=== PATIENT | female | born 1945 | race Caucasian/White ===

== ENCOUNTER 2023-12-27 07:20 | Emergency (ER) | payer MEDICARE, SELFPAY ==
[2023-12-27] VITALS (16 sets, daily range): BP systolic 95–113; BP diastolic 56–70; PULSE 61–87; RESP 28; TEMP 36.6; O2SAT 94–98
--- NOTE | 2023-12-27 07:33 | CT_ITS ---
Patient: ENA KHALIL Facility:?[facility] Patient ID:?[id number] Site Patient ID:?[id number]. Site :?1945 Study:?CT-Chest/Abd/Pelvis W/O-12/27/2023 8:36:32 AM Ordering Physician:WALT Final Report: Indication: Lung cancer Technique: CT of the chest and pelvis without IV contrast. Multiplanar reformats are included. Please note that all CT scans at this facility use dose modulation, iterative reconstruction, and/or weight-based dosing when appropriate to reduce radiation dose to as low as reasonably achievable. Comparison: CT chest 04/26/2022 Findings: Postradiation change in the left upper lobe and in the medial basal left lower lobe including significant volume retraction and atelectasis with cylindrical and varicoid bronchiectasis. No residual tumor or masslike nodular consolidation is seen. Few scattered areas of ground-glass opacification and reticulation in the right lung. Appears improved compared to the previous exam. There is some focal bronchiectasis in the proximal right middle lobe bronchi that is new. No bronchial impaction or distal obstruction of the right middle lobe. Bronchial debris in the right lower lobe. Small subsolid opacity in the left lower lobe on series 4, image 71 measures 5 millimeters. No pleural effusion. No pericardial effusion. No adenopathy seen in the chest. Mediastinal and hilar adenopathy can be difficult to evaluate without IV contrast but none is suspected based on the noncontrast appearance. The liver gallbladder and bile ducts appear normal. The pancreas appears normal. The spleen is normal. The adrenal glands are not discretely seen but there is no mass or mass effect. No urinary tract dilatation. Heavy atherosclerotic vascular calcifications. No dilated or inflamed bowel. Moderate stool burden. The appendix is not discretely seen. No adenopathy or ascites. Lower lumbar laminectomy with anterior and posterior spinal fusion. The right L3 pedicle screw is at the disc space. No obvious hardware failure. Significant streak artifact. No focal bone lesions. Old right 4th and 5th rib fractures. No acute fracture seen. Impression: 1. Presumed treatment effect in the left lung with significant volume loss and bronchiectasis. 2. Nonspecific ground-glass, reticular, and subsolid opacities bilaterally. Recommend short-term interval follow-up. 3. Significant streak artifact from lumbar spinal hardware. No findings of metastatic disease or acute findings seen in the abdomen or pelvis Please note that all CT scans at this facility use dose modulation, iterative reconstruction, and/or weight-based dosing when appropriate to reduce radiation dose to as low as reasonably achievable. Dictated by Mary Jauregui MD @ 12/27/2023 8:49:40 AM Signed by:?Mary Jauregui MD @12/27/2023 8:49:40 AM (Electronic Signature)
--- NOTE | 2023-12-27 07:34 | CT_ITS ---
Patient: ENA KHALIL Facility:?[facility] Patient ID:?[id number] Site Patient ID:?[id number]. Site :?1945 Study:?CT-Head W/O-12/27/2023 8:34:42 AM Ordering Physician:WALT Final Report: Indication: History of lung cancer. Technique: Noncontrast CT of the head with multiplanar reconstruction in bone and soft tissue algorithms. Comparison: CT head dated 06/12/2019. Findings: No acute intracranial hemorrhage. The mott-white matter interface is preserved. Subject to the limited sensitivity of noncontrast CT in detecting intracranial lesions, no intracranial mass or mass effect. Mild diffuse parenchymal volume loss. No ventricular obstruction. No suspicious calvarial lesion. Unremarkable orbits. The imaged paranasal sinuses and mastoid air cells are clear. Impression: 1. No acute intracranial abnormality. 2. Subject to the limitations of noncontrast CT in detecting intracranial lesions, no mass or mass effect. 3. Similar mild diffuse parenchymal volume loss. Please note that all CT scans at this facility use dose modulation, iterative reconstruction, and/or weight-based dosing when appropriate to reduce radiation dose to as low as reasonably achievable. Dictated by Sy Ma MD @ 12/27/2023 8:45:31 AM Signed by:?Sy Ma MD @12/27/2023 8:45:31 AM (Electronic Signature)
--- NOTE | 2023-12-27 07:37 | ED.GENADULT ---
HPI - General Adult General Chief complaint: Anxiety Stated complaint: anxiety Time Seen by Provider: 12/27/23 07:29 History of Present Illness HPI narrative: Is a 70-year-old female who was apparently at [facility] yesterday, family was dissatisfied with a level of service they brought her to the [facility]. She has not been here before. There is very limited data available. No family members immediately available for her. She is brought in by EMS. Patient is yelling out in asking for water. There has been a history of anxiety history of lung cancer. Uncertain of her code status uncertain of her oncology condition and treatment protocol or expectation. Patient this time is able to the ask for water, she appears awake alert does not really respond to questions other than asking for water and crying out that she wants certain individual. She does shake her head no when asked if she has pain or fever or feels sick. Does not appear cyanotic, does not appear to have any air hunger respiratory issue. Addendum 7:56 a.m.: The patient's family arrived reported that she has awakened this morning feeling scared and not herself. She went to bed feeling well, typically she ambulates and talks and interacts normally. She has had by their report no focal neurologic weakness. She also has a history of back we contracts constructive surgery, degenerative disc disease, and she is on chronic oxycodone for the pain issue. She has not had any heart issues or stroke issues in the past. She is on multiple medications of which they did not know what type presently other than the OxyContin. Family reports she has no allergies to medication. They also report that her lung cancer was remote and she did chemotherapy and radiation and has not had recurrence. Related Data Home Medications Medication Instructions Recorded Confirmed apixaban 2.5 mg tablet (Eliquis) 2.5 mg PO BID 12/27/23 12/27/23 buprenorphine 20 mcg/hour weekly 1 patch topical 12/27/23 transdermal patch buspirone 30 mg tablet 30 mg PO BID 12/27/23 12/27/23 donepezil 10 mg tablet 10 mg PO DAILY 12/27/23 12/27/23 guaifenesin 600 mg tablet, mg PO BID 12/27/23 extended release 12 hr hydroxyzine HCl 10 mg tablet 10 mg PO 3XD 12/27/23 12/27/23 oxycodone 5 mg tablet 5 mg PO 3XD PRN chronic pain 12/27/23 12/27/23 oxycodone myristate 9 mg capsule 9 mg PO BID chronic pain 12/27/23 12/27/23 sprinkle extended release 12 hr(DON'T CRUSH) (Xtampza ER) oxycodone-acetaminophen 5 mg-325 1 tab PO 3XD PRN pain 12/27/23 12/27/23 mg tablet pregabalin 100 mg capsule 100 mg PO 3XD 12/27/23 12/27/23 trazodone 150 mg tablet 150 mg PO QPM 12/27/23 12/27/23 venlafaxine 150 mg 150 mg PO DAILY 12/27/23 12/27/23 capsule,extended release 24 hr Previous Rx's Medication Instructions Recorded nitrofurantoin 100 mg PO Q12H 5 days #10 caps 12/27/23 monohydrate/macrocrystals 100 mg capsule (Macrobid) Allergies Allergy/AdvReac Type Severity Reaction Status Date / Time No Known Drug Allergies Allergy Verified 12/27/23 08:48 Review of Systems Status of ROS: Reports: unobtainable due to medical condition Exam Narrative: Exam Narrative: Objective patient is afebrile her vital signs look unremarkable O2 sat is 95% on room air She is awake alert she is talking in normal words in sentences but does appear anxious scared, almost a paranoid type behavior. She is noncyanotic No accessory muscles respiration use HEENT shows no facial asymmetry extraocular wounds appear intact when she moves her eyes about neck is supple not chest is clear Chest heart is regular regular heart murmur Abdomen benign soft Extremities are no edema Neurologic she has normal strength sensation upper lower extremities., she is moving her extremities well Const: Vital Signs, click to edit/add: Vital Signs - 24 hr 12/27/23 08:35 12/27/23 08:38 12/27/23 09:00 Pulse Rate 63 Blood Pressure Pulse Oximetry 98 96 95 12/27/23 09:02 12/27/23 09:30 12/27/23 09:31 Pulse Rate 63 66 62 Blood Pressure 105/56 L 113/61 Pulse Oximetry 95 97 96 12/27/23 10:00 12/27/23 10:02 12/27/23 10:03 Pulse Rate 62 63 64 Blood Pressure 103/57 L Pulse Oximetry 96 96 96 12/27/23 10:30 12/27/23 10:31 12/27/23 11:00 Pulse Rate 65 65 61 Blood Pressure 105/60 Pulse Oximetry 96 96 95 12/27/23 11:02 Pulse Rate 87 Blood Pressure 95/56 L Pulse Oximetry 94 Course Vital Signs Vital signs: Initial Vital Signs Temperature 97.9 F 12/27/23 07:30 Temperature Source Temporal Artery Scan 12/27/23 07:30 Pulse Rate 85 12/27/23 07:30 Respiratory Rate 28 H 12/27/23 07:30 Blood Pressure 105/70 12/27/23 07:30 Blood Pressure Mean 81 12/27/23 07:30 Blood Pressure Position Sitting 12/27/23 07:30 Pulse Oximetry 95 12/27/23 07:30 Oxygen Delivery Method Room Air 12/27/23 07:30 Vital Signs Temperature 97.9 F 12/27/23 07:30 Pulse Rate 85 12/27/23 07:30 Respiratory Rate 28 H 12/27/23 07:30 Blood Pressure 105/70 12/27/23 07:30 Pulse Oximetry 95 12/27/23 07:30 Oxygen Delivery Method Room Air 12/27/23 07:30 Temperature 97.9 F 12/27/23 07:30 Pulse Rate 87 12/27/23 11:02 Respiratory Rate 28 H 12/27/23 07:30 Blood Pressure 95/56 L 12/27/23 11:02 Pulse Oximetry 94 12/27/23 11:02 Oxygen Delivery Method Room Air 12/27/23 07:30 Medications Administered Medications: Discontinued Medications Generic Name Dose Route Start Last Admin Trade Name Freq PRN Reason Stop Dose Admin Sodium Chloride 500 mls @ 500 mls/hr 12/27/23 07:33 12/27/23 09:49 0.9 % Sodium Chloride 500 Ml IV 12/27/23 08:32 Infused .Q1H ONE Infusion Ceftriaxone Sodium 500 mg/ 100 mls @ 200 mls/hr 12/27/23 10:33 12/27/23 11:14 Sodium Chloride IVPB 12/27/23 10:34 Infused ONCE ONE Infusion Olanzapine 5 mg 12/27/23 07:33 12/27/23 07:45 Olanzapine 5 Mg/Ml Inj IM 12/27/23 07:34 5 mg ONCE ONE Administration Medical Decision Making MDM Narrative Medical decision making narrative: 78-year-old female with history of report from EMS about lung cancer. With increased anxiety, confusion. Rule out MUD TEMPERER [place] rule out infection. Patient will get electrolytes, labs, blood culture, CT scan of the head chest pelvis and abdomen. Will check electrolytes and laboratories as mention. IV fluid. We will use some IM Zyprexa as she appears quite agitated. Will try and get the information from family when they arrive. Addendum 10:47 a.m. patient feels markedly better she is ambulatory talking able to drink water. She has gone to the bathroom. She does have a few white cells and leukocyte esterase positive in her urine and should be treated for this. Will give her Rocephin IV and then Macrobid for 5 days. She has a CT scan of her head that shows volume loss and chronic changes, CT scan of her abdomen pelvis shows some nonspecific ground-glass changes bilaterally and by report post radiation changes and area in the right lung that appears improved compared to the previous exam. Would recommend discussing this with her regular doctor. And follow-up as recommended. At this time will dispense Macrobid as mention, light activity, recommend follow-up with primary care the next few days. Certainly anxiety agitation can come from cognitive changes 2 and this should be discussed with her primary doctor. Certainly these things could be exacerbated over by a mild UTI. Return to the ED as needed. Lab Data Labs: Lab Results 12/27/23 12/27/23 12/27/23 Range/Units 07:40 08:17 09:45 WBC 4.90 (4.50-11.00) K/uL RBC 4.01 (4.00-5.20) m/uL Hgb 12.1 (12.0-16.0) gm/dL Hct 37.5 (33.0-51.0) % MCV 94 (80-100) fL MCH 30 (26-34) pg MCHC 32 (32-36) gm/dL RDW Coeff of Heydi 14.5 (11.5-15.5) % Plt Count 276 (140-440) K/uL Neut % (Auto) 68.2 (42.0-72.0) % Lymph % (Auto) 15.3 L (20-44) % [place] % (Auto) 16.1 H (0.0-11.0) % Eos % (Auto) 0.0 (0.0-7.0) % Baso % (Auto) 0.2 (0.0-3.0) % Neut # (Auto) 3.34 (1.7-7.0) K/uL Lymph # (Auto) 0.70 L (0.90-2.90) K/uL [place] # (Auto) 0.80 (0.00-0.90) K/UL Eos # (Auto) 0.00 (0.00-0.50) K/uL Baso # (Auto) 0.01 (0.00-0.30) K/uL Abs Immat Gran (auto) 0.01 (0.00-0.30) K/uL Imm/Tot Granulo (auto) 0.2 % Sodium 135 (135-149) mmol/L Potassium 3.7 (3.6-5.1) mmol/L Chloride 104 (96-114) mmol/L Carbon Dioxide 21 (20-32) mmol/L Anion Gap 10 (7-15) mEq/L BUN 19 (7-30) mg/dL Creatinine 0.7 (0.5-1.5) mg/dL Estimated GFR 88 ml/min Glucose 94 (60-115) mg/dL Lactate 2.2 H (0.5-1.9) mmol/L Calcium 9.1 (8.4-10.6) mg/dL Total Bilirubin 0.6 (0.1-1.5) mg/dL Direct Bilirubin 0.2 (0.0-0.5) mg/dL AST 26 (12-35) U/L ALT 13 (4-35) U/L Alkaline Phosphatase 72 (40-150) U/L Troponin I 0.01 (0.01-0.04) ng/mL C-Reactive Protein < 0.5 L (0.5-1.0) mg/dL NT-Pro-B Natriuret Pep 1030 pg/mL Total Protein 6.5 (6.0-8.3) g/dL Albumin 3.7 (3.3-5.0) g/dL Amylase 58 (18-89) U/L Urine Color Yellow (Yellow) Urine Appearance Cloudy A (Clear) Urine pH 7.0 (5.0-8.5) Ur Specific [place] 1.015 (1.000-1.030) Urine Protein Negative (Negative) Urine Glucose (UA) Negative (Negative) Urine Ketones Trace A (Negative) Urine Blood Negative (Negative) Urine Nitrite Negative (Negative) Urine Bilirubin Negative (Negative) Urine Urobilinogen 0.2 (0.2-1.0) Ur Leukocyte Esterase 1+ A (Negative) Urine RBC 0-2 (0-2) Urine WBC 2-5 (0-5) Ur Squamous Epith Cells Few (None-Few) Amorphous Sediment Moderate A (None) Urine Bacteria Few A (None) Ethyl Alcohol < 0.01 L (0.01-0.03) % SARS-CoV-2 (PCR) Negative SARS-CoV-2 (Negative) Influenza Type A (PCR) Negative PCR FLU A (Negative) Influenza Type B (PCR) Negative PCR FLU B (Negative) RSV (PCR) Negative PCR RSV (Negative) Discharge Plan Discharge Clinical Impression: History of lung cancer, Agitation, Urinary tract infection Patient Disposition: Home w/ Parent or Adult Condition: Improved Additional Instructions: Antibiotic for home, light activity, recheck with regular doctor in the next 3-4 days. Return to ED sooner problems or concerns. Discussed her CT scan findings with her regular doctor, and recommend follow-up CT scanning to follow-up your lung cancer as per the radiologist. Activity Level: Light activity Discharge Diet: Regular Prescriptions: New nitrofurantoin monohyd/m-cryst [Macrobid] 100 mg capsule 100 mg PO Q12H 5 Days Qty: 10 0RF Rx Instructions: must administer with a meal/food No Action donepezil 10 mg tablet 10 mg PO DAILY venlafaxine 150 mg capsule,extended release 24hr 150 mg PO DAILY oxycodone-acetaminophen 5-325 mg tablet 1 tab PO 3XD PRN (Reason: pain) trazodone 150 mg tablet 150 mg PO QPM buspirone 30 mg tablet 30 mg PO BID hydroxyzine HCl 10 mg tablet 10 mg PO 3XD oxycodone 5 mg tablet 5 mg PO 3XD PRN (Reason: chronic pain) pregabalin 100 mg capsule 100 mg PO 3XD buprenorphine 20 mcg/hour patch weekly 1 patch topical Eliquis 2.5 mg tablet 2.5 mg PO BID guaifenesin 600 mg tablet extended release 12hr PO BID Xtampza ER 9 mg cap,sprinkl,ER12hr(DONT CRUSH) 9 mg PO BID Stand Alone Forms: Given [employer] Info Instructions
[2023-12-27] MEDS: OLANZapine 5 MG/ML inj IM (07:45)
[2023-12-27 08:24] LABS: Lactate* 2.2 mmol/L (0.5-1.9)
[2023-12-27 08:29] LABS: Basophils Absolute Auto 0.01 K/uL (0.00-0.30); Basophils Percent Auto 0.2 % (0.0-3.0); Hematocrit 37.5 % (33.0-51.0); Hemoglobin* 12.1 gm/dL (12.0-16.0); Immature Granulocytes Abs Auto 0.01 K/uL (0.00-0.30); Immature Granulocytes Pct Auto 0.2 %; Lymphocytes Percent Auto 15.3 % (20-44); Mean Corpuscular HGB Conc 32 gm/dL (32-36); Mean Corpuscular Hemoglobin 30 pg (26-34); Mean Corpuscular Volume 94 fL (80-100); Monocytes Percent Auto 16.1 % (0.0-11.0); Neutrophils Absolute Auto 3.34 K/uL (1.7-7.0); Neutrophils Percent Auto 68.2 % (42.0-72.0); Platelet Count* 276 K/uL (140-440); RDW Coefficient of Variation % 14.5 % (11.5-15.5); Red Blood Count 4.01 m/uL (4.00-5.20)
[2023-12-27 08:38] LABS: Slide Review Reflex No
[2023-12-27 08:40] LABS: Albumin* 3.7 g/dL (3.3-5.0); Chloride* 104 mmol/L (96-114)
[2023-12-27 08:41] LABS: Potassium* 3.7 mmol/L (3.6-5.1); Sodium* 135 mmol/L (135-149)
[2023-12-27 08:43] LABS: Amylase* 58 U/L (18-89); Anion Gap 10 mEq/L (7-15); Bilirubin Direct* 0.2 mg/dL (0.0-0.5); Bilirubin Total* 0.6 mg/dL (0.1-1.5); Carbon Dioxide* 21 mmol/L (20-32); Creatinine* 0.7 mg/dL (0.5-1.5); Estimated Glomerular Filt Rate 88 ml/min; Total Protein* 6.5 g/dL (6.0-8.3)
[2023-12-27 08:44] LABS: Alanine Aminotransferase* 13 U/L (4-35); Alkaline Phosphatase* 72 U/L (40-150); Aspartate Amino Transferase* 26 U/L (12-35); Blood Urea Nitrogen* 19 mg/dL (7-30); Calcium* 9.1 mg/dL (8.4-10.6); Glucose* 94 mg/dL (60-115)
[2023-12-27] MEDS: 0.9 % SODIUM CHLORIDE 500 ML 500 ML IV (08:47)
[2023-12-27 08:54] LABS: C Reactive Protein* < 0.5 mg/dL (0.5-1.0); Ethanol* < 0.01 % (0.01-0.03); NT Pro B Type NatriureticPept* 1030 pg/mL; Troponin I* 0.01 ng/mL (0.01-0.04)
[2023-12-27 08:56] LABS: PCR FLU A Negative PCR FLU A (Negative); PCR FLU B Negative PCR FLU B (Negative); PCR RSV Negative PCR RSV (Negative); SARS PCR* Negative SARS-CoV-2 (Negative)
[2023-12-27 10:19] LABS: Appearance Urine Cloudy (Clear); Bilirubin Urine Negative (Negative); Blood Urine Negative (Negative); Color Urine Yellow (Yellow); Glucose Urine Negative (Negative); Ketones Urine Trace (Negative); Leukocyte Esterase Urine 1+ (Negative); Nitrite Urine Negative (Negative); Protein Urine Negative (Negative); Specific Gravity Urine 1.015 (1.000-1.030); Urobilinogen Urine 0.2 (0.2-1.0)
[2023-12-27 10:24] LABS: Amorphous Sediment Urine Moderate; Bacteria Urine Few; RBC Urine 0-2 (0-2); Squamous Epithelial Cell Urine Few (None-Few)
[2023-12-27] MEDS: cefTRIAXone 500 MG in 0.9 % SODIUM CHLORIDE Mini-bag 100 ML 200 MG IVPB (10:43)
[2023-12-28 13:32] LABS: Amphetamine Screen Urine Negative (Negative); Barbiturate Screen Urine Negative (Negative); Benzodiazepines Screen Urine Negative (Negative); Cannabinoid Screen Urine Negative (Negative); Cocaine Screen Urine Negative (Negative); Methadone Screen Urine Negative (Negative); Methamphetamines Screen Urine Negative (Negative); Opiate Screen Urine Negative (Negative); Oxycodone Screen Urine POSITIVE (Negative); Phencyclidine Screen Urine Negative (Negative); Tricyclic Antidepressant Urine Negative (Negative)
== END 2023-12-27 11:19 | disposition home or self-care (01) ==
PROVIDERS: Emergency Provider Family Medicine
DX: R45.1 Restlessness and agitation (principal); N39.0 Urinary tract infection, site not specified; C34.91 Malignant neoplasm of unspecified part of right bronchus or lung
CPT/HCPCS: 36415; 70450; 71250; 74176; 80048; 80076; 80306; 81001; 82077; 82150; 83605; 83880; 84484; 85025; 86140; 87040; 87086; 87631; 93005; 94761; 96365; 96372; 99284; 99285; J0696; J7030

== ENCOUNTER 2023-12-28 09:53 | Observation (INO) | payer MEDICARE, SELFPAY ==
[2023-12-28] VITALS (7 sets, daily range): BP systolic 100–119; BP diastolic 57–74; PULSE 62–69; RESP 16–24; TEMP 36.6–37; O2SAT 93–100; BMI 16.4; BMI 15.3
--- NOTE | 2023-12-28 10:14 | ED.AMS ---
HPI - Altered Mental Status General Time Seen by Provider: 10:14 Date Seen: 12/28/23 Chief Complaint: Altered Mental Status Stated Complaint: AMS Time Seen by Provider: 12/28/23 10:07 Source: patient, family, EMS, RN notes reviewed and old records reviewed Mode of arrival: EMS Limitations: altered mental status History of Present Illness HPI narrative: This 78-year-old female is brought in by EMS from [place] where she resides independently with her son Isael and has been [place]. She did sleep last night, woke up agitated again this morning. Is calling out help me. She continues to call out help me and family is unclear why. This is her 3rd ambulance visit to medical facility in the last 3 days. The 1st time she went to [facility], came here yesterda y. Have reviewed Dr. Calvert's thorough workup from yesterday, had chest abdomen pelvis CT, head CT, full complement of labs. She reportedly had been diagnosed with the UTI at [facility], on antibiotics per report, do not know what she is on. and son report that they can not care for her at home anymore. Did question if they have noticed increased problems with memory or behavior changes, feels maybe things have started to change in the last 3 weeks. I did not get definite answers as to whether not there has been concern for memory issues. They state that she has had no trauma, she absolutely has had no falls or trauma in the last 24 hours since she had her head CT. She does have a history of lung cancer, has a history of near full spinal fusion per her son due to degenerative disc disease and notes that some of the hardware may be malfunctioning or coming loose at some level. She does tell me she has back pain but cannot specify a certain level. The last time she took pain medication was last night. She reportedly had chemotherapy and radiation with her lung cancer. Her home medications also list Eliquis, unclear why she is on this at this time. They note no fevers at home. Her appetite and oral intake has been poor. She is also calling out requesting water frequently on arrival. MD complaint: altered mental status and confusion Related Data Home Medications Medication Instructions Recorded Confirmed apixaban 2.5 mg tablet (Eliquis) 2.5 mg PO BID 12/27/23 12/28/23 buprenorphine 20 mcg/hour weekly 1 patch topical Q7D 12/27/23 12/28/23 transdermal patch buspirone 30 mg tablet 30 mg PO BID 12/27/23 12/28/23 donepezil 10 mg tablet 10 mg PO DAILY 12/27/23 12/28/23 guaifenesin 600 mg tablet, 600 mg PO BID 12/27/23 12/28/23 extended release 12 hr hydroxyzine HCl 10 mg tablet 10 mg PO TID 12/27/23 12/28/23 oxycodone-acetaminophen 5 mg-325 1 tab PO TID PRN pain 12/27/23 12/28/23 mg tablet pregabalin 100 mg capsule 100 mg PO TID 12/27/23 12/28/23 trazodone 150 mg tablet 150 mg PO QPM 12/27/23 12/28/23 venlafaxine 150 mg 150 mg PO DAILY 12/27/23 12/28/23 capsule,extended release 24 hr methocarbamol 500 mg tablet 500 mg PO TID 12/28/23 12/28/23 Allergies Allergy/AdvReac Type Severity Reaction Status Date / Time capsaicin Allergy Intermediate Hives Verified 12/28/23 14:04 amoxicillin Allergy Mild Rash Verified 12/28/23 14:04 buprenorphine Allergy Unknown Verified 12/28/23 14:04 gabapentin AdvReac Abdominal Verified 12/28/23 14:04 Pain sertraline AdvReac Verified 12/28/23 14:04 diclofenac sodium Allergy Severe Anaphylaxis Uncoded 12/28/23 14:04 Review of Systems Status of ROS: Reports: unobtainable due to mental status [facility] Medical History (Updated 12/29/23 @ 17:13 by Joy Calderon MD) Cataract ?H26.9 - Unspecified cataract (ICD-10) Chronic, continuous use of opioids ?F11.90 - Opioid use, unspecified, uncomplicated (ICD-10) History of atrial fibrillation ?Z86.79 - Personal history of other diseases of the circulatory system (ICD-10) Chronic anticoagulation ?Z79.01 - senior living (current) use of anticoagulants (ICD-10) History of pulmonary embolism ?Z86.711 - Personal history of pulmonary embolism (ICD-10) Chronic pain syndrome ?G89.4 - Chronic pain syndrome (ICD-10) COPD (chronic obstructive pulmonary disease) ?J44.9 - Chronic obstructive pulmonary disease, unspecified (ICD-10) Surgical History History of bronchoscopy ?Z98.890 - Other specified postprocedural states (ICD-10) S/P ORIF (open reduction internal fixation) fracture ?Z98.890 - Other specified postprocedural states (ICD-10) ?Z87.81 - Personal history of (healed) traumatic fracture (ICD-10) History of lumbar fusion ?Z98.1 - Arthrodesis status (ICD-10) History of total right knee replacement ?Z96.651 - Presence of right artificial knee joint (ICD-10) Hx of decompressive lumbar laminectomy ?Z98.890 - Other specified postprocedural states (ICD-10) S/P epidural steroid injection ?Z92.241 - Personal history of systemic steroid therapy (ICD-10) H/O arthroscopy of right knee ?Z98.890 - Other specified postprocedural states (ICD-10) S/P total abdominal hysterectomy and bilateral salpingo-oophorectomy ?Z90.710 - Acquired absence of both cervix and uterus (ICD-10) ?Z90.722 - Acquired absence of ovaries, bilateral (ICD-10) ?Z90.79 - Acquired absence of other genital organ(s) (ICD-10) Family History Father Heart disease Mother Heart disease Social History (Updated 12/28/23 @ 15:16 by Joy Calderon MD) Narrative: Lives in [place]. 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 Previous smoker. No alcohol. to [place]. Two adult sons. What is your current living situation?: I presently have a place to live Problems where you live: no known problems Problems where you live details: NA In the past 12 months, utilities in danger of being shut off: no In past 12 months, lack of transportation kept you from medical appts, meetings, work, or getting things needed for daily living: no In the past 12 mos, have been you worried that your food would run out before you had money to buy more?: never true In the past 12 mos, the food you bought just didn't last and you didn't have money to buy more?: never true Highest level of school completed/degree received: Associate degree: occupational, technical, vocational program Smoking Status: Current some day smoker What tobacco products do you use: cigarettes Smoking packs per day: 0.15 Smoking cigarettes per day: 3.0 Do you use any of these nicotine containing products: None Second hand tobacco smoke exposure: No How often do you have a drink containing alcohol: never How often do you have six or more drinks on one occasion: Never AUDIT-C Alcohol total score: 0 Non-prescribed substance use: denies use Caffeine: Yes (3) How often does anyone, including family, friends and others, physically hurt you: unable to answer How often does anyone, including family, friends and others, insult or talk down to you: unable to answer How often does anyone, including family, friends and others, threaten you with harm: unable to answer How often does anyone, including family, friends and others, scream or curse at you: unable to answer service: No Exam Const: Vital Signs, click to edit/add: Vital Signs - 24 hr 12/28/23 10:01 12/28/23 10:30 Temperature 98.1 F Pulse Rate [Pulse Oximeter] 69 Respiratory Rate 24 Blood Pressure [Ri ght Upper Arm] 111/74 Pulse Oximetry 94 94 Oxygen Delivery Me thod Room Air Patient is alert and interactive, calling out as noted above. Pupils are pinpoint and equal, conjugate, sclera clear. She tells me it is 12/26/1979, her son's birthday. She know she is at the hospital, is oriented to her son and . She looks anxious but is not tachypneic, speech is normal without hoarseness. Symmetrical facial function, oropharynx with dry mucosa but no lesions. Neck is supple, no masses. Diminished lung sounds, some upper airway transmission. CV regular, do not hear any murmur, normal S1-S2, no S3-S4. She is cachectic appearing, abdomen is soft, do not feel any masses, no distension. She does not complain of any tenderness when I palpate her abdomen. She is mildly kyphotic, if I try to palpate her back anywhere she cries out in pain from upper thoracic down to lumbar. Difficult to identify any isolate oval area of her back. She is holding her arms tight, hanging onto her son's hand but does move her upper extremities. She follows commands when ask her to wiggle her toes, states she can feel me touch her legs. She has no lower extremity edema noted. Documenting provider has reviewed patient's vital signs: yes Course Course ED Course: This patient has altered mental status, not oriented to time currently and has obvious anxiety/ agitation. Infectious etiology is less likely given the workup that is been done. I do wonder she starting to have side effects from her medications which could include the narcotics. The certainly can cause acute delirium/ confusion / agitation. It is possible that she could have unmasked dementia, possible structural abnormality of the brain. We certainly do need to consider an MRI but I do not think that she is capable of under taking this at this time. I will get a full complement of labs repeated here today. Will have our hospitalist review this case. Will consider treating her with his stabilizing medications like Seroquel or Zyprexa, will talk to our hospitalist as to her preference. Consultations Consultation #1: Did contact our hospitalist Dr. Calderon after meeting with the patient. We do not have labs back from today but highly suspicious that they will be stable. She agrees on acceptance of this patient. We will wait till some of the labs come back. We will give a dose of Zyprexa orally. It is likely that this patient will need MRI imaging of her brain but suspect she is not mentally stable to go through this at this time. Will see how she responds to the Zyprexa. Unclear if this is acute delirium verses unmasked dementia. As reviewed with Dr. Calderon, my differential is dementia, acute delirium, rule out small metastatic disease of brain (normal non-contrast head CT yesterday), possible toxic side effects of her medications causing confusion/ agitation / delirium. Time: 10:32 Consultation #2: Spoke with hospitalist, all labs are back and stable minus the TSH. MRI with and without contrast has been ordered after conferring with our radiologist. It will not be able to be done until later, thus, will have patient go to the floor. Time: 12:20 Vital Signs Vital signs: Initial Vital Signs Temperature 98.1 F 12/28/23 10:01 Temperature Source Temporal Artery Scan 12/28/23 10:01 Pulse Rate 69 12/28/23 10:01 Pulse Rhythm Regular 12/28/23 10:01 Pulse Strength 3+ Normal 12/28/23 10:01 Respiratory Rate 24 12/28/23 10:01 Blood Pressure 111/74 12/28/23 10:01 Blood Pressure Mean 86 12/28/23 10:01 Blood Pressure Position Supine 12/28/23 10:01 Pulse Oximetry 94 12/28/23 10:01 Oxygen Delivery Method Room Air 12/28/23 10:01 Vital Signs Temperature 98.1 F 12/28/23 10:01 Pulse Rate 69 12/28/23 10:01 Respiratory Rate 24 12/28/23 10:01 Blood Pressure 111/74 12/28/23 10:01 Pulse Oximetry 94 12/28/23 10:01 Oxygen Delivery Method Room Air 12/28/23 10:01 Temperature 97.8 F 12/29/23 16:05 Pulse Rate 90 12/29/23 16:05 Respiratory Rate 18 12/29/23 16:05 Blood Pressure 93/74 12/29/23 16:05 Pulse Oximetry 96 12/29/23 16:05 Oxygen Delivery Method Room Air 12/29/23 16:05 Medications Administered Medications: Generic Name Dose Route Start Last Admin Trade Name Freq PRN Reason Stop Dose Admin Apixaban 2.5 mg 12/28/23 21:00 12/29/23 09:21 Apixaban 5 Mg Tablet PO 2.5 mg BID PATRICK Administration Buspirone HCl 30 mg 12/28/23 21:00 12/29/23 09:22 Buspirone 10 Mg Tablet PO 30 mg BID PATRICK Administration Donepezil HCl 10 mg 12/29/23 09:00 12/29/23 09:23 Donepezil 10 Mg Tablet PO 10 mg DAILY PATRICK Administration Enoxaparin Sodium 30 mg 12/28/23 21:00 12/28/23 21:54 Enoxaparin 30 Mg/0.3ml Inj SUBCUT 30 mg Q24H PATRICK Administration Guaifenesin 600 mg 12/28/23 21:00 12/29/23 09:23 Guaifenesin 600 Mg Tab.Er.12h PO 600 mg BID PATRICK Administration Hydroxyzine Hcl 10 10 mg 12/28/23 21:00 12/29/23 14:11 Mg Tablet PO Not Given TID PATRICK Methocarbamol 500 Mg 500 mg 12/28/23 21:00 12/29/23 14:11 Tablet PO Not Given TID PATRICK Pregabalin 100 mg 12/28/23 21:00 12/29/23 14:46 Pregabalin 100 Mg Capsule PO Not Given TID PATRICK Sodium Chloride 5 ml 12/28/23 21:00 12/29/23 09:25 Sodium Chloride 0.9 % (Flush) 10 Ml Syringe IVF 5 ml BID PATRICK Administration Trazodone HCl 150 mg 12/28/23 21:00 12/28/23 21:55 Trazodone Hcl 50 Mg Tablet PO 150 mg HS PATRICK Administration Venlafaxine HCl 150 mg 12/29/23 09:00 12/29/23 09:21 Venlafaxine Er 75 Mg Capsule PO 150 mg DAILY PATRICK Administration Discontinued Medications Generic Name Dose Route Start Last Admin Trade Name Freq PRN Reason Stop Dose Admin Ketamine HCl 50 mg 12/29/23 11:00 12/29/23 11:22 Ketamine 50 Mg/0.5 Ml 100 Mg/Ml Ml IVP 12/29/23 11:01 50 mg ONCE ONE Administration Lorazepam 0.5 mg 12/28/23 15:03 12/28/23 15:52 Lorazepam 2 Mg/Ml Inj IVP 12/28/23 15:04 0.5 mg ONCE ONE Administration Lorazepam 1 mg 12/28/23 18:24 12/28/23 18:37 Lorazepam 1 Mg Tablet PO 12/28/23 18:25 1 mg ONCE ONE Administration Olanzapine 5 mg 12/28/23 10:35 12/28/23 11:00 Olanzapine 5 Mg Tab.Rapdis PO 12/28/23 10:36 5 mg ONCE ONE Administration MDM - Altered Mental Status Lab Data Attestation: I reviewed the patient's lab results. Labs: Lab Results 12/28/23 12/28/23 Range/Units 11:08 11:11 WBC 5.66 (4.50-11.00) K/uL RBC 4.05 (4.00-5.20) m/uL Hgb 12.3 (12.0-16.0) gm/dL Hct 38.0 (33.0-51.0) % MCV 94 (80-100) fL MCH 30 (26-34) pg MCHC 32 (32-36) gm/dL RDW Coeff of Heydi 14.7 (11.5-15.5) % Plt Count 335 (140-440) K/uL Neut % (Auto) 77.3 H (42.0-72.0) % Lymph % (Auto) 13.1 L (20-44) % [place]bon % (Auto) 8.5 (0.0-11.0) % Eos % (Auto) 0.4 (0.0-7.0) % Baso % (Auto) 0.5 (0.0-3.0) % Neut # (Auto) 4.40 (1.7-7.0) K/uL Lymph # (Auto) 0.70 L (0.90-2.90) K/uL [place] # (Auto) 0.50 (0.00-0.90) K/UL Eos # (Auto) 0.02 (0.00-0.50) K/uL Baso # (Auto) 0.03 (0.00-0.30) K/uL Abs Immat Gran (auto) 0.01 (0.00-0.30) K/uL Imm/Tot Granulo (auto) 0.2 % VBG pH 7.443 H (7.32-7.43) VBG pCO2 39 L (40-50) mmHG VBG pO2 < 30.1 (25-47) mmHG VBG HCO3 27 (21-28) mmol/L Sodium 138 (135-149) mmol/L Potassium 3.9 (3.6-5.1) mmol/L Chloride 106 (96-114) mmol/L Carbon Dioxide 25 (20-32) mmol/L Anion Gap 7 (7-15) mEq/L BUN 22 (7-30) mg/dL Creatinine 0.7 (0.5-1.5) mg/dL Estimated Creat Clear 28.88 Estimated GFR 88 ml/min Glucose 97 (60-115) mg/dL Lactate 1.5 (0.5-1.9) mmol/L Calcium 9.0 (8.4-10.6) mg/dL Magnesium 2.4 (1.5-2.6) mg/dL Total Bilirubin 0.5 (0.1-1.5) mg/dL AST 27 (12-35) U/L ALT 15 (4-35) U/L Alkaline Phosphatase 79 (40-150) U/L Troponin I < 0.01 L (0.01-0.04) ng/mL C-Reactive Protein < 0.5 L (0.5-1.0) mg/dL Total Protein 6.9 (6.0-8.3) g/dL Albumin 4.0 (3.3-5.0) g/dL Procalcitonin 0.05 (<0.50) ng/mL TSH 2.040 (0.270-4.200) uIU/mL SARS-CoV-2 (PCR) Negative SARS-CoV-2 (Negative) Influenza Type A (PCR) Negative PCR FLU A (Negative) Influenza Type B (PCR) Negative PCR FLU B (Negative) RSV (PCR) Negative PCR RSV (Negative) ECG Data Attestation: I personally reviewed and interpreted this ECG as follows: ( Normal sinus rhythm, 62 beats per minute. no definitive ischemia. QT corrected 444 milliseconds.) ECG interpretation date: 12/28/23 ECG interpretation time: 11:29 Prior ECG tracings: available for review ( No significant change from yesterday.) Discharge Plan Discharge Clinical Impression: Altered mental status Qualifiers: Altered mental status type: unspecified Qualified Code(s): R41.82 - Altered mental status, unspecified Patient Disposition: Admitted As Observation
[2023-12-28] MEDS: OLANZapine 5 MG TAB.RAPDIS PO (11:00)
[2023-12-28 11:18] LABS: HCO3 VBG 27 mmol/L (21-28); Lactate* 1.5 mmol/L (0.5-1.9); PCO2 VBG 39 mmHG (40-50); PO2 VBG < 30.1 mmHG (25-47); pH VBG 7.443 (7.32-7.43)
[2023-12-28 11:34] LABS: Basophils Absolute Auto 0.03 K/uL (0.00-0.30); Basophils Percent Auto 0.5 % (0.0-3.0); Eosinophils Absolute Auto 0.02 K/uL (0.00-0.50); Eosinophils Percent Auto 0.4 % (0.0-7.0); Hemoglobin* 12.3 gm/dL (12.0-16.0); Immature Granulocytes Abs Auto 0.01 K/uL (0.00-0.30); Immature Granulocytes Pct Auto 0.2 %; Lymphocytes Percent Auto 13.1 % (20-44); Mean Corpuscular HGB Conc 32 gm/dL (32-36); Mean Corpuscular Hemoglobin 30 pg (26-34); Mean Corpuscular Volume 94 fL (80-100); Monocytes Percent Auto 8.5 % (0.0-11.0); Neutrophils Percent Auto 77.3 % (42.0-72.0); Platelet Count* 335 K/uL (140-440); RDW Coefficient of Variation % 14.7 % (11.5-15.5); Red Blood Count 4.05 m/uL (4.00-5.20); White Blood Count* 5.66 K/uL (4.50-11.00)
[2023-12-28 11:44] LABS: Slide Review Reflex No
[2023-12-28 11:52] LABS: Chloride* 106 mmol/L (96-114)
[2023-12-28 11:53] LABS: Potassium* 3.9 mmol/L (3.6-5.1); Sodium* 138 mmol/L (135-149)
[2023-12-28 11:54] LABS: Creatinine* 0.7 mg/dL (0.5-1.5); Est. Creatinine Clearance* 28.88
[2023-12-28 11:55] LABS: Alanine Aminotransferase* 15 U/L (4-35); Alkaline Phosphatase* 79 U/L (40-150); Anion Gap 7 mEq/L (7-15); Aspartate Amino Transferase* 27 U/L (12-35); Bilirubin Total* 0.5 mg/dL (0.1-1.5); Carbon Dioxide* 25 mmol/L (20-32); Estimated Glomerular Filt Rate 88 ml/min; Total Protein* 6.9 g/dL (6.0-8.3)
[2023-12-28 11:56] LABS: Blood Urea Nitrogen* 22 mg/dL (7-30); Glucose* 97 mg/dL (60-115); Magnesium* 2.4 mg/dL (1.5-2.6)
[2023-12-28 12:06] LABS: PCR FLU A Negative PCR FLU A (Negative); PCR FLU B Negative PCR FLU B (Negative); PCR RSV Negative PCR RSV (Negative); SARS PCR* Negative SARS-CoV-2 (Negative)
[2023-12-28 12:12] LABS: Procalcitonin* 0.05 ng/mL (<0.50)
[2023-12-28 12:15] LABS: C Reactive Protein* < 0.5 mg/dL (0.5-1.0); Troponin I* < 0.01 ng/mL (0.01-0.04)
--- NOTE | 2023-12-28 13:00 | P.IMHP_ITS ---
Hospitalist- H&P: HPI History of Present Illness Date Seen: 12/28/23 Chief complaint: AMS Narrative: ADMISSION HISTORY AND PHYSICAL - HOSPITALIST Chief Complaint: Panic, altered mental status HPI: 78-year-old with longstanding chronic opioid use secondary to degenerative disc disease of her back, COPD, lung cancer presents for the 3rd time in the last 3 days. She has had ER evaluations on the , and today the . The 1st of which was at [facility] for shortness of breath and she was sent home. Yesterday her presentation was more based on agitation, confusion, panic. Her workup included CT chest abdomen pelvis, head CT and labs. She is found to have a mild UTI and the culture is still pending but was given Rocephin and oral Macrobid. She seemed about her baseline last night after returning from the ED, but woke up this morning again in a panic repeating ?help me?, ?help me? over and over without communicating her needs. Her son described as a panic attack. She seemed to get worse with a nebulized treatment. They called EMS for her. She was given Zyprexa in the ED this morning. Again her vital signs and labs are all reassuring. Her urine culture from yesterday is still negative. ER COURSE: Repeated labs, Zyprexa. Hospital medicine asked to admit secondary to repeated ER visits and need for further evaluation. CODE STATUS: FULL CODE EMERGENCY CONTACT PLAN: Isael Story? Son?Rel to [facility]? [phone]?Cell Phone? Juan Francisco Story? ?Rel to [facility]? [phone]?Cell Phone? I've updated the PFSH, medications and allergies in the Expanse tabs. INVESTIGATIONS: LABS/MICRO/ECG/IMAGING CBC is reassuring. There is no elevation in her white blood cell count yesterday or today. Her hemoglobin is stable. And her platelets are normal. Blood gas this morning shows a pH of 7.44. Electrolytes are all normal. Renal function is normal. Yesterday her lactate was mildly elevated at 2.2, lactate is now 1.5 Troponin is reassuring and negative. As is her CRP. BNP 1030 TSH procalcitonin, amylase are all negative. Urine is showing 1+ leukocyte esterase Urine culture from yesterday is still negative to date. As are the blood cultures from 12/27. Negative to date. EKG shows normal sinus rhythm. ER visit 12/27 CT CAP 1. Presumed treatment effect in the left lung with significant volume loss and bronchiectasis. 2. Nonspecific ground-glass, reticular, and subsolid opacities bilaterally. Recommend short-term interval follow-up. 3. Significant streak artifact from lumbar spinal hardware. No findings of metastatic disease or acute findings seen in the abdomen or pelvis CT Head Impression: 1. No acute intracranial abnormality. 2. Subject to the limitations of noncontrast CT in detecting intracranial lesions, no mass or mass effect. 3. Similar mild diffuse parenchymal volume loss. REVIEW OF SYSTEMS: 12-point ROS completed with patient and negative unless otherwise stated in HPI or below. PHYSICAL EXAM: CONSTITUTIONAL: FRAIL. CACHECTIC. But calm and in no respiratory distress. VITAL SIGNS: see record. HEENT: Normocephalic, atraumatic. PERRL, EOMI, conjunctivae pink, no scleral icterus. Ears and nose externally normal. Pharynx normal. NECK: No JVD. No carotid bruit, no thyromegaly, no adenopathy. CHEST: Clear to auscultation bilaterally HEART: S1 and S2 normal. No harsh murmurs. Edema minimal. MUSCULOSKELETAL: No gross joint deformity or swelling. NEURO: Cranial nerves intact. Grossly intact. No asymmetric findings. SKIN: No rashes, petechiae, concerning changes PSYCHIATRIC: Euthymic. ADMIT TO MEDSURG: FLOOR CARE DVT: Lovenox GI: PO intake Time spent: Today I spent 75 minutes seeing the patient, discussing the patient with ER staff, reviewing Expanse and EPIC notes/diagnostics, discussing the care plan with our care time that includes social work, PT/OT, pharmacy, RT, nursing home and documenting my impressions and plan in the medical record. [facility] Medical History (Updated 12/28/23 @ 15:13 by Joy Calderon MD) Cataract ?H26.9 - Unspecified cataract (ICD-10) Chronic, continuous use of opioids ?F11.90 - Opioid use, unspecified, uncomplicated (ICD-10) History of atrial fibrillation ?Z86.79 - Personal history of other diseases of the circulatory system (ICD- 10) Chronic anticoagulation ?Z79.01 - MCFP (current) use of anticoagulants (ICD-10) History of pulmonary embolism ?Z86.711 - Personal history of pulmonary embolism (ICD-10) Chronic pain syndrome ?G89.4 - Chronic pain syndrome (ICD-10) COPD (chronic obstructive pulmonary disease) ?J44.9 - Chronic obstructive pulmonary disease, unspecified (ICD-10) Surgical History History of bronchoscopy ?Z98.890 - Other specified postprocedural states (ICD-10) S/P ORIF (open reduction internal fixation) fracture ?Z98.890 - Other specified postprocedural states (ICD-10) ?Z87.81 - Personal history of (healed) traumatic fracture (ICD-10) History of lumbar fusion ?Z98.1 - Arthrodesis status (ICD-10) History of total right knee replacement ?Z96.651 - Presence of right artificial knee joint (ICD-10) Hx of decompressive lumbar laminectomy ?Z98.890 - Other specified postprocedural states (ICD-10) S/P epidural steroid injection ?Z92.241 - Personal history of systemic steroid therapy (ICD-10) H/O arthroscopy of right knee ?Z98.890 - Other specified postprocedural states (ICD-10) S/P total abdominal hysterectomy and bilateral salpingo-oophorectomy ?Z90.710 - Acquired absence of both cervix and uterus (ICD-10) ?Z90.722 - Acquired absence of ovaries, bilateral (ICD-10) ?Z90.79 - Acquired absence of other genital organ(s) (ICD-10) Family History Father Heart disease Mother Heart disease Social History (Updated 12/28/23 @ 15:16 by Joy Calderon MD) Narrative: Lives in [place]. 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 Previous smoker. No alcohol. to Juan Francisco. Two adult sons. What is your current living situation?: I presently have a place to live Problems where you live: no known problems Problems where you live details: NA In the past 12 months, utilities in danger of being shut off: no In past 12 months, lack of transportation kept you from medical appts, meetings, work, or getting things needed for daily living: no In the past 12 mos, have been you worried that your food would run out before you had money to buy more?: never true In the past 12 mos, the food you bought just didn't last and you didn't have mon ey to buy more?: never true Highest level of school completed/degree received: Associate degree: occupational, technical, vocational program Smoking Status: Current some day smoker What tobacco products do you use: cigarettes Smoking packs per day: 0.15 Smoking cigarettes per day: 3.0 Do you use any of these nicotine containing products: None Second hand tobacco smoke exposure: No How often do you have a drink containing alcohol: never How often do you have six or more drinks on one occasion: Never AUDIT-C Alcohol total score: 0 Non-prescribed substance use: denies use Caffeine: Yes (3) How often does anyone, including family, friends and others, physically hurt you : unable to answer How often does anyone, including family, friends and others, insult or talk down to you: unable to answer How often does anyone, including family, friends and others, threaten you with harm: unable to answer How often does anyone, including family, friends and others, scream or curse at you: unable to answer service: No Meds Home Medications and Allergies Home Medications Medication Instructions Recorded Confirmed Type apixaban 2.5 mg tablet (Eliquis) 2.5 mg PO BID 12/27/23 12/28/23 History buprenorphine 20 mcg/hour weekly 1 patch topical Q7D 12/27/23 12/28/23 History transdermal patch buspirone 30 mg tablet 30 mg PO BID 12/27/23 12/28/23 History donepezil 10 mg tablet 10 mg PO DAILY 12/27/23 12/28/23 History guaifenesin 600 mg tablet, 600 mg PO BID 12/27/23 12/28/23 History extended release 12 hr hydroxyzine HCl 10 mg tablet 10 mg PO TID 12/27/23 12/28/23 History oxycodone-acetaminophen 5 mg-325 1 tab PO TID PRN pain 12/27/23 12/28/23 History mg tablet pregabalin 100 mg capsule 100 mg PO TID 12/27/23 12/28/23 History trazodone 150 mg tablet 150 mg PO QPM 12/27/23 12/28/23 History venlafaxine 150 mg 150 mg PO DAILY 12/27/23 12/28/23 History capsule,extended release 24 hr methocarbamol 500 mg tablet 500 mg PO TID 12/28/23 12/28/23 History Allergies Allergy/AdvReac Type Severity Reaction Status Date / Time capsaicin Allergy Intermediate Hives Verified 12/28/23 14:04 amoxicillin Allergy Mild Rash Verified 12/28/23 14:04 buprenorphine Allergy Unknown Verified 12/28/23 14:04 gabapentin AdvReac Abdominal Verified 12/28/23 14:04 Pain sertraline AdvReac Verified 12/28/23 14:04 diclofenac sodium Allergy Severe Anaphylaxis Uncoded 12/28/23 14:04 Exam Const: Vital Signs, click to edit/add: Vital Signs - 24 hr 12/28/23 10:01 12/28/23 10:30 Temperature 98.1 F Pulse Rate [Pulse Oximeter] 69 Respiratory Rate 24 Blood Pressure [Ri ght Upper Arm] 111/74 Pulse Oximetry 94 94 Oxygen Delivery Me thod Room Air Hospitalist - H&P: Result Labs Labs: Short CBC 12/28/23 Range/Units 11:11 WBC 5.66 (4.50-11.00) K/uL Hgb 12.3 (12.0-16.0) gm/dL Hct 38.0 (33.0-51.0) % Plt Count 335 (140-440) K/uL BMP 12/28/23 11:11 Sodium 138 Potassium 3.9 Chloride 106 Carbon Dioxide 25 BUN 22 Creatinine 0.7 Glucose 97 Calcium 9.0 Cardiac Enzymes 12/28/23 Range/Units 11:11 Troponin I < 0.01 L (0.01-0.04) ng/mL Liver Function 12/28/23 Range/Units 11:11 Total Bilirubin 0.5 (0.1-1.5) mg/dL AST 27 (12-35) U/L ALT 15 (4-35) U/L Alkaline Phosphatase 79 (40-150) U/L Albumin 4.0 (3.3-5.0) g/dL Assessment and Plan Assessment and plan (1) Altered mental status: Problem comment: Admitted for same 12/08 through 12/09 after some marijuana ingestion and her chronic opioids. [place] related to polypharmacy. -has seen PCP after discharge. Has had ED visits for the last 3 days daily secondary to pain, AMS -I feel her clinical presentation is most consistent with polypharmacy, opioid use. I spoke with her son who manages most of her medications. He states there have been a lot of changes in the last month, some reductions. He states that she gets only 4 Percocet a day and that she has been weaned from her buprenorphine. I have a request in for records from [facility] and Medical. 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 no surgery. Status: Acute (6) History of atrial fibrillation: Status: Acute (7) Chronic anticoagulation: Status: Acute (8) History of pulmonary embolism: Problem comment: on oral anticoagulation Status: Acute (9) Chronic pain syndrome: Problem comment: chronic degenerative lumbar disease. Status: Acute (10) COPD (chronic obstructive pulmonary disease): Status: Acute (11) Marijuana use: Problem comment: son states single use a month ago for pain; not a regular user. UDS negative today. Status: Acute
--- NOTE | 2023-12-28 14:50 | PC.NURSE ---
New admit at 1300: Patient arrived from ER on cot with . Was able to stand and pivot to scale and bed. Patient thought she [place] [facility], unaware of month and day of the week. When asked why she was here, she said she was very short of breath this moring. Was looking for her son, Isael and her purse. Juan Francisco is here and reassured her that her purse is at home and patients son Isael would be coming after his appointment. Patient only had pajamas for belongings. PIV patent in right hand. Lung sounds course in bases. VS within normal limits. Patient stated she had a BM yesterday. Has a pain patch on right chest. Fragile skin and some bruising on right tavares. Denies fall. Pupils are pinpoint. Weight 83.5lbs.
[2023-12-28] MEDS: LORazepam 2 MG/ML inj 0.5 MG IVP (15:52)
[2023-12-28] MEDS: LORazepam 1 MG TABLET PO (18:37)
--- NOTE | 2023-12-28 19:46 | PC.NURSE ---
Shift Summary: Patient pleasant and cooperative. Up with SBA to BSC. Vitals stable and WNL. Prior to MRI patient started to c/o chest pain and SOB, EKG done and MD updated. Given ativan prior to MRI, patient unable to tolerate scan.
[2023-12-28] MEDS: ENOXAPARIN 30 MG/0.3ML INJ SUBCUT (21:54)
[2023-12-28] MEDS: BUSPIRONE 10 MG TABLET 30 MG PO (21:55)
[2023-12-28] MEDS: APIXABAN 5 MG TABLET 2.5 MG PO (21:55)
[2023-12-28] MEDS: guaiFENesin 600 MG TAB.ER.12H PO (21:55)
[2023-12-28] MEDS: TRAZODONE HCL 50 MG TABLET 150 MG PO (21:55)
[2023-12-28] MEDS: SODIUM CHLORIDE 0.9 % (FLUSH) 10 ML SYRINGE 5 ML IVF (21:56)
[2023-12-29] VITALS (7 sets, daily range): BP systolic 93–138; BP diastolic 52–74; PULSE 65–99; RESP 14–18; TEMP 36.3–36.9; O2SAT 92–97; BMI 15.2
--- NOTE | 2023-12-29 | MR_ITS ---
Patient: ENA KHALIL Facility:?[facility] Patient ID:?[id number] Site Patient ID:?[id number]. Site :?[id number] Study:?MRI-Head W/ and W/O Cont 15 CC DOTAREM-12/29/2023 1:41:02 PM Ordering Physician:?NICOLE AGGARWAL Final Report: INDICATION: ALTERED MENTAL STATUS Indication [Altered mental status] Technique Multiplanar, multisequence MRI of the brain obtained without and with contrast. A total of [15] mL of Dotarem IV contrast was administered. Comparison [CT head 12/27/2023] Findings There is artifact from patient motion, degrading image quality. [Mild generalized cerebral volume loss. Scattered FLAIR hyperintense foci throughout the supratentorial white matter, typical of chronic microangiopathy. No acute/subacute ischemia, intracranial hemorrhage, or abnormal extra-axial fluid collection. No midline shift, hydrocephalus, herniation. No suspicious brain parenchymal enhancement. Major intracranial vasculature is unremarkable for technique. Unremarkable bone marrow signal. Included views of the upper cervical spine suggest mild-moderate spinal canal narrowing at C3-4 and C4-5. No paranasal sinus air-fluid level or mastoid effusion. Bilateral lens implants.] Impression 1. No evidence of acute intracranial abnormality. 2. Mild generalized cerebral volume loss, and mild chronic microangiopathy changes. 3. Suspect mild-moderate spinal canal narrowing at C3-4 and C4-5. Dictated by: Nolvia Ruiz MD @ 12/29/2023 14:09:31 Signed by:?Nolvia Ruiz MD @12/29/2023 2:09:31 PM (Electronic Signature)
[2023-12-29] MEDS: APIXABAN 5 MG TABLET 2.5 MG PO ×2 (09:21→20:42)
[2023-12-29] MEDS: VENLAFAXINE ER 75 MG CAPSULE 150 MG PO (09:21)
[2023-12-29] MEDS: PREGABALIN 100 MG CAPSULE PO ×2 (09:21→20:41)
[2023-12-29] MEDS: BUSPIRONE 10 MG TABLET 30 MG PO ×2 (09:22→20:41)
[2023-12-29] MEDS: DONEPEZIL 10 MG TABLET PO (09:23)
[2023-12-29] MEDS: guaiFENesin 600 MG TAB.ER.12H PO ×2 (09:23→20:42)
[2023-12-29] MEDS: SODIUM CHLORIDE 0.9 % (FLUSH) 10 ML SYRINGE 5 ML IVF ×2 (09:25→20:42)
--- NOTE | 2023-12-29 14:42 | P.IMPN_ITS ---
Progress Note: A&P Assessment and plan (1) Altered mental status: Problem details: Admitted for same 12/08 through 12/09 after some marijuana ingestion and her chronic opioids. [place] related to polypharmacy. -has seen PCP after discharge. Has had ED visits for the last 3 days daily secondary to pain, AMS -I feel her clinical presentation is most consistent with polypharmacy, opioid use. I spoke with her son who manages most of her medications. He states there have been a lot of changes in the last month, some reductions. He states that she gets only 4 Percocet a day and that she has been weaned from her buprenorphine. I have a request in for records from [facility] and Medical. -UC is reassuring -MR ruled out mass, CVA, met. 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 no surgery. Status: Acute (4) Chronic, continuous use of opioids: Problem details: -percocet 5mg QID according to son buprenorphine patch on but son states this is the last scheduled patch and a new type is at the pharmacy, need notes Status: Acute (5) History of atrial fibrillation: Status: Acute (6) Chronic anticoagulation: Status: Acute (7) History of pulmonary embolism: Problem details: on oral anticoagulation Status: Acute (8) Chronic pain syndrome: Problem details: chronic degenerative lumbar disease. Status: Acute Subjective Date Seen: 12/29/23 Interval history: Daily Progress Note - Hospital Medicine Day #: 2 CC: AMS OVERNIGHT UPDATES FROM STAFF & MED, LAB, IMAGING UPDATES -calm and cooperative. Son and have been bedside. -occupational therapy had not been able to see the patient today. -rec'd ketamine for sedation for MRI - did quite well -no new labs MR Brain reviewed Impression 1. No evidence of acute intracranial abnormality. 2. Mild generalized cerebral volume loss, and mild chronic microangiopathy changes. 3. Suspect mild-moderate spinal canal narrowing at C3-4 and C4-5. Objective: quiet; calm today Vitals: see above Lungs: Clear. Cardiac: S1S2. Disposition/Potential discharge - Likely to return to previous living situation. Today I spent 50minutes seeing the patient, reviewing Expanse and EPIC notes/diagnostics, discussing the care plan with our care time that includes social work, PT/OT, pharmacy, RT, long-term and documenting my impressions and plan in the medical record. Exam Const: Vital Signs, click to edit/add: Vital Signs - 24 hr 12/28/23 16:25 12/28/23 16:25 12/28/23 16:25 Temperature 98.2 F Pulse Rate Pulse Rate [Pulse Oximeter] 62 Respiratory Rate 16 16 Blood Pressure Blood Pressure [Le ft Arm] 119/61 Pulse Oximetry 95 95 95 Oxygen Delivery Me thod Room Air Room Air 12/28/23 20:00 12/28/23 23:27 12/29/23 04:33 Temperature 98.2 F 97.9 F 98 F Pulse Rate 66 68 71 Pulse Rate [Pulse Oximeter] Respiratory Rate 18 16 16 Blood Pressure 100/60 102/57 L 97/52 L Blood Pressure [Le ft Arm] Pulse Oximetry 97 93 93 Oxygen Delivery Me thod Room Air Room Air Room Air 12/29/23 08:42 12/29/23 10:56 Temperature 98.2 F 97.3 F L Pulse Rate 75 83 Pulse Rate [Pulse Oximeter] Respiratory Rate 14 16 Blood Pressure 102/59 L 104/60 Blood Pressure [Le ft Arm] Pulse Oximetry 93 97 Oxygen Delivery Me thod Room Air Room Air
--- NOTE | 2023-12-29 17:04 | PC.NURSE ---
Shift Summary: Patient pleasant and cooperative. Up with one assist, walker and gait belt. Received ketamine prior to MRI today and was effective. Patient monitored throughout MRI by RN. Vitals before and after procedure baseline. Patient slept until around 1500, now alert and oriented, verbalized that she feels much better after nap. Poor appetite, has been drinking chocolate milk throughout shift.
[2023-12-29] MEDS: OxyCODONE/APAP 5-325 TABLET 1 TAB PO (18:22)
[2023-12-29] MEDS: TRAZODONE HCL 50 MG TABLET 150 MG PO (20:41)
[2023-12-29] MEDS: ENOXAPARIN 30 MG/0.3ML INJ SUBCUT (20:43)
--- NOTE | 2023-12-29 22:09 | PC.NURSE ---
Hydroxozine and methocarbamol not available from pharmacy. Dr. Rivas aware and will discuss further with day hospitalist.
[2023-12-30] VITALS: BP 90/51; PULSE 75; RESP 18; TEMP 36.6
[2023-12-30 04:00] VITALS: BP 93/56; PULSE 77; RESP 18; TEMP 36.6; O2SAT 92
--- NOTE | 2023-12-30 05:25 | PC.NURSE ---
Shift note: Pt has been in bed throughout the shift. Appears less confuse today compared to the day of admission. Bp was soft but other signs were WNL. Takes pill whole with water.
[2023-12-30 07:00] VITALS: PULSE 75; RESP 16
[2023-12-30 08:36] VITALS: BP 103/62; PULSE 75; RESP 16; TEMP 36.8; O2SAT 93
[2023-12-30] MEDS: PREGABALIN 100 MG CAPSULE PO (08:53)
[2023-12-30] MEDS: OxyCODONE/APAP 5-325 TABLET 1 TAB PO (08:53)
[2023-12-30] MEDS: BUSPIRONE 10 MG TABLET 30 MG PO (08:54)
[2023-12-30] MEDS: APIXABAN 5 MG TABLET 2.5 MG PO (08:54)
[2023-12-30] MEDS: VENLAFAXINE ER 75 MG CAPSULE 150 MG PO (08:54)
[2023-12-30] MEDS: DONEPEZIL 10 MG TABLET PO (08:54)
[2023-12-30] MEDS: guaiFENesin 600 MG TAB.ER.12H PO (08:54)
[2023-12-30] MEDS: buprenorphine HCL 2 MG TAB.SUBL SL (08:55)
[2023-12-30] MEDS: SODIUM CHLORIDE 0.9 % (FLUSH) 10 ML SYRINGE 5 ML IVF (08:55)
--- NOTE | 2023-12-30 12:30 | PC.NURSE ---
Patient IV removed and prepared for discharge. All belongings sent with patient. Education provided on AMS, medications, when to seek additional treatment and [facility] in [place] information provided. All questions answered by nurse, no additional questions. Patient left unit via wheelchair with nurse and transported home with in private vehicle.
--- NOTE | 2024-01-02 08:00 | P.DS_ITS ---
DS: Providers Provider Date Seen: 12/30/23 Date of admission: 12/28/23 12:56 Primary care physician: Not a Local Provider Admitting Clinician: Joy Calderon MD Consults: 12/28/23 13:47 Consult to Occupational Therapy [CONS] Routine Comment: Reason(s) for OT Consult:: Difficulty Managing ADLs Any Restrictions?:: No Restrictions Consult to Physical Therapy [CONS] Routine Comment: Reason(s) for PT Consult:: Weakness Any Restrictions?:: No Restrictions 12/28/23 13:49 Consult to Staff Anesthesiologist [CONS] Routine Comment: Reason for Consult:: Discharge Planning Needs 12/28/23 14:28 Consult to Occupational Therapy [CONS] Routine Comment: Reason(s) for OT Consult:: Evaluate and Treat Any Restrictions?:: No Restrictions Consult to Physical Therapy [CONS] Routine Comment: Reason(s) for PT Consult:: Evaluate and Treat Any Restrictions?:: No Restrictions Consult to Staff Anesthesiologist [CONS] Routine Comment: Reason for Consult:: Social Service Consult Attending Physician on discharge: Joy Calderon MD Date of Discharge: 12/30/23 DS: Diagnosis Discharge Diagnosis (1) Altered mental status: Status: Acute Problem details: -2nd lifetime admission for acute delirium. 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 1st admission was at [facility] in 12/26, 2nd here in [place]. Pt cleared during observation. MR Brain ruled out CVA or mets from known lung cancer. UC was reassuring. -discharge with family on 12/30/23 with instructions to return to pain clinic ([facility]) and work on reduction of buprenorphine and opioids. Also referred to neuropsych testing with Dr. Mj Irving in [facility]. (2) Chronic pain syndrome: Status: Acute Problem details: chronic degenerative lumbar disease. (3) Chronic, continuous use of opioids: Status: Acute Problem details: -percocet 5mg QID -buprenophrine (patch, SL) -multiple other medications -f/u with pain clinic for reduction in medications/polypharmacy ([facility]) (4) Polypharmacy: Status: Acute (5) Non-small cell cancer of right lung: Status: Acute Problem details: dx in 2021; s/p XRT and chemo. no surgery. DS: Summary Hospital Course Hospital Course: Hospital Course: FINAL DIAGNOSIS/FOLLOW UP ISSUES: 1. Polypharmacy, chronic pain management with dementia. The team felt Natalie has progressive neurocognitive decline and in the setting of chronic opioids, muscle relaxants, and buprenorphine she is not functioning well and this is causing the patient to have panic, delirium. Our recommendations are for formal outpatient neuropsych testing (Pt referred to Dr. Azar in [place]) and to return to the pain clinic for further options to manage her pain. BRIEF HOSPITAL COURSE: Patient was admitted for 2 days. Synopsis of acute inpatient issues are outlined above. Chronic medical conditions with notable findings outlined above. Essentially we observed her. The team ordered a brain MRI to r/o mets from her known lung cancer or stroke. Neither were evident on imaging. I explained my concerns with and son that are outlined above. DISCHARGE MEDICATIONS: See Reconciled list - SIGNIFICANT CHANGES: transdermal buprenorphine was changed to oral sublingual buprenorphine 2mg BID Asked son to limit her access to hydroxyzine and muscle relaxants prn zyprexa if she becomes acutely delirious again Specific instructions to the patient and follow-up are outlined below. REVIEW OF SYSTEMS No new chest pain or dyspnea Pain controlled No voiding difficulties Tolerating diet challenge PHYSICAL EXAM: CONSTITUTIONAL: calm; limited insight. thin. cachexia. VITAL SIGNS: see record. HEENT: Normocephalic, atraumatic. PERRL, EOMI, conjunctivae pink, no scleral icterus. Ears and nose externally normal. Pharynx normal. NECK: No JVD. No carotid bruit, no thyromegaly, no adenopathy. CHEST: Clear to auscultation bilaterally. HEART: S1 and S2 normal. Edema ABDOMEN: Soft, nontender. Normal bowel sounds. MUSCULOSKELETAL: No gross joint deformity or swelling. NEURO: Cranial nerves intact. Grossly intact. No asymmetric findings. SKIN: No rashes, petechiae, concerning changes PSYCHIATRIC: Mood euthymic. DISPOSITION: home with family. Time Spent with Patient Time attestation: Total time spent providing and/or coordinating discharge services: Discharge Plan Discharge Disposition: Home w/ Parent or Adult Date of Admission: 12/28/23 12:56 Attending Provider on Discharge: Joy Caldeorn Primary Care Provider: Provider,Not a Local Anticipated Discharge Date/Time: 12/30/23 09:55 Discharge Medications: New buprenorphine HCl 2 mg Tablet, Sublingual 2 mg SL BID Qty: 60 0RF olanzapine [Zyprexa Zydis] 5 mg tablet,disintegrating 5 mg PO Q12H PRN (Reason: agitation) Qty: 30 0RF Continued donepezil 10 mg tablet 10 mg PO DAILY venlafaxine 150 mg capsule,extended release 24hr 150 mg PO DAILY oxycodone-acetaminophen 5-325 mg tablet 1 tab PO TID PRN (Reason: pain) trazodone 150 mg tablet 150 mg PO QPM buspirone 30 mg tablet 30 mg PO BID pregabalin 100 mg capsule 100 mg PO TID Eliquis 2.5 mg tablet 2.5 mg PO BID guaifenesin 600 mg tablet extended release 12hr 600 mg PO BID Changed methocarbamol 500 mg tablet 500 mg PO TID PRN (Reason: spasm) Qty: 30 0RF Discontinued hydroxyzine HCl 10 mg tablet 10 mg PO TID buprenorphine 20 mcg/hour patch weekly 1 patch topical Q7D Discharge Orders: Discharge Order (Routine); Ordered 12/30/23 Ordered By: Joy Calderon Patient Education: Olanzapine (By mouth), Buprenorphine (Into the mouth), Altered Mental Status (ED) Additional Instructions: Return to the pain clinic and address ongoing therapy buprenorphine is being sent to raf (the sublingual form) this would replace the patch I've made the muscle relaxant as needed and stopped the hydroxyine (i.e. try not to use these meds) If she has acute agitation - try the zyprexa sublingual to help calm her Ensure her meds are given at the same times, with food/snack. Keep track carefully what she gets and when Call for neuropsychiatric evaluation and testing also consider asking your primary care doctor for a neurology referral jM Azar Phd [address] [place] [address] Activity Level: Activity as Tolerated Discharge Diet: Regular Forms: Feedbooksth Info Instructions
== END 2023-12-30 11:38 | disposition home or self-care (01) ==
LOC: ED 12:36 → MEDSURG 12:56
PROVIDERS: Admitting Provider Family Medicine; Emergency Provider Family Medicine; Visit Provider Family Medicine
DX: R41.82 Altered mental status, unspecified (principal); Z79.899 Other long term (current) drug therapy; F12.90 Cannabis use, unspecified, uncomplicated; F11.90 Opioid use, unspecified, uncomplicated; R94.6 Abnormal results of thyroid function studies; F41.9 Anxiety disorder, unspecified; R45.1 Restlessness and agitation; F41.0 Panic disorder [episodic paroxysmal anxiety]; M54.9 Dorsalgia, unspecified; M51.36 Other intervertebral disc degeneration, lumbar region; G89.4 Chronic pain syndrome; J44.9 Chronic obstructive pulmonary disease, unspecified; M40.209 Unspecified kyphosis, site unspecified; F17.210 Nicotine dependence, cigarettes, uncomplicated; C34.91 Malignant neoplasm of unspecified part of right bronchus or lung; Z79.01 Long term (current) use of anticoagulants; Z98.890 Other specified postprocedural states; Z85.118 Personal history of other malignant neoplasm of bronchus and lung; Z86.79 Personal history of other diseases of the circulatory system; Z86.711 Personal history of pulmonary embolism; Z96.651 Presence of right artificial knee joint; Z87.81 Personal history of (healed) traumatic fracture; Z92.241 Personal history of systemic steroid therapy; Z90.722 Acquired absence of ovaries, bilateral; Z90.79 Acquired absence of other genital organ(s)
CPT/HCPCS: 36415; 70553; 80053; 80306; 82803; 83605; 83735; 84145; 84443; 84484; 85025; 86140; 87631; 93005; 94761; 96372; 96374; 96375; 97162; 97165; 97535; 99285; J0571; A9270; A9575; G0378; J1650; J2060; J3490

== ENCOUNTER 2024-01-17 11:35 | Observation (INO) | payer MEDICARE, SELFPAY ==
[2024-01-17] VITALS (54 sets, daily range): BP systolic 72–118; BP diastolic 42–83; PULSE 64–102; RESP 14–18; TEMP 36.7–37.6; O2SAT 89–100; BMI 17.6; BMI 16.4
--- NOTE | 2024-01-17 12:02 | XR_ITS ---
Patient: ENA KHALIL Facility:?[facility] Patient ID:?[id number] Site Patient ID:?[id number]. Site :?[id number] Study:?XRay-Chest Portable one view-01/17/2024 12:23:47 PM Ordering Physician:LEONARDO Final Report: Indication: Hypoxia Comparison: Two-view chest April 26, 2022 Technique: Single AP view chest Findings: There is hyperinflation and chronic interstitial change. Again seen is masslike parenchymal scarring of the left upper lobe commensurate with likely developing posttreatment changes. The right hemithorax is clear with mildly increased interstitial markings. The cardiac silhouette is within normal limits. The bony thorax is grossly intact. Impression: Masslike parenchymal scarring of the left upper lobe which may represent evolving posttreatment changes. Mildly increased interstitial markings likely representing mild pulmonary edema. Dictated by Isael Skelton MD @ 01/17/2024 1:27:47 PM Signed by:?Isael Skelton MD @01/17/2024 1:27:47 PM (Electronic Signature)
--- NOTE | 2024-01-17 12:04 | ED_ITS ---
HPI - General Adult General Chief complaint: Altered Mental Status Stated complaint: Possible sepsis Time Seen by Provider: 01/17/24 11:46 History of Present Illness HPI narrative: This 78-year-old female comes in by ambulance because of decreased responsiveness this morning. Her and son arrive with her and state that she has a history of lung cancer a year ago. She does have a history of smoking in his quit now. She went through treatment and her lung cancer is he in emily ssion according to family members. The patient came in by ambulance in there was report that her blood pressure was soft and her oximetry was around 88%. She normally does have lower oximetry. The family member state that she normally gets up and does normal daily activities without any assistance. This morning they had difficulty arousing her. She was not responding much to my questions initially but then she appeared to wake up and sat up and interacted normally. She does not report any headache or abdominal pain. She reports a dry mouth and has no other complaints. Related Data Home Medications ?Medication ?Instructions ?Recorded ?Confirmed pregabalin 100 mg capsule 100 mg PO TID 12/27/23 03/10/24 calcium polycarbophil 625 mg 1,250 mg PO DAILY 01/18/24 03/10/24 tablet (Fiber (calcium polycarbophil)) albuterol sulfate 90 mcg/actuation 1 - 2 puff inhalation .every 4-6 01/25/24 03/10/24 aerosol inhaler hrs PRN ipratropium 0.5 mg-albuterol 3 mg 3 ml inhalation Q4H PRN 01/25/24 03/10/24 (2.5 mg base)/3 mL nebulization soln lidocaine 5 % topical patch 1 patch transdermal Q24H PRN 01/25/24 03/10/24 Previous Rx's ?Medication ?Instructions ?Recorded buprenorphine HCl 2 mg sublingual 2 mg SL BID #60 tabs 12/30/23 tablet acetaminophen 325 mg tablet 650 mg (2 x 325 mg) PO Q6H PRN 01/19/24 pain #100 tabs bupropion HCl 150 mg 24 hr tablet, 150 mg PO QAM #90 tabs 01/25/24 extended release (Wellbutrin XL) fluoxetine 20 mg capsule (Prozac) 20 mg PO QPM #30 caps 03/04/24 apixaban 2.5 mg tablet (Eliquis) 2.5 mg PO BID #180 tabs 03/21/24 buspirone 15 mg tablet 15 mg PO BID #60 tabs 03/21/24 mirtazapine 7.5 mg tablet 7.5 mg PO QHS #90 tabs 03/21/24 calcium carbonate 600 mg-vitamin 1 tab PO BID #180 tabs 03/22/24 D3 5 mcg (200 unit) tablet (Calcium 600 + D(3)) ferrous sulfate 325 mg (65 mg 325 mg PO DAILY #90 tabs 03/22/24 iron) tablet (Feosol) fluticasone furoate 100 1 inh inhalation QDAY #30 ea 03/25/24 mcg/actuation blister powder for inhalation (Arnuity Ellipta) ipratropium 20 mcg-albuterol 100 1 puff inhalation QID #4 grams 03/25/24 mcg/actuation mist for inhalation (Combivent Respimat) Allergies Allergy/AdvReac Type Severity Reaction Status Date / Time diclofenac [From Voltaren] Allergy Severe Anaphylaxis Verified 03/10/24 10:50 capsaicin Allergy Intermediate Hives Verified 03/04/24 13:52 amoxicillin Allergy Mild Rash Verified 03/04/24 13:52 buprenorphine Allergy Unknown Verified 03/04/24 13:52 gabapentin AdvReac Abdominal Verified 03/04/24 13:52 Pain sertraline AdvReac Verified 03/04/24 13:52 Review of Systems Status of ROS: Reports: 10 or more systems reviewed and unremarkable except as noted in History and below Narrative: Constitutional: No fevers, no weight gain or loss. Eyes: No discharge. No vision changes. HENT: No congestion, no sore throat, no ear pain. Cardiovascular: No chest pain, no palpitations. Respiratory: No shortness of breath, no wheezes, no cough. Gastrointestinal: No abdominal pain, no vomiting, no diarrhea. Genitourinary: No dysuria, no hematuria. Musculoskeletal: Normal range of motion. Skin: No rashes, no pruritis. Neurological: No dizziness, weakness, sensory change, speech change. Endo/Heme/Allergies: No bruising or bleeding. No polydipsia. Pysch: no suicidality, no anxiety, no insomnia. All other systems reviewed and are negative. 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 (ICD-10) History of pulmonary embolism ?Z86.711 - Personal history of pulmonary embolism (ICD-10) Chronic pain syndrome ?G89.4 - Chronic pain syndrome (ICD-10) COPD (chronic obstructive pulmonary disease) ?J44.9 - Chronic obstructive pulmonary disease, unspecified (ICD-10) Surgical History History of bronchoscopy ?Z98.890 - Other specified postprocedural states (ICD-10) S/P ORIF (open reduction internal fixation) fracture ?Z98.890 - Other specified postprocedural states (ICD-10) ?Z87.81 - Personal history of (healed) traumatic fracture (ICD-10) History of lumbar fusion ?Z98.1 - Arthrodesis status (ICD-10) History of total right knee replacement ?Z96.651 - Presence of right artificial knee joint (ICD-10) Hx of decompressive lumbar laminectomy ?Z98.890 - Other specified postprocedural states (ICD-10) S/P epidural steroid injection ?Z92.241 - Personal history of systemic steroid therapy (ICD-10) H/O arthroscopy of right knee ?Z98.890 - Other specified postprocedural states (ICD-10) S/P total abdominal hysterectomy and bilateral salpingo-oophorectomy ?Z90.710 - Acquired absence of both cervix and uterus (ICD-10) ?Z90.722 - Acquired absence of ovaries, bilateral (ICD-10) ?Z90.79 - Acquired absence of other genital organ(s) (ICD-10) Family History Father Heart disease Mother Heart disease Social History (Updated 01/17/24 @ 18:27 by Latrell Gamez MD) Narrative: Lives in [place]. Has been going to [facility] in [place] and [facility] but plans on switching to [facility] and [facility] in [place]. 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 Previous smoker. No alcohol. to [place]. Two adult sons. 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 Code status is DNR. What is your current living situation?: I presently have a place to live Problems where you live: no known problems Problems where you live details: none per pt report In the past 12 months, utilities in danger of being shut off: no In past 12 months, lack of transportation kept you from medical appts, meetings, work, or getting things needed for daily living: no In the past 12 mos, have been you worried that your food would run out before you had money to buy more?: never true In the past 12 mos, the food you bought just didn't last and you didn't have money to buy more?: never true Highest level of school completed/degree received: Associate degree: occupational, technical, vocational program Smoking Status: Current some day smoker What tobacco products do you use: cigarettes Smoking packs per day: 0.15 Smoking cigarettes per day: 3.0 Do you use any of these nicotine containing products: None Second hand tobacco smoke exposure: No How often do you have a drink containing alcohol: never How often do you have six or more drinks on one occasion: Never AUDIT-C Alcohol total score: 0 Non-prescribed substance use: denies use Caffeine: Yes (3) How often does anyone, including family, friends and others, physically hurt you : never How often does anyone, including family, friends and others, insult or talk down to you: never How often does anyone, including family, friends and others, threaten you with harm: never How often does anyone, including family, friends and others, scream or curse at you: never service: No Exam Narrative: Exam Narrative: Constitutional: No acute distress. HEENT: Normocephalic, atraumatic. Dry mouth. Neck: Normal range of motion. Nontender. Supple. Heart: Regular. No murmurs. Normal rate. Intact distal pulses. Lungs: Clear to auscultation. No chest discomfort. No wheezes, rhonchi, or rales. Abdomen: Normal bowel sounds. Nontender. No rebound tenderness. Genitalia: Deferred. Back: No midline tenderness. Normal range of motion. Extremities: Normal range of motion. No injury. Skin: Intact. No rash. Warm. No erythema or pallor. Neurologic: No altered sensation. No weakness. Alert and oriented. Psychiatric: No suicidality. No anxiety or depression. No insomnia. Nursing notes and vitals signs are reviewed. Const: Vital Signs, click to edit/add: Vital Signs - 24 hr 01/17/24 11:47 01/17/24 11:48 01/17/24 12:00 Temperature 99.6 F Pulse Rate 92 102 H Pulse Rate [Pulse Oximeter] 90 Respiratory Rate 14 Blood Pressure Blood Pressure [Ri ght Upper Arm] 118/60 Pulse Oximetry 90 94 97 [facility] 01/17/24 12:02 01/17/24 12:15 01/17/24 12:30 Temperature Pulse Rate 95 89 91 Pulse Rate [Pulse Oximeter] Respiratory Rate Blood Pressure 99/64 Blood Pressure [Ri ght Upper Arm] Pulse Oximetry 96 96 96 Oxygen Delivery Mo thod 01/17/24 12:32 01/17/24 12:45 01/17/24 13:00 Temperature Pulse Rate 90 89 89 Pulse Rate [Pulse Oximeter] Respiratory Rate Blood Pressure 94/51 L Blood Pressure [Ri ght Upper Arm] Pulse Oximetry 98 97 97 Oxygen Delivery Mo thod 01/17/24 13:02 01/17/24 13:05 01/17/24 13:09 Temperature Pulse Rate 92 89 Pulse Rate [Pulse Oximeter] Respiratory Rate Blood Pressure 81/63 L 77/54 L 99/72 Blood Pressure [Ri ght Upper Arm] Pulse Oximetry 97 96 Oxygen Delivery Mo thod 01/17/24 13:11 01/17/24 13:15 01/17/24 13:30 Temperature Pulse Rate 94 92 81 Pulse Rate [Pulse Oximeter] Respiratory Rate Blood Pressure 96/83 Blood Pressure [Ri ght Upper Arm] Pulse Oximetry 93 89 98 Oxygen Delivery Mo thod 01/17/24 13:32 01/17/24 13:33 01/17/24 13:42 Temperature Pulse Rate 81 79 81 Pulse Rate [Pulse Oximeter] Respiratory Rate Blood Pressure 88/49 L 98/64 Blood Pressure [Ri ght Upper Arm] Pulse Oximetry 97 99 95 Oxygen Delivery Me thod Course Vital Signs Vital signs: Initial Vital Signs Temperature 99.6 F 01/17/24 11:47 Temperature Source Temporal Artery Scan 01/17/24 11:47 Pulse Rate 90 01/17/24 11:47 Respiratory Rate 14 01/17/24 11:47 Blood Pressure 118/60 01/17/24 11:47 Blood Pressure Mean 79 01/17/24 11:47 Blood Pressure Position Supine 01/17/24 11:47 Pulse Oximetry 90 01/17/24 11:47 Oxygen Delivery Method Room Air 01/17/24 11:47 Vital Signs Temperature 99.6 F 01/17/24 11:47 Pulse Rate 90 01/17/24 11:47 Respiratory Rate 14 01/17/24 11:47 Blood Pressure 118/60 01/17/24 11:47 Pulse Oximetry 90 01/17/24 11:47 Oxygen Delivery Method Room Air 01/17/24 11:47 Temperature 97.8 F 01/19/24 08:04 Pulse Rate 78 01/19/24 08:04 Respiratory Rate 16 01/19/24 08:04 Blood Pressure 118/75 01/19/24 08:04 Pulse Oximetry 94 01/19/24 08:04 Oxygen Delivery Method Room Air 01/19/24 08:04 Oxygen Flow Rate 0.5 01/18/24 11:27 Medications Administered Medications: Discontinued Medications Generic Name Dose Route Start Last Admin Trade Name Augustq PRN Reason Stop Dose Admin Acetaminophen 650 mg 01/18/24 06:09 01/19/24 03:01 Acetaminophen 325 Mg Tablet PO 650 mg Q6H PRN Administration pain Apixaban 2.5 mg 01/17/24 21:00 01/19/24 08:48 Apixaban 5 Mg Tablet PO 2.5 mg BID PATRICK Administration Buprenorphine HCl 2 mg 01/17/24 21:00 01/19/24 08:48 Buprenorphine Hcl 2 Mg Tab.Subl SL 2 mg BID PATRICK Administration Buspirone HCl 30 mg 01/17/24 21:00 01/19/24 08:48 Buspirone 10 Mg Tablet PO 30 mg BID PATRICK Administration Donepezil HCl 10 mg 01/18/24 09:00 01/19/24 08:48 Donepezil 10 Mg Tablet PO 10 mg DAILY PATRICK Administration Guaifenesin 600 mg 01/17/24 21:00 01/19/24 08:48 Guaifenesin 600 Mg Tab.Er.12h PO 600 mg BID PATRICK Administration Sodium Chloride 1,000 mls @ 1,000 mls/hr 01/17/24 12:15 01/17/24 14:51 0.9 % Sodium Chloride 1000 Ml IV 01/17/24 13:14 Infused .Q1H PATRICK Infusion Sodium Chloride 1,000 mls @ 1,000 mls/hr 01/17/24 13:15 01/17/24 14:31 0.9 % Sodium Chloride 1000 Ml IV 01/17/24 14:14 Infused .Q1H PATRICK Infusion Lidocaine 1 patch 01/18/24 07:30 01/19/24 07:59 Lidocaine 5% Patch TRANSDERMA 1 patch Q24H PATRICK Administration Protocol Melatonin 3 mg 01/17/24 17:10 01/19/24 00:04 Melatonin 3 Mg Tablet PO 3 mg HS PRN Administration Naloxone HCl 0.4 mg 01/17/24 15:46 01/17/24 15:57 Naloxone 0.4 Mg/Ml Inj IVP 01/17/24 15:47 0.4 mg ONCE ONE Administration Pregabalin 100 mg 01/17/24 21:00 01/19/24 08:48 Pregabalin 100 Mg Capsule PO 100 mg TID PATRICK Administration Sodium Chloride 5 ml 01/17/24 21:00 01/19/24 08:48 Sodium Chloride 0.9 % (Flush) 10 Ml Syringe IVF 5 ml BID PATRICK Administration Venlafaxine HCl 150 mg 01/18/24 09:00 01/19/24 08:48 Venlafaxine Er 75 Mg Capsule PO 150 mg DAILY PATRICK Administration Medical Decision Making MDM Narrative Medical decision making narrative: this patient comes in by ambulance because of decreased responsiveness. There was some suspicion that she may be septic. Her blood pressure normally is around a systolic value of about 100. She has been hovering around 90 here. Labs are acquired an IV is established. She did receive 2 L of normal saline and her blood pressure continues at around 90 for systolic value. She is not showing any sign of sepsis. Her heart rate is in normal range. EKG shows no acute findings. She did awaken soon after I began my initial interview with her and at that time I was able to do a neurologic exam which showed normal findings. Since then she has been rather lethargic but arousable. She is on buprenorphine owned and Zyprexa. There is suspicion that her medications are causing decreased function at times. She was admitted a couple weeks ago and there was some suspicion then that this was the case. I did did give an IV dose of Narcan which brought no change in her mental status. I spoke with the hospitalist air route controller, Dr. Gamez, who agrees to her admission. Lab Data Labs: Lab Results 01/17/24 01/17/24 Range/Units 11:45 11:50 WBC 9.58 (4.50-11.00) K/uL RBC 4.05 (4.00-5.20) m/uL Hgb 12.3 (12.0-16.0) gm/dL Hct 38.4 (33.0-51.0) % MCV 95 (80-100) fL MCH 30 (26-34) pg MCHC 32 (32-36) gm/dL RDW Coeff of Heydi 16.2 H (11.5-15.5) % Plt Count 313 (140-440) K/uL Neut % (Auto) 88.6 H (42.0-72.0) % Lymph % (Auto) 2.3 L (20-44) % [place] % (Auto) 4.0 (0.0-11.0) % Eos % (Auto) 4.7 (0.0-7.0) % Baso % (Auto) 0.2 (0.0-3.0) % Neut # (Auto) 8.50 H (1.7-7.0) K/uL Lymph # (Auto) 0.20 L (0.90-2.90) K/uL [place] # (Auto) 0.40 (0.00-0.90) K/UL Eos # (Auto) 0.45 (0.00-0.50) K/uL Baso # (Auto) 0.02 (0.00-0.30) K/uL Abs Immat Gran (auto) 0.02 (0.00-0.30) K/uL Imm/Tot Granulo (auto) 0.2 % Sodium 138 (135-149) mmol/L Potassium 4.5 (3.6-5.1) mmol/L Chloride 103 (96-114) mmol/L Carbon Dioxide 32 (20-32) mmol/L Anion Gap 3 L (7-15) mEq/L BUN 21 (7-30) mg/dL Creatinine 0.8 (0.5-1.5) mg/dL Estimated Creat Clear 29.88 Estimated GFR 75 ml/min Glucose 115 (60-115) mg/dL Lactate 1.0 (0.5-1.9) mmol/L Calcium 9.1 (8.4-10.6) mg/dL Total Bilirubin 0.3 (0.1-1.5) mg/dL AST 21 (12-35) U/L ALT 12 (4-35) U/L Alkaline Phosphatase 69 (40-150) U/L Total Protein 6.3 (6.0-8.3) g/dL Albumin 3.6 (3.3-5.0) g/dL POC Troponin I 0.01 (0.01-0.04) ng/ml ECG Data Attestation: I personally reviewed and interpreted this ECG as follows: Interpretation: Normal sinus rhythm. Rate is 92 beats per minute. There are no ST or T-wave abnormalities. Discharge Plan Discharge Clinical Impression: Non-small cell cancer of right lung, Altered mental status Patient Disposition: Admitted As Observation Condition: Improved Activity Level: Activity as Tolerated Discharge Diet: Regular
[2024-01-17 12:07] LABS: Basophils Absolute Auto 0.02 K/uL (0.00-0.30); Basophils Percent Auto 0.2 % (0.0-3.0); Eosinophils Absolute Auto 0.45 K/uL (0.00-0.50); Eosinophils Percent Auto 4.7 % (0.0-7.0); Hematocrit 38.4 % (33.0-51.0); Hemoglobin* 12.3 gm/dL (12.0-16.0); Immature Granulocytes Abs Auto 0.02 K/uL (0.00-0.30); Immature Granulocytes Pct Auto 0.2 %; Lymphocytes Percent Auto 2.3 % (20-44); Mean Corpuscular HGB Conc 32 gm/dL (32-36); Mean Corpuscular Hemoglobin 30 pg (26-34); Mean Corpuscular Volume 95 fL (80-100); Neutrophils Percent Auto 88.6 % (42.0-72.0); Platelet Count* 313 K/uL (140-440); RDW Coefficient of Variation % 16.2 % (11.5-15.5); Red Blood Count 4.05 m/uL (4.00-5.20); White Blood Count* 9.58 K/uL (4.50-11.00)
[2024-01-17 12:15] LABS: Slide Review Reflex No
[2024-01-17] MEDS: 0.9 % SODIUM CHLORIDE 1000 ml 1,000 ML IV ×2 (12:17→14:30)
[2024-01-17 12:25] LABS: Troponin, Point-of-Care* 0.01 ng/ml (0.01-0.04)
[2024-01-17 12:27] LABS: Albumin* 3.6 g/dL (3.3-5.0); Chloride* 103 mmol/L (96-114)
[2024-01-17 12:28] LABS: Potassium* 4.5 mmol/L (3.6-5.1); Sodium* 138 mmol/L (135-149)
[2024-01-17 12:30] LABS: Anion Gap 3 mEq/L (7-15); Aspartate Amino Transferase* 21 U/L (12-35); Bilirubin Total* 0.3 mg/dL (0.1-1.5); Carbon Dioxide* 32 mmol/L (20-32); Creatinine* 0.8 mg/dL (0.5-1.5); Est. Creatinine Clearance* 29.88; Estimated Glomerular Filt Rate 75 ml/min; Total Protein* 6.3 g/dL (6.0-8.3)
[2024-01-17 12:31] LABS: Alanine Aminotransferase* 12 U/L (4-35); Alkaline Phosphatase* 69 U/L (40-150); Blood Urea Nitrogen* 21 mg/dL (7-30); Calcium* 9.1 mg/dL (8.4-10.6); Glucose* 115 mg/dL (60-115)
--- NOTE | 2024-01-17 18:12 | PM.IMHP1 ---
Hospitalist- H&P: [facility] History of Present Illness Date Seen: 03/02/24 Chief complaint: Possible sepsis Narrative: Natalie Story is a 78 year old female with history of lung cancer and chronic pain on chronic opioids presents with onset of altered mental status starting last evening. Patient continues to have altered mental status and unable to give any history. History obtained from her . He notes last evening she seemed to develop altered mental status. She dropped a bowl and seemed to have some trouble walking. He felt like she just did not seem in her normal state of mind. This morning he he was unable to arouse her. His son also attempted to arouse her unsuccessfully. She was brought to the emergency department. She has not had any apparent recent illness. He is not aware of her having fever or cough upset stomach bowel or bladder problems. She has been in the hospital here 2 weeks ago and at [facility] 2.5 weeks before that. When she presented here on December 27 she had anxiety and agitation. She came back the next day with ongoing agitation and confusion and was admitted to the hospital. She did receive Zyprexa which seemed to help that agitation. She was treated for UTI though cultures subsequently did not identify a specific pathogenic organism and she had no other evidence of significant urinary symptoms. She has chronic pain and goes to chronic pain clinic. Her pain is primarily in her back. She is on Suboxone and oxycodone. Prescriptions for Suboxone are b.i.d. and oxycodone/acetaminophen q.i.d.. It is unclear how she is managing her medications. Her reports that the pain medications are set up by her son. He says sometimes they give her medicine but not all the time. He does not think she is taking it inappropriately. He does not think she is taking any other nonprescription medications or mood altering substances. Review of Systems Narrative: reports no respiratory illness, cough, fever, chest pain, abdominal pain, vomiting, diarrhea, urinary problems. 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 (ICD-10) History of pulmonary embolism ?Z86.711 - Personal history of pulmonary embolism (ICD-10) Chronic pain syndrome ?G89.4 - Chronic pain syndrome (ICD-10) COPD (chronic obstructive pulmonary disease) ?J44.9 - Chronic obstructive pulmonary disease, unspecified (ICD-10) Surgical History History of bronchoscopy ?Z98.890 - Other specified postprocedural states (ICD-10) S/P ORIF (open reduction internal fixation) fracture ?Z98.890 - Other specified postprocedural states (ICD-10) ?Z87.81 - Personal history of (healed) traumatic fracture (ICD-10) History of lumbar fusion ?Z98.1 - Arthrodesis status (ICD-10) History of total right knee replacement ?Z96.651 - Presence of right artificial knee joint (ICD-10) Hx of decompressive lumbar laminectomy ?Z98.890 - Other specified postprocedural states (ICD-10) S/P epidural steroid injection ?Z92.241 - Personal history of systemic steroid therapy (ICD-10) H/O arthroscopy of right knee ?Z98.890 - Other specified postprocedural states (ICD-10) S/P total abdominal hysterectomy and bilateral salpingo-oophorectomy ?Z90.710 - Acquired absence of both cervix and uterus (ICD-10) ?Z90.722 - Acquired absence of ovaries, bilateral (ICD-10) ?Z90.79 - Acquired absence of other genital organ(s) (ICD-10) Family History Father Heart disease Mother Heart disease Social History (Updated 01/17/24 @ 18:27 by Latrell Gamez MD) Narrative: Lives in [place]. Has been going to [facility] in [place] and [facility] but plans on switching to [facility] and [facility] in [place]. 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 Previous smoker. No alcohol. to [place]. Two adult sons. is healthcare power of environmental attorney. Code status is DNR. What is your current living situation?: I presently have a place to live Problems where you live: no known problems Problems where you live details: none per pt report In the past 12 months, utilities in danger of being shut off: no In past 12 months, lack of transportation kept you from medical appts, meetings, work, or getting things needed for daily living: no In the past 12 mos, have been you worried that your food would run out before you had money to buy more?: never true In the past 12 mos, the food you bought just didn't last and you didn't have money to buy more?: never true Highest level of school completed/degree received: Associate degree: occupational, technical, vocational program Smoking Status: Current some day smoker What tobacco products do you use: cigarettes Smoking packs per day: 0.15 Smoking cigarettes per day: 3.0 Do you use any of these nicotine containing products: None Second hand tobacco smoke exposure: No How often do you have a drink containing alcohol: never How often do you have six or more drinks on one occasion: Never AUDIT-C Alcohol total score: 0 Non-prescribed substance use: denies use Caffeine: Yes (3) How often does anyone, including family, friends and others, physically hurt you: never How often does anyone, including family, friends and others, insult or talk down to you: never How often does anyone, including family, friends and others, threaten you with harm: never How often does anyone, including family, friends and others, scream or curse at you: never service: No Meds Home Medications and Allergies Home Medications Medication Instructions Recorded Confirmed Type apixaban 2.5 mg tablet (Eliquis) 2.5 mg PO BID 12/27/23 02/22/24 History buspirone 30 mg tablet 30 mg PO BID 12/27/23 02/22/24 History donepezil 10 mg tablet 10 mg PO DAILY 12/27/23 02/22/24 History pregabalin 100 mg capsule 100 mg PO TID 12/27/23 02/22/24 History trazodone 150 mg tablet 150 mg PO QPM 12/27/23 02/22/24 History venlafaxine 150 mg 150 mg PO DAILY 12/27/23 02/22/24 History capsule,extended release 24 hr calcium carbonate 600 mg-vitamin 1 tab PO BID 01/18/24 02/22/24 History D3 5 mcg (200 unit) tablet (Calcium 600 + D(3)) calcium polycarbophil 625 mg 1,250 mg PO DAILY 01/18/24 02/22/24 History tablet (Fiber (calcium polycarbophil)) ferrous sulfate 325 mg (65 mg 325 mg PO DAILY PRN 01/18/24 02/22/24 History iron) tablet (Feosol) melatonin 3 mg capsule 3 mg PO QHS 01/18/24 02/22/24 History albuterol sulfate 90 mcg/actuation 1 - 2 puff inhalation .every 4-6 01/25/24 02/22/24 History aerosol inhaler hrs PRN fluticasone furoate 100 1 inh inhalation QDAY 01/25/24 02/22/24 History mcg/actuation blister powder for inhalation (Arnuity Ellipta) hydroxyzine HCl 10 mg tablet 10 mg PO 3XD PRN 01/25/24 02/22/24 History ipratropium 0.5 mg-albuterol 3 mg 3 ml inhalation Q4H PRN 01/25/24 02/22/24 History (2.5 mg base)/3 mL nebulization soln lidocaine 5 % topical patch 1 patch transdermal Q24H PRN 01/25/24 02/22/24 History Allergies Allergy/AdvReac Type Severity Reaction Status Date / Time capsaicin Allergy Intermediate Hives Verified 02/22/24 15:09 amoxicillin Allergy Mild Rash Verified 02/22/24 15:09 buprenorphine Allergy Unknown Verified 02/22/24 15:09 gabapentin AdvReac Abdominal Verified 02/22/24 15:09 Pain sertraline AdvReac Verified 02/22/24 15:09 diclofenac sodium Allergy Severe Anaphylaxis Uncoded 02/22/24 15:09 Exam Narrative: Exam Narrative: She is lying in bed. Appears to be sleeping comfortably. No obvious distress. She spontaneously rolls over in bed side to side. She does not open her eyes on command or to voice. She resists vigorously any attempt to examine her mouth or her eyes. No obvious facial asymmetry. No obvious neck mass. No stridor. Respirations with somewhat diminished breath sounds but otherwise clear to auscultation without wheezing. Breathing is unlabored. Cardiovascular: S1, S2, regular rate and rhythm. No murmur gallop or rub. Abdomen: Bowel sounds active. Abdomen is soft. Initially she seemed to have some mild diffuse tenderness with palpation but repeat examination showed no significant tenderness or mass. Extremities without edema. Const: Vital Signs, click to edit/add: Vital Signs - 24 hr 01/17/24 11:47 01/17/24 11:48 01/17/24 12:00 Temperature 99.6 F Pulse Rate 92 102 H Pulse Rate [Pulse Oximeter] 90 Respiratory Rate 14 Blood Pressure Blood Pressure [Ri ght Upper Arm] 118/60 Pulse Oximetry 90 94 97 Oxygen Delivery Me thod Room Air 01/17/24 12:02 01/17/24 12:15 01/17/24 12:30 Temperature Pulse Rate 95 89 91 Pulse Rate [Pulse Oximeter] Respiratory Rate Blood Pressure 99/64 Blood Pressure [Ri ght Upper Arm] Pulse Oximetry 96 96 96 Oxygen Delivery Me thod 01/17/24 12:32 01/17/24 12:45 01/17/24 13:00 Temperature Pulse Rate 90 89 89 Pulse Rate [Pulse Oximeter] Respiratory Rate Blood Pressure 94/51 L Blood Pressure [Ri ght Upper Arm] Pulse Oximetry 98 97 97 Oxygen Delivery Me thod 01/17/24 13:02 01/17/24 13:05 01/17/24 13:09 Temperature Pulse Rate 92 89 Pulse Rate [Pulse Oximeter] Respiratory Rate Blood Pressure 81/63 L 77/54 L 99/72 Blood Pressure [Ri ght Upper Arm] Pulse Oximetry 97 96 Oxygen Delivery Me thod 01/17/24 13:11 01/17/24 13:15 01/17/24 13:30 Temperature Pulse Rate 94 92 81 Pulse Rate [Pulse Oximeter] Respiratory Rate Blood Pressure 96/83 Blood Pressure [Ri ght Upper Arm] Pulse Oximetry 93 89 98 Oxygen Delivery Me thod 01/17/24 13:32 01/17/24 13:33 01/17/24 13:42 Temperature Pulse Rate 81 79 81 Pulse Rate [Pulse Oximeter] Respiratory Rate Blood Pressure 88/49 L 98/64 Blood Pressure [Ri ght Upper Arm] Pulse Oximetry 97 99 95 Oxygen Delivery Me thod 01/17/24 13:43 03/17/24 13:45 01/17/24 13:48 Temperature Pulse Rate 84 84 84 Pulse Rate [Pulse Oximeter] Respiratory Rate Blood Pressure 72/42 L Blood Pressure [Ri ght Upper Arm] Pulse Oximetry 97 99 97 Oxygen Delivery Me thod 01/17/24 13:53 01/17/24 13:55 01/17/24 14:00 Temperature Pulse Rate 82 84 80 Pulse Rate [Pulse Oximeter] Respiratory Rate Blood Pressure 80/50 L 80/55 L Blood Pressure [Ri ght Upper Arm] Pulse Oximetry 97 99 100 Oxygen Delivery Me thod 01/17/24 14:03 01/17/24 14:15 01/17/24 14:17 Temperature Pulse Rate 81 80 84 Pulse Rate [Pulse Oximeter] Respiratory Rate Blood Pressure 94/61 89/71 L Blood Pressure [Ri ght Upper Arm] Pulse Oximetry 98 100 96 Oxygen Delivery Me thod 01/17/24 14:26 01/17/24 14:30 01/17/24 14:32 Temperature Pulse Rate 81 81 80 Pulse Rate [Pulse Oximeter] Respiratory Rate Blood Pressure 89/57 L 87/55 L Blood Pressure [Ri ght Upper Arm] Pulse Oximetry 97 100 99 Oxygen Delivery Me thod 01/17/24 14:45 01/17/24 14:47 01/17/24 15:00 Temperature Pulse Rate 80 80 82 Pulse Rate [Pulse Oximeter] Respiratory Rate Blood Pressure 90/62 Blood Pressure [Ri ght Upper Arm] Pulse Oximetry 100 99 98 Oxygen Delivery Me thod 01/17/24 15:02 01/17/24 15:15 01/17/24 15:17 Temperature Pulse Rate 83 79 82 Pulse Rate [Pulse Oximeter] Respiratory Rate Blood Pressure 84/56 L 82/52 L Blood Pressure [Ri ght Upper Arm] Pulse Oximetry 98 98 99 Oxygen Delivery Me thod 01/17/24 15:30 01/17/24 15:32 01/17/24 15:45 Temperature Pulse Rate 82 81 76 Pulse Rate [Pulse Oximeter] Respiratory Rate Blood Pressure 88/52 L Blood Pressure [Ri ght Upper Arm] Pulse Oximetry 99 100 100 Oxygen Delivery Me thod 01/17/24 15:47 01/17/24 16:00 01/17/24 16:02 Temperature Pulse Rate 78 76 77 Pulse Rate [Pulse Oximeter] Respiratory Rate Blood Pressure 87/51 L 82/62 L Blood Pressure [Ri ght Upper Arm] Pulse Oximetry 100 99 [facility] 01/[facility] 16:15 01/17/24 16:17 01/17/24 16:30 Temperature Pulse Rate 75 74 72 Pulse Rate [Pulse Oximeter] Respiratory Rate Blood Pressure 89/53 L Blood Pressure [Ri ght Upper Arm] Pulse Oximetry 98 100 [facility] 01/17/24 16:32 01/17/24 16:45 01/17/24 16:47 Temperature Pulse Rate 68 69 70 Pulse Rate [Pulse Oximeter] Respiratory Rate Blood Pressure 83/52 L 84/49 L Blood Pressure [Ri t Upper Arm] Pulse Oximetry 99 97 97 Oxygen Delivery [facility] Hospitalist - H&P: Result Labs Labs: Short CBC 01/17/24 Range/Units 11:45 WBC 9.58 (4.50-11.00) K/uL Hgb 12.3 (12.0-16.0) gm/dL Hct 38.4 (33.0-51.0) % Plt Count 313 (140-440) K/uL BMP 01/17/24 11:45 Sodium 138 Potassium 4.5 Chloride 103 Carbon Dioxide 32 BUN 21 Creatinine 0.8 Glucose 115 Calcium 9.1 Liver Function 01/17/24 Range/Units 11:45 Total Bilirubin 0.3 (0.1-1.5) mg/dL AST 21 (12-35) U/L ALT 12 (4-35) U/L Alkaline Phosphatase 69 (40-150) U/L Albumin 3.6 (3.3-5.0) g/dL
[2024-01-17 18:23] LABS: PCR FLU A Negative PCR FLU A (Negative); PCR FLU B Negative PCR FLU B (Negative); SARS PCR* Negative SARS-CoV-2 (Negative)
[2024-01-17 21:40] LABS: Appearance Urine Clear (Clear); Bilirubin Urine Negative (Negative); Blood Urine Negative (Negative); Color Urine Yellow (Yellow); Glucose Urine Negative (Negative); Ketones Urine Negative (Negative); Leukocyte Esterase Urine Negative (Negative); Nitrite Urine Negative (Negative); Protein Urine Negative (Negative); Urobilinogen Urine 0.2 (0.2-1.0)
[2024-01-17] MEDS: APIXABAN 5 MG TABLET 2.5 MG PO (21:41)
[2024-01-17] MEDS: guaiFENesin 600 MG TAB.ER.12H PO (21:42)
[2024-01-17] MEDS: BUSPIRONE 10 MG TABLET 30 MG PO (21:42)
[2024-01-17] MEDS: SODIUM CHLORIDE 0.9 % (FLUSH) 10 ML SYRINGE 5 ML IVF (21:43)
[2024-01-17] MEDS: PREGABALIN 100 MG CAPSULE PO (21:43)
[2024-01-17] MEDS: buprenorphine HCL 2 MG TAB.SUBL SL (21:46)
[2024-01-18] VITALS (11 sets, daily range): BP systolic 89–121; BP diastolic 56–71; PULSE 67–89; RESP 15–20; TEMP 36.9–37.3; O2SAT 90–95; BMI 17.0
[2024-01-18] MEDS: ACETAMINOPHEN 325 MG TABLET 650 MG PO ×2 (06:19→18:19)
--- NOTE | 2024-01-18 06:30 | PC.NURSE ---
Pt noted to be sleepy at times throughout shift though was alert & oriented x 4 upon assessment and during HS med administration last evening. She did ask press writer, ?Can I ask you where I am?? this morning and recalled she did not remember coming to the hospital yesterday. One area of blanchable pink/redness observed to mid back to L of spine. Automotive Exhaust Emissions Technician covered this area with Mepilex dressing to provide protection. PERRLA. Bruce catheter in place. No CP or N/V this shift. Pt on tele with NSR with first degree heart block noted. Automotive Exhaust Emissions Technician discontinued IV to R hand due to resistance noted when flushing/inability to flush IV. Pt still has patent IV to R AC and is SL at this time. Oxygen via oxymizer titrated down to 0.5 LPM due to hx of COPD and O2 sat of 95% noted on 2 LPM at start of shift. O2 sat noted to be 85-86% when attempted to wean to RA. Pt able to reposition independently in bed and transferred to standing scale with SBA this morning. PRN Tylenol administered this morning for what pt reported as 7/10 pain to mid back, hips and L leg. Pt has hx of chronic pain.
--- NOTE | 2024-01-18 06:36 | PC.NURSE ---
Pt reports last BM of 01/15/24 though declining PRN Senna when discussed and educated. Bowel sounds active x 4 and pt denies abdominal pain when asked. Pt stated, Well, I really haven't been eating.
[2024-01-18] MEDS: LIDOCAINE 5% PATCH 1 PATCH TRANSDERMA (07:52)
[2024-01-18] MEDS: buprenorphine HCL 2 MG TAB.SUBL SL ×2 (09:21→20:37)
[2024-01-18] MEDS: PREGABALIN 100 MG CAPSULE PO ×3 (09:22→20:37)
[2024-01-18] MEDS: VENLAFAXINE ER 75 MG CAPSULE 150 MG PO (09:23)
[2024-01-18] MEDS: guaiFENesin 600 MG TAB.ER.12H PO ×2 (09:24→20:38)
[2024-01-18] MEDS: APIXABAN 5 MG TABLET 2.5 MG PO ×2 (09:24→20:38)
[2024-01-18] MEDS: BUSPIRONE 10 MG TABLET 30 MG PO ×2 (09:27→20:38)
[2024-01-18] MEDS: DONEPEZIL 10 MG TABLET PO (09:29)
[2024-01-18] MEDS: SODIUM CHLORIDE 0.9 % (FLUSH) 10 ML SYRINGE 5 ML IVF ×2 (09:30→20:43)
--- NOTE | 2024-01-18 12:00 | PC.SOCIAL ---
Discharge planning- Met with pt and discussed discharge plans. Per therapy, pt recommended for SNF for therapy. Pt is aware that she will have to private pay for SNF due to not having a 3 night inpatient stay. Pt agrees to pay. Pt would like [facility] since she [place] from the facility. Pt will consider [facility] in [place], if necessary. Pt is aware that [facility] requires $10,000.00 upon admission. Contacted the following SNF's for possible placement. 1. [facility]- Phone call to Jaz Villalta in admissions at [phone]. They have openings and will assess. Secure e-mailed referral to Jaz Villalta. 2. [facility] [place]- Phone call to Lauren in admissions at [phone]. Left voicemail and e-mail inquiring on bed availability. Social work will continue to follow up as needed.
--- NOTE | 2024-01-18 12:07 | P.IMPN_ITS ---
Progress Note: A&P Assessment and plan (1) Altered mental status: Problem details: 3rd admission for acute delirium in 6 weeks. 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 1st admission was at [facility] in 12/26, 2nd here in [place]. Pt cleared during observation. MR Brain ruled out CVA or mets from known lung cancer. UC was reassuring. Discharge with family on 12/30/23 with instructions to return to pain clinic ([facility]) and work on reduction of buprenorphine and opioids. Also referred to neuropsych testing with Dr. Mj Irving in [place] which is scheduled for May 2024. Medications are unclear -Pharmacy consult to meet with son who is responsible for her medications at home -Social work consult for home care assistance with med management -May need higher level of care? Status: Acute (2) COPD (chronic obstructive pulmonary disease): Problem details: No current issues Status: Acute (3) Chronic pain syndrome: Problem details: chronic degenerative lumbar disease. Status: Acute (4) History of pulmonary embolism: Problem details: on oral anticoagulation Status: Acute (5) History of atrial fibrillation: Problem details: Rate is well controlled. On chronic anticoagulation Status: Acute (6) Chronic, continuous use of opioids: Problem details: -percocet 5mg QID (will likely decrease or discontinue for discharge) -buprenophrine (patch, SL) -multiple other medications -f/u with pain clinic for reduction in medications/polypharmacy (Located within [facility]) Status: Acute (7) Polypharmacy: Status: Acute Subjective Date Seen: 01/18/24 Interval history: Patient is seen and examined. She was still sleepy this morning, but improved. Able to wean off supplemental O2. Does not seem to know what meds she is on- son is responsible for her meds and to help has been getting pill packs from the pharmacy. I am concerned that as her medications have changes, we may not have an accurate list. Patient has pain in her back and hip, but no other new complaints. EXAM: General- sleepy, but no distress HEENT: NCAT Resp: No resp distress, CTAB CV: RRR, no m/g/r Neuro: Tired, falling asleep, no lateralizing deficits Exam Const: Vital Signs, click to edit/add: Vital Signs - 24 hr 01/17/24 12:15 01/17/24 12:30 01/17/24 12:32 Temperature Pulse Rate 89 91 90 Pulse Rate [Left P ulse Oximeter] Respiratory Rate Blood Pressure 94/51 L Blood Pressure [Le ft Arm] Pulse Oximetry 96 96 98 Oxygen Delivery Me thod Oxygen Flow Rate 01/17/24 12:45 01/17/24 13:00 01/17/24 13:02 Temperature Pulse Rate 89 89 92 Pulse Rate [Left P ulse Oximeter] Respiratory Rate Blood Pressure 81/63 L Blood Pressure [Le ft Arm] Pulse Oximetry 97 97 97 Oxygen Delivery Me thod Oxygen Flow Rate 01/17/24 13:05 01/17/24 13:09 01/17/24 13:11 Temperature Pulse Rate 89 94 Pulse Rate [Left P ulse Oximeter] Respiratory Rate Blood Pressure 77/54 L 99/72 96/83 Blood Pressure [Le ft Arm] Pulse Oximetry 96 93 Oxygen Delivery Me thod Oxygen Flow Rate 01/17/24 13:15 01/17/24 13:30 01/17/24 13:32 Temperature Pulse Rate 92 81 81 Pulse Rate [Left P ulse Oximeter] Respiratory Rate Blood Pressure 88/49 L Blood Pressure [Le ft Arm] Pulse Oximetry 89 98 97 Oxygen Delivery Me thod Oxygen Flow Rate 01/17/24 13:33 01/17/24 13:42 01/17/24 13:43 Temperature Pulse Rate 79 81 84 Pulse Rate [Left P ulse Oximeter] Respiratory Rate Blood Pressure 98/64 Blood Pressure [Le ft Arm] Pulse Oximetry 99 95 97 Oxygen Delivery Me thod Oxygen Flow Rate 01/17/24 13:45 01/17/24 13:48 01/17/24 13:53 Temperature Pulse Rate 84 84 82 Pulse Rate [Left P ulse Oximeter] Respiratory Rate Blood Pressure 72/42 L 80/50 L Blood Pressure [Le ft Arm] Pulse Oximetry 99 97 97 Oxygen Delivery Me thod Oxygen Flow Rate 01/17/24 13:55 01/17/24 14:00 01/17/24 14:03 Temperature Pulse Rate 84 80 81 Pulse Rate [Left P ulse Oximeter] Respiratory Rate Blood Pressure 80/55 L 94/61 Blood Pressure [Le ft Arm] Pulse Oximetry 99 100 98 Oxygen Delivery Me thod Oxygen Flow Rate 01/17/24 14:15 01/17/24 14:17 01/17/24 14:26 Temperature Pulse Rate 80 84 81 Pulse Rate [Left P ulse Oximeter] Respiratory Rate Blood Pressure 89/71 L 89/57 L Blood Pressure [Le ft Arm] Pulse Oximetry 100 96 97 Oxygen Delivery Me thod Oxygen Flow Rate 01/17/24 14:30 01/17/24 14:32 01/17/24 14:45 Temperature Pulse Rate 81 80 80 Pulse Rate [Left P ulse Oximeter] Respiratory Rate Blood Pressure 87/55 L Blood Pressure [Le ft Arm] Pulse Oximetry 100 99 100 Oxygen Delivery Me thod Oxygen Flow Rate 01/17/24 14:47 01/17/24 15:00 01/17/24 15:02 Temperature Pulse Rate 80 82 83 Pulse Rate [Left P ulse Oximeter] Respiratory Rate Blood Pressure 90/62 84/56 L Blood Pressure [Le ft Arm] Pulse Oximetry 99 98 98 Oxygen Delivery Me thod Oxygen Flow Rate 01/17/24 15:15 01/17/24 15:17 01/17/24 15:30 Temperature Pulse Rate 79 82 82 Pulse Rate [Left P ulse Oximeter] Respiratory Rate Blood Pressure 82/52 L Blood Pressure [Le ft Arm] Pulse Oximetry 98 99 99 Oxygen Delivery Me thod Oxygen Flow Rate 01/17/24 15:32 01/17/24 15:45 01/17/24 15:47 Temperature Pulse Rate 81 76 78 Pulse Rate [Left P ulse Oximeter] Respiratory Rate Blood Pressure 88/52 L 87/51 L Blood Pressure [Le ft Arm] Pulse Oximetry 100 100 100 Oxygen Delivery Me thod Oxygen Flow Rate 01/17/24 16:00 01/17/24 16:02 01/17/24 16:15 Temperature Pulse Rate 76 77 75 Pulse Rate [Left P ulse Oximeter] Respiratory Rate Blood Pressure 82/62 L Blood Pressure [Le ft Arm] Pulse Oximetry 99 100 98 Oxygen Delivery Me thod Oxygen Flow Rate 01/17/24 16:17 01/17/24 16:30 01/17/24 16:32 Temperature Pulse Rate 74 72 68 Pulse Rate [Left P ulse Oximeter] Respiratory Rate Blood Pressure 89/53 L 83/52 L Blood Pressure [Le ft Arm] Pulse Oximetry 100 99 99 Oxygen Delivery Me thod Oxygen Flow Rate 01/17/24 16:45 01/17/24 16:47 03/17/24 19:09 Temperature 98.7 F Pulse Rate 69 70 Pulse Rate [Left P ulse Oximeter] 87 Respiratory Rate 18 Blood Pressure 84/49 L Blood Pressure [Le ft Arm] 94/55 L Pulse Oximetry 97 97 98 Oxygen Delivery Me thod Nasal Cannula Oxygen Flow Rate 2 01/17/24 19:27 01/17/24 20:45 01/17/24 23:00 Temperature 98.6 F Pulse Rate Pulse Rate [Left P ulse Oximeter] 64 70 Respiratory Rate 16 16 16 Blood Pressure Blood Pressure [Le ft Arm] 110/64 Pulse Oximetry 95 92 Oxygen Delivery Me thod Nasal Cannula Nasal Cannula Oxygen Flow Rate 2 0.5 01/17/24 23:04 01/17/24 23:18 01/18/24 03:12 Temperature 98.1 F 98.6 F Pulse Rate 78 Pulse Rate [Left P ulse Oximeter] 70 67 Respiratory Rate 16 16 Blood Pressure Blood Pressure [Le ft Arm] 95/56 L 100/66 Pulse Oximetry 92 90 Oxygen Delivery Me thod Nasal Cannula Nasal Cannula Oxygen Flow Rate 0.5 0.5 01/18/24 07:33 01/18/24 07:40 01/18/24 08:24 Temperature 98.4 F Pulse Rate 83 Pulse Rate [Left P ulse Oximeter] 79 79 Respiratory Rate 18 18 Blood Pressure Blood Pressure [Le ft Arm] 89/56 L Pulse Oximetry 93 Oxygen Delivery Me thod Nasal Cannula Oxygen Flow Rate 0.5 01/18/24 11:27 01/18/24 11:32 Temperature 98.4 F Pulse Rate Pulse Rate [Left P ulse Oximeter] 73 Respiratory Rate 16 Blood Pressure Blood Pressure [Le ft Arm] 97/64 Pulse Oximetry 95 91 Oxygen Delivery Me thod Nasal Cannula Room Air Oxygen Flow Rate 0.5 Labs Labs: Laboratory Results - last 24 hr 01/17/24 01/17/24 01/17/24 11:45 11:50 21:25 WBC 9.58 RBC 4.05 Hgb 12.3 Hct 38.4 MCV 95 MCH 30 MCHC 32 RDW Coeff of Heydi 16.2 H Plt Count 313 Neut % (Auto) 88.6 H Lymph % (Auto) 2.3 L [place] % (Auto) 4.0 Eos % (Auto) 4.7 Baso % (Auto) 0.2 Neut # (Auto) 8.50 H Lymph # (Auto) 0.20 L [place] # (Auto) 0.40 Eos # (Auto) 0.45 Baso # (Auto) 0.02 Abs Immat Gran (auto) 0.02 Imm/Tot Granulo (auto) 0.2 Sodium 138 Potassium 4.5 Chloride 103 Carbon Dioxide 32 Anion Gap 3 L BUN 21 Creatinine 0.8 Estimated Creat Clear 29.88 Estimated GFR 75 Glucose 115 Lactate 1.0 Calcium 9.1 Total Bilirubin 0.3 AST 21 ALT 12 Alkaline Phosphatase 69 Total Protein 6.3 Albumin 3.6 Urine Color Yellow Urine Appearance Clear Urine pH 7.0 Ur Specific [place] 1.020 Urine Protein Negative Urine Glucose (UA) Negative Urine Ketones Negative Urine Blood Negative Urine Nitrite Negative Urine Bilirubin Negative Urine Urobilinogen 0.2 Ur Leukocyte Esterase Negative SARS-CoV-2 (PCR) Influenza Type A (PCR) Influenza Type B (PCR) POC Troponin I 0.01 01/17/24 Unknown WBC RBC Hgb Hct MCV MCH MCHC RDW Coeff of Heydi Plt Count Neut % (Auto) Lymph % (Auto) [place] % (Auto) Eos % (Auto) Baso % (Auto) Neut # (Auto) Lymph # (Auto) [place] # (Auto) Eos # (Auto) Baso # (Auto) Abs Immat Gran (auto) Imm/Tot Granulo (auto) Sodium Potassium Chloride Carbon Dioxide Anion Gap BUN Creatinine Estimated Creat Clear Estimated GFR Glucose Lactate Calcium Total Bilirubin AST ALT Alkaline Phosphatase Total Protein Albumin Urine Color Urine Appearance Urine pH Ur Specific [place] Urine Protein Urine Glucose (UA) Urine Ketones Urine Blood Urine Nitrite Urine Bilirubin Urine Urobilinogen Ur Leukocyte Esterase SARS-CoV-2 (PCR) Negative SARS-CoV-2 Influenza Type A (PCR) Negative PCR FLU A Influenza Type B (PCR) Negative PCR FLU B POC Troponin I
--- NOTE | 2024-01-18 16:17 | PC.SOCIAL ---
Discharge planning- Met with pt and pt's to discuss discharge plans. Pt plans to go home upon discharge and would like home care Nursing for medication management as discussed with MD. Provided pt's with a list of work from home care options that may be able to assist with extra assistance in the home. Informed pt's that the work from home care would be private pay or if pt has a buttermaker care policy, it is possible it would be covered. Pt's son was not in the room. Pt's informs that pt's son went to their home to get medication packets for pt and bring back for MD to review. Informed pt's if pt's son has any questions he can reach out to Social Work, provided contact information. Informed pt's that this worker will set up home care as directed by the MD. Per therapy pt does not have a skilled need for PT or OT. Secure e-mail sent to Marisel Bautista from [facility], [employer] to inquire on if medicare will cover nursing visits for medication management only. Included referral packet for review. Social work will continue to follow up as needed.
--- NOTE | 2024-01-18 23:08 | PC.NURSE ---
Shift Note [id number]: Pt very friendly and cooperative with cares. VS WNL, pt has been afebrile. Initially denies pain, but has since began c/o 05/11 low back pain. PRN Tylenol given and pt verbalizes little relief. She was given an Aqua-k pad and repositioned, as well as enjoying a visit from her and son. Pt drank 100% of chocolate ensure mixed with ice cream and later had a bedtime snack of ensure clear mixed with sprite. She at about 25% of her meal tray.
[2024-01-19] MEDS: MELATONIN 3 MG TABLET PO (00:04)
[2024-01-19 00:12] VITALS: PULSE 84
[2024-01-19] MEDS: ACETAMINOPHEN 325 MG TABLET 650 MG PO (03:01)
[2024-01-19 03:02] VITALS: RESP 22
--- NOTE | 2024-01-19 07:33 | PC.NURSE ---
[id number]: Patient cooperative with cares. Did not sleep during noc. I don't sleep without my sleeping pill. Melatonin administered without results. Patient concerned about not receiving pain medications per home regimen. Cryolite Recovery Operator educated patient on rational for new medication schedule. Patient up SBA w/4ww and tolerating well. Encouraged PO intake. Patient did eat umm crackers and a pudding overnight.
[2024-01-19 07:55] VITALS: PULSE 83
[2024-01-19] MEDS: LIDOCAINE 5% PATCH 1 PATCH TRANSDERMA (07:59)
[2024-01-19 08:04] VITALS: BP 118/75; PULSE 78; RESP 16; TEMP 36.6; O2SAT 94
[2024-01-19] MEDS: DONEPEZIL 10 MG TABLET PO (08:48)
[2024-01-19] MEDS: BUSPIRONE 10 MG TABLET 30 MG PO (08:48)
[2024-01-19] MEDS: SODIUM CHLORIDE 0.9 % (FLUSH) 10 ML SYRINGE 5 ML IVF (08:48)
[2024-01-19] MEDS: buprenorphine HCL 2 MG TAB.SUBL SL (08:48)
[2024-01-19] MEDS: guaiFENesin 600 MG TAB.ER.12H PO (08:48)
[2024-01-19] MEDS: APIXABAN 5 MG TABLET 2.5 MG PO (08:48)
[2024-01-19] MEDS: VENLAFAXINE ER 75 MG CAPSULE 150 MG PO (08:48)
[2024-01-19] MEDS: PREGABALIN 100 MG CAPSULE PO (08:48)
--- NOTE | 2024-01-19 09:34 | P.DS_ITS ---
DS: Providers Provider Date Seen: 01/19/24 Date of admission: 01/17/24 17:06 Primary care physician: Not a Local Provider Admitting Clinician: Latrell Gamez MD Consults: 01/17/24 17:12 Consult to Occupational Therapy [CONS] Routine Comment: Reason(s) for OT Consult:: Evaluate and Treat Any Restrictions?:: No Restrictions Consult to Physical Therapy [CONS] Routine Comment: Reason(s) for PT Consult:: Evaluate and Treat Any Restrictions?:: No Restrictions Consult to Logging Shovel Operator [CONS] Routine Comment: Reason for Consult:: Discharge Planning Needs Attending Physician on discharge: Little Lazo MD DS: Diagnosis Discharge Diagnosis (1) Non-small cell cancer of right lung: Status: Acute Problem details: dx in 2021; s/p XRT and chemo. no surgery. (2) Polypharmacy: Status: Acute (3) Chronic, continuous use of opioids: Status: Acute Problem details: -percocet 5mg QID (discontinued for discharge) -buprenophrine (patch, SL) -multiple other medications -f/u with pain clinic for reduction in medications/polypharmacy ([facility]) (4) History of atrial fibrillation: Status: Acute Problem details: Rate is well controlled. On chronic anticoagulation (5) Chronic anticoagulation: Status: Acute (6) History of pulmonary embolism: Status: Acute Problem details: on oral anticoagulation (7) Chronic pain syndrome: Status: Acute Problem details: chronic degenerative lumbar disease. (8) COPD (chronic obstructive pulmonary disease): Status: Acute Problem details: No current issues (9) Altered mental status: Status: Acute Problem details: 3rd admission for acute delirium in 6 weeks. 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 1st admission was at [facility] in 12/26, 2nd here in [place]. Pt cleared during observation. MR Brain ruled out CVA or mets from known lung cancer. UC was reassuring. Discharge with family on 12/30/23 with instructions to return to pain clinic ([facility]) and work on reduction of buprenorphine and opioids. Also referred to neuropsych testing with Dr. Mj Irving in [place] which is scheduled for May 2024. -Pharmacy consult to meet with son who is responsible for her medications at home -Social work consult for home care assistance with med management -May need higher level of care in near future? DS: Summary Hospital Course Hospital Course: Patient is a pleasant 78yo woman with PMH a fib on anticoagulation, cognitive impairment, COPD, CAD, HTN, hypothyroidism, lung cancer and chronic pain on chronic opioids who presented with altered mental status/acute toxic encephalopathy likely secondary to polypharmacy. She was able to protect her airway and was admitted for supportive cares. She did well and mental status cleared over time. She lives with and son and son reportedly manages her medications, but is feeling overwhelmed and having a hard time keeping all of her medications straight. He reports that he fills pill boxes for her and keeps remaining narcotics locked in a safe. Unfortunately, it appears that patient used all 90 tabs of her monthly oxycodone prescription in 2 weeks. Patient reports being confused at times and it is not clear how all the prescription has disappeared. Son reports that there are pills in a pill box at home that he did not bring in for fear it would spill. I am concerned that ongoing use of oxycodone is not in patient's best interest. It was held while she was in the hospital and she was observed ambulating well with a walker. When I explained that the risk of continuing oxycodone outweighs the current benefit, she became nervous and reported increased pain. She will need close outpatient management with PCP and pain clinic for safe options regarding pain control. Home health care was ordered to help with med management and physical therapy to help with chronic pain Status at Discharge Functional status at discharge: uses cane/walker Overall status at discharge: patient is back to baseline Time Spent with Patient Time attestation: Total time spent providing and/or coordinating discharge services: Time spent: Greater than 30 minutes Exam Narrative: Exam Narrative: General: Well appearing, no distress HEENT: NCAT Resp: Breathing comfortable and unlabored, CTAB CV: RRR, no m/g/r Neuro: Awake, alert, comfortably ambulating with walker with no lateralizing deficits Const: Vital Signs, click to edit/add: Vital Signs - 24 hr 01/18/24 11:27 01/18/24 11:32 01/18/24 15:00 Temperature 98.4 F Pulse Rate Pulse Rate [Left P ulse Oximeter] 73 80 Respiratory Rate 16 15 Blood Pressure [Le ft Arm] 97/64 Pulse Oximetry 95 91 Oxygen Delivery Me thod Nasal Cannula Room Air Oxygen Flow Rate 0.5 01/18/24 16:59 01/18/24 17:52 01/18/24 19:00 Temperature 98.7 F 99.2 F Pulse Rate 89 Pulse Rate [Left P ulse Oximeter] 80 81 Respiratory Rate 15 16 Blood Pressure [Le ft Arm] 120/71 106/67 Pulse Oximetry 91 90 Oxygen Delivery Me thod Room Air Room Air Oxygen Flow Rate 01/18/24 23:11 01/19/24 00:12 01/19/24 03:02 Temperature 98.8 F Pulse Rate 84 Pulse Rate [Left P ulse Oximeter] 84 Respiratory Rate 20 22 Blood Pressure [Le ft Arm] 121/57 L Pulse Oximetry 94 Oxygen Delivery Me thod Room Air Oxygen Flow Rate 01/19/24 07:55 01/19/24 08:04 Temperature 97.8 F Pulse Rate 83 Pulse Rate [Left P ulse Oximeter] 78 Respiratory Rate 16 Blood Pressure [Le ft Arm] 118/75 Pulse Oximetry 94 Oxygen Delivery Me thod Room Air Oxygen Flow Rate Discharge Plan Discharge Disposition: Home, Self-Care Date of Admission: 01/17/24 17:06 Attending Provider on Discharge: Little Lazo Primary Care Provider: Provider,Not a Local Condition: Improved Anticipated Discharge Date/Time: 01/19/24 09:23 Discharge Medications: New acetaminophen 325 mg Tablet 650 mg PO Q6H PRN (Reason: pain) Qty: 100 0RF lidocaine 5 % Adhesive Patch,Medicated 1 patch transdermal Q24H Qty: 15 0RF Combivent Respimat 20-100 mcg/actuation mist 1 puff inhalation QID Qty: 4 0RF Rx Instructions: space evenly during waking hours Continued donepezil 10 mg tablet 10 mg PO DAILY venlafaxine 150 mg capsule,extended release 24hr 150 mg PO DAILY trazodone 150 mg tablet 150 mg PO QPM buspirone 30 mg tablet 30 mg PO BID pregabalin 100 mg capsule 100 mg PO TID Eliquis 2.5 mg tablet 2.5 mg PO BID buprenorphine HCl 2 mg Tablet, Sublingual 2 mg SL BID Qty: 60 0RF methocarbamol 500 mg tablet 500 mg PO TID PRN (Reason: spasm) Qty: 30 0RF Combivent Respimat 20-100 mcg/actuation mist 1 puff inhalation QID calcium carbonate-vitamin D3 [Calcium 600 + D(3)] 600 mg-5 mcg (200 unit) tablet 1 tab PO BID ferrous sulfate [Feosol] 325 mg (65 mg iron) tablet 325 mg PO DAILY PRN calcium polycarbophil [Fiber (calcium polycarbophil)] 625 mg tablet 1,250 mg PO DAILY melatonin 3 mg capsule 3 mg PO QHS Discontinued oxycodone-acetaminophen 5-325 mg tablet 1 tab PO QID PRN (Reason: pain) olanzapine [Zyprexa Zydis] 5 mg tablet,disintegrating 5 mg PO Q12H PRN (Reason: agitation) Qty: 30 0RF hydroxyzine HCl 10 mg tablet 10 mg PO 3XD Discharge Orders: Discharge Order (Routine); Ordered 01/19/24 Ordered By: Little Lazo Patient Education: Acetaminophen (By mouth), Lidocaine Patch (On the skin), Narcotic Safety (ED) Activity Level: Activity as Tolerated Discharge Diet: Regular Follow Up Appointments: Provider,Not a Local [Primary Care Provider] - Forms: [email or web address] Info Instructions Discharge Comments: Patient needs home care services with nursing for medication management and physical therapy for chronic pain
--- NOTE | 2024-01-19 10:41 | PC.SOCIAL ---
Discharge planning- Received a response from Marisel Bautista at [facility] informing that home care could open patient for nursing visits for medication management. Provided Marisel with pt's PCP which is Latanya Silva from [facility]. Secure E-mailed face to face health care orders form and discharge summary. Pt is discharging to home today. Met with pt and pt's and provided an update on home care and provided contacted information for [facility] Social Work will follow up as needed.
== END 2024-01-19 10:05 | disposition home or self-care (01) ==
LOC: ED 16:33 → MEDSURG 17:06
PROVIDERS: Admitting Provider Family Medicine; Emergency Provider Emergency Medicine Emergency Medical Services; Visit Provider Family Medicine
DX: R41.82 Altered mental status, unspecified (principal); J44.9 Chronic obstructive pulmonary disease, unspecified; G89.4 Chronic pain syndrome; C34.91 Malignant neoplasm of unspecified part of right bronchus or lung; M51.36 Other intervertebral disc degeneration, lumbar region; F11.90 Opioid use, unspecified, uncomplicated; Z79.899 Other long term (current) drug therapy; Z79.01 Long term (current) use of anticoagulants; Z86.711 Personal history of pulmonary embolism; Z86.79 Personal history of other diseases of the circulatory system
CPT/HCPCS: 36415; 51798; 71045; 80053; 81003; 83605; 84484; 85025; 87631; 96361; 96374; 97112; 97116; 97161; 97165; 97535; 99281; 99285; G0378; J0571; A9270; J2310; J7030

== ENCOUNTER 2024-04-13 23:08 | Inpatient (IN) | payer MEDICARE, SELFPAY ==
[2024-04-13 23:12] VITALS: BP 129/70; PULSE 101; RESP 20; TEMP 38.4; O2SAT 100
--- NOTE | 2024-04-13 23:20 | ED.GENADULT ---
HPI - General Adult General Date Seen: 04/13/24 Chief complaint: Shortness of Breath/Dyspnea Stated complaint: respiratory distress Time Seen by Provider: 04/13/24 23:19 History of Present Illness HPI narrative: History is limited by patient respiratory difficulty and altered mental status. She is not able to answer most questions that I ask her. She seems alert. She stares straight ahead and acts as though she does not hear some questions, and answers other questions quickly and lucidly History from EMS is that this is a 78-year-old female with a history of COPD, history of lung cancer. Unknown stage unknown she is currently on any treatment), and history of anxiety. She developed acute shortness of breath tonight. She apparently gave herself at 1 of her at home nebulizers and then 1 node was call. She was very anxious and breathing rapidly with a respiratory rate in the 40s when EMS arrived. Initial oxygen sats were in the 80s on room air. She was having a tachypnea and respiratory distress. EMS attempted to start her on BiPAP but she could not tolerate it due to anxiety. EMS was able to establish an IV and she received 125 mg of Solu-Medrol IV. They administered another DuoNeb from their machine. Because of significant anxiety they also administered Versed 2 mg IV. Since then oxygen saturations have come up. She still on non-rebreather. Work of breathing is improved and respiratory rate has come down. After the Versed they asked her if they could try again for a trial of BiPAP but she adamantly refused. History from the patient is that she ?feels cold? . She says she is holding her hands and around her face and does not want to let them down because she feels cold. With some coaching am able to get her hands down. She can not tell me when she started feel cold but she is feeling cold now. She was feeling short of breath but can not really tell me when it started. She was having some chest pain but can not tell me when that happened either. She does not know if she has had a cough. She is not able to answer most other questions. In review of her medical record I see that she was in the ER on 01/17/2024 for altered mental status. According to those notes she has a history of lung cancer and had been through treatment over a year ago and was in remission at that time. Med list included DuoNebs, albuterol nebs, Lyrica, lidocaine patches, calcium fiber caplets. Workup showed WBC 9.5, hemoglobin 12.3, platelet count 313. Sodium 138, potassium 4.5, chloride 103, bicarb 32, BUN, 21, creatinine 0.8. Glucose 115. Lactic 1.0. LFTs normal. Troponin 0.01. She was hospitalized through 01/18. Discharge diagnosis list included Non-small lung cancer Polypharmacy (on Percocet, buprenorphine patches, other medications) Atrial fibrillation-was on chronic anticoagulation History of PE-on anticoagulation COPD Per DC Summary: 3rd admission for acute delirium in 6 weeks. 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 1st admission was at [facility] in 12/26, 2nd here in [place]. Pt cleared during observation. MR Brain ruled out CVA or mets from known lung cancer. UC was reassuring. Discharge with family on 12/30/23 with instructions to return to pain clinic ([facility]) and work on reduction of buprenorphine and opioids. Also referred to neuropsych testing with Dr. Mj Irving in [place] which is scheduled for May 2024 Was in ER on 12/28 for altered mental status. According to those notes she had been on a course of antibiotics for UTI (diagnosed [facility]). Med list at that time included apixaban, buprenorphine patches, BuSpar, donepezil, guaifenesin, hydroxyzine, oxycodone/acetaminophen, Lyrica, trazodone, venlafaxine, methocarbamol Related Data Home Medications ?Medication ?Instructions ?Recorded ?Confirmed pregabalin 100 mg capsule 100 mg PO TID 12/27/23 04/04/24 albuterol sulfate 90 mcg/actuation 1 - 2 puff inhalation .every 4-6 01/25/24 04/04/24 aerosol inhaler hrs PRN ipratropium 0.5 mg-albuterol 3 mg 3 ml inhalation Q4H PRN 01/25/24 04/04/24 (2.5 mg base)/3 mL nebulization soln lidocaine 5 % topical patch 1 patch transdermal Q24H PRN 01/25/24 04/04/24 buprenorphine HCl 2 mg sublingual 2 mg sublingual DIRECTED 04/04/24 tablet calcium polycarbophil 625 mg 1,250 mg PO DAILY PRN 04/04/24 04/04/24 tablet (Fiber (calcium polycarbophil)) hydroxyzine HCl 10 mg tablet 10 mg PO 3XD PRN anxiety 04/04/24 04/04/24 melatonin 5 mg tablet 5 mg PO QHS PRN 04/04/24 04/04/24 calcium/vitamin d3 PO BID 04/11/24 methocarbamol 500 mg tablet 500 mg PO TID PRN 04/11/24 Previous Rx's ?Medication ?Instructions ?Recorded acetaminophen 325 mg tablet 650 mg (2 x 325 mg) PO Q6H PRN 01/19/24 pain #100 tabs apixaban 2.5 mg tablet (Eliquis) 2.5 mg PO BID #180 tabs 03/21/24 buspirone 15 mg tablet 15 mg PO BID #60 tabs 03/21/24 mirtazapine 7.5 mg tablet 7.5 mg PO QHS #90 tabs 03/21/24 ferrous sulfate 325 mg (65 mg 325 mg PO DAILY #90 tabs 03/22/24 iron) tablet (Feosol) fluticasone furoate 100 1 inh inhalation QDAY #30 ea 03/25/24 mcg/actuation blister powder for inhalation (Arnuity Ellipta) ipratropium 20 mcg-albuterol 100 1 puff inhalation QID #4 grams 03/25/24 mcg/actuation mist for inhalation (Combivent Respimat) fluoxetine 10 mg capsule (Prozac) 10 mg PO QDAY #30 caps 04/11/24 Allergies Allergy/AdvReac Type Severity Reaction Status Date / Time diclofenac [From Voltaren] Allergy Severe Anaphylaxis Verified 03/10/24 10:50 capsaicin Allergy Intermediate Hives Verified 03/04/24 13:52 amoxicillin Allergy Mild Rash Verified 03/04/24 13:52 buprenorphine Allergy Unknown Verified 03/04/24 13:52 gabapentin AdvReac Abdominal Verified 03/04/24 13:52 Pain sertraline AdvReac Verified 03/04/24 13:52 [facility] Medical History Physician orders for life-sustaining treatment (POLST) form indicates patient wish for [id number] status ?Z66 - Do not resuscitate (ICD-10) Cataract ?H26.9 - Unspecified cataract (ICD-10) Chronic, continuous use of opioids ?F11.90 - Opioid use, unspecified, uncomplicated (ICD-10) History of atrial fibrillation ?Z86.79 - Personal history of other diseases of the circulatory system (ICD-10) Chronic anticoagulation ?Z79.01 - MCC (current) use of anticoagulants (ICD-10) History of pulmonary embolism ?Z86.711 - Personal history of pulmonary embolism (ICD-10) Chronic pain syndrome ?G89.4 - Chronic pain syndrome (ICD-10) COPD (chronic obstructive pulmonary disease) ?J44.9 - Chronic obstructive pulmonary disease, unspecified (ICD-10) Surgical History History of bronchoscopy ?Z98.890 - Other specified postprocedural states (ICD-10) S/P ORIF (open reduction internal fixation) fracture ?Z98.890 - Other specified postprocedural states (ICD-10) ?Z87.81 - Personal history of (healed) traumatic fracture (ICD-10) History of lumbar fusion ?Z98.1 - Arthrodesis status (ICD-10) History of total right knee replacement ?Z96.651 - Presence of right artificial knee joint (ICD-10) Hx of decompressive lumbar laminectomy ?Z98.890 - Other specified postprocedural states (ICD-10) S/P epidural steroid injection ?Z92.241 - Personal history of systemic steroid therapy (ICD-10) H/O arthroscopy of right knee ?Z98.890 - Other specified postprocedural states (ICD-10) S/P total abdominal hysterectomy and bilateral salpingo-oophorectomy ?Z90.710 - Acquired absence of both cervix and uterus (ICD-10) ?Z90.722 - Acquired absence of ovaries, bilateral (ICD-10) ?Z90.79 - Acquired absence of other genital organ(s) (ICD-10) Family History Father Heart disease Mother Heart disease Social History (Updated 01/17/24 @ 18:27 by Latrell Gamez MD) Narrative: Lives in [place]. Has been going to [facility] in [place] and [facility] but plans on switching to [facility] in [place]. 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 Previous smoker. No alcohol. to [place]. Two adult sons. is healthcare power of criminal defense attorney. Code status is DNR. What is your current living situation?: I presently have a place to live Problems where you live: no known problems Problems where you live details: none per pt report In the past 12 months, utilities in danger of being shut off: no In past 12 months, lack of transportation kept you from medical appts, meetings, work, or getting things needed for daily living: no In the past 12 mos, have been you worried that your food would run out before you had money to buy more?: never true In the past 12 mos, the food you bought just didn't last and you didn't have money to buy more?: never true Highest level of school completed/degree received: Associate degree: occupational, technical, vocational program Smoking Status: Current some day smoker What tobacco products do you use: cigarettes Smoking packs per day: 0.15 Smoking cigarettes per day: 3.0 Do you use any of these nicotine containing products: None Second hand tobacco smoke exposure: No How often do you have a drink containing alcohol: never How often do you have six or more drinks on one occasion: Never AUDIT-C Alcohol total score: 0 Non-prescribed substance use: denies use Caffeine: Yes (3) How often does anyone, including family, friends and others, physically hurt you: never How often does anyone, including family, friends and others, insult or talk down to you: never How often does anyone, including family, friends and others, threaten you with harm: never How often does anyone, including family, friends and others, scream or curse at you: never service: No Exam Narrative: Exam Narrative: Primary Survey: A- patent. Voice is muffled because she is holding her fisted hands in front of her face. Phonation normal, and voice is more clear after I get her to let her fists down No stridor. B- breathing easily. Bilateral wheezes. Symmetric lung sounds. Oxygen sat saturation 99% on non-rebreather. We weaned her back to 5 L nasal cannula and oxygen saturations remained in the 90s. Respiratory rate is 22 by my count. C- no active bleeding. Blood pressure stable. Symmetric pulses and cap refill in 4 extremities D- alert alert but not able to answer orientation questions. When asked her what her 1st and last name is she does not answer. When I ask her where she is she says she lives in [facility]. Her sister's name is Virgie. Her sister and her are coming. Constitutional: Appears well-developed but very slender and clear almost cachectic. Feels warm to the touch and does have a temperature 101.2?. HENT: Head: Atraumatic. Nose: Nose normal. Mouth/Throat: Oral mucosa is clear and moist. no trismus. Oral mucous membranes are somewhat dry. Unable to visualize her pharynx because she is not really cooperative with exam. Eyes: Conjunctivae normal. EOM normal. Pupils are bilaterally small, almost pinpoint, but equal, round, and reactive to light. No scleral icterus. Neck: Normal range of motion. Neck supple. No tracheal deviation present. No JVD Cardiovascular: Normal rate (around 100, sinus on the monitor), regular rhythm. No gallop. No friction rub. No murmur heard. Symmetric radial artery pulses Pulmonary/Chest: Borderline tachypnea but effort normal. No stridor. At this point not tripoding or respiratory distress. Bilateral scattered wheezes. No definite rales Abdominal: Soft. No distension. No mass. No tenderness. No rebound. No guarding. Musculoskeletal: RUE: Normal range of motion. No tenderness. No deformity LUE: Normal range of motion. No tenderness. No deformity RLE: Normal range of motion. No edema. No tenderness. No deformity LLE: Normal range of motion. No edema. No tenderness. No deformity Lymph: No cervical adenopathy. Neurological: Alert and oriented to person, place, but she is not really answering questions about today's date and not able to provide much history. Normal strength and both upper extremities. She is holding them in fist in front of her face because she feels cold and does not want to let them down.. CN II-VII intact. No sensory deficit. GCS eye subscore is 4. GCS verbal subscore is 5. GCS motor subscore is 6. Normal coordination Skin: Skin is warm and dry. No rash noted. No pallor. Normal capillary refill. Psychiatric: Limited. Was reportedly extremely anxious per EMS. His received Versed. Const: Vital Signs, click to edit/add: Vital Signs - 24 hr 04/13/24 23:12 Temperature 101.2 F H Pulse Rate [Left P ulse Oximeter] 101 H Respiratory Rate 20 Blood Pressure [Ri ght Upper Arm] 129/70 Pulse Oximetry 100 Oxygen Delivery Me thod Non Rebreather Mas k Course Vital Signs Vital signs: Initial Vital Signs Temperature 101.2 F H 04/13/24 23:12 Temperature Source Temporal Artery Scan 04/13/24 23:12 Pulse Rate 101 H 04/13/24 23:12 Pulse Rhythm Regular 04/13/24 23:12 Respiratory Rate 20 04/13/24 23:12 Blood Pressure 129/70 04/13/24 23:12 Blood Pressure Mean 89 04/13/24 23:12 Blood Pressure Position Semi-Fowlers 04/13/24 23:12 Pulse Oximetry 100 04/13/24 23:12 Oxygen Delivery Method Non Rebreather Mask 04/13/24 23:12 Vital Signs Temperature 101.2 F H 04/13/24 23:12 Pulse Rate 101 H 04/13/24 23:12 Respiratory Rate 20 04/13/24 23:12 Blood Pressure 129/70 04/13/24 23:12 Pulse Oximetry 100 04/13/24 23:12 Oxygen Delivery Method Non Rebreather Mask 04/13/24 23:12 Temperature 101.2 F H 04/13/24 23:12 Pulse Rate 101 H 04/13/24 23:12 Respiratory Rate 20 04/13/24 23:12 Blood Pressure 129/70 04/13/24 23:12 Pulse Oximetry 100 04/13/24 23:12 Oxygen Delivery Method Non Rebreather Mask 04/13/24 23:12 Medical Decision Making MDM Narrative Medical decision making narrative: 78-year-old female with a complex past medical history brought to the ER today by EMS. She was a ?red? patient per EMS radio report. She had called them with acute shortness of breath. She had agitation, tachypnea, shortness of breath. She required DuoNebs and they placed her on BiPAP but she was not able to tolerate it due to anxiety and agitation. They administered 2 mg of Versed. With her interventions her respiratory rate came down while she was per EMS. Oxygen saturations came up. Upon arrival here to the ER we were able to wean her off the non-rebreather and back to nasal cannula. Lung sounds were still somewhat wheezy but she was moving good air. No respiratory distress that would necessitate putting her back on positive pressure ventilation or endotracheal intubation. She was complaining of feeling cold here in the ER and seemed to have altered mental status. She was found to have a temp 101.2?. Considered is for possible infectious etiology triggering her cough and shortness of breath. I have ordered coronavirus/influenza PCR as well as chest x-ray, blood cultures, labs, and initial stages of septic workup. She does have borderline tachycardia with heart rate of 101. IV saline 1 L bolus ordered. Lactic acid pending. Will start on antibiotics for probable community-acquired pneumonia giving her respiratory symptoms and fever, pending further workup. EKG shows sinus tach and some shivering artifact in the baseline but no obvious ischemia. Troponin is ordered and is currently pending. Patient is not a good historian and is only able to answer some questions. In review of her record I see that she does have multiple previous ER visits for delirium and altered mental status. I have ordered VBG for further assessment. She is reportedly on chronic anticoagulation (for AFib or possibly history of PE, or both). No external signs of trauma but I have ordered head CT. I saw this patient when she arrived by EMS and persists paid in her initial history and physical and initial primary survey stabilization. I have ordered her initial workup including fluids, antibiotics, oxygen, labs, imaging. Discussed with my oncoming partner, Dr. Kramer, at around midnight 04/13/2024. She will assume care and determine ultimate disposition. Anticipate likely hospitalization. Clinical impression 1. COPD exacerbation 2. Fever 3. Altered mental status ECG Data Attestation: I personally reviewed and interpreted this ECG as follows: Interpretation: Sinus tachycardia Rate: 101 NJ: 174 QRS axis: Normal axis ST segment/T wave: Some shivering artifact from fever obscures the baseline but no ST segment elevation or depression is noted QTc: 466 Discharge Plan Discharge Prescriptions: No Action mirtazapine 7.5 mg tablet 7.5 mg PO QHS Qty: 90 3RF Eliquis 2.5 mg tablet 2.5 mg PO BID Qty: 180 3RF buspirone 15 mg tablet 15 mg PO BID Qty: 60 3RF ferrous sulfate [Feosol] 325 mg (65 mg iron) tablet 325 mg PO DAILY Qty: 90 3RF hydroxyzine HCl 10 mg tablet 10 mg PO 3XD PRN (Reason: anxiety) buprenorphine HCl 2 mg tablet, sublingual 2 mg sublingual DIRECTED Rx Instructions: 2 tab qam/ 1 tab @ Midday/ 2 tab qhs melatonin 5 mg tablet 5 mg PO QHS PRN albuterol sulfate 90 mcg/actuation HFA aerosol inhaler 1 - 2 puff inhalation .every 4-6 hrs PRN lidocaine 5 % adhesive patch,medicated 1 patch transdermal Q24H PRN ipratropium-albuterol 0.5 mg-3 mg(2.5 mg base)/3 mL solution for nebulization 3 ml inhalation Q4H PRN fluoxetine [Prozac] 10 mg capsule 10 mg PO QDAY Qty: 30 0RF pregabalin 100 mg capsule 100 mg PO TID acetaminophen 325 mg Tablet 650 mg PO Q6H PRN (Reason: pain) Qty: 100 0RF Fiber (calcium polycarbophil) 625 mg tablet 1,250 mg PO DAILY PRN Combivent Respimat 20-100 mcg/actuation mist 1 puff inhalation QID Qty: 4 12RF Rx Instructions: space evenly during waking hours Arnuity Ellipta 100 mcg/actuation blister with device 1 inh inhalation QDAY Qty: 30 12RF methocarbamol 500 mg tablet 500 mg PO TID PRN calcium/vitamin d3 PO BID Follow Up/Referrals: Prema Lantigua MD [Primary Care Provider] -
[2024-04-13] MEDS: 0.9 % SODIUM CHLORIDE 1000 ml 1,000 ML IV (23:39)
--- NOTE | 2024-04-13 23:43 | CRLHL7_ITS ---
For Patients: As a result of the Century Cures Act, medical imaging exams and procedure reports are released immediately into your electronic medical record. You may view this report before your referring provider. If you have questions, please contact your health care provider. INDICATION: Fall, shortness of breath. TECHNIQUE: CT head without contrast. COMPARISON: 12/27/2023. FINDINGS: Brain parenchyma, CSF spaces, and extra-axial spaces: Mild global brain parenchymal volume loss with commensurate sulcal and ventricular enlargement. Areas of mild hypoattenuation within the bilateral supratentorial white matter, consistent with chronic small vessel ischemic disease. The mott-white differentiation is normal. No sign of mass, hemorrhage, or midline shift. No hydrocephalus. No extra-axial fluid collection. Skull base and calvarium: The visualized paranasal sinuses demonstrate no acute or significant findings. The mastoid air cells are clear. The visualized orbits are grossly unremarkable. No skull fracture. IMPRESSION: Unremarkable noncontrast head CT. Please note that all CT scans at this facility use dose modulation, iterative reconstruction, and/or weight-based dosing when appropriate to reduce radiation dose to as low as reasonably achievable. Dictated by Arpan Hu MD @ 04/14/2024 1:35:14 AM (Electronically Signed)
[2024-04-13 23:46] VITALS: PULSE 102; RESP 26; O2SAT 97
[2024-04-13] MEDS: cefTRIAXone 1 GM in 0.9 % SODIUM CHLORIDE Mini-bag 100 ML IVPB (23:46)
[2024-04-13 23:55] LABS: Albumin* 3.8 g/dL (3.3-5.0)
[2024-04-13 23:56] LABS: Basophils Absolute Auto 0.02 K/uL (0.00-0.30); Basophils Percent Auto 0.2 % (0.0-3.0); Chloride* 106 mmol/L (96-114); Eosinophils Absolute Auto 0.32 K/uL (0.00-0.50); Eosinophils Percent Auto 2.9 % (0.0-7.0); Hematocrit 33.7 % (33.0-51.0); Immature Granulocytes Abs Auto 0.15 K/uL (0.00-0.30); Immature Granulocytes Pct Auto 1.4 %; Lymphocytes Percent Auto 5.5 % (20-44); Mean Corpuscular HGB Conc 33 gm/dL (32-36); Mean Corpuscular Hemoglobin 32 pg (26-34); Mean Corpuscular Volume 98 fL (80-100); Monocytes Percent Auto 7.2 % (0.0-11.0); Neutrophils Percent Auto 82.8 % (42.0-72.0); Platelet Count* 304 K/uL (140-440); Potassium* 3.7 mmol/L (3.6-5.1); RDW Coefficient of Variation % 13.8 % (11.5-15.5); Red Blood Count 3.45 m/uL (4.00-5.20); Sodium* 137 mmol/L (135-149); White Blood Count* 10.87 K/uL (4.50-11.00)
--- OUTSIDE RECORDS SUMMARY | 2024-04-13 23:57 | XMS_ITS | Encounter Summary ---
Author Organization [facility] Address [address] [place] [address]. [place] [address] Care Team Providers Care Laboratory Equipment Cleaner Name Role Phone Anil Suzanne Arevalo DO Unavailable [phone] Cory Lama MD Unavailable [phone] Tabatha Agrawal RN Unavailable [phone] Anil Suzanne M DO Unavailable [phone] Latanya Silva MD Primary Care Provider Keira Frye [facility] Unavailable Colby Khan MD Unavailable [phone] Candi Stinson DO Unavailable Latayna Silva MD Unavailable [phone] Hallie Berman RN Unavailable Unavailable Nancy Shaw PA-C Unavailable [phone] Arpan Carolina MD Unavailable Reason for Visit * Reason Comments Medication Refill Encounter Details Date Type Department Care Team (Late st Contact Info) Description 01/16/2024 Refill [facility] [id number] [place] [phone] Latanya Silva MD [address] [place] [id number] Medication Refill Social History Tobacco Use Types Packs/Day Years Used Date Smoking Tobacco: Former Cigarettes 1 20 1 - 08/10/2010 Smokeless Tobacco: Never Comments:1-2 cigarettes ever y day - smoke 1/3 at a time Alcohol Use Standard Drinks/Week Comments No 0 (1 standard drink = 0.6 oz pur e alcohol) Humiliation, Afraid, Rape, and Kick questionnair e Answer Date Recorded Within the last year, have y ou been afraid of your partner or ex-partner? No 05/12/2022 Within the last year, have y ou been humiliated or emotionally abused in other ways by your partner or ex-partner? No Within the last year, have y ou been kicked, hit, slapped, or otherwise physically hurt by your partner or ex-partner? No 05/12/2022 Within the last year, have y ou been raped or forced to have any kind of sexual activity by your partner or ex-partner? No 05/12/2022 PHQ-2 Answer Date Recorded PHQ-2 Score 4 01/05/2024 Adolescent Education Answer Date Record ed Getting School Help Needed Not on file 07/26 Sex and Gender Information Value Date Recorded Sex Assigned at Not on file Gender Identity Not on file Sexual Orientation Not on file documented as of this encounter Miscellaneous Notes * Telephone Encounter - Kristi Samuel RN - 01/18/2024 1:44 PM CDT Duplicate - prescription request refused. documented in this encounter Plan of Treatment Upcoming Encounters Date Type Department Care Team (Late st Contact Info) Description 04/27/2024 11:00 AM CDT Oncology Visit [facility] [address] [address] [facility] [place] [address] [place] [address] [place] [address] Cherie Geiger PA-C [address] [place], [place] [id number] documented as of this encounter Visit Diagnoses Diagnosis Insomnia, unspecified type Muscle spasms of both lower extremities documented in this encounter Additional Health Concerns Active Problems Noted Date Diagnosed Date Medication Adherence 03/31/2023 Assessment Noted Time PHQ-9 Depression Total Score: 19 024 8:51 AM CABLE ARMORER documented as of this encounter Care Teams Laboratory Equipment Cleaner Relationship Specialty [place] [address] [place], [place] [id number] PCP - General Family Medicine 06/12/22 Suzanne Ma DO Hematology & Oncology 05/07/22 Cory Lama MD [address] [place] [id number] Critical Care 05/07/22 Tabatha Agrawal, RN Specialty Interactive Marketing Strategist Hematology & Oncology 05/13/22 [place] [address] [place] [address] Assigned Cancer Care Provider 05/17/22 Keira Frye [facility] [address] [place] [id number] Assigned MTM Pharmacist 12/13/22 Colby Khan MD [address] [place] [id number] Neurology 01/02/23 Candi Stinson DO [address] [place] [address] Assigned Palliative Care Provider 01/10/23 [place] [address] [place] [address] Assigned PCP 03/28/23 Hallie Berman RN Personal Advocate & Liaison (PAL) Family Medicine 11/24/23 Nancy Shaw PA-C [address] [place] [phone] Physician [employer] Pulmonary Disease 01/05/24 Arpan Carolina MD [address] [place] [address] [address] [place], [place] [id number] Critical Care 01/05/24 documented as of this encounter
--- OUTSIDE RECORDS SUMMARY | 2024-04-13 23:57 | XMS_ITS | Encounter Summary ---
Author Organization [place] Address [facility] [place] [address] Care Team Providers Care Endoscope Technician Name Role Phone Suzanne Ma DO Unavailable [phone] Cory Lama MD Unavailable Tabatha Agrawal RN Unavailable [phone] AnilSuzanne DO Unavailable [phone] Latanya Silva MD Primary Care Provider Keira Frye [facility] Unavailable [phone] Colby Khan MD Unavailable [phone] Candi Stinson DO Unavailable Latanya Silva MD Unavailable [phone] Hallie Berman RN Unavailable Unavailable Nancy Shaw PA-C Unavailable [phone] Arpan Carolina MD Unavailable [phone] Reason for Visit * Reason Onset Date Comments Referral 01/05/2024 Urgent , referra l scheduled Encounter Details Date Type Department Care Team (Late st Contact Info) Description 01/05/[address] [place] [address] Unknown Referral (Urgent , referral scheduled ) Social History Tobacco Use Types Packs/Day Years [...] encounter Miscellaneous Notes * Telephone Encounter - Todd Martines RN - 01/07/2024 10:46 AM PUNCH PRESS OPERATOR Phone Engineer called Prasad (EC/Spouse) of patient to offer earlier appointment in . Spouse states he prefers patient be seen in [place] in the afternoon. Patient is currently scheduled with Dr Carolina on 04/06/24. Phone Engineer provided update that there were not sooner in-person appointments available but will add patient to waitlist if an earlier appointment becomes available. Todd Martines RN H PRESS OPERATOR * Telephone Encounter - Jakecarol Yanelis - 01/05/2024 3:27 PM [facility] Phone Message May a detailed message be left on voicemail: yes Reason for Call: Appointment Intake Referring Provider Name: LATANYA SILVA Diagnosis and/or Symptoms: J18.9 (ICD-10-CM) - Community acquired pneumonia of left upper lobe of lung J44.9 (ICD-10-CM) - Chronic obstructive pulmonary disease, unspecified COPD type K Pt scheduled 04/06/24 Dr Carolina - preferred location, urgent referral, pt son scheduled and he requested no early appointments for the patient, he said its really difficult getting her going in the morning, please review, thank you Action Taken: Message routed [facility]monology Travel Screening: Not Applicable H PRESS OPERATOR documented in this encounter Plan of Treatment Upcoming Encounters Date Type Department Care Team (Late st Contact Info) Description 04/27/2024 11:00 AM CDT Oncology Visit [facility] [address] [place] [address] [address] [facility] [place] [address] [place] [address] [place] [address] Cherie Geiger PA-C [address] [place] [address] documented as of this encounter Visit Diagnoses Not on filedocumented in this encounter Additional Health Concerns Active Problems Noted Date Diagnosed Date Medication Adherence 03/31/2023 Assessment Noted Time PHQ-9 Depression Total Score: 19 024 8:51 AM PUNCH PRESS OPERATOR documented as of this encounter Care Teams Endoscope Technician Relationship Specialty [place] [address] [place] [address] PCP - General Family Medicine 06/12/22 Suzanne Ma DO Hematology & Oncology 05/07/22 Cory Lama MD [address] [place] [address] Critical Care 05/07/22 Tabatha Agrawal, RN Specialty Fraternity Adviser Hematology & Oncology 05/13/22 [place] [address] [place] [address] Assigned Cancer Care Provider 05/17/22 Keira Frye, [facility] [address] [place], [place] [id number] Assigned MTM Pharmacist 12/13/22 Colby Khan MD [address] [place] [address] [id number] Neurology 01/02/23 Candi Stinson DO [address] [place] [address] 713314 Assigned Palliative Care Provider 01/10/23 [place] [address] [place], [place] [id number] Assigned PCP 03/28/23 Hallie Berman RN Personal Advocate & Liaison (PAL) Family Medicine 11/24/23 Nancy Shaw PA-C [address] [place] [address] [id number] Physician Manager Business Management Pulmonary Disease 01/05/24 Arpan Carolina MD [address] [place] [address] Critical Care 01/05/24 documented as of this encounter
--- OUTSIDE RECORDS SUMMARY | 2024-04-13 23:57 | XMS_ITS | Encounter Summary ---
Author Organization [place] Address [address] [place] [address] Care Team Providers Care Fitter Placer Name Role Phone Suzanne Ma DO Unavailable [phone] Cory Lama MD Unavailable Tabatha Agrawal RN Unavailable [phone] Suzanne Ma DO Unavailable [phone] Latanya Silva MD Primary Care Provider Keira Frye [facility] Unavailable [phone] Colby Khan MD Unavailable [phone] Candi Stinson DO Unavailable Latanya Silva MD Unavailable [phone] Hallie Berman RN Unavailable Unavailable Nancy Shaw PA-C Unavailable Arpan Carolina MD Unavailable Reason for Referral * Diagnostic Imaging XR (Routine) - Pending Review Specialty Diagnoses / Procedures Referred By Contac t Referred To Contact Radiology. Diagnoses Community acquired pneumonia of left upper lobe of lung Procedures XR Chest 2 Views Arpan Carolina MD [address] [facility] [address] [place] [address] Referral ID Status Reason Start Date Expiration Date V isits Requested Visits Authorized [id number] Pending Review 01/07/2024 01/06/2025 1 1 SYSTEMS ANALYST Encounter Details Date Type Department Care Team (Late st Contact Info) Description 01/05/2024 Orders Only [facility] Specialty [address] [place] [address] Arpan Carolina MD [address] [facility] [address] [place] [address] Chronic obstructive pulmonary disease, unspecified COPD type (H) (Primary Dx); Community acquired pneumonia of left upper lobe of lung Social History Tobacco Use Types Packs/Day Years [...] on file documented as of this encounter Progress Notes * Todd Martines RN - 01/05/2024 3:32 PM CST CXR and PFT orders placed per new patient guidelines. Todd Martines, RN SYSTEMS ANALYST documented in this encounter Plan of Treatment Upcoming Encounters Date Type Department Care Team (Late st Contact Info) Description 04/27/2024 11:00 AM CDT Oncology Visit [facility] [address] [place] [address] [address] [facility] [place] [address] [place] [address] [place] [address] Cherie Geiger PA-C [address] [place] [address] Scheduled Orders Name Type Priority Associated Diagnoses Orde r Schedule Pulmonary function test PFT Routine Chronic obstructive pulmonary disease, unspecified COPD type (H) Community acquired pneumonia of left upper lobe of lung Expected: 02/03/2024, Expires: 07/03/2024 XR Chest 2 Views Imaging Routine Community acquired pneumonia of left upper lobe of lung Expected: 03/23/2024 (Approximate), Expires: 01/06/2025 documented as of this encounter Visit Diagnoses Diagnosis Chronic obstructive pulmonary disease, unspecified COPD type (H)- Primary Community acquired pneumonia of left upper lobe of lung documented in this encounter Additional Health Concerns Active Problems Noted Date Diagnosed Date Medication Adherence 03/31/2023 Assessment Noted Time PHQ-9 Depression Total Score: 19 024 8:51 AM HR SYSTEMS ANALYST documented as of this encounter Care Teams Fitter Placer Relationship Specialty [place] [address] [place] [address] PCP - General Family Medicine 06/12/22 Suzanne Ma DO Hematology & Oncology 05/07/22 Cory Lama MD [address] [place] [address] 277235 Critical Care 05/07/22 Tabatha Agrawal, MARY Specialty Corporate Quality Manager Hematology & Oncology 05/13/22 [place] [address] [place] [address] Assigned Cancer Care Provider 05/17/22 Keira Frye, [facility] [address] [facility] [address] [place], [place] [id number] Assigned MTM Pharmacist 12/13/22 Colby Khan MD [address] [place] [address] Neurology 01/02/23 Candi Stinson DO [address] [place] [address] Assigned Palliative Care Provider 01/10/23 [place] [address] [place], [place] [phone] Assigned PCP 03/28/23 Hallie Berman RN Personal Advocate & Liaison (PAL) Family Medicine 11/24/23 Nancy Shaw PA-C [address] [place] [address] Physician Head Of Mathematics Pulmonary Disease 01/05/24 Arpan Carolina MD [address] [place] [place] [address] [place] 500[address] Critical Care 01/05/24 documented as of this encounter
--- OUTSIDE RECORDS SUMMARY | 2024-04-13 23:57 | XMS_ITS | Encounter Summary ---
Author Organization [place] Address [address] [place] [address] Care Team Providers Care Telephone Sales Representative Name Role Phone Suzanne Ma DO Unavailable [phone] Cory Lama MD Unavailable Tabatha Agrawal RN Unavailable [phone] Suzanne Ma DO Unavailable [phone] Latanya Silva MD Primary Care Provider Keira Frye [facility] Unavailable [phone] Colby Khan MD Unavailable [phone] Candi Stinson DO Unavailable Latanya Silva MD Unavailable [phone] Hallie Berman RN Unavailable Unavailable Nancy Shaw PA-C Unavailable Arpan Carolina MD Unavailable Prema MendezSW Unavailable Encounter Details Date Type Department Care Team (Latest Contact Info) Description 01/21/2024 Medical Correspondence [facility] [address] [facility] [place] [address] Scan, Non-Provider OUTSIDE RECORDS Social History Tobacco Use Types Packs/Day Years [...] on file documented as of this encounter Plan of Treatment Upcoming Encounters Date Type Department Care Team (Late st Contact Info) Description 04/27/2024 11:00 AM CDT Oncology Visit [facility] [address] [facility] [place] [address] [place] [address] [place] [address] Cherie Geiger PA-C [address] [place] [address] documented as of this encounter Visit Diagnoses Not on filedocumented in this encounter Additional Health Concerns Active Problems Noted Date Diagnosed Date Medication Adherence 03/31/2023 Assessment Noted Time PHQ-9 Depression Total Score: 19 024 8:51 AM COAL GRADER documented as of this encounter Care Teams Telephone Sales Representative Relationship Specialty [place] [address] [place] [address] PCP - General Family Medicine 06/12/22 Suzanne Ma DO Hematology & Oncology 05/07/22 Cory Lama MD [address] [place] [address] 465695 Critical Care 05/07/22 Tabatha Agrawal, RN Specialty Host/Hostess Restaurant Hematology & Oncology 05/13/22 [place] [address] [place] [address] Assigned Cancer Care Provider 05/17/22 Keira Frye [facility] [facility] [place] [address] Assigned MTM Pharmacist 12/13/22 Colby Khan MD [address] [place] [address] Neurology 01/02/23 Candi Stinson DO [address] [place] [address] 967524 Assigned Palliative Care Provider 01/10/23 [place] [address] [place] [address] Assigned PCP 03/28/23 Hallie Berman, RN Personal Advocate & Liaison (PAL) Family Medicine 11/24/23 Nancy Shaw PA-C [address] [place], [place] 06[address] Physician Armor Reconnaissance Vehicle Driver Pulmonary Disease 01/05/24 Arpan Carolina MD [address] [place] [address] [address] [place] [address] Critical Care 01/05/24 Prema Mendez, [facility] [address] [place] [address] [address] [place] [address] Assigned Behavioral Health Provider 02/23/24 03/23/24 documented as of this encounter
--- OUTSIDE RECORDS SUMMARY | 2024-04-13 23:57 | XMS_ITS | Encounter Summary ---
Author Organization [place] Address [address] [facility] [place] [address] Care Team Providers Care Senior Mechanical Development Engineer Name Role Phone Suzanne Ma DO Unavailable [phone] Cory Lama MD Unavailable [phone] Tabatha Agrawal RN Unavailable [phone] Suzanne Ma DO Unavailable [phone] Latanya Silva MD Primary Care Provider Keira Frye [facility] Unavailable Colby Khan MD Unavailable [phone] Candi Stinson DO Unavailable Latanya Silva MD Unavailable [phone] Hallie Berman RN Unavailable Unavailable Nancy Shaw PA-C Unavailable Arpan Carolina MD Unavailable [phone] Encounter Details Date Type Department Care Team (Late st Contact Info) Description 04/06/2024 Orders Only [facility] [address] [place] [address] Mariana Lopez, [facility] Social History Tobacco Use Types Packs/Day Years [...] Description 04/27/2024 11:00 AM CDT Oncology Visit [facility] [address] [place] [address] [address] [facility] [place] [address] [place] [address] [place] [address] Cherie Geiger PA-C [address] [place] [address] documented as of this encounter Visit Diagnoses Not on filedocumented in this encounter Additional Health Concerns Active Problems Noted Date Diagnosed Date Medication Adherence 03/31/2023 Assessment Noted Time PHQ-9 Depression Total Score: 19 024 8:51 AM INSPECTOR TUBES documented as of this encounter Care Teams Senior Mechanical Development Engineer Relationship Specialty [place] [address] [place], [place] [phone] PCP - General Family Medicine 06/12/22 Suzanne Ma DO Hematology & Oncology 05/07/22 Cory Lama MD [address] [place] [address] 788905 Critical Care 05/07/22 Tabatha Agrawal, RN Specialty Basin Cleaner Hematology & Oncology 05/13/22 [place] [address] [place], [place] [address] Assigned Cancer Care Provider 05/17/22 Keira Frye [facility] [address] [place], [place] [phone] Assigned MTM Pharmacist 12/13/22 Colby Khan MD [address] [place] [address] Neurology 01/02/23 Candi Stinson DO [address] [place] [address] Assigned Palliative Care Provider 01/10/23 [place] [address] [place] [address] Assigned PCP 03/28/23 Hallie Berman, RN Personal Advocate & Liaison (PAL) Family Medicine 11/24/23 Nancy Shaw PA-C [address] [place] [address] Physician Binder Stripper Machine Pulmonary Disease 01/05/24 Arpan Carolina MD [address] [place] [address] 276 [place] [address] Critical Care 01/05/24 documented as of this encounter
--- OUTSIDE RECORDS SUMMARY | 2024-04-13 23:57 | XMS_ITS | Clinical Summary ---
Author Organization [place] Address [facility] [place] [address] Care Team Providers Care Automatic Cigar Wrapper Tender Name Role Phone Suzanne Ma DO Unavailable [phone] Cory Lama MD Unavailable [phone] Tabatha Agrawal RN Unavailable [phone] Suzanne Ma DO Unavailable [phone] Latanya Silva MD Primary Care Provider Keira Frye [facility] Unavailable [phone] Colby Khan MD Unavailable [phone] Candi Stinson DO Unavailable Latanya Silva MD Unavailable [phone] Hallie Berman RN Unavailable Unavailable Nancy Shaw PA-C Unavailable Arpan Carolina MD Unavailable Allergies Active Allergy Reactions Criticality Noted Date Comments Amoxicillin Rash Low 03/04/2011 Buprenorphine 07/13/2020 Diclofenac Sodium Anaphylaxis High 07/16/2012 Gabapentin 02/04/2018 Other reaction(s): severe upset stomach Sertraline 02/04/2018 Zoloft 06/27/2009 spacey Capsaicin Hives Medium 01/21/2022 Medications Medication Sig Dispensed Refills Start Date End Date Status nitroGLYcerin (NITROSTAT) 0.4 MG sublingual tabletIndications:C hest pain, unspecified type For chest pain place 1 tablet under the tongue every 5 minutes for 3 doses. If symptoms persist 5 minutes after 1st dose call 911. 30 tablet 1 05/12/2023 Active loperamide (IMODIUM A-D) 2 MG tabletIndications:D iarrhea, unspecified type Take 1 tablet (2 mg) by mouth 4 times daily as needed for diarrhea 06/02/2023 Active melatonin 3 MG tabletIndications:I nsomnia, unspecified type TAKE 1 TABLET BY MOUTH EVERY EVENING 28 tablet 11 07/26/2023 Active pregabalin (LYRICA) 100 MG capsule Take 100 mg by mouth 3 times daily 09/01/2023 Active donepezil (ARICEPT) 10 MG tabletIndications:M ild cognitive impairment TAKE 1 TABLET BY MOUTH EVERY EVENING 28 tablet 9 11/13/2023 Active traZODone (DESYREL) 150 MG tabletIndications:I nsomnia, unspecified type TAKE 1 TABLET BY MOUTH EVERY NIGHT AT BEDTIME 90 tablet 2 11/13/2023 Active ferrous sulfate (FEROSUL) 325 (65 Fe) MG tabletIndications:M ild protein-calorie malnutrition (H24) TAKE 1 TABLET BY MOUTH EVERY MORNING 90 tablet 2 11/13/2023 Active calcium carbonate-vitamin D (CALTRATE) 600-10 MG-MCG per tabletIndications:M ild protein-calorie malnutrition (H24),Osteoporosis with current pathological fracture with delayed healing, unspecified osteoporosis type, subsequent encounter TAKE 1 TABLET BY MOUTH TWICE A DAY 180 tablet 3 11/13/2023 Active guaiFENesin (MUCINEX) 600 MG 12 hr tabletIndications:S ubacute cough,Shortness of breath,COPD with exacerbation (H) TAKE 2 TABLETS(1200 MG) BY MOUTH TWICE DAILY NEEDED FOR CONGESTION 360 tablet 12/01/2023 Active hydrOXYzine HCl (ATARAX) 10 MG tabletIndications:A nxiety state TAKE 1 TABLET(10 MG) BY MOUTH THREE TIMES DAILY NEEDED FOR ANXIETY 60 tablet 1 12/08/2023 Active calcium polycarbophil (FIBER-LAX) 625 MG tabletIndications:D iarrhea, unspecified type TAKE 2 TABLETS BY MOUTH DAILY 56 tablet 3 12/09/2023 Active oxyCODONE-acetamino phen (PERCOCET) 5-325 MG tablet Take 1 tablet by mouth Take 1 tablet every 4 hours Active ipratropium - albuterol 0.5 mg/2.5 mg/3 mL (DUONEB) 0.5-2.5 (3) MG/3ML neb solution Take 1 vial (3 mLs) by nebulization every 6 hours as needed for shortness of breath, wheezing or cough 90 mL 12/26/2023 Active ipratropium-albuter ol (COMBIVENT RESPIMAT) 20-100 MCG/ACT inhaler Inhale 1 puff into the lungs 4 times daily 4 g 12/26/2023 Active buprenorphine (SUBUTEX) 2 MG SUBL sublingual tablet DISSOLVE 1 TABLET UNDER THE TONGUE TWICE DAILY 12/30/2023 Active OLANZapine zydis (ZYPREXA) 5 MG ODT Take 5 mg by mouth 12/31/2023 Active albuterol (PROAIR HFA/PROVENTIL HFA/VENTOLIN HFA) 108 (90 Base) MCG/ACT inhalerIndications: Chronic obstructive pulmonary disease, unspecified COPD type (H) Inhale 2 puffs into the lungs every 6 hours as needed 18 g 1 01/12/2024 Active spacer (OPTICHAMBER ANYA) holding chamberIndications: Chronic obstructive pulmonary disease, unspecified COPD type (H) Use with inhaler as prescribed 2 each 2 01/12/2024 Active fluticasone (ARNUITY ELLIPTA) 100 MCG/ACT inhalerIndications: Chronic obstructive pulmonary disease, unspecified COPD type (H) Inhale 1 puff into the lungs daily 30 each 5 01/12/2024 Active ELIQUIS ANTICOAGULANT 2.5 MG tabletIndications:I ntermittent atrial fibrillation (H) TAKE 1 TABLET BY MOUTH TWICE A DAY IN THE MORNING AND AT BEDTIME 56 tablet 1 02/07/2024 Active venlafaxine (EFFEXOR XR) 150 MG 24 hr capsuleIndications: 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),Anxiety state TAKE 1 CAPSULE BY MOUTH EVERY MORNING 28 capsule 1 02/07/2024 Active busPIRone HCl (BUSPAR) 30 MG tabletIndications:M oderate episode of recurrent major depressive disorder (H),Anxiety state TAKE 1 TABLET BY MOUTH TWICE A DAY (MORNING & AT BEDTIME) 56 tablet 1 02/07/2024 Active Active Problems Patient Care Coordination No te Formatting of this note migh t be different from the original. 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 Program CP following: Justine Hayes NRP, ROLY Available Thu thru Thursday 8 am to 4:30 pm to potentially collaborate on and ED discharge plan Problem Noted Date Diagnosed Date Seizure-like activity 01/05/2024 Other pulmonary embolism wit hout acute cor pulmonale, unspecified chronicity 12/15/2023 Altered mental status 12/08/2023 AMS (altered mental status) 12/08/2023 Opioid abuse, uncomplicated 01/14/2023 Dehydration 09/10/2022 Protein-calorie malnutrition (H24) 07/21/2022 COPD (chronic obstructive pulmonary disease) Shortness of breath 07/01/2022 Epigastric pain 07/01/2022 Physical deconditioning 07/01/2022 Atrial fibrillation, unspecified type 07/01/2022 Recurrent left pleural effusion 07/01/2022 Neutropenia, unspecified type (H24) 07/01/2022 Chest pain, unspecified type 07/01/2022 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 Pleural effusion on left 06/19/2022 Malignant neoplasm of lung, unspecified laterality, unspecified part of lung 06/19/2022 Osteoarthritis of both hands , unspecified osteoarthritis type 10/08/2021 Coronary artery disease invo lving stebbins coronary artery of stebbins heart without angina pectoris 10/08/2021 Mild cognitive impairment 09/21/2020 Cardiomyopathy, unspecified type 06/21/2019 Non-STEMI (non-ST elevated myocardial infarction ) 06/13/2019 Osteoporosis with current pa thological fracture with delayed healing, unspecified osteoporosis type, subsequent encounter 09/28/2018 Tinnitus, bilateral 09/15/2018 Vasculitis (H24) 09/01/2018 Facet arthropathy, cervical 12/23/2016 Chronic pain syndrome 12/23/2016 Overview: Patient is followed by Latanya Silva MD Medication(s): oxycodone and xtampza 13.5 Maximum quantity per month: 100 and 60 Clinic visit frequency required: every 6 months Controlled substance agreement: Encounter-Level CSA - 05/15/2015: Controlled Substance Agreement - Scan on 05/16/2015 8:52 AM : [facility] Controlled Substance Agreement 05-15-15 (below) Pain Clinic evaluation in the past: 08/01/2015: [facility] DIRE Total Score(s): 14, scanned on 08/01/2015 Last [facility] website verification: [email or web address] Pre-diabetes 11/12/2015 Acquired hypothyroidism 11/25/2013 Overview: Problem list name updated by automated process. Provider to review Other postprocedural status(V45.89) 04/20/2013 Lumbar radiculopathy 10/28/2012 [facility] 10/14/2012 Overview: EMERGENCY CARE PLAN Presenting Problem Signs and Symptoms Treatment Plan Questions or concerns during clinic hours I will call the clinic directly Questions or concerns outside clinic hours I will call the 24 hour nurse line at [phone] Patient needs to schedule an appointment I will call the 24 hour scheduling team at [phone] or clinic directly Same day treatment I will call the clinic first, nurse line if after hours, urgent care and express care if needed [facility] [phone] [facility] [phone] [facility] [place] [address] Mundo Srinivasan [phone] No active care coordination needs at this time 10/14/13 TR CCRN. DX V65.8 REPLACED WITH [id number] [facility] RETIREMENT (02/07/2013) Arthrodesis status 11/18/2011 HTN, goal below 140/90 11/03/2011 Spinal fusion:Ant-Post L40S1 07/24/11 07/31/2011 Anemia due to blood loss, acute 07/31/2011 Mild recurrent major depression (H24) 10/23/2010 CARDIOVASCULAR SCREENING; LDL GOAL LESS THAN 130 09/01/2010 Insomnia 01/21/2010 Spondylisthesis 01/11/2010 Lumbar spinal stenosis 11/23/2009 DDD (degenerative disc disease), lumbar 11/23/19 10 Anxiety state 05/10/2003 Overview: Problem list name updated by automated process. Provider to review Last Assessment & Plan: Patient is followed by ZEE VENEGAS for ongoing prescription of benzodiazepines. All refills should be approved by this provider, or covering partner. Medication(s): diazepam (VALIUM) 5 MG tablet. Maximum quantity per month: every 6 hours as needed for muscle spasms or pain Clinic visit frequency required: Q 6 months Controlled substance agreement on file: Yes, 05/15/15 Benzodiazepine use reviewed by psychiatry: No Pain Clinic evaluation in the past: 08/01/2015: [facility] Last [facility] website verification: Done 3.2.17 [email or web address] Problems Problem Noted Date Diagnosed Date Resolved Date Acute hypoxemic respiratory failure 06/19/2022 12/15/2023 Malignant neoplasm of right lung, unspecified part of lung 04/29/2022 05/01/2022 Opioid dependence in remission 01/09/2022 11/24/2022 Drowsiness 11/12/2019 04/30/2021 Encephalopathy 06/23/2019 04/30/2021 Purpura (H24) 09/01/2018 01/09/2022 Protein-calorie malnutrition , unspecified severity (H24) 2018 01/09/2022 Shoulder pain, right 05/19/2018 021 Closed fracture of part of humerus 05/19/2018 04/30/2021 Chronic pain 05/16/2015 12/23/2016 Overview: Patient is followed by Zee Venegas for ongoing prescription of pain medication. All refills should be approved by this provider, or covering partner. Medications: oxycodone 15mg immediate release, take 1 tab in am, 1 tab at noon, 1 tab at supper and 1-2 tabs at hs, take as needed for moderate to severe pain. Maximum quantity per month: #150 Medication: Valium 5 mg, take 1 tablet every 6 hours as needed Maximum quantity per month: #90 Clinic visit frequency required: Q 3 months Controlled substance agreement on file: Yes Date(s): 05/15/2015 Pain Clinic evaluation in the past: yes: 08/01/2015 DIRE Total Score(s): 14 (08/01/2015) Last [facility] website verification: 02/12/2016 [email or web address] Delirium 10/11/2012 12/12/2014 Altered mental status 09/13/20122020 Lumbago 11/18/2011 12/23/2016 Advance Care Planning 11/03/20112018 Overview: Advance Care Planning: Receipt of ACP document: Received: Health Care Directive which was witnessed or notarized on 01/24/15. Has a previous HCD dated 08/07/10 and scanned on 10/28/12. Document not previously scanned. Validation form completed and scanned. Code Status reflects choices in most recent ACP document. Confirmed/documented designated decision maker(s). See permanent comments section of demographics in clinical tab. View document(s) and details by clicking on code status. Added by Wesley Clayton on 01/24/2015. Advance Care Planning: Initial facilitation introduction: Natalie Story presented for initial session regarding ACP at a group session. She was accompanied by . Honoring Choices information provided and resources reviewed. She currently wishes to revise an existing ACP document. She currently has the following questions or concerns about Advance Care Planning: none. Confirmed/documented designated decision maker(s). See permanent comments section of demographics in clinical tab. Added by Wesley Clayton on 01/24/2015 Patient states has Advance Directive and will bring in a copy to clinic. 11/03/2011 Received outside advance directive. HCD:Previously signed by patient and notarized by commissioner public works. Intranet Support scanned into EMR as Advance Directive/Living Will document. View document and details in Code Status History Report. Please see advance directive for specifics. 09/13/2012 Physical deconditioning 07/31/201104/03 Other postprocedural status(V45.89) 07/04/2010 07/29/2010 Knee pain 07/04/2010 07/29/2010 Chronic low back pain 05/14/20092016 Depressive disorder, not elsewhere classified 07/14/20 07 10/23/2010 Sciatica 02/23/2007 12/23/2016 Lumbago 02/23/2007 04/19/2007 Angina pectoris, unspecified (H24) 05/10/2003 11/24/2022 Overview: Problem list name updated by automated process. Provider to review Encounters Date Type Department Care Team Description 04/06/2024 1:00 PM CDT Office Visit [facility] [address] [place] [address] [address] [place] [phone] Latanya Silva MD Thorp, Arpan Quevedo MD Chronic obstructive pulmonary disease, unspecified COPD type (H) (Primary Dx) 04/06/[address] [facility] [address] [place] [phone] Mariana Lopez, [facility] Direct Oral Anticoagulant 04/06/2024 Orders Only [facility] [address] [place] [phone] Johanne Lopezoe N, [facility] 04/06/2024 Orders Only [facility] [address] [place] [phone] Johanne Lopezoe N, [facility] 04/06/2024 Travel 04/05/[address] [facility] [address] [place] [phone] Mariana Lopez N, [facility] 03/23/2024 10:38 AM CDT - 03/23/2024 11:59 PM CDT Hospital Encounter [facility] [address] [facility] [address] [place] [phone] Suzanne Ma DO Large cell neuroendocrine carcinoma (H) Discharge Disposition: Home or Self Care 03/23/2024 Travel 02/04/2024 Refill [facility] [address] [place] [phone] Latanya Silva MD Medication Refill 02/03/2024 9:46 AM CDT - 02/03/2024 11:59 PM CDT Hospital Encounter [facility] [place] [address] [facility] [address] [place] [phone] Latanya Silva MD 1, Pulmonary Rehab Chronic obstructive pulmonary disease, unspecified COPD type (H) Discharge Disposition: Home or Self Care 02/03/2024 Travel 01/27/2024 Orders Only [address] [phone] Arabella Workman MD DIAGNOSIS NOT YET DEFINED (Primary Dx) 01/26/[address] [phone] Latanya Silva MD Forms ([facility] Care Health Certification and POC Order Number: [id number]/) 01/22/[address] [phone] Alyssia Cunningham PA-C Medication Refill (methocarbamol (ROBAXIN) ) 01/21/2024 Medical Correspondence [facility] [address] [place] [address] Scan, Non-Provider OUTSIDE RECORDS 01/16/[address] [phone] Latanya Silva MD Medication Refill 01/12/2024 9:30 AM CDT Office Visit [address] [phone] Alyssia Cunningham PA-C Chronic obstructive pulmonary disease, unspecified COPD type (H) (Primary Dx); Chronic pain syndrome 01/12/2024 Travel from Last 3 Months Immunizations Name Administration Dates Next Due COVID-19 12+ () (Pfizer) 01/12/2024 COVID-19 MONOVALENT 12+ (Pfizer) 08/15/2021,12/31,12/22/2020 Influenza (H1N1) 11/23/2009 Influenza (High Dose) 3 rachelle nt vaccine 08/24/2018,10/03/2017,08/18/2016,2014 Influenza (IIV3) PF 09/25/2012,11/23/2009,2007 Influenza Vaccine 65+ (Fluzone HD) 10/13/2023,,08/15/2021 Influenza Vaccine, 6+MO IM (QUADRIVALENT W/PRESERVATIVES) 09/12/2014 Pneumo Conj 13-V (2010&after) 12/14/2015 Pneumococcal 20 valent Conju gate (Prevnar 20) 10/13/2023 Pneumococcal 23 valent 08/24/2018,09/13/2008 TD,PF 7+ (Tenivac) 04/16/2018,03/01/2008 TDAP (Adacel,Boostrix) 04/16/2018,02/20/2008 TDAP Vaccine (Adacel) 04/16/2018 Family History Medical History Relation Comments Heart Disease Father C.A.D. Mother Cancer Mother stomach Anxiety Disorder Son Fibromyalgia Son Multiple Sclerosis Son Relation Status Comments Father (Age 92) [place] Maternal Aunt sudden in 60's Maternal Uncle sudden in 60's Mother (Age 81) CAD Son Social History Tobacco Use Types Packs/Day Years Used Date Smoking Tobacco: Former Cigarettes 1 20 1 - 08/10/2010 Smokeless Tobacco: Never Tobacco Cessation:Counseling Given: Not Answered Comments:1-2 cigarettes every day - smoke 1/3 at a time [...] on file Sexual Orientation Not on file Last Filed Vital Signs Vital Sign Reading Time Taken Comments Blood Pressure 92/57 04/06/2024 1:07 PM CDT Pulse 66 04/06/2024 1:07 PM CDT Temperature 36.8 ??C (98.2 ??F) 01/12/2024 9:33 AM CD T Respiratory Rate 14 01/12/2024 9:33 AM CDT Oxygen Saturation 91% 04/06/2024 1:07 PM CDT Inhaled Oxygen Concentration - - Weight 42.4 kg (93 lb 8 oz) 04/06/2024 1:07 PM C DT with shoes Height 156.2 cm (5' 1.5) 01/12/2024 9:33 AM CDT Body Mass Index 17.38 01/12/2024 9:33 AM CDT Plan of Treatment Upcoming Encounters Date Type Department Care Team (Late st Contact Info) Description 04/27/2024 11:00 AM CDT Oncology Visit [facility] [id number] [place] [address] [address] [facility] [place] [phone] [place] [address] [address] [address] [place] [address] Cherie Geiger, PAArpitaC [address] [place] [id number] Health Maintenance Due Date Last Done Comments ZOSTER IMMUNIZATION (1 of 2) 1995 RSV VACCINE ( & 60+) (1 - 1-dose 60+ series) 2005 MEDICARE ANNUAL WELLNESS VISIT 01/17/2023 01/17/2022, 06/22/2020 DEXA 02/03/2024 02/02/2023, 040 12/2022, 08/22/2020, Additional history exists FALL RISK ASSESSMENT 04/22/2024 04/22/2023, 11/26/2022, 09/11/2022, Additional history exists COVID-19 Vaccine ( season) 2024 01/12/2024, 08/15/2021, 01/12/2021, Additional history exists PHQ-9 07/07/2024 01/05/2024, 12/03, 05/11/2023, Additional history exists ANNUAL REVIEW OF HM ORDERS 09/19/202409/19, 09/09/2022, 09/03/2021, Additional history exists BMP 12/26/2024 12/26/2023, 05/2024, 12/08/2023, Additional history exists LIPID 02/14/2026 02/14/2021, 06/2016, 01/24/2014 GLUCOSE 12/26/2026 12/26/2023, 05/2024, 12/08/2023, Additional history exists ADVANCE CARE PLANNING 06/26/2027 06/26/2022 , 01/17/2022, 07/08/2019, Additional history exists DTAP/TDAP/TD IMMUNIZATION (6 - Td or Tdap) 04/16/2028 04/16/2018, 04/16/2018, 04/16/2018, Additional history exists DEPRESSION ACTION PLAN Completed 8, 12/23/2016, 01/11/2016, Additional history exists MAMMO SCREENING Discontinued 07/03/2018, 09/02 (Not Needed), 10/29/2009 (Declined) HEPATITIS C SCREENING Completed 09/16/2018 INFLUENZA VACCINE Completed 10/13/2023, , 08/15/2021, Additional history exists Pneumococcal Vaccine: 65+ Years Completed 10/13/2023, 08/24/2018, 12/14/2015, Additional history exists COPD ACTION PLAN Completed 01/05/2024, 01/05/2024 SPIROMETRY Completed 02/03/2024 LUNG CANCER SCREENING Discontinued 03/23/2024 , 12/08/2023, 08/20/2023, Additional history exists HPV IMMUNIZATION Aged Out No longer e ligible based on patient's age to complete this topic IPV IMMUNIZATION Aged Out No longer e ligible based on patient's age to complete this topic MENINGITIS IMMUNIZATION Aged Out No l onger eligible based on patient's age to complete this topic RSV MONOCLONAL ANTIBODY Aged Out No l onger eligible based on patient's age to complete this topic Medical Devices Implanted Type Area Frame Tender Device Identifier Shelf Expiration Date Model / Serial / Lot Imp Scr Strk Jenna 3 Polyaxial 7.5x45mm Ti [id number] Implanted:Qty : 2 on 10/28/2012 by Mundo Srinivasan MD at [facility] N/A: Spine Lumbar DOM SP [id number] / / [id number] Imp Scr Strk Jenna Maurisio Set Ti [id number] Implanted:Qty : 8 on 10/28/2012 by Lauren Cheema RN at [facility] N/A: Spine Lumbar DOM SP [id number] / / [id number] Imp Alexandro Strk Jenna 3 6x90mm Ti [id number] Implanted:Qty : 2 on 10/28/2012 by Mundo Srinivasan MD at [facility] N/A: Spine Lumbar DOM SP [id number] / / [id number] Graft Bone Foam Pack Vitoss 5ml Bio Active [id number] Implanted:Qty : 1 on 10/28/2012 by Mundo Srinivasan MD at [facility] N/A: Back ORTHOVITA 02/03/[id number] / / [id number] Iom Supplies Implanted:Qty : 1 on 10/28/2012 at [facility] Imp Scr Syn Can 4.0x20mm Ft Ss 206.020 Implanted:Qty : 2 on 10/28/2012 at [facility] Sonalight-STRATEC 206.020 / / Description:starter screws Imp Washer Syn Kranthi 13.5x5.5mm Implanted:Qty : 1 on 11/17/2012 by Mundo Srinivasan MD at [facility] Left: Spine Lumbar SYNTHES-STRATEC 219.951 / / [id number] Graft Bone Foam Pack Vitoss 10ml Bio Active Implanted:Qty : 1 on 11/17/2012 by Mundo Srinivasan MD at [facility] Left: Spine Lumbar 06/17/2014 / / [id number] Avs Al Peek [id number], 12mm, 4 Degree Implanted:Qty : 1 on 11/17/2012 by Mundo Srinivasan MD at [facility] Left: Spine Lumbar DOM [id number] / / [id number] Imp Scr Syn Canc [id number] Ft Ti Implanted:Qty : 1 on 11/17/2012 by Mundo Srinivasan MD at [facility] Left: Spine Lumbar SYNTHES-STRATEC 418.025 / / [id number] Procedures Procedure Name Priority Date/Time Associated Diagnosis Comments CT CHEST/ABDOMEN/PELVIS W CONTRAST Routine 03/23/2024 11:16 AM CDT Large cell neuroendocrine carcinoma (H) ISTAT CREATININE POCT Routine 03/23/2024 10:55 AM CDT PFT GENERAL LAB TESTING Routine 02/03/2024 9:58 AM CDT Chronic obstructive pulmonary disease, unspecified COPD type (H) [place] CERTIFICATION SLIP COVER SEWER PATIENT Routine 01/27/2024 DIAGNOSIS NOT YET DEFINED BASIC METABOLIC PANEL STAT 12/26/2023 10:22 AM LUMBER GRADER DX BONE DENSITY Routine 02/02/2023 2:46 PM CDT Osteoporosis with current pathological fracture with delayed healing, unspecified osteoporosis type, subsequent encounter Age-related osteoporosis without current pathological fracture LIPID REFLEX TO DIRECT LDL PANEL Routine 02/14/2021 4:06 PM CDT Coronary artery disease involving stebbins coronary artery of stebbins heart without angina pectoris PHQ-9 DEPRESSION SCREENING ORDER Routine 04/06/2019 HEPATITIS C SCREEN REFLEX TO HCV RNA QUANT AND GENOTYPE Routine 09/16/2018 11:38 AM LUMBER GRADER Need for hepatitis C screening test MA SCREENING DIGITAL BILATERAL Routine 07/03/2018 11:12 AM CDT Visit for screening mammogram from Last 3 Months or Most Recently Relevant to Health Maintenance Results * CT Chest/Abdomen/Pelvis w Contrast (03/23/2024 11:16 AM CDT) Anatomical Region Laterality Modality Abdomen/Pelvis, Chest, SUBRA D CT BODY, UMP CT CHEST, UMP CT ABDOMEN PELVIS, RAD CT Computed Tomography Impressions 03/23/2024 4:32 PM CDT IMPRESSION: 1. ??Stable appearance of perihilar fibrosis, left greater than right. 2. ??Waxing and waning groundglass opacities in the lungs with new opacities in the right lung base and improved opacities in the bilateral upper lobes. These may be infectious or inflammatory. New small left pleural effusion. 3. ??Stable mild intrahepatic and extrahepatic biliary ductal dilatation. If clinically indicated, follow-up MRCP should be considered. 4. ??No definite evidence for recurrent or metastatic disease in the chest, abdomen and pelvis. DESTINEY TAYLOR MD Narrative 03/23/2024 4:[address] CHEST/ABDOMEN/PELVIS W CONTRAST 03/23/2024 11:16 AM CLINICAL HISTORY: Large cell neuroendocrine carcinoma (H) TECHNIQUE: CT scan of the chest, abdomen, and pelvis was performed following injection of IV contrast. Multiplanar reformats were obtained. Dose reduction techniques were used. CONTRAST: isovue 370 67ml COMPARISON: 12/08/2023 and 08/20/2023 FINDINGS: LUNGS AND PLEURA: Perihilar fibrosis predominantly in the left upper lobe and left lower lobe and smaller extent of fibrosis in the right lung hilum are again seen and stable. Waxing and waning groundglass opacities in the lungs. For example, groundglass opacities in the left lung apex and right upper lobe have significantly decreased in size however, there are new groundglass opacities in the right lower lobe and right middle lobe at the lung base. These are likely infectious or inflammatory. There is a new small left pleural effusion. Stable endobronchial nodule versus mucous plugging in the right lower lobe measuring 3 mm (4/174). No new or enlarging discrete nodules. MEDIASTINUM/AXILLAE: A subcentimeter stable small nodule in the right lobe of the thyroid gland. Stable mild soft tissue thickening in the central mediastinum and right hilum, likely related to presence of small lymph nodes. No discrete measurable lymph nodes or pathologically enlarged lymph nodes. Appearance is similar to 08/20/2023. No thoracic aortic aneurysm. Severe coronary artery calcifications. HEPATOBILIARY: Stable mild intrahepatic and extrahepatic biliary ductal dilatation with the common hepatic duct measuring 8 mm, upper normal for age. No calcified gallstones. A few small hepatic cysts are stable. No new lesions in the liver. PANCREAS: Normal. SPLEEN: Normal. ADRENAL GLANDS: Normal. KIDNEYS/BLADDER: Normal. BOWEL: No small bowel or colonic obstruction or inflammatory changes. PELVIC ORGANS: Hysterectomy. No pelvic masses. ADDITIONAL FINDINGS: No lymphadenopathy in the abdomen and pelvis. No abdominal aortic aneurysm. MUSCULOSKELETAL: Old healed right rib fracture deformities and posterior left rib fracture deformities. Instrumented fusion and lumbar spine. No suspicious lesions in the bones. 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 Multiplanar reformats were obtained. Dose reduction techniques were used. CONTRAST: isovue 370 67ml COMPARISON: 12/08/2023 and 08/20/2023 FINDINGS: LUNGS AND PLEURA: Perihilar fibrosis predominantly in the left upper lobe and left lower lobe and smaller extent of fibrosis in the right lung hilum are again seen and stable. Waxing and waning groundglass opacities in the lungs. For example, groundglass opacities in the left lung apex and right upper lobe have significantly decreased in size however, there are new groundglass opacities in the right lower lobe and right middle lobe at the lung base. These are likely infectious or inflammatory. There is a new small left pleural effusion. Stable endobronchial nodule versus mucous plugging in the right lower lobe measuring 3 mm (4/174). No new or enlarging discrete nodules. MEDIASTINUM/AXILLAE: A subcentimeter stable small nodule in the right lobe of the thyroid gland. Stable mild soft tissue thickening in the central mediastinum and right hilum, likely related to presence of small lymph nodes. No discrete measurable lymph nodes or pathologically enlarged lymph nodes. Appearance is similar to 08/20/2023. No thoracic aortic aneurysm. Severe coronary artery calcifications. HEPATOBILIARY: Stable mild intrahepatic and extrahepatic biliary ductal dilatation with the common hepatic duct measuring 8 mm, upper normal for age. No calcified gallstones. A few small hepatic cysts are stable. No new lesions in the liver. PANCREAS: Normal. SPLEEN: Normal. ADRENAL GLANDS: Normal. KIDNEYS/BLADDER: Normal. BOWEL: No small bowel or colonic obstruction or inflammatory changes. PELVIC ORGANS: Hysterectomy. No pelvic masses. ADDITIONAL FINDINGS: No lymphadenopathy in the abdomen and pelvis. No abdominal aortic aneurysm. MUSCULOSKELETAL: Old healed right rib fracture deformities and posterior left rib fracture deformities. Instrumented fusion and lumbar spine. No suspicious lesions in the bones. IMPRESSION: 1. Stable appearance of perihilar fibrosis, left greater than right. 2. Waxing and waning groundglass opacities in the lungs with new opacities in the right lung base and improved opacities in the bilateral upper lobes. These may be infectious or inflammatory. New small left pleural effusion. 3. Stable mild intrahepatic and extrahepatic biliary ductal dilatation. If clinically indicated, follow-up MRCP should be considered. 4. No definite evidence for recurrent or metastatic disease in the chest, abdomen and pelvis. DESTINEY TAYLOR MD Suzanne Ma DO [facility] CT ORDERABLES * (ABNORMAL) Creatinine POCT (03/23/2024 10:55 AM CDT) Creatinine POCT 1.0 0.5 - 1.0 mg/dL 03/23/2024 10:58 AM CDT [facility] POC GFR, ESTIMATED POCT 57(L) >60 mL/min/1.7 3m2 03/23/2024 10:58 AM CDT [facility] POC Blood BLOOD SPECIMEN / Unknown 03/23/2024 10:55 AM CDT 03/23/2024 10:58 AM CDT Suzanne Ma DO LAB - [facility] POCT [facility] Acute Care Lab [address] Lab (1st floor, no room number) [place] [address] * General PFT Lab (Please always keep checked) (02/03/2024 9:58 AM CDT) FVC-Pred 2.13 L [facility] PFT FVC-Pre 1.89 L [facility] PFT FVC-%Pred-Pre 88 % [facility] PFT FEV1-Pre 1.35 L [facility] PFT FEV1-%Pred-Pre 81 % [facility] PFT [id number] 78 % [facility] PFT [id number] 71 % [facility] PFT FEFMax-Pred 4.47 L/sec [facility] PFT FEFMax-Pre 2.94 L/sec [facility] PFT FEFMax-%Pred-Pr e 65 % [facility] PFT [id number] 1.41 L/sec [facility] PFT [id number] 0.91 L/sec [facility] PFT BGO2921-%Pred-P re 64 % [facility] PFT ExpTime-Pre 8.33 sec [facility] PFT FIFMax-Pre 0.96 L/sec [facility] PFT VC-Pred 2.66 L [facility] PFT VC-Pre 1.71 L [facility] PFT VC-%Pred-Pre 64 % [facility] PFT IC-Pred 1.52 L [facility] PFT IC-Pre 1.33 L [facility] PFT IC-%Pred-Pre 87 % [facility] PFT ERV-Pred 0.76 L [facility] PFT ERV-Pre 0.36 L [facility] PFT ERV-%Pred-Pre 47 % [facility] PFT [id number] 78 % [facility] PFT [id number] 71 % [facility] PFT FRCPleth-Pred 2.55 L [facility] PFT FRCPleth-Pre 2.89 L [facility] PFT FRCPleth-%Pred- Pre 113 % [facility] PFT RVPleth-Pred 2.06 L [facility] PFT RVPleth-Pre 2.51 L [facility] PFT RVPleth-%Pred-P re 121 % [facility] PFT TLCPleth-Pred 4.44 L [facility] PFT TLCPleth-Pre 4.22 L [facility] PFT TLCPleth-%Pred- Pre 95 % [facility] PFT DLCOunc-Pred 17.02 ml/min/mmHg [facility] PFT DLCOunc-Pre 8.67 ml/min/mmHg [facility] PFT DLCOunc-%Pred-P re 50 % [facility] PFT VA-Pre 3.36 L [facility] PFT VA-%Pred-Pre 83 % [facility] PFT [id number] 62 % [facility] PFT [id number] 79 % [facility] PFT 02/03/2024 9:58 AM CDT Narrative [facility] PFT - 02/04/2024 8:13 PM CDT The FVC, FEV1, FEV1/FVC ratio and OQB30-33% are normal. ??The inspiratory flow rates are reduced. ??Lung volumes are within normal limits. ??The diffusing capacity is reduced. ??However, the diffusing capacity was not corrected for the patient's hemoglobin. IMPRESSION: Normal spirometry and lung volumes. Moderate diffusion defect. ?This interpretation has been electronically signed: ??ARELISOFELIA 02/04/2024 ??07:51:11 PM? Latanya Silva MD PFT ORDERABLES [place] PFT * CERTIFICATION SLIP COVER SEWER PATIENT (01/27/2024) Arabella Workman MD SPECIAL REPORTS * (ABNORMAL) Basic metabolic panel (12/26/2023 10:22 AM LUMBER GRADER) [facility] Sodium 140 135 - 145 mmol/L 12/26/2023 11:00 AM LUMBER GRADER [facility] Comment:Reference intervals for this test were updated on 07/28/2023 to more accurately reflect our healthy population. There may be differences in the flagging of prior results with similar values performed with this method. Interpretation of those prior results can be made in the context of the updated reference intervals. Potassium 4.2 3.4 - 5.3 mmol/L 12/26/2023 11:00 AM [facility] Chloride 101 98 - 107 mmol/L 12/26/2023 11:00 AM [facility] Carbon Dioxide (CO2) 26 22 - 29 mmol/L 12/26/2023 11:00 AM [facility] Anion Gap 13 7 - 15 mmol/L 12/26/2023 11:00 AM [facility] Urea Nitrogen 11.6 8.0 - 23.0 mg/dL 12/26/2023 11:00 AM [facility] Creatinine 0.84 0.51 - 0.95 mg/dL 12/26/2023 11:00 AM [facility] GFR Estimate 71 >60 mL/min/1. 73m2 12/26/2023 11:00 AM [facility] Calcium 9.1 8.8 - 10.2 mg/dL 12/26/2023 11:00 AM [facility] Glucose 119(H) 70 - 99 mg/dL 12/26/2023 11:00 AM [facility] Blood BLOOD SPECIMEN / Unknown Venipuncture / Unknown 12/26/2023 10:22 AM LUMBER GRADER 12/26/2023 10:32 AM [facility] Isidro Wilburn MD LAB - BLOOD ORDE [facility] Organization Address City/State/ZIP Co de Phone Number LABORATORY [facility] Acute Care Lab [address] [facility] Lab (1st floor, no room number) [place] [address], [facility] [phone] * DEXA HIP/PELVIS/SPINE - Future (02/02/2023 2:46 PM CDT) Anatomical Region Laterality Modality Dexa Bone Mineral Den sity Narrative 02/05/2023 10:43 AM CDT BONE DENSITOMETRY [facility] [address] [place] [address] 02/02/2023 ?? PATIENT: Natalie Story CHART: [id number] : ??1945 AGE: ??77 year old SEX: ??female REFERRING PROVIDER: ??Latanya Silva MD ?? PROCEDURE: ??Bone density scanning was performed using DXA technology of the lumbar spine and hip. ??Scanning was performed on a [employer] scanner. ??Reporting is completed in the form of a T-score. ??The T-score represents the standard deviation from peak bone mass based on a young healthy adult. ?? REFERENCE T-SCORES: ?Normal ?-1.0 and greater ?Osteopenia ? Between -1.0 and -2.5 ?Osteoporosis ? -2.5 and less ? RISK FACTORS: ??Post-menopausal, Height loss of 2.5 inches, follow up osteoporosis CURRENT TREATMENT: ??Calcium, Vitamin D, previous Fosamax, stopped 2021? ?? FINDINGS: ? Left Femoral Neck ?T-score: ??-3.8 ? Right Femoral Neck ?T-score: ??-3.3 ? Forearm (radius 33%) ?T-score: ??-4.5 The spine is not acceptable for evaluation due to previous surgical changes. ? Total Hip Mean BMD: 0.518 ??Previous: 0.533 ? Forearm (radius 33%) BMD: 0.482 ?Previous: 0.547 ?? Comparison is made to another DXA performed on the same [employer] ?? machine on 08/17/2020. IMPRESSION Osteoporosis. There has been no significant change in bone density of the hip(s). There has been significant decrease in bone density of the forearm. Recommendations include ensuring adequate Calcium and Vitamin D. FRAX calculations are not valid for this patient due to recent medical therapy. Therapy will change the risk for an undetermined duration. Follow up can be considered in 2 years. Sophia Moreno M.D. Electronically signed ?? Latanya Silva MD IMG DEXA ORDERABLES * (ABNORMAL) Lipid panel reflex to direct LDL Non-fasting (02/14/2021 4:06 PM CDT) [facility] Signature Cholesterol 205(H) <200 mg/dL 02/15/2021 2:09 PM [facility] Comment:Desirable: <200 mg/d l Triglycerides 106 <150 mg/dL 02/15/2021 2:09 PM [facility] Comment:Non Fasting HDL Cholesterol 55 >49 mg/dL 2:09 PM [facility] LDL Cholesterol Calculated 129(H) <100 mg/dL 02/15/2021 2:09 PM [facility] Comment: Above desirable: ??100-129 mg/dl Borderline High: ??130-159 mg/dL High: ? 160-189 mg/dL Very high: ? >189 mg/dl Non HDL Cholesterol 150(H) <130 mg/dL 02/15/2021 2:09 PM [facility] Comment: Above Desirable: ??130-159 mg/dl Borderline high: ??160-189 mg/dl High: ? 190-219 mg/dl Very high: ? >219 mg/dl Blood 02/14/2021 4:06 PM CDT 02/14/2021 4:07 PM CDT Tana Gomez MD LAB - BLOO D ORDERABLES Performing Organization Address City/[facility]/ZIP Co de Phone Number [facility] [address] [place] [address], [facility] [phone] * PHQ-9 DEPRESSION SCREENING ORDER (04/06/2019) PHQ9 SCORE 5 Narrative Lissy Cuellar - 04/06/2019 [facility] PROGRESS NOTE Provider Outside OTHER * Hepatitis C Screen Reflex to HCV RNA Quant and Genotype (09/16/2018 11:38 AM LUMBER GRADER) Hepatitis C Antibody Nonreactive NR^Nonre active 09/17/2018 6:24 PM LUMBER GRADER [facility] Comment: Assay performance characteristics have not been established for newborns, infants, and children Blood specimen (specimen) 09/16/2018 11:38 AM LUMBER GRADER 09/16/2018 11:39 AM LUMBER GRADER Arabella Workman MD LAB - BLOOD ORDERABL ES Performing Organization Address [facility] Co de Phone Number [facility] [address] [place] [address] * MA Screening Digital Bilateral (07/03/2018 11:12 AM CDT) Anatomical Region Laterality Modality Breast Bilateral Mammography Impressions 07/06/2018 10:13 AM CDT IMPRESSION: BI-RADS CATEGORY: 0 - Need Additional Imaging Evaluation and/or Prior Mammograms for Comparison. RECOMMENDED FOLLOW-UP: Diagnostic Mammogram and Ultrasound. Additional imaging evaluation the LEFT breast with diagnostic mammography and possibly ultrasound. The patient will be notified of the results. FLAKITO JIMENEZ MD Narrative 07/06/2018 10:13 AM CDT Examination: Bilateral digital screening mammography with computer aided detection, 07/03/2018 11:12 AM. Comparison: None History: No current breast concerns. BREAST DENSITY: Heterogeneously dense. COMMENTS: Focal asymmetry in the LEFT breast at approximately 2:00 position, 2 cm from the nipple. No concerning findings in the right breast. Procedure Note Flakito Jimenez MD - 07/06/2018 Examination: Bilateral digital screening mammography with computer aided detection, 07/03/2018 11:12 AM. Comparison: None History: No current breast concerns. BREAST DENSITY: Heterogeneously dense. COMMENTS: Focal asymmetry in the LEFT breast at approximately 2:00 position, 2 cm from the nipple. No concerning findings in the right breast. IMPRESSION: BI-RADS CATEGORY: 0 - Need Additional Imaging Evaluation and/or Prior Mammograms for Comparison. RECOMMENDED FOLLOW-UP: Diagnostic Mammogram and Ultrasound. Additional imaging evaluation the LEFT breast with diagnostic mammography and possibly ultrasound. The patient will be notified of the results. FLAKITO JIMENEZ MD Zee Venegas APRN WASHING MACHINE INSTALLER IMG MAMMOGR APHY ORDERABLES from Last 3 Months or Most Recently Relevant to Health Maintenance Additional Health Concerns Active Problems Noted Date Diagnosed Date Medication Adherence 03/31/2023 Advance Directives For more information, please contact: [phone] Documents on File Type Date Recorded Patient Rn Chemical Dependency Expl anation Advance Directives and Living Will 06/26/2022 POLST 06-25-2022 Advance Directives and Living Will 07/08/2019 7:14 AM superseded by 06-25- 2 order; POLST 06-21- * No CPR- Do NOT Intubate (Latest Code Status on File) Date Activated Date Inactivated Comments 12/08/2023 8:26 PM 12/09/2023 12:07 PM NO basic or a dvanced life-sustaining interventions are performed Question Answer Comments Code status determined by: Discussion with patie nt/ legal decision maker * No CPR- Do NOT Intubate Date Activated Date Inactivated Comments 07/03/2022 12:30 PM 07/06/2022 1:29 PM Question Answer Comments Code status determined by: Discussion with patie nt/ legal decision maker * No CPR- Do NOT Intubate Date Activated Date Inactivated Comments 07/03/2022 11:49 AM 07/03/2022 12:30 PM NO basic or advanced life-sustaining interventions are performed Question Answer Comments Code status determined by: Discussion with patie nt/ legal decision maker * Full Code Date Activated Date Inactivated Comments 07/01/2022 9:45 PM 07/03/2022 11:48 AM All basic an d advanced life-sustaining interventions are performed as appropriate Question Answer Comments Code status determined by: Discussion with patie nt/ legal decision maker * No CPR- Do NOT Intubate Date Activated Date Inactivated Comments 06/29/2022 2:27 PM 07/01/2022 3:06 PM Question Answer Comments Code status determined by: Discussion with patie nt/ legal decision maker Care Teams Automatic Cigar Wrapper Tender Relationship Specialty [place] [address] [place] [address] PCP - General Family Medicine 06/12/22 Suzanne Ma DO Hematology & Oncology 05/07/22 Cory Lama MD [address] [place] [address] Critical Care 05/07/22 Tabatha Agrawal, RN Specialty Web Assistant Hematology & Oncology 05/13/22 [place] [address] [place] [address] Assigned Cancer Care Provider 05/17/22 Keira Frye, [facility] [address] [place] [address] Assigned MTM Pharmacist 12/13/22 Colby Khan MD [address] [place] [address] Neurology 01/02/23 Candi Stinson DO [address] [place] [address] Assigned Palliative Care Provider 01/10/23 [place] [address] [place] [address] Assigned PCP 03/28/23 Hallie Berman RN Personal Advocate & Liaison (PAL) Family Medicine 11/24/23 Nancy Shaw PA-C [address] [place], [place] [address] Physician Rod Puller Pulmonary Disease 01/05/24 Arpan Carolina MD [address] [facility] [address] [place], [place] [address] Critical Care 01/05/24
--- OUTSIDE RECORDS SUMMARY | 2024-04-13 23:57 | XMS_ITS | Encounter Summary ---
Author Organization [facility] Address [address] [place] [address]. [place] [address] Care Team Providers Care Die Caster Name Role Phone Anil Suzanne M DO Unavailable [phone] Cory Lama MD Unavailable [phone] Tabatha Agrawal RN Unavailable [phone] Anil Suzanne Irina DO Unavailable [phone] Latanya Silva MD Primary Care Provider [phone] Keira Frye [facility] Unavailable [phone] Colby Khan MD Unavailable [phone] Candi Stinson DO Unavailable Latanya Silva MD Unavailable [phone] Hallie Berman RN Unavailable Unavailable Nancy Shaw PA-C Unavailable Arpan Carolina MD Unavailable [phone] Reason for Visit * Reason Comments Medication Refill Encounter Details Date Type Department Care Team (Late st Contact Info) Description 02/04/2024 Refill [facility] [id number] [place] [phone] Latanya Silva MD [address] [place] [address] Medication Refill Social History Tobacco Use Types [...] Description 04/27/2024 11:00 AM CDT Oncology Visit [facility] [address] [facility] [place] [address] [place] [address] [address] [place] [address] Cherie Geiger PA-C [address] [place] [address] documented as of this encounter Visit Diagnoses Diagnosis Intermittent atrial fibrillation (H) Atrial fibrillation 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) Anxiety state Anxiety state, unspecified documented in this encounter Additional Health Concerns Active Problems Noted Date Diagnosed Date Medication Adherence 03/31/2023 Assessment Noted Time PHQ-9 Depression Total Score: 19 024 8: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 documented as of this encounter Care Teams Die Caster Relationship Specialty [place] [address] [place] [address] PCP - General Family Medicine 06/12/22 Suzanne Ma DO Hematology & Oncology 05/07/22 Cory Lama MD [address] [place], [place] [address] Critical Care 05/07/22 Tabatha Agrawal, RN Specialty Client Development Manager Hematology & Oncology 05/13/22 [place] [address] [place] [address] Assigned Cancer Care Provider 05/17/22 Keira Frye [facility] [facility] [address] [place] [id number] Assigned MTM Pharmacist 12/13/22 Colby Khan MD [address] [place] [address] Neurology 01/02/23 Candi Stinson DO [address] [place] [address] Assigned Palliative Care Provider 01/10/23 [place] [address] [place] [address] Assigned PCP 03/28/23 Hallie Berman RN Personal Advocate & Liaison (PAL) Family Medicine 11/24/23 Nancy Shaw PA-C [address] [place] [address] Physician Hearing Aid Assistant Pulmonary Disease 01/05/24 Arpan Carolina MD [address] [place] [address] [address] [place], [place] [address] Critical Care 01/05/24 documented as of this encounter
--- OUTSIDE RECORDS SUMMARY | 2024-04-13 23:57 | XMS_ITS | Encounter Summary ---
Author Organization [place] Address [facility] [place] [address] Care Team Providers Care Dry Heat Room Attendant Name Role Phone Suzanne Ma DO Unavailable [phone] Cory Lama MD Unavailable Tabatha Agrawal RN Unavailable [phone] Suzanne Ma DO Unavailable [phone] Latanya Silva MD Primary Care Provider [phone] Keira Frye [facility] Unavailable Colby Khan MD Unavailable [phone] Candi Stinson DO Unavailable Latanya Silva MD Unavailable Hallie Berman RN Unavailable Unavailable Nancy Shaw PA-C Unavailable Arpan Carolina MD Unavailable Reason for Visit * Reason Comments New Patient - Community acquired pneumonia of left upper lobe of lung - Chronic obstructive pulmonary disease, unspecified COPD type * Consultation (Urgent: 3-5 Days) - Pending Review Specialty Diagnoses / Procedures Referred By Contgael t Referred To Contact Pulmonary Disease Diagnoses Community acquired pneumonia of left upper lobe of lung Chronic obstructive pulmonary disease, unspecified COPD type (H) [place]Britt[place], [place] [address] [place] [address] Referral ID Status Reason Start Date Expiration Date V isits Requested Visits Authorized [id number] Pending Review 01/05/2024 01/04/2025 1 1 Encounter Details Date Type Department Care Team (Late st Contact Info) Description 04/06/2024 1:00 PM CDT Office Visit [facility] [address] [place] [address] [place] [address] [place] [address] Arpan Carolina MD [address] [facility] [address] [place] [address] Chronic obstructive pulmonary disease, unspecified COPD type (H) (Primary Dx) Social History Tobacco Use Types Packs/Day Years [...] on file documented as of this encounter Last Filed Vital Signs Vital Sign Reading Time Taken Comments Blood Pressure 92/57 04/06/2024 1:07 PM CDT Pulse 66 04/06/2024 1:07 PM CDT Temperature - - Respiratory Rate - - Oxygen Saturation 91% 04/06/2024 1:07 PM CDT Inhaled Oxygen Concentration - - Weight 42.4 kg (93 lb 8 oz) 04/06/2024 1:07 PM C DT with shoes Height - - Body Mass Index 17.38 01/12/2024 9:33 AM CDT documented in this encounter Patient Instructions * Patient Instructions* Arpan Carolina MD - 04/06/2024 1:00 PM CDT Continue Arnuity, rinse your mouth out after use. Continue Combivent four times daily. You may use as needed albuterol or duonebs for worsening shortness of breath or 5-10 minutes prior to activity. documented in this encounter Progress Notes * Arpan Carolina MD - 04/06/2024 1:00 PM CDT Pulmonary Clinic Note Date of Service: 04/06/2024 Chief Complaint Patient presents with New Patient - Community acquired pneumonia of left upper lobe of lung - Chronic obstructive pulmonary disease, unspecified COPD type A/P: 78F CAD, Afib, HTN, large cell neuroendocrine tumor (s/p carboplatin, etoposide, RT) being seen forCOPD. No obstruction noted on PFTs, there is reduction in DLCO which is likely 2/2 fibrotic changes. With smoking history and positive response to treatment, will continue current regimen. Offered tosimplify regimen so she is not using Combivent QID, she would prefer to keep things as they are. - continue ICS (Arnuity), rinse mouth out after use - continue NENO-CLIFF (Combivent) QID - continue prn albuterol and duonebs - OK to substitute medications based on formulary History: 78F CAD, Afib, HTN, large cell neuroendocrine tumor (s/p carboplatin, etoposide, RT) being seen forCOPD. She is prescribed ICS (Arnuity), prn albuterol, Combivent QID, and prn duonebs. She was seen in the ED 12/2023 for SOB dx w/ COPD exacerbation and given duonebs, Combivent, and prednisone. Has not needed nebulizer since starting Arnuity and Combivent. BERNSTEIN w/ moderate activity. No SOB at rest. Occasional chest pain or tightness. Hears wheezing. Not much cough. No nocturnal cough. Some orthopnea, stable. No PND. No LE edema. Occasional albuterol use, it is helpful. Smoking: quit a few years ago, ~50 pack year history Bird exposure: no Animal exposure: hypoallergenic dog Inhalation exposure: no 10 point review of systems negative, aside from that mentioned in HPI. BP 92/57 (BP Location: Left arm, Patient Position: Sitting, Cuff Size: Adult Small) Pulse 66 Wt42.4 kg (93 lb 8 oz) LMP (LMP Unknown) SpO2 91% BMI 17.38 kg/m?? Gen: well-appearing HEENT: Mallampati III Card: RRR Pulm: clear bilaterally Abd: soft MSK: no edema, no acute joint abnormality Skin: no obvious rash Psych: normal affect Neuro: alert and oriented Labs: Personally reviewed Imaging/Studies: Personally reviewed CT C/A/P (03/2024) - stable perihilar fibrosis L>R, waxing and waning GGOs in the lungs infectious vs inflammatory PFTs (02/2024) - normal spirometry and lung volumes, e/o air-trapping, moderate diffusion defect Past Medical History: Diagnosis Date Anxiety Atrial fibrillation 07/01/2022 Chronic depressive disorder Chronic osteoarthritis Chronic pain syndrome COPD (chronic obstructive pulmonary disease) 07/21/2022 Coronary artery disease Degeneration of lumbosacral intervertebral disc MRI 02/05 h/o Psychiatric pseudoseizures History of Takotsubo cardiomyopathy Hypertension Hypothyroidism Lung cancer 04/29/2022 Opioid abuse Osteoporosis mid fragility fxs, pt states degenerative Past Surgical History: Procedure Laterality Date ARTHROSCOPY KNEE RT/LT Right 11/02/2009 BRONCHOSCOPY RIDID OR FLEXIBLE W/ENDOBRONCHIAL ULTRASOUND GUIDED 1 OR 2 NODE STATIONS N/A 06/12/2022 Procedure: BRONCHOSCOPY, WITH BIOPSY OF 1 OR 2 LYMPH NODE STATIONS WITH; Surgeon: Cory Lama MD; Location: [facility] BRONCHOSCOPY RIGID OR FLEXIBLE W/TRANSENDOSCOPIC ENDOBRONCHIAL ULTRASOUND GUIDED N/A 06/12/2022 Procedure: BRONCHOSCOPY, WITH ENDOBRONCHIAL ULTRASOUND; Surgeon: Cory Lama MD; Location: [facility] CATARACT IOL, RT/LT 11/02/2013 right CV CORONARY ANGIOGRAM N/A 06/13/2019 Procedure: Coronary Angiogram; Surgeon: Arpan Morales MD; Location: HE[facility] 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 HERBARIUM WORKER D & C multiple DECOMPRESSION, FUSION LUMBAR POSTERIOR TWO LEVELS, COMBINED 10/28/2012 Procedure: COMBINED DECOMPRESSION, FUSION LUMBAR POSTERIOR TWO LEVELS; Hardware Removal L4-S1, Posterior Fusion Decompression L3-4, Re-Instrumentation L4-S1; Surgeon: Mundo Srinivasan MD; Location: [facility] FUSION LUMBAR ANTERIOR ONE LEVEL 11/17/2012 Procedure: FUSION LUMBAR ANTERIOR ONE LEVEL; Anterior Fusion L3-4; Surgeon: Mundo Srinivasan MD; Location: [facility] OR HYSTERECTOMY TOTAL ABDOMINAL, BILATERAL SALPINGO-OOPHORECTOMY, COMBINED INJECT EPIDURAL TRANSFORAMINAL 07/26/2012 Procedure: INJECT EPIDURAL TRANSFORAMINAL; Transforaminal Epidural Steriod Injection L3-L4; Surgeon: Shaji Mike MD; Location: [facility] OR OPEN REDUCTION INTERNAL FIXATION FOOT ZZC TOTAL KNEE ARTHROPLASTY Right Family History Problem Relation Age of Onset Cancer Mother stomach C.A.D. Mother Heart Disease Father Multiple Sclerosis Son Fibromyalgia Son Anxiety Disorder Son Social History Socioeconomic History Marital status: Spouse name: Prasad Number of children: 1 Years of education: Not on file Highest education level: Not on file Occupational History Occupation: [employer]---[employer] Employer: RETIRED Tobacco Use Smoking status: Former Current packs/day: 0.00 Average packs/day: 1 pack/day for 20.0 years (20.0 ttl pk-yrs) Types: Cigarettes Start date: 08/10/1990 Quit date: 08/10/2010 Years since quittin.6 Smokeless tobacco: Never Tobacco comments: 1-2 cigarettes every day - smoke 1/3 at a time Vaping Use Vaping status: Former Substance and Sexual Activity Alcohol use: No Drug use: No Sexual activity: Not Currently Partners: Male Other Topics Concern Parent/sibling w/ CABG, MS or angioplasty before 65F 55M? No Social History Narrative Not on file Social Determinants of Health Financial Resource Strain: Not on file Food Insecurity: Not on file Transportation Needs: Not on file Physical Activity: Not on file Stress: Not on file Social Connections: Not on file Interpersonal Safety: Not At Risk (05/12/2022) Humiliation, Afraid, Rape, and Kick questionnaire Fear of Current or Ex-Partner: No Emotionally Abused: No Physically Abused: No Sexually Abused: No Housing Stability: Not on file 50 minutes spent reviewing chart, reviewing test results, talking with and examining patient, formulating plan, and documentation on the day of the encounter. Arpan Carolina MD Pulmonary and Critical Care Medicine [facility] documented in this encounter Nursing Notes * Demi Rey - 04/06/2024 1:00 PM CDT Chief Complaint Patient presents with New Patient - Community acquired pneumonia of left upper lobe of lung - Chronic obstructive pulmonary disease, unspecified COPD type Vitals: 04/06/24 1307 BP: 92/57 BP Location: Left arm Patient Position: Sitting Cuff Size: Adult Small Pulse: 66 SpO2: 91% Weight: 42.4 kg (93 lb 8 oz) Body mass index is 17.38 kg/m??. KAIA Hsu documented in this encounter Plan of Treatment Upcoming Encounters Date Type Department Care Team (Late st Contact Info) Description 04/27/2024 11:00 AM CDT Oncology Visit [facility] [address] [facility] [place] [phone] [place] [address] [place] [address] Cherie Geiger, PAArpitaC [address] [place] [address] documented as of this encounter Visit Diagnoses Diagnosis Chronic obstructive pulmonary disease, unspecified COPD type (H)- Primary documented in this encounter Additional Health Concerns Active Problems Noted Date Diagnosed Date Medication Adherence 03/31/2023 Assessment Noted Time PHQ-9 Depression Total Score: 19 024 8:51 AM REAL ESTATE DIRECTOR documented as of this encounter Care Teams Dry Heat Room Attendant Relationship Specialty [place] [address] [place] [address] PCP - General Family Medicine 06/12/22 Suzanne Ma DO Hematology & Oncology 05/07/22 Cory Lama MD [address] [place], [place] [address] Critical Care 05/07/22 Tabatha Agrawal, RN Specialty Etl Architect Hematology & Oncology 05/13/22 [place] [address] [place] [address] Assigned Cancer Care Provider 05/17/22 Keira Frye [facility] [address] [place] [id number] Assigned MTM Pharmacist 12/13/22 Colby Khan MD [address] [place] [address] Neurology 01/02/23 Candi Stinson DO [address] [place], [place] [address] Assigned Palliative Care Provider 01/10/23 [place] [address] [place], [place] [id number] Assigned PCP 03/28/23 Hallie Berman RN Personal Advocate & Liaison (PAL) Family Medicine 11/24/23 Nancy Shaw PA-C [address] [place] [address] Physician Portuguese Tutor Pulmonary Disease 01/05/24 Arpan Carolina MD [address] [place] [address] [address] [place], [place] [address] Critical Care 01/05/24 documented as of this encounter
--- OUTSIDE RECORDS SUMMARY | 2024-04-13 23:57 | XMS_ITS | Encounter Summary ---
Author Organization [place] Address [facility] [place] [address] Care Team Providers Care Warp Yarn Sorter Name Role Phone Suzanne Ma DO Unavailable [phone] Cory Lama MD Unavailable Tabatha Agrawal RN Unavailable [phone] Suzanne Ma DO Unavailable [phone] Latanya Silva MD Primary Care Provider Keira Frye [facility] Unavailable Colby Khan MD Unavailable [phone] Candi Stinson DO Unavailable Latanya Silva MD Unavailable [phone] Hallie Berman RN Unavailable Unavailable Nancy Shaw PA-C Unavailable Arpan Carolina MD Unavailable Encounter Details Date Type Department Care Team (Late st Contact Info) Description 01/27/2024 [facility] [address] [place] [address] [place] [id number] [place] [address] DIAGNOSIS NOT YET DEFINED (Primary Dx) Social History Tobacco Use Types [...] Description 04/27/2024 11:00 AM CDT Oncology Visit [facility] [address] [facility] [place] [address] [place] [address] [place] [address] Cherie Geiger, PAArpitaC [address] [place] [address] documented as of this encounter Procedures Procedure Name Priority Date/Time Associated Diagnosis Comments KS MD CERTIFICATION [facility] PATIENT Routine 01/27/2024 DIAGNOSIS NOT YET DEFINED documented in this encounter Results * MD CERTIFICATION OXYGEN TANK FILLER PATIENT (01/27/2024) Arabella Workman MD SPECIAL REPORTS documented in this encounter Visit Diagnoses Diagnosis DIAGNOSIS NOT YET DEFINED- Primary documented in this encounter Additional Health Concerns Active Problems Noted Date Diagnosed Date Medication Adherence 03/31/2023 Assessment Noted Time PHQ-9 Depression Total Score: 19 024 8:51 AM LINK CUTTER documented as of this encounter Care Teams Warp Yarn Sorter Relationship Specialty Start [place] [address] [place] [address] PCP - General Family Medicine 06/12/22 Suzanne Ma DO Hematology & Oncology 05/07/22 Cory Lama MD [address] [place], [place] [address] Critical Care 05/07/22 Tabatha Agrawal, MARY Specialty Tie Sawyer Hematology & Oncology 05/13/22 [place] [address] [place] [address] Assigned Cancer Care Provider 05/17/22 Keira Frye [facility] [address] [facility] [place] [address] Assigned MTM Pharmacist 12/13/22 Colby Khan MD [address] [place] [address] Neurology 01/02/23 Candi Stinson DO [address] [place] [address] Assigned Palliative Care Provider 01/10/23 [place] [address] [place] [address] Assigned PCP 03/28/23 Hallie Berman RN Personal Advocate & Liaison (PAL) Family Medicine 11/24/23 Nancy Shaw PA-C [address] [place], [place] [address] Physician Roads Supervisor Pulmonary Disease 01/05/24 Arpan Carolina MD [address] [facility] [address] [place], [place] [address] Critical Care 01/05/24 documented as of this encounter
--- OUTSIDE RECORDS SUMMARY | 2024-04-13 23:57 | XMS_ITS | Encounter Summary ---
Author Organization [place] Address [facility] [place] [address] Care Team Providers Care Rail Filler Name Role Phone Suzanne Ma DO Unavailable [phone] Cory Lama MD Unavailable [phone] Tabatha Agrawal RN Unavailable [phone] Suzanne Ma DO Unavailable [phone] Latanya Silva MD Primary Care Provider Keira Frye [facility] Unavailable [phone] Colby Khan MD Unavailable [phone] Candi Stinson DO Unavailable Latanya Silva MD Unavailable [phone] Hallie Berman RN Unavailable Unavailable aNncy Shaw PA-C Unavailable [phone] Arpan Carolina MD Unavailable [phone] Encounter Details Date Type Department Care Team (Latest Contact Info) Description 02/03/2024 Travel Social History Tobacco Use Types Packs/Day Years [...] 04/27/2024 11:00 AM CDT Oncology Visit 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 documented as of this encounter Care Teams Rail Filler Relationship Specialty Start [place] [address] [place] [address] PCP - General Family Medicine 06/12/22 Suzanne Ma DO Hematology & Oncology 05/07/22 Cory Lama MD [address] [place] [address] Critical Care 05/07/22 Tabatha Agrawal RN Specialty Supervisor Particleboard Hematology & Oncology 05/13/22 [place] [address] [place] [address] Assigned Cancer Care Provider 05/17/22 Keira Frye [facility] [address] [facility] [place], [place] [phone] Assigned MTM Pharmacist 12/13/22 Colby Khan MD [address] [place] [address] Neurology 01/02/23 Candi Stinson DO [address] [place] [address] Assigned Palliative Care Provider 01/10/23 [place] [address] [place], [place] [id number] Assigned PCP 03/28/23 Hallie Berman RN Personal Advocate & Liaison (PAL) Family Medicine 11/24/23 Nancy Shaw PA-C 7[address] [place] [address] Physician Secretary Pulmonary Disease 01/05/24 Arpan Carolina MD [address] [place] [address] 276 [place] [address] Critical Care 01/05/24 documented as of this encounter
--- OUTSIDE RECORDS SUMMARY | 2024-04-13 23:57 | XMS_ITS | Encounter Summary ---
Author Organization [place] Address [facility] [place] [address] Care Team Providers Care Wildlife Manager Name Role Phone Suzanne Ma DO Unavailable [phone] Cory Lama MD Unavailable Tabatha Agrawal RN Unavailable [phone] Suzanne Ma DO Unavailable [phone] Latanya Silva MD Primary Care Provider Keira Frye [facility] Unavailable Colby Khan MD Unavailable [phone] Candi Stinson DO Unavailable Latanya Silva MD Unavailable [phone] Hallie Berman RN Unavailable Unavailable Nancy Shaw PA-C Unavailable Arpan Carolina MD Unavailable [phone] Reason for Referral * CV Testing (Routine) - Pending Review Specialty Diagnoses / Procedures Referred By Contac t Referred To Contact Diagnoses Hypoxemia Coronary artery disease involving turtle mountain coronary artery of turtle mountain heart without angina pectoris Atrial fibrillation, unspecified type (H) Procedures Echocardiogram Complete ZZHC TTE W/DOPPLER, COMPLETE ZZHC ECHO COMPLETE W DOPPLER W CONTRAST ZZHC ECHO COMPLETE W DOPPLER W/O CONTRAST ZZHC IV PUSH SINGLE, INITIAL SUBSTANCE ZZHC US GUIDE FOR PERICARDIOCENTESIS ZZHC ECHO MYOCARD BX ZZC INJECTION, PERFLUTREN LIPID MICROSPHERES, PER ML ZZHC STATISTIC IV PUSH SINGLE INITIAL SUBSTANCE ID ECHO MYOCARD BX ID INJECTION, PERFLUTREN LIPID MICROSPHERES, PER ML ID TTE W/DOPPLER, COMPLETE ID IV PUSH SINGLE, INITIAL SUBSTANCE ID TTE W/DOPPLER, COMPLETE ID TTE W/DOPPLER, COMPLETE HC US GUIDE FOR PERICARDIOCENTESIS HC ECHO MYOCARD BX HC IV PUSH SINGLE, INITIAL SUBSTANCE HC STATISTIC IV PUSH SINGLE INITIAL SUBSTANCE HC ECHO COMPLETE W DOPPLER W CONTRAST HC ECHO COMPLETE W DOPPLER W/[place] [address] [place] [address] Referral ID Status Reason Start Date Expiration Date V isits Requested Visits Authorized [id number] Pending Review 01/05/2024 01/04/2025 1 1 ROLLER OPERATIONS AND HR MANAGER * Consultation (Urgent: 3-5 Days) - Pending Review Specialty Diagnoses / Procedures Referred By Cecile castillo Referred To Contact Pulmonary Disease Diagnoses Community acquired pneumonia of left upper lobe of lung Chronic obstructive pulmonary disease, unspecified COPD type (H) [place] [address] [place] [address] Referral ID Status Reason Start Date Expiration Date V isits Requested Visits Authorized [id number] Pending Review 01/05/2024 01/04/2025 1 1 Question Answer Reason for Referral: COPD Scheduling Instructions: [employer] will call you to coordinate your care as prescribed by the provider. If you don? t hear from a new accounts representative within 2 business days, please call . Comments Please be aware that coverage of these services is subject to the terms and limitations of your health insurance plan. Call member services at your health plan with any benefit or coverage questions. [employer] will call you to coordinate your care as prescribed by the provider. If you don? t hear from a new accounts representative within 2 business days, please call . ROLLER OPERATIONS AND HR MANAGER * Clinically Administered Medications (Routine) - Pending Review Specialty Diagnoses / Procedures Referred By Cecile castillo Referred To Contact Diagnoses Community acquired pneumonia of left upper lobe [place] Silva [place] [id number] [place] [id number] Referral ID Status Reason Start Date Expiration Date V isits Requested Visits Authorized [id number] Pending Review 01/05/2024 01/04/2025 1 1 ROLLER OPERATIONS AND HR MANAGER Reason for Visit * Reason Comments Hospital F/U * Clinically Administered Medications (Routine) - Pending Review Specialty Diagnoses / Procedures Referred By Cecile castillo Referred To Contact Diagnoses Community acquired pneumonia of left upper lobe of [place]anya Silva [place] [id number] [place] [id number] Referral ID Status Reason Start Date Expiration Date V isits Requested Visits Authorized [id number] Pending Review 01/05/2024 01/04/2025 1 1 Encounter Details Date Type Department Care Team (Latest Contact Info) Description 01/05/2024 9:00 AM CONTROLLER OPERATIONS AND HR MANAGER Office Visit [address] [address] Lat[place] [id number] [place] [id number] Community acquired pneumonia of left upper lobe of lung (Primary Dx); Chronic obstructive pulmonary disease, unspecified COPD type (H); Mild protein-calorie malnutrition (H24); Opioid abuse, uncomplicated (H); Cardiomyopathy, unspecified type (H); Hypoxemia; Coronary artery disease involving turtle mountain coronary artery of turtle mountain heart without angina pectoris; Atrial fibrillation, unspecified type (H); Seizure-like activity (H) Social History Tobacco Use Types Packs/Day Years [...] Sign Reading Time Taken Comments Blood Pressure 124/68 01/05/2024 9:06 AM CONTROLLER OPERATIONS AND HR MANAGER Pulse 88 01/05/2024 9:06 AM CONTROLLER OPERATIONS AND HR MANAGER Temperature 36.7 ??C (98 ??F) 01/05/2024 9:06 AM CONTROLLER OPERATIONS AND HR MANAGER Respiratory Rate 25 01/05/2024 9:06 AM CONTROLLER OPERATIONS AND HR MANAGER Oxygen Saturation 90% 01/05/2024 9:06 AM CONTROLLER OPERATIONS AND HR MANAGER Inhaled Oxygen Concentration - - Weight 40.6 kg (89 lb 9.6 oz) 01/05/2024 9:06 AM CONTROLLER OPERATIONS AND HR MANAGER Height 152.4 cm (5') 01/05/2024 9:06 AM CONTROLLER OPERATIONS AND HR MANAGER Body Mass Index 17.5 01/05/2024 9:06 AM CONTROLLER OPERATIONS AND HR MANAGER documented in this encounter Patient Instructions * Attachments The following attachments cannot be sent through Care Everywhere. * Suicide Safety Plan: General Info (Mosotho) * COPD (Mosotho) documented in this encounter Progress Notes * Latanya Silva MD - 01/05/2024 9:00 AM CST Assessment & Plan Community acquired pneumonia of left upper lobe of lung Wonder about this - did not do more radiation at this time Rx with rocephin and doxy and refer to pulmonary more urgently due to low sat = if breathing gets any worse, to ER again - COPD ACTION PLAN - cefTRIAXone (ROCEPHIN) in lidocaine 1% (PF) for IM administration only 500 mg - doxycycline hyclate (VIBRAMYCIN) 100 MG capsule Dispense: 20 capsule; Refill: 0 - Adult Pulmonary Medicine Blueprint Developer Referral Chronic obstructive pulmonary disease, unspecified COPD type (H) Will consider adding controller inhaler but now on oral steroids Recheck in one week - COPD ACTION PLAN - Adult Pulmonary Medicine Blueprint Developer Referral Mild protein-calorie malnutrition (H24) Lost another couple lbs due to this Illness - COPD Opioid abuse, uncomplicated (H) Sees pain clinic Cardiomyopathy, unspecified type (H) Dx in past due to a fib - recheck echo Hypoxemia - Echocardiogram Complete Coronary artery disease involving turtle mountain coronary artery of turtle mountain heart without angina pectoris - Echocardiogram Complete Atrial fibrillation, unspecified type (H) In NSR now - Echocardiogram Complete Seizure-like activity (H) In the past but no official seizure disorder 30 minutes spent by me on the date of the encounter doing chart review, history and exam, documentation and further activities per the note MED REC REQUIRED Post Medication Reconciliation Status: Discharge medications reconciled and changed, see notes/orders Depression Screening Follow Up 01/05/2024 8:51 AM PHQ PHQ-9 Total Score 19 Q9: Thoughts of better off /self-harm past 2 weeks Several days F/U: Thoughts of suicide or self-harm No F/U: Safety concerns No Follow Up Follow Up Actions Taken Crisis resource information provided in the After Visit Summary Discussed the following ways the patient can remain in a safe environment: FUTURE APPOINTMENTS: - Follow-up visit in 1 week See Patient Instructions Nicho Berry is a 78 year old, presenting for the following health issues: Hospital F/U She was seen 12/15/23 and dx with ?atypical pneumonia and COPD exac. She was given z pack. She continued to feel shortness of breath and was seen in ER. She had cxr which showed some radiation changeslef esme lobe. She got nebs and steroid burst and sent home with steroid which she ended up starting 5 days ago. She is not feeling better yet. She does not have fever. She had CT done about a month ago and nodules seen were the same and no infiltrates and left upper lobe radiation changes. 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 She was dx with COPD in 2021. She does not have O2. She has combivent and duonebs at home. She has PAF and is on blood thinner for this. She had EKG in ER and was in NSR. She does not have lower ext edema. Her last echo was in 2020 and was good. She had normal EKG in ER recently. Her BNP was stable/good and below 500 troponin was fine. 01/05/2024 9:07 AM Additional Questions Roomed by Mariah Rodgers Accompanied by son and HPI ED/UC Followup: Facility: [facility] Emergency Dept Date of visit: 12/26/2023 Reason for visit: COPD Current Status: patient states she has been tired. She also has back pain. Past Medical History: Diagnosis Date Anxiety Atrial [...] STATIONS WITH; Surgeon: Cory Lama MD; Location: [facility] BRONCHOSCOPY RIGID OR FLEXIBLE W/TRANSENDOSCOPIC ENDOBRONCHIAL ULTRASOUND GUIDED N/A 06/12/2022 Procedure: BRONCHOSCOPY, WITH ENDOBRONCHIAL ULTRASOUND; Surgeon: Cory Lama MD; Location: [facility] CATARACT IOL, RT/LT 11/02/2013 right CV CORONARY ANGIOGRAM N/A 06/13/2019 Procedure: Coronary Angiogram; Surgeon: Arpan Morales MD; Location: HEART CARDIAC REAMING MACHINE TENDER D & C multiple DECOMPRESSION, FUSION LUMBAR [...] FIXATION FOOT ZZC TOTAL KNEE ARTHROPLASTY Right MEDICATIONS: Current Outpatient Medications Medication apixaban ANTICOAGULANT (ELIQUIS ANTICOAGULANT) 2.5 MG tablet buprenorphine (SUBUTEX) 2 MG SUBL sublingual tablet busPIRone HCl (BUSPAR) 30 MG tablet calcium carbonate-vitamin D (CALTRATE) 600-10 MG-MCG per tablet calcium polycarbophil (FIBER-LAX) 625 MG tablet donepezil (ARICEPT) 10 MG tablet doxycycline hyclate (VIBRAMYCIN) 100 MG capsule ferrous sulfate (FEROSUL) 325 (65 Fe) MG tablet guaiFENesin (MUCINEX) 600 MG 12 hr tablet hydrOXYzine HCl (ATARAX) 10 MG tablet ipratropium - albuterol 0.5 mg/2.5 mg/3 mL (DUONEB) 0.5-2.5 (3) MG/3ML neb solution ipratropium-albuterol (COMBIVENT RESPIMAT) 20-100 MCG/ACT inhaler loperamide (IMODIUM A-D) 2 MG tablet melatonin 3 MG tablet nitroGLYcerin (NITROSTAT) 0.4 MG sublingual tablet oxyCODONE-acetaminophen (PERCOCET) 5-325 MG tablet predniSONE (DELTASONE) 10 MG tablet pregabalin (LYRICA) 100 MG capsule traZODone (DESYREL) 150 MG tablet venlafaxine (EFFEXOR XR) 150 MG 24 hr capsule No current facility-administered medications for this visit. SOCIAL HISTORY: Social History Tobacco Use Smoking status: Former Packs/day: 1.00 Years: 20.00 Additional pack years: 0.00 Total pack years: 20.00 Types: Cigarettes Quit date: 08/10/2010 Years since quittin.4 Smokeless tobacco: Never Tobacco comments: 1-2 cigarettes every day - smoke 1/3 at a time Substance Use Topics Alcohol use: No Family History Problem Relation Age of Onset Cancer Mother stomach C.A.D. Mother Heart Disease Father Multiple Sclerosis Son Fibromyalgia Son Anxiety Disorder Son Review of Systems Constitutional, HEENT, cardiovascular, pulmonary, gi and gu systems are negative, except as otherwise noted. Objective BP 124/68 (BP Location: Right arm, Patient Position: Sitting, Cuff Size: Adult Regular) Pulse 88 Temp 98 ??F (36.7 ??C) (Oral) Resp 25 Ht 1.524 m (5') Wt 40.6 kg (89 lb 9.6 oz) LMP (LMP Unknown) SpO2 90% BMI 17.50 kg/m?? Body mass index is 17.5 kg/m??. Physical Exam GENERAL: alert, no distress, frail, and elderly EYES: Eyes grossly normal to inspection, PERRL and conjunctivae and sclerae normal HENT: ear canals and TM's normal, nose and mouth without ulcers or lesions NECK: no adenopathy, no asymmetry, masses, or scars RESP: rhonchi throughout - seems like rales right upper lobe CV: regular rate and rhythm, normal S1 S2, no S3 or S4, no murmur, click or rub, no peripheral edema MS: no gross musculoskeletal defects noted, no edema SKIN: no suspicious lesions or rashes NEURO: Normal strength and tone, mentation intact and speech normal PSYCH: mentation appears normal, affect normal/bright LYMPH: no cervical, supraclavicular, axillary, or inguinal adenopathy Admission on 12/26/2023, Discharged on 12/26/2023 Component Date Value Ref Range Status Ventricular Rate 12/26/2023 85 BPM Final Atrial Rate 12/26/2023 85 BPM Final ID Interval 12/26/2023 170 ms Final QRS Duration 12/26/2023 80 ms Final QT 12/26/2023 400 ms Final QTc 12/26/2023 476 ms Final P [place] 12/26/2023 76 degrees Final R AXIS 12/26/2023 88 degrees Final T [place] 12/26/2023 84 degrees Final Interpretation ECG 12/26/2023 Final Value:Sinus rhythm Normal ECG When compared with ECG of 08-DEC-2023 13:28, No significant change was found Confirmed by - EMERGENCY ROOM, PHYSICIAN ([id number]), editorial director LEVAR TOMLINSON ([id number]) on 12/28/2023 6:46:34AM INR 12/26/2023 1.07 0.85 - 1.15 Final Sodium 12/26/2023 140 135 - 145 mmol/L Final Reference intervals for this test were updated on 07/28/2023 to more accurately reflect our healthypopulation. There may be differences in the flagging of prior results with similar values performedwith this method. Interpretation of those prior results can be made in the context of the updated reference intervals. Potassium 12/26/2023 4.2 3.4 - 5.3 mmol/L Final Chloride 12/26/2023 101 98 - 107 mmol/L Final Carbon Dioxide (CO2) 12/26/2023 26 22 - 29 mmol/L Final Anion Gap 12/26/2023 13 7 - 15 mmol/L Final Urea Nitrogen 12/26/2023 11.6 8.0 - 23.0 mg/dL Final Creatinine 12/26/2023 0.84 0.51 - 0.95 mg/dL Final GFR Estimate 12/26/2023 71 >60 mL/min/1.73m2 Final Calcium 12/26/2023 9.1 8.8 - 10.2 mg/dL Final Glucose 12/26/2023 119 (H) 70 - 99 mg/dL Final Troponin T, High Sensitivity 12/26/2023 8 <=14 ng/L Final Either a High Sensitivity Troponin T baseline (0 hours) value = 100 ng/L, or an increase in High Sensitivity Troponin T = 7 ng/L at 2 hours compared to 0 hours (2-0 hours), suggests myocardial injury, and urgent clinical attention is required. If the 2-0 hours increase is <7 ng/L, a High Sensitivity Troponin T result above gender-specificreference ranges warrants further evaluation. Recommendations for further evaluation include correlation with clinical decision-making tool (e.g., HEART), a 3rd High Sensitivity Troponin T test 2 hours after the 2nd (a 20% change from baseline would represent concern), admission for observation, close PCC/cardiology follow-up, or urgent outpatient provocative testing. pH Venous 12/26/2023 7.45 (H) 7.32 - 7.43 Final pCO2 Venous 12/26/2023 43 40 - 50 mm Hg Final pO2 Venous 12/26/2023 31 25 - 47 mm Hg Final Bicarbonate Venous 12/26/2023 30 (H) 21 - 28 mmol/L Final Base Excess/Deficit Venous 12/26/2023 5.6 (H) -3.0 - 3.0 mmol/L Final FIO2 12/26/2023 0 Final Oxyhemoglobin Venous 12/26/2023 57 (L) 70 - 75 % Final O2 Sat, Venous 12/26/2023 58.6 (L) 70.0 - 75.0 % Final N terminal Pro BNP Inpatient 12/26/2023 342 0 - 1,800 pg/mL Final Reference range shown and results flagged as abnormal are suggested inpatient cut points for confirming diagnosis if CHF in an acute setting. Establishing a baseline value for each individual patientis useful for follow-up. An inpatient or emergency department NT-proPBNP <300 pg/mL effectively rules out acute CHF, with 99% negative predictive value. The outpatient non-acute reference range for ruling out CHF is: 0-125 pg/mL (age 18 to less than 75) 0-450 pg/mL (age 75 yrs and older) WBC Count 12/26/2023 4.6 4.0 - 11.0 10e3/uL Final RBC Count 12/26/2023 3.91 3.80 - 5.20 10e6/uL Final Hemoglobin 12/26/2023 12.1 11.7 - 15.7 g/dL Final Hematocrit 12/26/2023 37.1 35.0 - 47.0 % Final MCV 12/26/2023 95 78 - 100 fL Final MCH 12/26/2023 30.9 26.5 - 33.0 pg Final MCHC 12/26/2023 32.6 31.5 - 36.5 g/dL Final RDW 12/26/2023 14.6 10.0 - 15.0 % Final Platelet Count 12/26/2023 253 150 - 450 10e3/uL Final % Neutrophils 12/26/2023 69 % Final % Lymphocytes 12/26/2023 16 % Final % Monocytes 12/26/2023 11 % Final % Eosinophils 12/26/2023 3 % Final % Basophils 12/26/2023 1 % Final % Immature Granulocytes 12/26/2023 0 % Final NRBCs per 100 WBC 12/26/2023 0 <1 /100 Final Absolute Neutrophils 12/26/2023 3.2 1.6 - 8.3 10e3/uL Final Absolute Lymphocytes 12/26/2023 0.7 (L) 0.8 - 5.3 10e3/uL Final Absolute Monocytes 12/26/2023 0.5 0.0 - 1.3 10e3/uL Final Absolute Eosinophils 12/26/2023 0.2 0.0 - 0.7 10e3/uL Final Absolute Basophils 12/26/2023 0.1 0.0 - 0.2 10e3/uL Final Absolute Immature Granulocytes 12/26/2023 0.0 <=0.4 10e3/uL Final Absolute NRBCs 12/26/2023 0.0 10e3/uL Final Hold Specimen 12/26/2023 [facility] Final Signed Electronically by: Latanya Silva MD Answers submitted by the patient for this visit: Patient Health Questionnaire (Submitted on 01/05/2024) If you checked off any problems, how difficult have these problems made it for you to do your work,take care of things at home, or get along with other people?: Extremely difficult PHQ9 TOTAL SCORE: 19 NORA-7 (Submitted on 01/05/2024) NORA 7 TOTAL SCORE: 12 ROLLER OPERATIONS AND HR MANAGER * Shi Hart CMA - 01/05/2024 9:00 AM CST Clinic Administered Medication Documentation Patient was given Rocephin 500mg and 1 ml Lidocaine. Prior to medication administration, verified patient's identity using patient???s name and date of . Please see MAR and medication order for additional information. Patient instructed to remain in clinic for 15 minutes and report any adversereaction to staff immediately. Vial/Syringe: Single dose vial. Was entire vial of medication used? Yes Shi Hart CMA ROLLER OPERATIONS AND HR MANAGER documented in this encounter Plan of Treatment Upcoming Encounters Date Type Department Care Team (Late st Contact Info) Description 04/27/2024 11:00 AM CDT Oncology Visit [facility] [address] [facility] [place] [id number] [place] [address] [place] [address] Cherie Geiger PA-C [address] [place] [address] Scheduled Orders Name Type Priority Associated Diagnoses Orde r Schedule Echocardiogram Complete Echocardiography Routine Hypoxemia Coronary artery disease involving turtle mountain coronary artery of turtle mountain heart without angina pectoris Atrial fibrillation, unspecified type (H) Expected: 01/06/2024 (Approximate), Expires: 01/04/2025 Scheduled Referrals Name Type Priority Associated Diagnoses Orde r Schedule Adult Pulmonary Medicine Blueprint Developer Referral Referral Urgent: 3-5 Days Community acquired pneumonia of left upper lobe of lung Chronic obstructive pulmonary disease, unspecified COPD type (H) Expected: 01/05/2024 (Approximate), Expires: 01/04/2025 documented as of this encounter Visit Diagnoses Diagnosis Community acquired pneumonia of left upper lobe of lung- Primary Chronic obstructive pulmonary disease, unspecified COPD type (H) Mild protein-calorie malnutrition (H24) Malnutrition of mild degree Opioid abuse, uncomplicated (H) Cardiomyopathy, unspecified type (H) Hypoxemia Coronary artery disease involving turtle mountain coronary artery of turtle mountain heart without angina pectoris Atrial fibrillation, unspecified type (H) Seizure-like activity (H) Other convulsions documented in this encounter Administered Medications Inactive Administered Medications - up to 3 most recent administrations Medication Order MAR Action Action Date Dose Rate Site cefTRIAXone (ROCEPHIN) in lidocaine 1% (PF) for IM administration only 500 mg Routine, 500 mg (12.3 mg/kg), Intramuscular, ONCE, On Thu01/05/24 at 1000, For 1 dose, Reconstitute 500 mg vial with 1 ml of 1% Lidocaine for final concentration of 350 mg/mL. For IM administration only., Indications: Community Acquired Pneumonia $Given 01/05/2024 9:56 AM CONTROLLER OPERATIONS AND HR MANAGER 500 mg Left Gluteus Narciso documented in this encounter Additional Health Concerns Active Problems Noted Date Diagnosed Date Medication Adherence 03/31/2023 Assessment Noted Time PHQ-9 Depression Total Score: 19 024 8:51 AM CONTROLLER OPERATIONS AND HR MANAGER documented as of this encounter Care Teams Wildlife Manager Relationship Specialty [place] [address] [place] [address] PCP - General Family Medicine 06/12/22 Suzanne Ma DO Hematology & Oncology 05/07/22 Cory Lama MD [address] [place] [address] [id number] Critical Care 05/07/22 Tabatha Agrawal, MARY Specialty Legal Mediator Hematology & Oncology 05/13/22 [place] [address] [address] Assigned Cancer Care Provider 05/17/22 Keira Frye, [facility] [place] [address] Assigned MTM Pharmacist 12/13/22 Colby Khan MD [address] [place] [address] Neurology 01/02/23 Candi Stinson DO [address] [place] [address] Assigned Palliative Care Provider 01/10/23 [place] [address] [place] [address] Assigned PCP 03/28/23 AntonellaHallie RN Personal Advocate & Liaison (PAL) Family Medicine 11/24/23 Nancy Shaw PA-C [address] [place] [address] [id number] Physician Ribbon Winder Pulmonary Disease 01/05/24 Arpan Carolina MD [address] [place] [address] [address] [place], [place] [address] Critical Care 01/05/24 documented as of this encounter
--- OUTSIDE RECORDS SUMMARY | 2024-04-13 23:57 | XMS_ITS | Encounter Summary ---
Author Organization [place] Address [facility]0 [facility] [place] [address] Care Team Providers Care Escrow Processor Name Role Phone Suzanne Ma DO Unavailable [phone] Cory Lama MD Unavailable [phone] Tabatha Agrawal RN Unavailable [phone] Suzanne Ma DO Unavailable [phone] Latanya Silva MD Primary Care Provider Keira Frye [facility] Unavailable Colby Khan MD Unavailable Candi Stinson DO Unavailable Latanya Silva MD Unavailable [phone] Hallie Berman RN Unavailable Unavailable Nancy Shaw PA-C Unavailable Arpan Carolina MD Unavailable Reason for Visit * Reason Comments RECHECK Following up on lisandro thing and back pain Encounter Details Date Type Department Care Team (Late st Contact Info) Description 01/12/2024 9:30 AM CDT Office Visit [address] [address] Alyssia Cunningham PA-C [address] [place] [address] Chronic obstructive pulmonary disease, unspecified COPD type (H) (Primary Dx); Chronic pain syndrome Social History Tobacco Use Types Packs/Day Years [...] Sign Reading Time Taken Comments Blood Pressure 130/77 01/12/2024 9:33 AM CDT Pulse 112 01/12/2024 9:33 AM CDT Temperature 36.8 ??C (98.2 ??F) 01/12/2024 9:33 AM CD T Respiratory Rate 14 01/12/2024 9:33 AM CDT Oxygen Saturation 91% 01/12/2024 9:33 AM CDT Inhaled Oxygen Concentration - - Weight 39.8 kg (87 lb 12.8 oz) 01/12/2024 9:33 A M CDT Height 156.2 cm (5' 1.5) 01/12/2024 9:33 AM CDT Body Mass Index 16.32 01/12/2024 9:33 AM CDT documented in this encounter Patient Instructions * Patient Instructions* Alyssia Cunningham PA-C - 01/12/2024 9:30 AM CDT When using fluticasone rinse out mouth to prevent thrush. documented in this encounter Progress Notes * Alyssia Cunningham PA-C - 01/12/2024 9:30 AM CDT Assessment & Plan Chronic obstructive pulmonary disease, unspecified COPD type (H) Reviewed how she is using the inhalers. Recommended trying a spacer to see if this helps with administration and efficacy of inhalers. Fluticasone added as a steroid inhaler to what she is already using (Combivent). Albuterol as a rescue inhaler also provided. Continue with plan to follow up with lung doctor. O2 saturation has improved since last week but still low. - albuterol (PROAIR HFA/PROVENTIL HFA/VENTOLIN HFA) 108 (90 Base) MCG/ACT inhaler; Inhale 2 puffs into the lungs every 6 hours as needed - spacer (OPTICHAMBER ANYA) holding chamber; Use with inhaler as prescribed - fluticasone (ARNUITY ELLIPTA) 100 MCG/ACT inhaler; Inhale 1 puff into the lungs daily Chronic pain syndrome Continue to follow pain clinic. They had stopped the buprenorphine patch and started on the buprenorphine sublingual tablets. She still feels her pain is poorly controlled. Patient appears more comfortable and alert than she did in the previous visits. COVID vaccine provided today. She has yet to get the RSV vaccine, which would also be recommended. Review of external notes as documented elsewhere in note Prescription drug management 30 minutes spent by me on the date of the encounter doing chart review, history and exam, documentation and further activities per the note Nicho Berry is a 78 year old, presenting for the following health issues: RECHECK (Following up on breathing and back pain) 01/12/2024 9:29 AM Additional Questions Roomed by shruthi ramos Accompanied by Jamison History of Present Illness Back Pain: She presents for follow up of back pain. Patient's back pain is a chronic problem. Location of back pain: Right lower back, left lower back, right middle of back, left middle of back, right upper back, left upper back, right side of neck, left side of neck, right shoulder, left shoulder, right buttock, left buttock, right hip, left hip, right side of waist and left side of waist Description of back pain: burning, cramping, dull ache, fullness, gnawing, sharp, shooting and stabbing Back pain spreads: right buttocks, left buttocks, right thigh, left thigh, right knee, left knee, right foot, left foot, right shoulder, left shoulder, right side of neck and left side of neck Since patient first noticed back pain, pain is: gradually worsening Does back pain interfere with her job: Not applicable She eats 2-3 servings of fruits and vegetables daily.She consumes 1 sweetened beverage(s) daily.Sheexercises with enough effort to increase her heart rate 9 or less minutes per day. She exercises with enough effort to increase her heart rate 3 or less days per week. She is missing 1 dose(s) of medications per week. She is not taking prescribed medications regularly due to remembering to take. Objective BP 130/77 (BP Location: Left arm, Patient Position: Sitting, Cuff Size: Child) Pulse 112 Temp 98.2 ??F (36.8 ??C) (Oral) Resp 14 Ht 1.562 m (5' 1.5) Wt 39.8 kg (87 lb 12.8 oz) LMP (LMP Unknown) SpO2 91% BMI 16.32 kg/m?? Body mass index is 16.32 kg/m??. Physical Exam GENERAL: No acute distress HEENT: Normocephalic CARDIAC: Regular rate and rhythm. No murmurs. PULMONARY: Lungs are clear to auscultation bilaterally. No wheezes, rhonchi or crackles. NEURO: Alert and non-focal Signed Electronically by: Alyssia Cunningham PA-C documented in this encounter Plan of Treatment Upcoming Encounters Date Type Department Care Team (Late st Contact Info) Description 04/27/2024 11:00 AM CDT Oncology Visit [facility] [address] [facility] [place] [phone] [place] [address] [place], [place] [address] Cherie Gieger PA-C [address] [place] [address] documented as of this encounter Visit Diagnoses Diagnosis Chronic obstructive pulmonary disease, unspecified COPD type (H)- Primary Chronic pain syndrome documented in this encounter Additional Health Concerns Active Problems Noted Date Diagnosed Date Medication Adherence 03/31/2023 Assessment Noted Time PHQ-9 Depression Total Score: 19 024 8:51 AM DANCE ARTIST documented as of this encounter Care Teams Escrow Processor Relationship Specialty [place] [address] [place] [address] PCP - General Family Medicine 06/12/22 Suzanne Ma DO Hematology & Oncology 05/07/22 Cory Lama MD [address] [place] [address] Critical Care 05/07/22 Tabatha Agrawal, RN Specialty Compliance Specialist Hematology & Oncology 05/13/22 [place] [address] [place] [address] Assigned Cancer Care Provider 05/17/22 Keira Frye, [facility] [address] [place] [address] Assigned MTM Pharmacist 12/13/22 Colby Khan MD [address] [place] [address] Neurology 01/02/23 Candi Stinson DO 909 [place] [address] Assigned Palliative Care Provider 01/10/23 [place] [address] [place] [address] Assigned PCP 03/28/23 Hallie Berman RN Personal Advocate & Liaison (PAL) Family Medicine 11/24/23 Nancy Shaw PA-C [address] [place], [place] [address] Physician Travel Coordinator Pulmonary Disease 01/05/24 Arpan Carolina MD [address] [facility] [address] [place], [place] [address] Critical Care 01/05/24 documented as of this encounter
--- OUTSIDE RECORDS SUMMARY | 2024-04-13 23:57 | XMS_ITS | Encounter Summary ---
Author Organization [place] Address [facility]0 [facility] [place] [address] Care Team Providers Care Stretcher Leveler Operator Helper Name Role Phone Suzanne Ma DO Unavailable [phone] Cory Lama MD Unavailable [phone] Tabatha Agrawal RN Unavailable [phone] Suzanne Ma DO Unavailable Latanya Silva MD Primary Care Provider Keira Frye [facility] Unavailable Colby Khan MD Unavailable [phone] Candi Stinson DO Unavailable Latanya Silva MD Unavailable [phone] Hallei Berman RN Unavailable Unavailable Nancy Shaw PA-C Unavailable Arpan Carolina MD Unavailable Encounter Details Date Type Department Care Team (Latest Contact Info) Description 01/12/2024 Travel Social History Tobacco Use Types Packs/Day [...] 11:00 AM CDT Oncology Visit [facility] [address] [facility] [place] [address] Suzanne Ma, [address] [place] [address] Cherie Geiger PA-C [address] [place] [address] documented as of this encounter Visit Diagnoses Not on filedocumented in this encounter Additional Health Concerns Active Problems Noted Date Diagnosed Date Medication Adherence 03/31/2023 Assessment Noted Time PHQ-9 Depression Total Score: 19 024 8:51 AM METAL FITTER documented as of this encounter Care Teams Stretcher Leveler Operator Helper Relationship Specialty [place] [address] [place] [address] PCP - General Family Medicine 06/12/22 Suzanne Ma DO Hematology & Oncology 05/07/22 Cory Lama MD [address] [place] [address] Critical Care 05/07/22 Tabatha Agrawal RN Specialty Print Production Coordinator Hematology & Oncology 05/13/22 [place] [address] [place] [address] Assigned Cancer Care Provider 05/17/22 Keira Frye [facility] [address] [facility] [place], [place] [id number] Assigned MTM Pharmacist 12/13/22 Colby Khan MD [address] [place] [address] Neurology 01/02/23 Candi Stinson DO [address] [place] [address] Assigned Palliative Care Provider 01/10/23 [place] [address] [place], [place] [id number] Assigned PCP 03/28/23 Hallie Berman RN Personal Advocate & Liaison (PAL) Family Medicine 11/24/23 Nancy Shaw PA-C 717 [place] [address] Physician [place] Groover Pulmonary Disease 01/05/24 Arpan Carolina MD [address] [place] [address] [address] [place] [address] Critical Care 01/05/24 documented as of this encounter
--- OUTSIDE RECORDS SUMMARY | 2024-04-13 23:57 | XMS_ITS | Encounter Summary ---
Author Organization [place] Address [facility]0 [facility] [place] [address] Care Team Providers Care National Sales Trainer Name Role Phone Suzanne Ma DO Unavailable [phone] Cory Lama MD Unavailable Tabatha Agrawal RN Unavailable [phone] Suzanne Ma DO Unavailable [phone] Latanya Silva MD Primary Care Provider Keira Frye [facility] Unavailable Colby Khan MD Unavailable [phone] Candi Stinson DO Unavailable [phone] Latanya Silva MD Unavailable [phone] Hallie Berman RN Unavailable Unavailable Nancy Shaw PA-C Unavailable Arpan Carolina MD Unavailable [phone] Encounter Details Date Type Department Care Team (Latest Contact Info) Description 01/05/2024 Travel Social History Tobacco Use Types Packs/Day [...] 04/27/2024 11:00 AM CDT Oncology Visit [facility] [address] [facility] [place] [address] Suzanne Ma, [address] [place] [address] Cherie Geiger PA-C [address] [place] [address] documented as of this encounter Visit Diagnoses Not on filedocumented in this encounter Additional Health Concerns Active Problems Noted Date Diagnosed Date Medication Adherence 03/31/2023 Assessment Noted Time PHQ-9 Depression Total Score: 19 024 8:51 AM HEEL SEAT FITTER MACHINE documented as of this encounter Care Teams National Sales Trainer Relationship Specialty [place] [address] [place] [address] PCP - General Family Medicine 06/12/22 Suzanne Ma DO Hematology & Oncology 05/07/22 Cory Lmaa MD [address]09 [place] [address] Critical Care 05/07/22 Tabatha Agrawal RN Specialty Vocal Artist Hematology & Oncology 05/13/22 [place] [address] [place] [address] Assigned Cancer Care Provider 05/17/22 Keira Frye [facility] [address] [facility] [place], [place] [id number] Assigned MTM Pharmacist 12/13/22 Colby Khan MD [address] [place] [address] Neurology 01/02/23 Candi Stinson DO [address] [place] [address] Assigned Palliative Care Provider 01/10/23 [place] [address] [place], [place] [address] Assigned PCP 03/28/23 Hallie Berman RN Personal Advocate & Liaison (PAL) Family Medicine 11/24/23 Nancy Shaw PA-C 717 [place] [address] Physician Worm Farm Laborer Pulmonary Disease 01/05/24 Arpan Carolina MD [address] [place] [address] 276 [place] [address] Critical Care 01/05/24 documented as of this encounter
--- OUTSIDE RECORDS SUMMARY | 2024-04-13 23:57 | XMS_ITS ---
Author Organization [place] Address [address] [facility] [place] [address] Care Team Providers Care Vest Tailor Name Role Phone Suzanne Ma DO Unavailable [phone] Cory Lama MD Unavailable Tabatha Agrawal RN Unavailable [phone] Suzanne Ma DO Unavailable [phone] Latanya Silva MD Primary Care Provider Keira Frye [facility] Unavailable [phone] Colby Khan MD Unavailable Candi Stinson DO Unavailable [phone] Latanya Silva MD Unavailable [phone] Hallie Berman RN Unavailable Unavailable Nancy Shaw PA-C Unavailable Arpan Carolina MD Unavailable Active Problems Patient Care Coordination No te Formatting of this note migh t be different from the original. Attention: Patient enrolled in [facility] Community Market Research Lead Program CP following: Justine Hayes NRRommel, CP Available Thu thru Thursday 8 am to [...] type 10/08/2021 Coronary artery disease invo lving samish coronary artery of samish heart without angina pectoris 10/08/2021 Mild cognitive [...] - Scan on 05/16/2015 8:52 AM : [facility] Controlled Substance Agreement 05-15-15 (below) Pain Clinic evaluation in the past: 08/01/2015: Pain Clinic DIRE Total Score(s): 14, scanned on 08/01/2015 Last [facility] website verification: [email or web address] Pre-diabetes 11/12/2015 Acquired hypothyroidism 11/25/2013 Overview: Problem list name updated by automated process. Provider to review Other postprocedural status(V45.89) 04/20/2013 Lumbar radiculopathy 10/28/2012 Health Group Home 10/14/2012 Overview: EMERGENCY CARE PLAN Presenting Problem Signs and Symptoms Treatment Plan Questions or concerns during clinic hours I will call the clinic directly Questions or concerns outside clinic hours I will call the 24 hour nurse line at [phone] Patient needs to schedule an appointment I will call the 24 hour scheduling team at [phone] or clinic directly Same day treatment I will call the clinic first, nurse line if after hours, urgent care and express care if needed [facility] [phone] Hewitt [facility] [phone] Mundo Srinivasan [phone] No active care coordination needs at this time 10/14/13 TR CCRN. DX V65.8 REPLACED WITH [address] HEALTH JAIL (02/07/2013) Arthrodesis status 11/18/2011 HTN, goal below [...] the past: 08/01/2015: [facility] Last [facility] website verification: Done 3.2.17 [email or web address] Current Oncology Plans No current plan information found. Past Plans ONCOLOGY TREATMENT Plan Name Start Date Discontinue Date Treatment Medications Discontinue Reason Plan Provider Cycles OP ONC Small Cell Lung Cancer - CARBOplatin / Etoposide EVERY 3 WEEKS 06/21/20 22 04/02/2023 CARBOplatin (PARAPLATIN)CARBOpl atin (PARAPLATIN) infusion (by AUC)etoposide (TOPOSAR)etoposide (TOPOSAR) infusionetoposide (TOPOSAR) infusion (in 500 mL)trilaciclib (COSELA) Therapy Complete Suzanne Ma, 4 of 4 cycles started IP ONC Small Cell Lung Cancer - CARBOplatin / Etoposide (21 Day Cycle) 06/20/20 22 07/03/2022 CARBOplatin (PARAPLATIN)CARBOpl atin (PARAPLATIN) infusion (by AUC) in 250 mLetoposide (TOPOSAR)etoposide (TOPOSAR) infusion (in 500 mL) Change in Level of Care Ernie Centeno MD 1 of 6 cycles started Radiation Treatments * No radiation treatments are documented for this patient in [facility]. Treatments may have been administered in another system. Lifetime Dose Tracking * Chemical Lifetime Dose Automatic Entry Manual Entr y Total Air Kerma 130 mGy 0 mGy 130 mGy Juwan DAP 11,494 mGy-cm2 0 mGy-cm2 11,494 mGy-cm 2 Resolved Problems Problem Noted Date Diagnosed Date [...] 08/01/2015 DIRE Total Score(s): 14 (08/01/2015) Last [facility] website verification: 02/12/2016 [email or web address] Delirium 10/11/2012 12/12/2014 Altered mental status 09/13/20122020 [...] HCD:Previously signed by patient and notarized by public information director. Cigarette Making Machine Hopper Feeder scanned into EMR as Advance Directive/Living Will [...]
--- OUTSIDE RECORDS SUMMARY | 2024-04-13 23:57 | XMS_ITS | Encounter Summary ---
Author Organization [place] Address [address] [facility] [place] [address] Care Team Providers Care Bullet Swaging Machine Adjuster Name Role Phone Suzanne Ma DO Unavailable [phone] Cory Lama MD Unavailable Tabatha Agrawal RN Unavailable [phone] Suzanne Ma DO Unavailable [phone] Latanya Silva MD Primary Care Provider Keira Frye [facility] Unavailable Colby Khan MD Unavailable [phone] Candi Stinson DO Unavailable Latanya Silva MD Unavailable [phone] Hallie Berman RN Unavailable Unavailable Nancy Shaw PA-C Unavailable Arpan Carolina MD Unavailable Reason for Visit * Reason Onset Date Comments Direct Oral Anticoagulant 04/06/2024 Encounter Details Date Type Department Care Team (Late st Contact Info) Description 04/06/2024 Telephone [facility] [address] [place] [address] Mariana Lopez, [facility] Direct Oral Anticoagulant Social History Tobacco Use Types Packs/Day Years [...] encounter Miscellaneous Notes * Telephone Encounter - Mariana Lopez RPH - 04/08/2024 2:47 PM CDT Spoke with Carries's son, Isael. Isael states they are no longer seeing [facility] provider, have been seeing Dr. Lantigua in [place]. Went over suggested Eliquis dosing of 5 mg BID for patient as she is currently is only meeting 1/3 criteria for dose reduction. Isael will address at her next visit with Dr. Lantigua. Mariana Lopez, PharmD * Telephone Encounter - Shon Hylton RN - 04/08/2024 11:05 AM CDT Robin Peña's son called the number you left him and that person transferred him to triage He is frustrated and upset. I also do not know where to transfer him to Shon Hylton RN on 04/08/2024 at 11:06 AM * Telephone Encounter - Mariana Lopez RPH - 04/08/2024 10:47 AM CDT Latanya Silva MD This is okay with me * Telephone Encounter - Mariana Lopez RPH - 04/06/2024 3:48 PM CDT ANTICOAGULATION DIRECT ORAL ANTICOAGULANT MONITORING SUBJECTIVE The [facility] is evaluating Natalie Story's Apixaban (Eliquis) as part of its Anticoagulation Monitoring Program. Indication:Atrial Fibrillation Current dose per medication list: Apixaban 2.5 mg BID Recent hospitalizations/ED/Office Visits for bleeding/clotting concerns: No Other bleeding or side effect concerns: No Additional findings: N/A OBJECTIVE Age: [age] year old Wt Readings from Last 2 Encounters: 04/06/24 42.4 kg (93 lb 8 oz) 01/12/24 39.8 kg (87 lb 12.8 oz) Lab Results Component Value Date CR 1.0 03/23/2024 CR 0.84 12/26/2023 CR 0.81 12/09/2023 Lab Results Component Value Date HGB 12.1 12/26/2023 HGB 10.8 12/21/2020 PLT 253 12/26/2023 PLT 251 12/21/2020 ASSESSMENT/PLAN A chart review for Direct Oral Anticoagulant (DOAC) Stewardship has been completed for: Dosing: recommend adjustment to Apixaban 5 mg BID for age <= 80 years and creatinine <= 1.5 mg/dL (consistent with package insert dosing). Only currently meeting 1/3 criteria. Plan made per [facility] anticoagulation protocol Mariana Lopez PharmD Anticoagulation Clinic documented in this encounter Plan of Treatment Upcoming Encounters Date Type Department Care Team (Late st Contact Info) Description 04/27/2024 11:00 AM CDT Oncology Visit [facility] [address] [facility] [place] [address] [place] [address] [place] [address] Cherie Geiger PA-C [address] [place], [place] [address] documented as of this encounter Visit Diagnoses Diagnosis Intermittent atrial fibrillation (H) Atrial fibrillation documented in this encounter Additional Health Concerns Active Problems Noted Date Diagnosed Date Medication Adherence 03/31/2023 Assessment Noted Time PHQ-9 Depression Total Score: 19 024 8:51 AM R&D LAB TECHNICIAN documented as of this encounter Care Teams Bullet Swaging Machine Adjuster Relationship Specialty [place] [address] [place] [address] PCP - General Family Medicine 06/12/22 Suzanne Ma DO Hematology & Oncology 05/07/22 Cory Lama MD [address] [place] [address] Critical Care 05/07/22 Tabatha Agrawal, MARY Specialty Theater Projectionist Hematology & Oncology 05/13/22 [place] [address] [place] [address] Assigned Cancer Care Provider 05/17/22 Keira Frye, [facility] [address] [place] [address] Assigned MTM Pharmacist 12/13/22 Colby Khan MD [address] [place] [address] Neurology 01/02/23 Candi Stinson DO [address] [place], [place] [address] Assigned Palliative Care Provider 01/10/23 [place] [address] [place] [address] Assigned PCP 03/28/23 Hallie Berman, RN Personal Advocate & Liaison (PAL) Family Medicine 11/24/23 Nancy Shaw PA-C [address] [place], [place] [id number] Physician Pipe Smoking Machine Offbearer Pulmonary Disease 01/05/24 Arpan Carolina MD [address] [facility] [address] [place], [place] [address] Critical Care 01/05/24 documented as of this encounter
--- OUTSIDE RECORDS SUMMARY | 2024-04-13 23:57 | XMS_ITS | Encounter Summary ---
Author Organization [place] Address [address] [facility] [place] [address] Care Team Providers Care Sales Representative Name Role Phone Suzanne Ma DO Unavailable [phone] Cory Lama MD Unavailable Tabatha Agrawal RN Unavailable [phone] Suzanne Ma DO Unavailable [phone] Latanya Silva MD Primary Care Provider [phone] Keira Frye [facility] Unavailable [phone] Colby Khan MD Unavailable [phone] Candi Stinson DO Unavailable Latanya Silva MD Unavailable [phone] Hallie Berman RN Unavailable Unavailable Nancy Shaw PA-C Unavailable Arpan Carolina MD Unavailable [phone] Encounter Details Date Type Department Care Team (Late st Contact Info) Description 04/05/2024 [facility] Only [facility] Anticoagulation Clinic [address] [place] [address] Mariana Lopez, [facility] Social History Tobacco Use Types Packs/Day [...] Description 04/27/2024 11:00 AM CDT Oncology Visit [facility] [address] [place] [address] 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 FARM HAND documented as of this encounter Care Teams Sales Representative Relationship Specialty [place] [address] [place], [place] [id number] PCP - General Family Medicine 06/12/22 Suzanne Ma DO Hematology & Oncology 05/07/22 Cory Lama MD [address] [place] [address] 125625 Critical Care 05/07/22 Tabatha Agrawal, RN Specialty Coastal And Estuary Specialist Hematology & Oncology 05/13/22 [place] [address] [place], [place] [address] Assigned Cancer Care Provider 05/17/22 Keira Frye [facility] [address] [place], [place] [id number] Assigned MTM Pharmacist 12/13/22 Colby Khan MD [address] [place] [address] Neurology 01/02/23 Candi Stinson DO [address] [place] [address] Assigned Palliative Care Provider 01/10/23 [place] [address] [place] [address] Assigned PCP 03/28/23 Hallie Berman, RN Personal Advocate & Liaison (PAL) Family Medicine 11/24/23 Nancy Shaw PA-C 717 [place] [address] Physician Recruitment Assistant Pulmonary Disease 01/05/24 Arpan Carolina MD [address] [place] [address] 276 [place] [address] Critical Care 01/05/24 documented as of this encounter
--- OUTSIDE RECORDS SUMMARY | 2024-04-13 23:57 | XMS_ITS | Encounter Summary ---
Author Organization [place] Address [facility] [place] [address] Care Team Providers Care Phlebotomy Support Tech Name Role Phone Suzanne Ma DO Unavailable [phone] Cory Lama MD Unavailable Tabatha Agrawal RN Unavailable [phone] Suzanne Ma DO Unavailable [phone] Latanya Silva MD Primary Care Provider Keira Frye [facility] Unavailable [phone] Colby Khan MD Unavailable Candi Stinson DO Unavailable Latanya Silva MD Unavailable [phone] Hallie Berman RN Unavailable Unavailable Nancy Shaw PA-C Unavailable [phone] Arpan Carolina MD Unavailable [phone] Encounter Details Date Type Department Care Team (Latest Contact Info) Description 04/06/2024 Travel Social History Tobacco Use Types Packs/Day [...] Description 04/27/2024 11:00 AM CDT Oncology Visit [facility] [address] [place] 200 [facility] [place] [address] Suzanne Ma, [address] [place] [address] Cherie Geiger PA-C [address] [place] [address] documented as of this encounter Visit Diagnoses Not on filedocumented in this encounter Additional Health Concerns Active Problems Noted Date Diagnosed Date Medication Adherence 03/31/2023 Assessment Noted Time PHQ-9 Depression Total Score: 19 024 8:51 AM OB GYN documented as of this encounter Care Teams Phlebotomy Support Tech Relationship Specialty [place] [address] [place] [address] PCP - General Family Medicine 06/12/22 Suzanne Ma DO Hematology & Oncology 05/07/22 Cory Lama MD 909 [place] [address] Critical Care 05/07/22 Tabatha Agrawal RN Specialty Sewing Machine Adjuster Hematology & Oncology 05/13/22 [place] [address] [place] [address] Assigned Cancer Care Provider 05/17/22 Keira Frye [facility] 14[address] [facility] [place], [place] [id number] Assigned MTM Pharmacist 12/13/22 Colby Khan MD [address] [place] [address] Neurology 01/02/23 Candi Stinson DO [address] [place] [address] Assigned Palliative Care Provider 01/10/23 [place] [address] [place], [place] [address] Assigned PCP 03/28/23 Hallie Berman RN Personal Advocate & Liaison (PAL) Family Medicine 11/24/23 Nancy Shaw PA-C 717 [place] [address] Physician Greenhouse Staff Pulmonary Disease 01/05/24 Arpan Carolina MD [address] [place] [address] 276 [place] [address] Critical Care 01/05/24 documented as of this encounter
[2024-04-13 23:58] LABS: Anion Gap 4 mEq/L (7-15); Aspartate Amino Transferase* 22 U/L (12-35); Bilirubin Total* 0.7 mg/dL (0.1-1.5); Carbon Dioxide* 27 mmol/L (20-32); Creatinine* 0.7 mg/dL (0.5-1.5); Estimated Glomerular Filt Rate 88 ml/min; HCO3 VBG 25 mmol/L (21-28); PCO2 VBG 39 mmHG (40-50); PO2 VBG < 30.1 mmHG (25-47); pH VBG 7.419 (7.32-7.43)
--- OUTSIDE RECORDS SUMMARY | 2024-04-13 23:58 | XMS_ITS | Encounter Summary ---
Author Organization [place] Address [address] [facility] [place] [address] Care Team Providers Care Account Manager B2B Name Role Phone Tana Gomez MD Primary Care Prov ider Tana Gomez MD Unavailable + Aston Zamora RN Unavailable Unavailable Fidelia Seo DO Unavailable [phone] Shellie Thompson Unavailable Unavailable Suzanne Ma DO Unavailable [phone] Cory Lama MD Unavailable Tabatha Agrawal RN Unavailable [phone] Suzanne Ma DO Unavailable [phone] Cory Lama MD Unavailable [phone] Latanya Silva MD Primary Care Provider Veronica Street RN Unavailable Unavailable Lenore Ramirez DEVELOPMENT TECHNICIAN Unavailable [phone] Lenore Ramirez DEVELOPMENT TECHNICIAN Unavailable [phone] Gibran Ramírez MD Unavailable Justine Hayse NRP, CP Unavailable [phone] Keira Frye [facility] Unavailable [phone] Keira Frye [facility] Unavailable [phone] Colby Khan MD Unavailable [phone] ShantellCandi DO Unavailable [phone] Justine Hayes NRP, CP Unavailable Latanya Silva MD Unavailable [phone] Melissa Boo CHW Unavailable [phone] Hallie Berman RN Unavailable Unavailable Nancy Shaw PA-C Unavailable [phone] Arpan Carolina MD Unavailable [phone] Prema Mendez [facility] Unavailable [phone] Reason for Visit * Reason Comments Medication Refill Encounter Details Date Type Department Care Team (Late st Contact Info) Description 08/16/[address] [address] Tana Gomez MD PRIMARY ENT [address] [facility] [address] [place], [place] 3235[address] Medication Refill Social History Tobacco Use Types Packs/Day Years Used Date Smoking Tobacco: Former Cigarettes 1 20 1 - 08/10/2010 Smokeless Tobacco: Never Comments:1/2 - 1 pack QD Alcohol Use Standard Drinks/Week Comments No 0 (1 standard drink = 0.6 oz pur e alcohol) PHQ-2 Answer Date Recorded PHQ-2 Score 0 08/02/2021 Sex and Gender Information Value Date Recorded Sex Assigned at Not on file Gender Identity Not on file Sexual Orientation Not on file COVID-19 Exposure Response Date Recorded In the last month, have you been in contact with someone who was confirmed or suspected to have Coronavirus / COVID-19? No / Unsure 08/15/2021 3:25 PM CDT documented as of this encounter Miscellaneous Notes * Telephone Encounter - Calvin Ge RN - 08/16/2021 3:46 PM CDT Ongoing script? Routing refill request to provider for review/approval because: Patient is not age 6-64 years Labs not current: CBC Calvin Sweet RN documented in this encounter Plan of Treatment Upcoming Encounters Date Type Department Care Team (Late st Contact Info) Description 04/27/2024 11:00 AM CDT Oncology Visit [facility] [address] [place] [address] [facility] [place] [address] [place] [address] [place] [address] Cherie Geiger, PAArpitaC 909 [place] [address] documented as of this encounter Visit Diagnoses Diagnosis Other chronic pain documented in this encounter Additional Health Concerns Infection Onset Date Last Indicated Resolved Time Rule Out COVID-19 06/19/2022 06/19/2022 06/19/2022 1:43 PM CDT Assessment Noted Time PHQ-9 Depression Total Score: 1 03/12/20 21 9:51 AM CDT documented as of this encounter Care Teams Account Manager B2B Relationship Specialty [place] [address] [place] [address] PCP - General Family Practice 03/08/19 06/11/22 [place] [address] [place] [address] PCP - General Family Medicine 06/12/22 [place] [address] [facility] [place] [address] Assigned PCP 05/08/19 03/27/23 Aston Zamora, RN Personal Advocate & Liaison (PAL) Family Practice 09/15/19 10/01/21 Rayray Fidelia Lloyd, DO [address] [facility] [address] [place] [address] Assigned Heart and Vascular Provider 05/05/21 10/31/22 Shellie Thompson Personal Advocate & Liaison (PAL) Family Medicine 12/05/21 06/25/22 Szuanne Ma DO Hematology & Oncology 05/07/22 Cory Lama MD [address] [place] [address] Critical Care 05/07/22 Tabatha Agrawal RN Specialty Filer Finish Hematology & Oncology 05/13/22 [place] [address] [address] [facility] [place], [place] 3339[address] Assigned Cancer Care Provider 05/17/22 Cory Lama MD [address] [place] [address] 124835 Assigned Pulmonology Provider 05/24/22 11/13/[address], MARY Personal Advocate & Liaison (PAL) Family Medicine 07/08/22 11/23/23 Lenore Ramirez LSW [facility] Primary Care - CC 09/10/22 Lenore Ramirez LSW Clinic [facility] Finish Primary Care - CC 09/17/22 Gibran Ramí[place] [address] [place] [address] Assigned Palliative Care Provider 09/20/22 01/09/23 Justine Hayes NRP, CP Community Music Autographer 11/24/22 01/28/23 Keira Frye, [facility] [address] [facility] [place] [address] Pharmacist Pharmacist 12/04/22 09/29/23 Keira Frye, [facility] [address] [facility] [place] [address] Assigned MTM Pharmacist 12/13/22 Colby Khan MD 420 [place], [place] 282645 Neurology 01/02/23 Candi Stinson DO 909 [place], [place] 366834 Assigned Palliative Care Provider 01/10/23 Justine Hayes NRP, CP Community Music Autographer 03/25/23 07/23/23 [place] [address] [place] [address] Assigned PCP 03/28/23 Melissa Boo, W Community Health Worker Primary Care - CC 04/30/23 Hallie Berman RN Personal Advocate & Liaison (PAL) Family Medicine 11/24/23 Nancy Shaw PA-C 717 [place], [place] 924155 Physician Bell Spinner Sousaphones Pulmonary Disease 01/05/24 Arpan Carolina MD [address] [place] [address] 276 [place] [address] Critical Care 01/05/24 Prema Mendez, [facility] [address] [place] [id number] [place] [address] Assigned Behavioral Health Provider 02/23/24 03/23/24 documented as of this encounter
--- OUTSIDE RECORDS SUMMARY | 2024-04-13 23:58 | XMS_ITS | Encounter Summary ---
Author Organization [place] Address [address] [facility] [place] [address] Care Team Providers Care Express Manager Name Role Phone Tana Gomez MD Primary Care Prov ider Tana Gomez MD Unavailable + Fidelia Seo DO Unavailable [phone] Shellie Thompson Unavailable Unavailable Suzanne Ma DO Unavailable [phone] Cory Lama MD Unavailable Tabatha Agrawal RN Unavailable [phone] Suzanne Ma DO Unavailable [phone] Cory Lama MD Unavailable Latanya Silva MD Primary Care Provider Veronica Street RN Unavailable Unavailable Lenore RamirezW Unavailable [phone] Lenore Ramirez ENGINEER TECHNICAL STAFF Unavailable [phone] Gibran Ramírez MD Unavailable Justine Hayes NRP, CP Unavailable Keira Frye [facility] Unavailable [phone] Keira Frye [facility] Unavailable [phone] Colby Khan MD Unavailable [phone] Candi Stinson DO Unavailable [phone] Justine Hayes NRP, CP Unavailable [phone] Latanya Silva MD Unavailable [phone] Melissa Boo CH Unavailable Hallie Berman RN Unavailable Unavailable Nancy Shaw PA-C Unavailable [phone] Arpan Carolina MD Unavailable [phone] Prema Mendez [facility] Unavailable [phone] Encounter Details Date Type Department Care Team (Late st Contact Info) Description 01/08/2022 Documentation Only INTERFACED REPORT Unknown, Provider Social History Tobacco Use Types Packs/Day Years Used Date Smoking Tobacco: Former Cigarettes 1 20 1 - 08/10/2010 Smokeless Tobacco: Never Comments:1/2 - 1 pack QD Alcohol Use Standard Drinks/Week Comments No 0 (1 standard drink = 0.6 oz pur e alcohol) PHQ-2 Answer Date Recorded PHQ-2 Total Score (Adult) - Positive if 3 or more points; Administer PHQ-9 if positive 0 10/08/2021 Sex and Gender Information Value Date Recorded Sex Assigned at Not on file Gender Identity Not on file Sexual Orientation Not on file COVID-19 Exposure Response Date Recorded In the last month, have you been in contact with someone who was confirmed or suspected to have Coronavirus / COVID-19? No / Unsure 01/09/2022 1:43 PM ALLERGY AND IMMUNOLOGY CHIEF documented as of this encounter Plan of Treatment Upcoming Encounters Date Type Department Care Team (Late st Contact Info) Description 04/27/2024 11:00 AM CDT Oncology Visit [facility] [address] [place] [address] [facility] [place] [address] [place] [address] [facility] [place] [place] [address] Cherie Geiger, YANIRA 9 [place] [address] documented as of this encounter Visit Diagnoses Not on filedocumented in this encounter Additional Health Concerns Infection Onset Date Last Indicated Resolved Time Rule Out COVID-19 06/19/2022 06/19/2022 06/19/2022 1:43 PM CDT Assessment Noted Time PHQ-9 Depression Total Score: 1 10/09/20 7:33 AM ALLERGY AND IMMUNOLOGY CHIEF documented as of this encounter Care Teams Express Manager Relationship Specialty [place] [address] [place] [address] PCP - General Family Practice 03/08/19 06/11/22 [place] [address] [place] [address] PCP - General Family Medicine 06/12/22 [place] [address] [place] [address] Assigned PCP 05/08/19 03/27/23 Fidelia Seo DO [address] [place] [address] Assigned Heart and Vascular Provider 05/05/21 10/31/22 Shellie Thompson Personal Advocate & Liaison (PAL) Family Medicine 12/05/21 06/25/22 Suzanne Ma DO Hematology & Oncology 05/07/22 Cory Lama MD [address] [place] [address] Critical Care 05/07/22 Tabatha Agrawal, MARY Specialty Office Technologist Hematology & Oncology 05/13/22 [place] [address] [place], [place] [address] Assigned Cancer Care Provider 05/17/22 Cory Lama MD [address] [place] [address] Assigned Pulmonology Provider 05/24/22 11/13/23 Veronica Steret, MARY Personal Advocate & Liaison (PAL) Family Medicine 07/08/22 11/23/23 Lenore Ramirez, [facility] Clinic Office Technologist Primary Care - CC 09/10/22 Lenore Ramirez ENGINEER TECHNICAL STAFF Clinic Office Technologist Primary Care - CC 09/17/22 Gibran Ramírez MD [address] [place] [address] Assigned Palliative Care Provider 09/20/22 01/09/23 Justine Hayes, NRP, CP Community Electrotyper 11/24/22 01/28/23 Keira Frye [facility] [address] [place] [address] Pharmacist Pharmacist 12/04/22 09/29/23 Keira Frye [facility] [address] [place] [address] Assigned MTM Pharmacist 12/13/22 Colby Khan MD 420 [place] [address] Neurology 01/02/23 Candi Stinson DO 909 [place] [address] Assigned Palliative Care Provider 01/10/23 Justine Hayes, NRP, CP Community Electrotyper 03/25/23 07/23/23 [place] [address] [place] [address] Assigned PCP 03/28/23 Melissa Boo, [facility] Community Health Worker Primary Care - CC 04/30/23 Hallie Berman, RN Personal Advocate & Liaison (PAL) Family Medicine 11/24/23 Nancy Shaw PAArpitaC 717 [place] [address] Physician Pediatric Physical Therapy Assistant Pulmonary Disease 01/05/24 Arpan Carolina MD 420 [facility] 276 [place] [address] Critical Care 01/05/24 Prema Mendez, [facility] 2450 [facility] [address] [place] [address] Assigned Behavioral Health Provider 02/23/24 03/23/24 documented as of this encounter
--- OUTSIDE RECORDS SUMMARY | 2024-04-13 23:58 | XMS_ITS | Encounter Summary ---
Author Organization [place] Address [address] [facility] [place] [address] Care Team Providers Care Pmo Lead Name Role Phone Jo AnnTana Lassiter MD Unavailable + Suzanne Ma DO Unavailable [phone] Cory Lama MD Unavailable Tabatha Agrawal RN Unavailable [phone] Suzanne Ma DO Unavailable [phone] Cory Lama MD Unavailable Latanya Silva MD Primary Care Provider Veronica Street RN Unavailable Unavailable Justine Hayes NRP, CP Unavailable Keira Frye [facility] Unavailable Keira Frye [facility] Unavailable [phone] Colby Khan MD Unavailable [phone] Candi Stinson DO Unavailable Justine Hayes NRP, CP Unavailable Latanya Silva MD Unavailable [phone] Melissa Boo CHW Unavailable [phone] Hallie Berman RN Unavailable Unavailable Nancy Shaw PA-C Unavailable [phone] Arpan Carolina MD Unavailable Prema Mendez [facility] Unavailable Reason for Visit * Reason Comments Medication Refill Encounter Details Date Type Department Care Team (Late st Contact Info) Description 01/21/2023 Refill [facility] [address] [place] [phone] [place] Silva [place] [address] [place] [address] Medication Refill Social History Tobacco Use Types [...] No 05/12/2022 PHQ-2 Answer Date Recorded PHQ-2 Total Score (Adult) - Positive if 3 or more points; Administer PHQ-9 if positive 3 01/13/2023 Sex and Gender Information Value Date Recorded Sex Assigned at Not on file Gender Identity Not on file Sexual Orientation Not on file COVID-19 Exposure Response Date Recorded In the last 10 days, have yo u been in contact with someone who was confirmed or suspected to have Coronavirus/COVID-19? 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) Malignant neoplasm of lung, unspecified laterality, unspecified part of lung (H) Cancer associated pain Neoplasm related pain (acute) (chronic) Osteoporosis with current pathological fracture with delayed healing, unspecified osteoporosis type, subsequent encounter DDD (degenerative disc disease), lumbar Degeneration of lumbar or lumbosacral intervertebral disc documented in this encounter Additional Health Concerns Assessment Noted Time PHQ-9 Depression Total Score: 15 023 12:56 PM CDT documented as of this encounter Care Teams Pmo Lead Relationship Specialty [place] [address] [place] [address] PCP - General Family Medicine 06/12/22 [place] [address] [place] [address] Assigned PCP 05/08/19 03/27/23 [place] [address] [place] [address] Hematology & Oncology 05/07/22 Cory Lama MD [address] [place] [address] Critical Care 05/07/22 Tabatha Agrawal, MARY Specialty Shed Workers Supervisor Hematology & Oncology 05/13/22 [place] [address] [place] [place], [place] [address] Assigned Cancer Care Provider 05/17/22 Cory Lama MD [address] [place] [address] 323445 Assigned Pulmonology Provider 05/24/22 11/13/[address], MARY Personal Advocate & Liaison (PAL) Family Medicine 07/08/22 11/23/23 Justine Hayes, MARYP, CP [facility] Procedure Analyst 11/24/22 01/28/23 Keira Frye, [facility] [address] [place] [address] Pharmacist Pharmacist 12/04/22 09/29/23 Keira Frye, [facility] [address] [place] [address] Assigned MTM Pharmacist 12/13/22 Colby Khan MD [address] [place] [address] 565365 Neurology 01/02/23 Candi Stinson DO [address] [place] [address] 959814 Assigned Palliative Care Provider 01/10/23 Justine Hayes, NRP, CP Community Procedure Analyst 03/25/23 07/23/23 [place] [address] [place] [address] Assigned PCP 03/28/23 Melissa Boo, W Community Health Worker Primary Care - CC 04/30/23 Hallie Berman, RN Personal Advocate & Liaison (PAL) Family Medicine 11/24/23 Nancy Shaw PA-C 717 [place] [address] Physician Rehabilitation Counselor Pulmonary Disease 01/05/24 Arpan Carolina MD [address] [place] [address] [facility] 276 [place] [address] Critical Care 01/05/24 Prema Mendez, [facility] 2450 [facility] [address] [place] [address] Assigned Behavioral Health Provider 02/23/24 03/23/24 documented as of this encounter
--- OUTSIDE RECORDS SUMMARY | 2024-04-13 23:58 | XMS_ITS | Encounter Summary ---
Author Organization [place] Address [address] [facility] [place] [address] Care Team Providers Care Cannon Fire Direction Specialist Name Role Phone Tana Gomez MD Primary Care Prov ider Tana Gomez MD Unavailable + Fidelia Seo DO Unavailable [phone] Shellie Thompson Unavailable Unavailable Suzanne Ma DO Unavailable [phone] Cory Lama MD Unavailable [phone] Tabatha Agrawal RN Unavailable [phone] Suzanne Ma DO Unavailable [phone] Cory Lama MD Unavailable Latanya Silva MD Primary Care Provider Veronica Street RN Unavailable Unavailable Lenore RamirezW Unavailable [phone] Lenore Ramirez PHARMACY CUSTOMER CARE SPECIALIST Unavailable [phone] Gibran Ramírez MD Unavailable [phone] Justine Hayes NRP, CP Unavailable Keira Frye [facility] Unavailable [phone] Keira Frye [facility] Unavailable [phone] Colby Khan MD Unavailable [phone] Candi Stinson DO Unavailable [phone] Justine Hayes NRP, CP Unavailable [phone] Latanya Silva MD Unavailable [phone] Melissa Boo CHW Unavailable Hallie Berman RN Unavailable Unavailable Nancy Shaw PA-C Unavailable + [phone] Arpan Carolina MD Unavailable [phone] Prema Mendez [facility] Unavailable [phone] Encounter Details Date Type Department Care Team (Late Contact Info) Description 01/10/[address] [address] Tana Gomez MD PRIMARY ENT [address] [facility] [address] [place] [address] Social History Tobacco Use Types Packs/Day Years [...] have Coronavirus / COVID-19? No / Unsure 01/13/2022 10:04 AM CDT documented as of this encounter Plan of Treatment Upcoming Encounters Date Type Department Care Team (Late st Contact Info) Description 04/27/2024 11:00 AM CDT Oncology Visit [facility] [address] [place] [facility] [place] [address] [place] [address] [place] [address] Cherie Geiger PA-C 909 [place] [address] documented as of this encounter Visit Diagnoses Not on filedocumented in this encounter Additional Health Concerns Infection Onset Date Last Indicated Resolved Time Rule Out COVID-19 06/19/2022 06/19/2022 06/19/2022 1:43 PM CDT Assessment Noted Time PHQ-9 Depression Total Score: 1 10/09/20 21 7:33 AM CUPOLA LINER documented as of this encounter Care Teams Cannon Fire Direction Specialist Relationship Specialty [place] [address] [place] [address] PCP - General Family Practice 03/08/19 06/11/22 [place] [address] [place] [address] PCP - General Family Medicine 06/12/22 [place] [address] [place] [address] Assigned PCP 05/08/19 03/27/23 Fidelia Seo DO [address] [facility] [address] [place] [address] Assigned Heart and Vascular Provider 05/05/21 10/31/22 Shellie Thompson Personal Advocate & Liaison (PAL) Family Medicine 12/05/21 06/25/22 Suzanne Ma DO Hematology & Oncology 05/07/22 Cory Lama MD [address] [place] [address] [id number] Critical Care 05/07/22 Tabatha Agrawal, MARY Specialty Senior Technical Project Manager Hematology & Oncology 05/13/22 [place] [address] [place], [place] [address] Assigned Cancer Care Provider 05/17/22 Cory Lama MD [address] [place] [address] [id number] Assigned Pulmonology Provider 05/24/22 11/13/[address], MARY Personal Advocate & Liaison (PAL) Family Medicine 07/08/22 11/23/23 Lenore Ramirez, [facility] Clinic Senior Technical Project Manager Primary Care - CC 09/10/22 Lenore Ramirez, PHARMACY CUSTOMER CARE SPECIALIST Clinic Senior Technical Project Manager Primary Care - CC 09/17/22 Gibran Ramírez MD [facility] [place], [place] [address] Assigned Palliative Care Provider 09/20/22 01/09/23 Justine Hayes, NRP, CP [facility] Operator Engineer 11/24/22 01/28/23 [facility] [address] [place] [address] Pharmacist Pharmacist 12/04/22 09/29/23 [facility] [address] [place] [address] Assigned MTM Pharmacist 12/13/22 Colby Khan MD 420 [place] [address] Neurology 01/02/23 Candi Stinson DO 909 [place] [address] Assigned Palliative Care Provider 01/10/23 Justine Hayes, NRP, CP Community Operator Engineer 03/25/23 07/23/23 [place] [address] [place], [place] [address] Assigned PCP 03/28/23 Melissa Boo, W Community Health Worker Primary Care - CC 04/30/23 Hallie Berman RN Personal Advocate & Liaison (PAL) Family Medicine 11/24/23 Nancy Shaw PA-C 717 [place], [place] 0264[address] Physician Adjunct Faculty For Medical Terminology Pulmonary Disease 01/05/24 Arpan Carolina MD 420 [facility] 276 [place], [place] [address] Critical Care 01/05/24 Prema Mendez, [facility] [address] [address] Assigned Behavioral Health Provider 02/23/24 03/23/24 documented as of this encounter
--- OUTSIDE RECORDS SUMMARY | 2024-04-13 23:58 | XMS_ITS | Encounter Summary ---
Author Organization [place] Address [address] [facility] [address] Care Team Providers Care Wellness Manager Name Role Phone Tana Gomez MD Primary Care Prov ider Tana Gomez MD Unavailable + Aston Zamora RN Unavailable Unavailable Arpan Morales MD Unavailable Fidelia Seo DO Unavailable [phone] Shellie Thompson Unavailable Unavailable Suzanne Ma DO Unavailable [phone] Cory Lama MD Unavailable Tabatha Agrawal RN Unavailable [phone] Suzanne Ma DO Unavailable [phone] Cory Lama MD Unavailable [phone] Latanya Silva MD Primary Care Provider Veronica Street RN Unavailable Unavailable Lenore Ramirez MECHANICAL CAD DESIGNER Unavailable [phone] Lenore Ramirez MECHANICAL CAD DESIGNER Unavailable [phone] Gibran Ramírez MD Unavailable [phone] Hayes, Justine E NRP, CP Unavailable Keira Frye [facility] Unavailable Keira Frye Mani [facility] Unavailable Colby Khan MD Unavailable [phone] Candi Stinson DO Unavailable Justine Hayes NRP, CP Unavailable Latanya Silva MD Unavailable [phone] Melissa Boo [facility] Unavailable [phone] Hallie Berman RN Unavailable Unavailable Nancy Shaw PA-C Unavailable Arpan Carolina MD Unavailable [phone] Prema Mendez [facility] Unavailable [phone] Reason for Visit * Reason Comments Medication Refill Encounter Details Date Type Department Care Team (Late st Contact Info) Description 03/02/[address] [address] Tana Gomez MD PRIMARY ENT [address] [facility] [address] [place], [place] [id number] Medication Refill Social History Tobacco Use Types Packs/Day Years Used Date Smoking Tobacco: Former Cigarettes 1 20 1 - 08/10/2010 Smokeless Tobacco: Never Comments:1/2 - 1 pack QD Alcohol Use Standard Drinks/Week Comments No 0 (1 standard drink = 0.6 oz pur e alcohol) PHQ-2 Answer Date Recorded PHQ-2 Score 4 08/12/2019 Sex and Gender Information Value Date Recorded Sex Assigned at Not on file Gender Identity Not on file Sexual Orientation Not on file documented as of this encounter Miscellaneous Notes * Telephone Encounter - María Anderson RN - 03/02/2020 12:04 PM CDT Routing refill request to provider for review/approval because: PHQ-9 not at goal. María Anderson, MARY [facility] -- Triage Nurse documented in this encounter Plan of Treatment Upcoming Encounters Date Type Department Care Team (Late st Contact Info) Description 04/27/2024 11:00 AM CDT Oncology Visit [facility] [address] [place] [address] [facility] [place] [address] Suzanne Ma, [address] [place] [address] Cherie Geiger PA-C 909 [place] [address] documented as of this encounter Visit Diagnoses Diagnosis 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) Chronic pain syndrome Anxiety state Anxiety state, unspecified documented in this encounter Additional Health Concerns Infection Onset Date Last Indicated Resolved Time Rule Out COVID-19 06/19/2022 06/19/2022 06/19/2022 1:43 PM CDT Assessment Noted Time PHQ-9 Depression Total Score: 13 020 1:15 PM CDT documented as of this encounter Care Teams Wellness Manager Relationship Specialty [place] [address] [place] [address] PCP - General Family Practice 03/08/19 06/11/22 [place] [address] [place] [address] PCP - General Family Medicine 06/12/22 [place] [address] [place] [address] Assigned PCP 05/08/19 03/27/23 Aston Zamora RN Personal Advocate & Liaison (PAL) Family Practice 09/15/19 10/01/21 Arpan Morales MD [address] [place], [place] [address] Assigned Heart and Vascular Provider 08/24/20 02/09/21 Fidelia Seo DO [address] [place] [address] Assigned Heart and Vascular Provider 05/05/21 10/31/22 Shellie Thompson Personal Advocate & Liaison (PAL) Family Medicine 12/05/21 06/25/22 Suzanne Ma DO Hematology & Oncology 05/07/22 Cory Lama MD [address] [place] [address] Critical Care 05/07/22 Tabatha Agrawal RN Specialty Theatrical Scenic Designer Hematology & Oncology 05/13/22 [place] [address] [place] [address] Assigned Cancer Care Provider 05/17/22 Cory Lama MD [address] [place] [address] Assigned Pulmonology Provider 05/24/22 11/13/[address], MARY Personal Advocate & Liaison (PAL) Family Medicine 07/08/22 11/23/23 Lenore Ramirez, [facility] Clinic Theatrical Scenic Designer Primary Care - CC 09/10/22 Lenore Ramirez, [facility] Clinic Theatrical Scenic Designer Primary Care - CC 09/17/22 Gibran Ramírez MD [address] [place] [address] [place], [place] [address] Assigned Palliative Care Provider 09/20/22 01/09/23 Justine Hayes NRP, CP Community Diet Supervisor 11/24/22 01/28/23 Keira Frye, [facility] [address] [place] [address] Pharmacist Pharmacist 12/04/22 09/29/23 Keira Frye, [facility] [address] [place] [address] Assigned MTM Pharmacist 12/13/22 Colby Khan MD [address] [place] [address] Neurology 01/02/23 Candi Stinson DO 909 [place] [address] Assigned Palliative Care Provider 01/10/23 Justien Hayes NRP, CP Community Diet Supervisor 03/25/23 07/23/23 [place] [address] [place] [address] Assigned PCP 03/28/23 Melissa Boo, W Community Health Worker Primary Care - CC 04/30/23 Hallie Berman, RN Personal Advocate & Liaison (PAL) Family Medicine 11/24/23 Nancy Shaw PA-C 717 [place] [address] Physician Professor Of Management Pulmonary Disease 01/05/24 Arpan Carolina MD 420 [facility] 276 [place] [address] Critical Care 01/05/24 Prema Mendez, [facility] 2450 [facility] [address] [place] [address] Assigned Behavioral Health Provider 02/23/24 03/23/24 documented as of this encounter
--- OUTSIDE RECORDS SUMMARY | 2024-04-13 23:58 | XMS_ITS | Encounter Summary ---
Author Organization [place] Address [address] [facility] [place] [address] Care Team Providers Care Occupational Health Physician Name Role Phone Tana Gomez MD Primary Care Prov ider Tana Gomez MD Unavailable + Aston Zamora RN Unavailable Unavailable Arpan Morales MD Unavailable Fidelia Seo DO Unavailable [phone] Shellie Thompson Unavailable Unavailable Suzanne Ma DO Unavailable [phone] Cory Lama MD Unavailable Tabatha Agrawal RN Unavailable [phone] Suzanne Ma DO Unavailable [phone] Cory Lama MD Unavailable Latanya Silva MD Primary Care Provider Veronica Street RN Unavailable Unavailable Lenore Ramirez TRAFFIC CHECKER Unavailable [phone] Lenore Ramirez TRAFFIC CHECKER Unavailable [phone] Gibran Ramírez MD Unavailable [phone] Justine Hayes NRP, CP Unavailable + [phone] Keira Frye [facility] Unavailable [phone] FryeKeira Mani [facility] Unavailable [phone] Colby Khan MD Unavailable [phone] Candi Stinson DO Unavailable [phone] Justine Hayes NRP, CP Unavailable [phone] Latanya Silva MD Unavailable [phone] Melissa Boo [facility] Unavailable Hallie Berman RN Unavailable Unavailable Nancy Shaw PA-C Unavailable [phone] Arpan Carolina MD Unavailable [phone] Prema Mendez [facility] Unavailable [phone] Reason for Visit * Reason Onset Date Comments Pt. Information/instruction 07/20/2020 Encounter Details Date Type Department Care Team (Late st Contact Info) Description 07/20/[address] [address] Tana Gomez MD PRIMARY ENT [address] [facility] 13 [facility] 350 [place] [address] Pt. Information/instruction Social History Tobacco Use Types Packs/Day Years Used Date Smoking Tobacco: Former Cigarettes 1 20 1 - 08/10/2010 Smokeless Tobacco: Never Comments:1/2 - 1 pack QD Alcohol Use Standard Drinks/Week Comments No 0 (1 standard drink = 0.6 oz pur e alcohol) PHQ-2 Answer Date Recorded PHQ-2 Score 3 03/07/2020 Sex and Gender Information Value Date Recorded Sex Assigned at Not on file Gender Identity Not on file Sexual Orientation Not on file COVID-19 Exposure Response Date Recorded In the last month, have you been in contact with someone who was confirmed or suspected to have Coronavirus / COVID-19? No / Unsure 07/19/2020 3:04 PM CDT documented as of this encounter Miscellaneous Notes * Telephone Encounter - Serenity Trejo - 07/20/2020 1:25 PM CDT FYI - Status Update Who is Calling: patient Update: Pt wanted to thank you for getting her pain medication at the pace she got them at. Also pt was not aware she couldn't take calcium supplements before her dexa scan and had to reschedule to 08/17/20. Does caller want a call back: No Okay to leave a detailed message?: No at Home number on file [phone] (home) Serenity Trejo-Patient Rep documented in this encounter Plan of Treatment Upcoming Encounters Date Type Department Care Team (Late st Contact Info) Description 04/27/2024 11:00 AM CDT Oncology Visit [facility] [address] [place] [address] [address] [facility] [place] [address] [place] [address] [place] [address] Cherie Geiger, PAAriel 9 [place] [address] documented as of this encounter Visit Diagnoses Not on filedocumented in this encounter Additional Health Concerns Infection Onset Date Last Indicated Resolved Time Rule Out COVID-19 06/19/2022 06/19/2022 06/19/2022 1:43 PM CDT Assessment Noted Time PHQ-9 Depression Total Score: 7 03/07/20 20 10:39 AM CDT documented as of this encounter Care Teams Occupational Health Physician Relationship Specialty [place] [address] [place] [address] PCP - General Family Practice 03/08/19 06/11/22 [place] [address] [place], [place] [address] PCP - General Family Medicine 06/12/22 [place] [address] [place], [place] [address] Assigned PCP 05/08/19 03/27/23 Aston Zamora, MARY Personal Advocate & Liaison (PAL) Family Practice 09/15/19 10/01/21 Arpan Morales MD [address] [place], [place] [address] Assigned Heart and Vascular Provider 08/24/20 02/09/21 Fidelia Seo DO [address] [place], [place] [address] Assigned Heart and Vascular Provider 05/05/21 10/31/22 Shellie Thompson Personal Advocate & Liaison (PAL) Family Medicine 12/05/21 06/25/22 Suzanne Ma DO Hematology & Oncology 05/07/22 Cory Lama MD 9 [place], [place] [address] Critical Care 05/07/22 Tabatha Agrawal, RN Specialty Tactical Deception Plans Officer Hematology & Oncology 05/13/22 [place] [address] [place] [address] Assigned Cancer Care Provider 05/17/22 Cory Lama MD 9 [place], [place] [address] Assigned Pulmonology Provider 05/24/22 11/13/[address], MARY Personal Advocate & Liaison (PAL) Family Medicine 07/08/22 11/23/23 Lenore Ramirez, [facility] Tactical Deception Plans Officer Primary Care - CC 09/10/22 Lenore Ramirez, [facility] Clinic Tactical Deception Plans Officer Primary Care - CC 09/17/22 Gibran Ramírez MD 1575 [place] [address] Assigned Palliative Care Provider 09/20/22 01/09/23 Justine Hayes, NRP, CP Community Vp Product Management 11/24/22 01/28/23 Keira Frye, [facility] [place] [address] Pharmacist Pharmacist 12/04/22 09/29/23 Keira Frye [facility] [place] [address] Assigned MTM Pharmacist 12/13/22 Colby Khan MD [address] [place] [address] Neurology 01/02/23 Candi Stinson DO [address] [place] [address] and Surgery [place], [place] [address] Assigned Palliative Care Provider 01/10/23 Justine Hayes, NRP, CP Community Vp Product Management 03/25/23 07/23/23 [place] [address] [place] [address] Assigned PCP 03/28/23 Melissa Boo, W Community Health Worker Primary Care - CC 04/30/23 Hallie Berman, RN Personal Advocate & Liaison (PAL) Family Medicine 11/24/23 Nancy Shaw PA-C 717 [place], [place] [address] Physician Lines Tender Pulmonary Disease 01/05/24 Arpan Carolina MD 420 [facility] [place] 276 [place], [place] [address] Critical Care 01/05/24 Prema Mendez, [facility] 2450 [facility] [address] [place], [place] [address] Assigned Behavioral Health Provider 02/23/24 03/23/24 documented as of this encounter
--- OUTSIDE RECORDS SUMMARY | 2024-04-13 23:58 | XMS_ITS | Encounter Summary ---
Author Organization [place] Address [facility] [place] [address] Care Team Providers Care Psychologist Name Role Phone Suzanne Ma DO Unavailable [phone] Cory Lama MD Unavailable Tabatha Agrawal RN Unavailable [phone] AnilSuzanne DO Unavailable [phone] Latanya Silva MD Primary Care Provider Keira Frye [facility] Unavailable Colby Khan MD Unavailable [phone] Candi Stinson DO Unavailable Latanya Silva MD Unavailable [phone] Hallie Berman RN Unavailable Unavailable Nancy Shaw PA-C Unavailable [phone] Arpan Carolina MD Unavailable [phone] Prema MendezSW Unavailable [phone] Encounter Details Date Type Department Care Team (Late st Contact Info) Description 12/11/[address] [address] [place] [address] [place] [address] Social History Tobacco Use Types Packs/Day Years [...] 05/12/2022 PHQ-2 Answer Date Recorded PHQ-2 Score 3 12/15/2023 Adolescent Education Answer Date Record ed Getting School Help Needed Not on file 07/26 Sex and Gender Information Value Date Recorded Sex Assigned at Not on file Gender Identity Not on file Sexual Orientation Not on file documented as of this encounter Plan of Treatment Upcoming Encounters Date Type Department Care Team (Late st Contact Info) Description 04/27/2024 11:00 AM CDT Oncology Visit [facility] [address] [place] [address] [address] [facility] [place] [address] [place] [address] [address] [place] [address] Cherie Geiger, PAArpitaC [address] [place] [address] documented as of this encounter Visit Diagnoses Not on filedocumented in this encounter Additional Health Concerns Active Problems Noted Date Diagnosed Date Medication Adherence 03/31/2023 Assessment Noted Time PHQ-9 Depression Total Score: 9 05/11/20 23 4:57 PM CDT documented as of this encounter Care Teams Psychologist Relationship Specialty [place] [address] [place] [address] PCP - General Family Medicine 06/12/22 Suzanne Ma DO Hematology & Oncology 05/07/22 Cory Lama MD 909 [place], [place] [address] Critical Care 05/07/22 Tabatha Agrawal, MARY Specialty Manager Grant Hematology & Oncology 05/13/22 [place] [address] [place], [place] [address] Assigned Cancer Care Provider 05/17/22 Keira Frye [facility] [place] [address] Assigned MTM Pharmacist 12/13/22 Colby Khan MD 420 [place] [address] Neurology 01/02/23 Candi Stinson DO 909 [place] [address] Assigned Palliative Care Provider 01/10/23 [place] [address] [place] [address] Assigned PCP 03/28/23 Hallie Berman, RN Personal Advocate & Liaison (PAL) Family Medicine 11/24/23 Nancy Shaw PAArpitaC 717 [place], [place] [address] Physician Fur Polisher Pulmonary Disease 01/05/24 Arpan Carolina MD 420 [facility] SE [facility] 276 [place], [place] [address] Critical Care 01/05/24 Prema Mendez, [facility] 2450 [facility] [address] [place], [place] [address] Assigned Behavioral Health Provider 02/23/24 03/23/24 documented as of this encounter
--- OUTSIDE RECORDS SUMMARY | 2024-04-13 23:58 | XMS_ITS | Encounter Summary ---
Author Organization [place] Address Formerly [facility]0 [place] [address] Care Team Providers Care Angle Shearer Name Role Phone Suzanne Ma DO Unavailable [phone] Cory Lama MD Unavailable Tabatha Agrawal RN Unavailable [phone] Suzanne Ma DO Unavailable [phone] Cory Lama MD Unavailable [phone] Latanya Silva MD Primary Care Provider [phone] RN Unavailable Unavailable Keira Frye [facility] Unavailable Keira Frye [facility] Unavailable Colby Khan MD Unavailable [phone] Candi Stinson DO Unavailable Latanya Silva MD Unavailable [phone] Hallie Berman RN Unavailable Unavailable Nancy Shaw PA-C Unavailable [phone] Arpan Carolina MD Unavailable Prema MendezSW Unavailable [phone] Reason for Visit * Reason Comments Medication Refill Encounter Details Date Type Department Care Team (Late st Contact Info) Description 07/30/2023 Refill [facility] [address] [place] [phone] [place] [address] [place] [address] Medication Refill Social History Tobacco Use Types [...] PHQ-2 Answer Date Recorded PHQ-2 Score 4 05/11/2023 Adolescent Education Answer Date Record ed Getting School Help Needed Not on file 07/26 Sex and Gender Information Value Date Recorded Sex Assigned at Not on file Gender Identity Not on file Sexual Orientation Not on file documented as of this encounter Miscellaneous Notes * Telephone Encounter - Latanya Silva MD - 08/02/2023 8:43 PM CDT Wrong provider - pain clinic to take over documented in this encounter Plan of Treatment Upcoming Encounters Date Type Department Care Team (Late st Contact Info) Description 04/27/2024 11:00 AM CDT Oncology Visit [facility] [address] [facility] [place] [address] [place] [address] [place] [address] Cherie Geiger PA-C [address] [place] [address] documented as of this encounter Visit Diagnoses Diagnosis Lumbar pain Lumbago documented in this encounter Additional Health Concerns Active Problems Noted Date Diagnosed Date Medication Adherence 03/31/2023 Assessment Noted Time PHQ-9 Depression Total Score: 9 05/11/20 23 4:57 PM CDT documented as of this encounter Care Teams Angle Shearer Relationship Specialty [place] [address] [place] [address] PCP - General Family Medicine 06/12/22 Suzanne Ma DO Hematology & Oncology 05/07/22 Cory Lama MD [address] [place] [address] Critical Care 05/07/22 Tabatha Agrawal RN Specialty Assessment Analyst Hematology & Oncology 05/13/22 [place] [address] [place] [address] Assigned Cancer Care Provider 05/17/22 Cory Lama MD [address] [place] [address] Assigned Pulmonology Provider 05/24/22 11/13/[address], MARY Personal Advocate & Liaison (PAL) Family Medicine 07/08/22 11/23/23 Keira Frye, [facility] [address] [place] [address] Pharmacist Pharmacist 12/04/22 09/29/23 Keira Frye, [facility] [address] [place] [address] Assigned [place] Pharmacist 12/13/22 Colby Khan MD [address] [place] [address] Neurology 01/02/23 Candi Stinson DO [address] [place] [address] Assigned Palliative Care Provider 01/10/23 [place] [address] [place] [address] Assigned PCP 03/28/23 Hallie Berman RN Personal Advocate & Liaison (PAL) Family Medicine 11/24/23 Nancy Shaw PA-C 717 [place], [place] [address] Physician Candy Separator Enrobing Pulmonary Disease 01/05/24 Arpan Carolina MD 420 [facility] 276 [place], [place] [address] Critical Care 01/05/24 Prema Mendez, [facility] [id number] [place] [address] Assigned Behavioral Health Provider 02/23/24 03/23/24 documented as of this encounter
--- OUTSIDE RECORDS SUMMARY | 2024-04-13 23:58 | XMS_ITS | Encounter Summary ---
Author Organization [place] Address [address] [facility] [place] [address] Care Team Providers Care Peanut Farmer Name Role Phone Tana Gomez MD Primary Care Prov ider Tana Gomez MD Unavailable + Lenore Ramirez STACKER TENDER Unavailable [phone] Aston Zamora RN Unavailable Unavailable Arpan Morales MD Unavailable Fidelia Seo DO Unavailable [phone] Shellie Thompson Unavailable Unavailable Suzanne Ma DO Unavailable [phone] Cory Lama MD Unavailable [phone] Tabatha Agrawal RN Unavailable [phone] Suzanne Ma DO Unavailable [phone] Cory Lama MD Unavailable [phone] Latanya Silva MD Primary Care Provider [phone] RN Unavailable Unavailable Lenore Ramirez STACKER TENDER Unavailable [phone] Lenore Ramirez STACKER TENDER Unavailable [phone] Gibran Ramírez MD Unavailable Justine Hayes NRP, CP Unavailable FryeKeira Mani [facility] Unavailable [phone] FryeKeira Mani [facility] Unavailable Colby Khan MD Unavailable [phone] BahKeishaCandi Unavailable Justine Hayes NRP, CP Unavailable Latanya Silva MD Unavailable [phone] Melissa Boo CHW Unavailable [phone] Hallie Berman RN Unavailable Unavailable Nancy Shaw PA-C Unavailable [phone] Arpan Carolina MD Unavailable Prema Mendez [facility] Unavailable Reason for Visit * Reason Comments Medication Refill Encounter Details Date Type Department Care Team (Late st Contact Info) Description 10/13/[address] [address] Tana Gomez MD PRIMARY ENT [address] [facility] [address] [place] [address] Medication Refill Social History Tobacco Use Types [...] encounter Miscellaneous Notes * Telephone Encounter - Jocelyn Sahu RN - 10/13/2019 10:17 AM CST Images from the original note were not included. Patient has upcoming/ pending appointment: Next 5 appointments (look out 90 days) Oct 21, 2019 3:00 PM COURIER (Arrive by 2:40 PM) Office Visit with Tana Gomez MD [facility] [address] [place] [address] Routing refill request to provider for review/approval because: Drug interaction warning: Requested Prescriptions Pending Prescriptions Disp Refills ??? naproxen (NAPROSYN) 500 MG tablet [Pharmacy Med Name: NAPROXEN 500MG TABLETS] 60 tablet 0 Sig: TAKE 1 TABLET(500 MG) BY MOUTH TWICE DAILY WITH MEALS NSAID Medications Failed - 10/13/2019 3:27 AM Failed - Normal AST on file in past 12 months Recent Labs Lab Test 03/13/17 1151 AST 13 Failed - Patient is age 6-64 years Failed - Normal CBC on file in past 12 months Recent Labs Lab Test 06/24/19 0609 WBC 8.3 RBC 3.48* HGB 11.1* HCT 31.7* PLT 364 Passed - Blood pressure under 140/90 in past 12 months BP Readings from Last 3 Encounters: 09/28/19 112/66 09/16/19 119/77 08/12/19 120/69 Passed - Normal ALT on file in past 12 months Recent Labs Lab Test 06/14/19 1016 ALT 18 Passed - Recent (12 mo) or future (30 days) visit within the authorizing provider's specialty Patient has had an office visit with the authorizing provider or a provider within the authorizing providers department within the previous 12 mos or has a future within next 30 days. See Patient Info tab in inbasket, or Choose Columns in Meds & Orders section of the refill encounter. Passed - Medication is active on med list Passed - No active on record Passed - Normal serum creatinine on file in past 12 months Recent Labs Lab Test 06/24/19 0609 09/13/12 0127 CR 0.67 < > -- CREAT -- -- 0.7 < > = values in this interval not displayed. Passed - No positive test in past 12 months IER documented in this encounter Plan of Treatment Upcoming Encounters Date Type Department Care Team (Late st Contact Info) Description 04/27/2024 11:00 AM CDT Oncology Visit [facility] [address] [address] [facility] [place] [address] Suzanne Ma, [address] [place] [address] Cherie Geiger PAAriel [address] [place] [address] documented as of this encounter Visit Diagnoses Diagnosis Other chronic pain documented in this encounter Additional Health Concerns Infection Onset Date Last Indicated Resolved Time Rule Out COVID-19 06/19/2022 06/19/2022 06/19/2022 1:43 PM CDT Assessment Noted Time PHQ-9 Depression Total Score: 14 019 10:15 AM CDT documented as of this encounter Care Teams Peanut Farmer Relationship Specialty [place] [address] [place] [address] PCP - General Family Practice 03/08/19 06/11/22 [place] [address] [place] [address] PCP - General Family Medicine 06/12/22 [place] [address] [place] [address] Assigned PCP 05/08/19 03/27/23 Lenore Ramirez, [facility] Lead Adzing And Boring Machine Feeder Primary Care - CC 08/12/19 Aston Zamora, MARY Personal Advocate & Liaison (PAL) Family Practice 09/15/19 10/01/21 Arpan Morales MD [address] [place] [address] Assigned Heart and Vascular Provider 08/24/20 02/09/21 Fidelia Seo DO [address] [place] [address] Assigned Heart and Vascular Provider 05/05/21 10/31/22 Shellie Thompson Personal Advocate & Liaison (PAL) Family Medicine 12/05/21 06/25/22 Suzanne Ma DO Hematology & Oncology 05/07/22 Cory Lama MD [address] [place] [address] 932265 Critical Care 05/07/22 Tabatha Agrawal RN Specialty Adzing And Boring Machine Feeder Hematology & Oncology 05/13/22 [place] [address] [place] [address] Assigned Cancer Care Provider 05/17/22 Cory Lama MD [address] [place] [address] 645795 Assigned Pulmonology Provider 05/24/22 11/13/[address], MARY Personal Advocate & Liaison (PAL) Family Medicine 07/08/22 11/23/23 Lenore Ramirez, [facility] Adzing And Boring Machine Feeder Primary Care - CC 09/10/22 Lenore Ramirez, [facility] Adzing And Boring Machine Feeder Primary Care - CC 09/17/22 Gibran Ramírez MD [address] [place] [address] [id number] Assigned Palliative Care Provider 09/20/22 01/09/23 Justine Hayes NRP, CP Community Registered Dietitian 11/24/22 01/28/23 Keira Frye, [facility] [address] [place] [address] Pharmacist Pharmacist 12/04/22 09/29/23 [facility] [address] [place] [address] Assigned MTM Pharmacist 12/13/22 Colby Khan MD 420 [place] [address] Neurology 01/02/23 Candi Stinson DO 909 [place] [address] Assigned Palliative Care Provider 01/10/23 Justine Hayes NRP, CP Community Registered Dietitian 03/25/23 07/23/23 [place] [address] [place] [address] Assigned PCP 03/28/23 Melissa Boo, [facility] Community Health Worker Primary Care - CC 04/30/23 Hallie Berman, RN Personal Advocate & Liaison (PAL) Family Medicine 11/24/23 Nancy Shaw PA-C 717 [place], [place] [address] Physician Sort Line Worker Pulmonary Disease 01/05/24 Arpan Carolina MD [address] [place] [address] 276 [place], [place] [address] Critical Care 01/05/24 Prema Mendez, [facility] 2450 [facility] [address] [place], [place] [address] Assigned Behavioral Health Provider 02/23/24 03/23/24 documented as of this encounter
--- OUTSIDE RECORDS SUMMARY | 2024-04-13 23:58 | XMS_ITS | Encounter Summary ---
Author Organization [place] Address [address] [facility] [place] [address] Care Team Providers Care Production Consultant Name Role Phone Tana Gomez MD Primary Care Prov ider Tana Gomez MD Unavailable + Aston Zamora RN Unavailable Unavailable Fidelia Seo DO Unavailable [phone] Shellie Thompson Unavailable Unavailable Suzanne Ma DO Unavailable [phone] Cory Lama MD Unavailable [phone] Tabatha Agrawal RN Unavailable [phone] Suzanne Ma DO Unavailable [phone] Cory Lama MD Unavailable Latanya Silva MD Primary Care Provider Veronica Street RN Unavailable Unavailable Lenore Ramirez FUELS SALES REPRESENTATIVE Unavailable [phone] Lenore Ramirez FUELS SALES REPRESENTATIVE Unavailable [phone] Gibran Ramírez MD Unavailable Justine Hayes NRP, CP Unavailable Keira Frye [facility] Unavailable Keira Frye [facility] Unavailable [phone] Colby Khan MD Unavailable [phone] BahKeishaCandi DO Unavailable Justine Hayes NRP, CP Unavailable Latanya Silva MD Unavailable [phone] Melissa Boo CHW Unavailable Hallie Berman RN Unavailable Unavailable Nancy Shaw PA-C Unavailable Arpan Carolina MD Unavailable Prema Mendez [facility] Unavailable [phone] Reason for Visit * Reason Comments Medication Refill trazodone Encounter Details Date Type Department Care Team (Late st Contact Info) Description 06/26/2021 Refill [facility] [address] [place] [address] Tana Gomez MD PRIMARY ENT [address] [facility] [address] [place] [address] Medication Refill (trazodone) Social History Tobacco Use Types Packs/Day Years Used Date Smoking Tobacco: Former Cigarettes 1 20 1 - 08/10/2010 Smokeless Tobacco: Never Comments:1/2 - 1 pack QD Alcohol Use Standard Drinks/Week Comments No 0 (1 standard drink = 0.6 oz pur e alcohol) PHQ-2 Answer Date Recorded PHQ-2 Score 1 03/12/2021 Sex and Gender Information Value Date Recorded Sex Assigned at Not on file Gender Identity Not on file Sexual Orientation Not on file documented as of this encounter Miscellaneous Notes * Telephone Encounter - Aston Zamora RN - 06/27/2021 11:40 AM CDT Natalie called requesting refill today, has 2 tabs remaining. Routing refill request to provider for review/approval because: Drug interaction warning Aston Zamora, RN documented in this encounter Plan of Treatment Upcoming Encounters Date Type Department Care Team (Late st Contact Info) Description 04/27/2024 11:00 AM CDT Oncology Visit [facility] [address] [facility] [place] [address] [place] [address] [place] [address] Cherie Geiger, PAArpitaC [address] [place] [address] documented as of this encounter Visit Diagnoses Diagnosis Insomnia, unspecified type documented in this encounter Additional Health Concerns Infection Onset Date Last Indicated Resolved Time Rule Out COVID-19 06/19/2022 06/19/2022 06/19/2022 1:43 PM CDT Assessment Noted Time PHQ-9 Depression Total Score: 1 03/12/20 21 9:51 AM CDT documented as of this encounter Care Teams Production Consultant Relationship Specialty [place] [address] [place] [address] PCP - General Family Practice 03/08/19 06/11/22 [place] [address] [place] [address] PCP - General Family Medicine 06/12/22 [place] [address] [place] [address] Assigned PCP 05/08/19 03/27/23 Aston Zamora, MARY Personal Advocate & Liaison (PAL) Family Practice 09/15/19 10/01/21 TaylorsharriMelyssaFidelianorma LloydDO [address] [place] [address] Assigned Heart and Vascular Provider 05/05/21 10/31/22 Shellie Thompson Personal Advocate & Liaison (PAL) Family Medicine 12/05/21 06/25/22 Suzanne Ma DO Hematology & Oncology 05/07/22 Cory Lama MD [address] [place] [address]885 Critical Care 05/07/22 Tabatha Agrawal RN Specialty Professor Sculpture Hematology & Oncology 05/13/22 [place] [address] [place], [place] [address] Assigned Cancer Care Provider 05/17/22 Cory Lama MD [address] [place] [address] 293455 Assigned Pulmonology Provider 05/24/22 11/13/[address], MARY Personal Advocate & Liaison (PAL) Family Medicine 07/08/22 11/23/23 Lenore Ramirez LSW Clinic Professor Sculpture Primary Care - CC 09/10/22 Lenore Ramirez LSW Clinic Professor Sculpture Primary Care - CC 09/17/22 Gibran Ramí[place] [address] [place] [address] Assigned Palliative Care Provider 09/20/22 01/09/23 Justine Hayes NRP, CP Community Director Of Operations Home Health 11/24/22 01/28/23 Keira Frye, [facility] [address] [place] [address] Pharmacist Pharmacist 12/04/22 09/29/23 Keira Frye, [facility] [address] [place] [address] Assigned MTM Pharmacist 12/13/22 Colby Khan MD [address] [place] [address] Neurology 01/02/23 Candi Stinson DO 909 [place] [address] Assigned Palliative Care Provider 01/10/23 Justine Hayes NRP, CP Community Director Of Operations Home Health 03/25/23 07/23/23 [place] [address] [place] [address] Assigned PCP 03/28/23 Melissa Boo, W Community Health Worker Primary Care - CC 04/30/23 Hallie Berman RN Personal Advocate & Liaison (PAL) Family Medicine 11/24/23 Nancy Shaw PA-C 7[address] [facility] [place], [place] [address] Physician Health Support Specialist Pulmonary Disease 01/05/24 Arpan Carolina MD 420 [facility] 276 [place], [place] [address] Critical Care 01/05/24 Prema Mendez, [facility] [address] [facility] [address] [place] [address] Assigned Behavioral Health Provider 02/23/24 03/23/24 documented as of this encounter
--- OUTSIDE RECORDS SUMMARY | 2024-04-13 23:58 | XMS_ITS | Encounter Summary ---
Author Organization [place] Address [address] [facility] [address] Care Team Providers Care Buncher Machine Name Role Phone Tana Gomez MD Primary Care Prov ider Tana Gomez MD Unavailable + Aston Zamora RN Unavailable Unavailable Arpan Morales MD Unavailable Fidelia Seo DO Unavailable [phone] Shellie Thompson Unavailable Unavailable Suzanne Ma DO Unavailable [phone] Cory Lama MD Unavailable Tabatha Agrawal RN Unavailable [phone] Suzanne Ma DO Unavailable [phone] Cory Lama MD Unavailable Latanya Silva MD Primary Care Provider Veronica Street RN Unavailable Unavailable Lenore Ramirez DECK SUPERVISOR Unavailable [phone] Lenore Ramirez DECK SUPERVISOR Unavailable [phone] Gibran Ramírez MD Unavailable [phone] Justine Hayes NRP, CP Unavailable Keira Frye [facility] Unavailable Keira Frye Mani [facility] Unavailable [phone] Colby Khan MD Unavailable [phone] Candi Stinson DO Unavailable [phone] Justine Hayes NRP, CP Unavailable Latanya Silva MD Unavailable [phone] Melissa Boo CH Unavailable Hallie Berman RN Unavailable Unavailable Nancy Shaw PA-C Unavailable Arpan Carolina MD Unavailable Prema Mendez [facility] Unavailable [phone] Reason for Visit * Reason Comments Medication Refill Encounter Details Date Type Department Care Team (Late st Contact Info) Description [facility] [address] [address] Tana Gomez MD PRIMARY ENT [address] [facility] [address] [place], [place] [id number] Medication Refill Social History Tobacco Use Types [...] encounter Miscellaneous Notes * Telephone Encounter - Zee Newman RN - 05/29/2020 9:21 AM CDT Routing refill request to provider for review/approval because: Elevated PHQ9 Zee Newman, RN on 05/29/2020 at 9:21 AM documented in this encounter Plan of Treatment Upcoming Encounters Date Type Department Care Team (Late st Contact Info) Description 04/27/2024 11:00 AM CDT Oncology Visit [facility] [address] [facility] [place] [address] Suzanne Ma, [address] [place], [place] [address] Cherie Geiger, PAArpitaC 909 [place] [address] documented as of this encounter Visit Diagnoses [...] documented as of this encounter Care Teams Buncher Machine Relationship Specialty [place] [address] [place] [address] PCP - General Family Practice 03/08/19 06/11/22 [place] [address] [place] [address] PCP - General Family Medicine 06/12/22 [place] [address] [place] [address] Assigned PCP 05/08/19 03/27/23 Aston Zamora, MARY Personal Advocate & Liaison (PAL) Family Practice 09/15/19 10/01/21 Arpan Morales MD [address] [place], [place] [address] Assigned Heart and Vascular Provider 08/24/20 02/09/21 Fidelia Seo DO [address] [place] [address] Assigned Heart and Vascular Provider 05/05/21 10/31/22 Shellie Thompson Personal Advocate & Liaison (PAL) Family Medicine 12/05/21 06/25/22 Suzanne Ma DO Hematology & Oncology 05/07/22 Cory Lama MD [address] [place] [address]3355 Critical Care 05/07/22 Tabatha Agrawal RN Specialty Civil Engineering Professional Hematology & Oncology 05/13/22 [place] [address] [address] [facility] [place] [address] Assigned Cancer Care Provider 05/17/22 Cory Lama MD [address] [place] [address] 990155 Assigned Pulmonology Provider 05/24/22 11/13/[address], MARY Personal Advocate & Liaison (PAL) Family Medicine 07/08/22 11/23/23 Lenore Ramirez, [facility] Clinic Civil Engineering Professional Primary Care - CC 09/10/22 Lenore Ramirez, [facility] Clinic Civil Engineering Professional Primary Care - CC 09/17/22 Gibran Ramí[place] [address] [place] [address] Assigned Palliative Care Provider 09/20/22 01/09/23 Justine Hayes NRP, CP Community Civil Clerk 11/24/22 01/28/23 Keira Frye, [facility] [address] [place] [address] Pharmacist Pharmacist 12/04/22 09/29/23 Keira Frye, [facility] [address] [place] [address] Assigned MTM Pharmacist 12/13/22 Colby Khan MD 420 [place] [address] Neurology 01/02/23 Candi Stinson DO 909 [place] [address] Assigned Palliative Care Provider 01/10/23 Justine Hayes NRP, CP Community Civil Clerk 03/25/23 07/23/23 [place] [address] [place] [address] Assigned PCP 03/28/23 Melissa Boo, [facility] Community Health Worker Primary Care - CC 04/30/23 Hallie Berman, RN Personal Advocate & Liaison (PAL) Family Medicine 11/24/23 Nancy Shaw PAArpitaC 717 [place], [place] [address] Physician Science Instructor Pulmonary Disease 01/05/24 Arpan Carolina MD 420 [facility] 276 [place], [place] 90[address] Critical Care 01/05/24 Prema Mendez, [facility] 2450 [facility] [address] [place], [place] 5032[address] Assigned Behavioral Health Provider 02/23/24 03/23/24 documented as of this encounter
--- OUTSIDE RECORDS SUMMARY | 2024-04-13 23:58 | XMS_ITS | Encounter Summary ---
Author Organization [facility] Address [address] [facility] [place] [address] Care Team Providers Care Special Events Driver Name Role Phone Tana Gomez MD Primary Care Prov ider Tana Gomez MD Unavailable + Aston Zamora RN Unavailable Unavailable Fidelia Seo DO Unavailable [phone] Shellie Thompson Unavailable Unavailable Suzanne Ma DO Unavailable [phone] Cory Lama MD Unavailable [phone] Tabatha Agrawal RN Unavailable [phone] Suzanne Ma DO Unavailable [phone] Cory Lama MD Unavailable [phone] Latanya Silva MD Primary Care Provider Veronica Street RN Unavailable Unavailable Lenore Ramirez CARDIOVASCULAR LAB DIRECTOR Unavailable [phone] Lenore Ramirez CARDIOVASCULAR LAB DIRECTOR Unavailable [phone] Gibran Ramírez MD Unavailable Justine Hayes NRP, CP Unavailable Keira Frye [facility] Unavailable [phone] Keira Frye [facility] Unavailable [phone] Colby Khan MD Unavailable [phone] ShantellCandi DO Unavailable Justine Hayes NRP, CP Unavailable [phone] Latanya Silva MD Unavailable [phone] Melissa Boo CHW Unavailable Hallie Berman RN Unavailable Unavailable Nancy Shaw PA-C Unavailable [phone] Arpan Carolina MD Unavailable Prema Mendez [facility] Unavailable [phone] Reason for Visit * Reason Comments Medication Refill Encounter Details Date Type Department Care Team (Late st Contact Info) Description 09/03/[address] [address] Tana Gomez MD PRIMARY ENT [address] [facility] [address] [place], [place] [address] Medication Refill Social History Tobacco Use Types [...] have Coronavirus / COVID-19? No / Unsure 09/03/2021 10:02 AM CDT documented as of this encounter Miscellaneous Notes * Telephone Encounter - Keila Hilario RN - 09/05/2021 10:42 AM CDT Prescription approved per [facility], [facility] or [facility] refill protocol. Keila Stone - Registered Nurse [facility] Acute and Diagnostic Services documented in this encounter Plan of Treatment Upcoming Encounters Date Type Department Care Team (Late st Contact Info) Description 04/27/2024 11:00 AM CDT Oncology Visit [facility] [place] [address] [facility] [place] [address] [place] [address] [place] [address] Cherie Geiger, PA-C 909 [place] [address] documented as of this encounter Visit Diagnoses Diagnosis Mild cognitive impairment Mild cognitive impairment, so stated Memory impairment Memory loss documented in this encounter Additional Health Concerns Infection Onset Date Last Indicated Resolved Time Rule Out COVID-19 06/19/2022 06/19/2022 06/19/2022 1:43 PM CDT Assessment Noted Time PHQ-9 Depression Total Score: 1 03/12/20 21 9:51 AM CDT documented as of this encounter Care Teams Special Events Driver Relationship Specialty [place] [address] [place] [address] PCP - General Family Practice 03/08/19 06/11/22 [place] [address] [place] [address] PCP - General Family Medicine 06/12/22 [place] [address] [facility] [place] [address] Assigned PCP 05/08/19 03/27/23 Aston Zamora RN Personal Advocate & Liaison (PAL) Family Practice 09/15/19 10/01/21 Fidelia Seo, DO [address] [facility] [address] [place] [address] Assigned Heart and Vascular Provider 05/05/21 10/31/22 Shellie Thompson Personal Advocate & Liaison (PAL) Family Medicine 12/05/21 06/25/22 Suzanne Ma DO Hematology & Oncology 05/07/22 Cory Lama MD [address] [place] [address] 786665 Critical Care 05/07/22 Tabatha Agrawal RN Specialty Safety Tech Hematology & Oncology 05/13/22 [place] [address] [place], [place] [address] Assigned Cancer Care Provider 05/17/22 Cory Lama MD [address] [place] [address] 314225 Assigned Pulmonology Provider 05/24/22 11/13/[address], MARY Personal Advocate & Liaison (PAL) Family Medicine 07/08/22 11/23/23 Lenore Ramirez, CARDIOVASCULAR LAB DIRECTOR Clinic Safety Tech Primary Care - CC 09/10/22 Lenore Ramirez, [facility] Clinic Safety Tech Primary Care - CC 09/17/22 Gbiran Ramí[place] [address] [place] [address] Assigned Palliative Care Provider 09/20/22 01/09/23 Justine Hayes NRP, CP Community Educational Assistant 11/24/22 01/28/23 Keira Frye, [facility] [address] [facility] [address] [place] [id number] Pharmacist Pharmacist 12/04/22 09/29/23 Keira Frye, [facility] [address] [facility] [address] [place] [id number] Assigned MTM Pharmacist 12/13/22 Colby Khan MD [address] [place], [place] 25[address] Neurology 01/02/23 Candi Stinson DO 909 [place], [place] 135774 Assigned Palliative Care Provider 01/10/23 Justine Hayes NRP, CP Community Educational Assistant 03/25/23 07/23/23 [place] [address] [place] [address] Assigned PCP 03/28/23 Melissa Boo, W Community Health Worker Primary Care - CC 04/30/23 Hallie Berman RN Personal Advocate & Liaison (PAL) Family Medicine 11/24/23 Nancy Shaw PA-C 717 [place] [address] Physician Specialized Developer Pulmonary Disease 01/05/24 Arpan Carolina MD [address] [place] [address] 276 [place] [address] Critical Care 01/05/24 Prema Mendez, [facility] [address] [place], [place] [address] [place], [place] [address] Assigned Behavioral Health Provider 02/23/24 03/23/24 documented as of this encounter
--- OUTSIDE RECORDS SUMMARY | 2024-04-13 23:58 | XMS_ITS | Encounter Summary ---
Author Organization [facility] Address [address] [facility] [place] [address] Care Team Providers Care Food And Beverage Intern Name Role Phone Patricia Tana Cao MD Unavailable + Suzanne Ma DO Unavailable [phone] Cory Lama MD Unavailable [phone] Tabatha Agrawal RN Unavailable [phone] Suzanne Ma DO Unavailable [phone] Cory Lama MD Unavailable Latanya Silva MD Primary Care Provider Veronica Street RN Unavailable Unavailable Gibran Ramírez MD Unavailable Justine Hayes NRP, CP Unavailable [phone] Keira Frye [facility] Unavailable Keira Frye [facility] Unavailable Colby Khan MD Unavailable [phone] Candi Stinson DO Unavailable Justine HayesP, CP Unavailable Latanya Silva MD Unavailable [phone] Melissa Boo CHW Unavailable Hallie Berman RN Unavailable Unavailable Nancy Shaw PA-C Unavailable Arpan Carolina MD Unavailable Prema Mendez [facility] Unavailable Reason for Visit * Reason Comments Medication Refill Encounter Details Date Type Department Care Team (Late st Contact Info) Description 11/24/2022 Refill [facility] [address] [place] [address] [place] Silva [place] [id number] [place] [address] Medication Refill Social History Tobacco Use [...] PHQ-2 Answer Date Recorded PHQ-2 Score 4 11/24/2022 Sex and Gender Information Value Date Recorded Sex Assigned at Not on file Gender Identity Not on file Sexual Orientation Not on file COVID-19 Exposure Response Date Recorded In the last 10 days, have yo u been in contact with someone who was confirmed or suspected to have Coronavirus/COVID-19? No / Unsure 11/24/2022 2:42 PM OIL PRODUCER documented as of this encounter Miscellaneous Notes * Telephone Encounter - Jocelyn Ruiz, RN - 11/26/2022 8:45 AM CST RX for Donepezil was denied-should have refills available. RX was refilled on 11/24 for Qty of 30 with 5 refills. Christy Ruiz RN PRODUCER documented in this encounter Plan of Treatment Upcoming Encounters Date Type Department Care Team (Late st Contact Info) Description 04/27/2024 11:00 AM CDT Oncology Visit [facility] [address] [place] [address] [address] [facility] [place] [address] [place] [address] [place] [address] Cherie Geiger, YANIRA [address] [place] [address] documented as of this encounter Visit Diagnoses Diagnosis Memory impairment Memory loss Mild cognitive impairment Mild cognitive impairment, so stated documented in this encounter Additional Health Concerns Assessment Noted Time PHQ-9 Depression Total Score: 14 023 3:10 PM OIL PRODUCER documented as of this encounter Care Teams Food And Beverage Intern Relationship Specialty [place] [address] [place] [address] PCP - General Family Medicine 06/12/22 [place] [address] [place] [address] Assigned PCP 05/08/19 03/27/23 [place] [address] [place] [address] Hematology & Oncology 05/07/22 Cory Lama MD [address] [place] [address] Critical Care 05/07/22 Tabatha Agrawal, MARY Specialty Java Developer With Security Clearance Hematology & Oncology 05/13/22 [place] [address] [place] [address] Assigned Cancer Care Provider 05/17/22 Cory Lama MD [address] [place] [address] 339575 Assigned Pulmonology Provider 05/24/22 11/13/[address], MARY Personal Advocate & Liaison (PAL) Family Medicine 07/08/22 11/23/23 Gibran Ramí[place] [address] [place] [address] Assigned Palliative Care Provider 09/20/22 01/09/23 Justine Hayes, BEATRICE, CP Community Stitch Bonding Machine Drawer In 11/24/22 01/28/23 Keira Frye, [facility] [address] [id number] Pharmacist Pharmacist 12/04/22 09/29/23 Keira Frye, [facility] [address] [id number] Assigned MTM Pharmacist 12/13/22 Colby Khan MD 420 [place] [address] Neurology 01/02/23 Candi Stinson DO 909 [facility] [place] [address] Assigned Palliative Care Provider 01/10/23 Justine Hayes, NRP, CP Community Stitch Bonding Machine Drawer In 03/25/23 07/23/23 [place] [address] [place] [address] Assigned PCP 03/28/23 Melissa Boo, [facility] Community Health Worker Primary Care - CC 04/30/23 Hallie Berman, RN Personal Advocate & Liaison (PAL) Family Medicine 11/24/23 Nancy Shaw PA-C 717 [place] [address] Physician Registered Representative Pulmonary Disease 01/05/24 Arpan Carolina MD [address] [place] [address] [facility] 276 [place], [place] 2[address] Critical Care 01/05/24 Prema Mendez, [facility] 2450 [facility] [address] [place], [place] 68[address] Assigned Behavioral Health Provider 02/23/24 03/23/24 documented as of this encounter
--- OUTSIDE RECORDS SUMMARY | 2024-04-13 23:58 | XMS_ITS | Encounter Summary ---
Author Organization [facility] Address [address] [facility] [place] [address] Care Team Providers Care Copyright Clerk Name Role Phone Patricia Tana Cao MD Unavailable + Suzanne Ma DO Unavailable [phone] Cory Lama MD Unavailable [phone] Tabatha Agrawal RN Unavailable Suzanne Ma DO Unavailable [phone] Cory Lama MD Unavailable Laatnya Silva MD Primary Care Provider Veronica Street RN Unavailable Unavailable Gibran Ramírez MD Unavailable Justine Hayes NRP, CP Unavailable Keira Frye [facility] Unavailable Keira Frye [facility] Unavailable Colby Khan MD Unavailable [phone] Candi Stinson DO Unavailable Justine HayesP, CP Unavailable [phone] Latanya Silva MD Unavailable [phone] Melissa Boo CH Unavailable Hallie Berman RN Unavailable Unavailable Nancy Shaw PA-C Unavailable Arpan Carolina MD Unavailable [phone] Vanessa Prema C [facility] Unavailable Reason for Visit * Reason Comments Medication Refill Encounter Details Date Type Department Care Team (Late st Contact Info) Description 11/19/2022 Refill [facility] [address] [place] [address] [place] [address] [place] [address] Medication Refill Social History Tobacco Use [...] PHQ-2 Answer Date Recorded PHQ-2 Score 3 01/17/2022 Sex and Gender Information Value Date Recorded Sex Assigned at Not on file Gender Identity Not on file Sexual Orientation Not on file documented as of this encounter Miscellaneous Notes * Telephone Encounter - Latanya Silva MD - 11/19/2022 2:40 PM CST duplicate Y BAR MANAGER * Telephone Encounter - Zulema Yo - 11/19/2022 2:32 PM CST Images from the original note were not included. Order on 11/03 never received due to an Epic error: Outpatient Morphine Milligram Equivalents Per Day 11/03/22 and after Unknown Order Name Dose Route Frequency Maximum MME/Day XTAMPZA ER 13.5 MG 12 hr tablet ?? Unknown Total Potential Morphine Milligram Equivalents Per Day Unknown An error was encountered while attempting to calculate the morphine milligram equivalents per day for at least one order. Calculation Information ?? Please send new order if appropriate and approved. Thank you, Zulema Yo [facility] Staff Hole Digger Truck Driver [facility] [email or web address] Ph#: Fax#: Y BAR MANAGER documented in this encounter Plan of Treatment Upcoming Encounters Date Type Department Care Team (Late st Contact Info) Description 04/27/2024 11:00 AM CDT Oncology Visit [facility] [address] [place] [address] [address] [facility] [place] [address] [place] [address] [place] [address] Cherie Geiger, PAAriel 909 [place] [address] documented as of this encounter Visit Diagnoses [...] Assessment Noted Time PHQ-9 Depression Total Score: 5 01/19/20 22 7:02 AM CDT documented as of this encounter Care Teams Copyright Clerk Relationship Specialty [place] [address] [place], [place] [phone] PCP - General Family Medicine 06/12/22 [place] [address] [place], [place] [id number] Assigned PCP 05/08/19 03/27/23 [place] [address] [place] [address] Hematology & Oncology 05/07/22 Cory Lama MD [address] [place] [address] 570685 Critical Care 05/07/22 Tabatha Agrawal, MARY Specialty Gas Load Dispatcher Hematology & Oncology 05/13/22 [place] [address] 943327 Assigned Cancer Care Provider 05/17/22 Cory Lama MD [address] [place] [address] [phone] Assigned Pulmonology Provider 05/24/22 11/13/[address], MARY Personal Advocate & Liaison (PAL) Family Medicine 07/08/22 11/23/23 Gibran Ramírez MD 1575 [place] [address] Assigned Palliative Care Provider 09/20/22 01/09/23 Justine Hayes NRP, CP Community Professor Of Theology 11/24/22 01/28/23 Keira Frye, [facility] [address] [place] [address] Pharmacist Pharmacist 12/04/22 09/29/23 Keira Frye, [facility] [address] [place] [address] [address] Assigned MTM Pharmacist 12/13/22 Colby Khan MD [address] [place] [address] 827485 Neurology 01/02/23 Candi Stinson DO 909 [place], [place] 909204 Assigned Palliative Care Provider 01/10/23 Justine Hayes NRP, CP Community Professor Of Theology 03/25/23 07/23/23 [place] [address] [place] [address] Assigned PCP 03/28/23 Melissa Boo, CHW Community Health Worker Primary Care - CC 04/30/23 Hallie Berman RN Personal Advocate & Liaison (PAL) Family Medicine 11/24/23 Nancy Shaw PA-C 717 [place] [address] Physician Ward Clerk Pulmonary Disease 01/05/24 Arpan Carolina MD [address] [place] [address] 276 [place] [address] Critical Care 01/05/24 Prema Mendez, [facility] [address] [place] [address] Assigned Behavioral Health Provider 02/23/24 03/23/24 documented as of this encounter
--- OUTSIDE RECORDS SUMMARY | 2024-04-13 23:58 | XMS_ITS | Encounter Summary ---
Author Organization [facility] Address [address] [facility] [place] [address] Care Team Providers Care Medical Instrument Technician Name Role Phone Tana Gomez MD Primary Care Prov ider Tana Gomez MD Unavailable + Fidelia Seo DO Unavailable [phone] Shellie Thompson Unavailable Unavailable Suzanne Ma DO Unavailable [phone] Cory Lama MD Unavailable Tabatha Agrawal RN Unavailable [phone] Suzanne Ma DO Unavailable [phone] Cory Lama MD Unavailable Latanya Silva MD Primary Care Provider Veronica Street RN Unavailable Unavailable Lenore RamirezW Unavailable [phone] Lenore Ramirez ELECTRICAL ACCESSORIES ASSEMBLER Unavailable [phone] Gibran Ramírez MD Unavailable [phone] Justine Hayes NRP, CP Unavailable Keira Frye [facility] Unavailable [phone] Keira Frye [facility] Unavailable [phone] Colby Khan MD Unavailable [phone] Candi Stinson DO Unavailable [phone] Justine Hayes NRP, CP Unavailable Latanya Silva MD Unavailable [phone] Melissa Boo CHW Unavailable Hallie Berman RN Unavailable Unavailable Nancy Shaw PA-C Unavailable [phone] Arpan Carolina MD Unavailable Prema Mendez [facility] Unavailable [phone] Encounter Details Date Type Department Care Team (Late st Contact Info) Description 01/11/[address] [address] Tana Gomez MD [facility]IMARY ENT [address] [facility] [address] [place] [address] Social History Tobacco Use Types [...] encounter Miscellaneous Notes * Telephone Encounter - Macrina Beltran - 01/11/2022 10:22 AM CST Reason for Call: Other other Detailed comments: patient called today. She wants to apologize to Tana Gonzales MD at [facility] for their recent telephone visit. She felt she was crabby toward her provider. She has company over and has been having some issues with this and in getting her pain medications in order. Thank you. Phone Number Patient can be reached at: Home number on file [phone] (home) Best Time: any Can we leave a detailed message on this number? YES Call taken on 01/11/2022 at 10:22 AM by Macrina Beltran RNET MARKETING COORDINATOR documented in this encounter Plan of Treatment Upcoming Encounters Date Type Department Care Team (Late st Contact Info) Description 04/27/2024 11:00 AM CDT Oncology Visit [facility] [address] [place] [address] [address] [facility] [place] [address] Suzanne Ma, [address] [place] [address] Cherie Geiger, YANIRA 909 [place] [address] documented as of this encounter Visit Diagnoses Not on filedocumented in this encounter Additional Health Concerns Infection Onset Date Last Indicated Resolved Time Rule Out COVID-19 06/19/2022 06/19/2022 06/19/2022 1:43 PM CDT Assessment Noted Time PHQ-9 Depression Total Score: 1 10/09/20 21 7:33 AM INTERNET MARKETING COORDINATOR documented as of this encounter Care Teams Medical Instrument Technician Relationship Specialty [place] [address] [place] [address] PCP - General Family Practice 03/08/19 06/11/22 [place] [address] [place], [place] [phone] PCP - General Family Medicine 06/12/22 [place] [address] [place], [place] 330[address] Assigned PCP 05/08/19 03/27/23 Fidelia Seo DO [address] [place], [place] [address] Assigned Heart and Vascular Provider 05/05/21 10/31/22 Shellie Thompson Personal Advocate & Liaison (PAL) Family Medicine 12/05/21 06/25/22 Suzanne Ma DO Hematology & Oncology 05/07/22 Cory Lama MD [address] [place] [address] 050065 Critical Care 05/07/22 Tabatha Agrawal RN Specialty Information Services Consultant Hematology & Oncology 05/13/22 [place] [address] [place], [place] 04[address] Assigned Cancer Care Provider 05/17/22 Cory Lama MD [address] [place] [address] 246215 Assigned Pulmonology Provider 05/24/22 11/13/[address], MARY Personal Advocate & Liaison (PAL) Family Medicine 07/08/22 11/23/23 Lenore Ramirez, [facility] Clinic Information Services Consultant Primary Care - CC 09/10/22 Lenore Ramirez, [facility] Clinic Information Services Consultant Primary Care - CC 09/17/22 Gibran Ramírez MD [address] [place] [address] Assigned Palliative Care Provider 09/20/22 01/09/23 Justine Hayes NRP, CP Community Fabricator Special Items 11/24/22 01/28/23 Keira Frye, [facility] [address] [place] [address] Pharmacist Pharmacist 12/04/22 09/29/23 Keira Frye, [facility] [address] [place] [address] [address] Assigned MTM Pharmacist 12/13/22 Colby Khan MD [address] [place] [address] Neurology 01/02/23 Candi Stinson DO 909 [place], [place] 337144 Assigned Palliative Care Provider 01/10/23 Justine Hayes NRP, CP Community Fabricator Special Items 03/25/23 07/23/23 [place] [address] [place] [address] Assigned PCP 03/28/23 Melissa Boo, CHW Community Health Worker Primary Care - CC 04/30/23 Hallie Berman, RN Personal Advocate & Liaison (PAL) Family Medicine 11/24/23 Nancy Shaw PA-C 717 [place] [address] Physician Air Sealing Technician Pulmonary Disease 01/05/24 Arpan Carolina MD [address] [place] [address] 276 [place] [address] Critical Care 01/05/24 Prema Mendez, [facility] [address] [place] [address] [address] [place] [address] Assigned Behavioral Health Provider 02/23/24 03/23/24 documented as of this encounter
--- OUTSIDE RECORDS SUMMARY | 2024-04-13 23:58 | XMS_ITS | Encounter Summary ---
Author Organization [place] Address [address] [facility] [place] [address] Care Team Providers Care Carpenters Supervisor Name Role Phone Jo AnnTana Lassiter MD Unavailable + Fidelia Seo DO Unavailable [phone] Suzanne Ma DO Unavailable [phone] Cory Lama MD Unavailable Tabatha Agrawal RN Unavailable [phone] Suzanne Ma DO Unavailable [phone] Cory Lama MD Unavailable Latanya Silva MD Primary Care Provider Veronica Street RN Unavailable Unavailable Gibran Ramírez MD Unavailable Justine HayesP, CP Unavailable [phone] Keira Frye [facility] Unavailable Keira Frye [facility] Unavailable [phone] Colby Khan MD Unavailable [phone] Candi Stinson DO Unavailable Justine Hayes NRP, CP Unavailable Latanya Silva MD Unavailable [phone] Melissa Boo CHW Unavailable Hallie Berman RN Unavailable Unavailable Nancy Shaw PA-C Unavailable [phone] Arpan Carolina MD Unavailable [phone] Prema Mendez [facility] Unavailable [phone] Encounter Details Date Type Department Care Team (Late st Contact Info) Description 09/24/2022 [facility] Only [facility] [id number] [place] [address] [place] [address] [place] [address] DIAGNOSIS NOT YET DEFINED (Primary Dx) [...] suspected to have Coronavirus/COVID-19? No / Unsure 09/24/2022 8:01 AM TECHNICAL ADVISOR documented as of this encounter Plan of Treatment Upcoming Encounters Date Type Department Care Team (Late st Contact Info) Description 04/27/2024 11:00 AM CDT Oncology Visit [facility] [address] [place] [facility] [place] [address] [place] [address] [place] [address] Cherie Geiger PA-C [address] [place] [address] documented as of this encounter Procedures Procedure Name Priority Date/Time Associated Diagnosis Comments SC MD CERTIFICATION COMBUSTION ENGINEER PATIENT Routine 09/24/2022 DIAGNOSIS NOT YET DEFINED documented in this encounter Results * MD CERTIFICATION COMBUSTION ENGINEER PATIENT (09/24/2022) Latanya Silva MD SPECIAL REPORTS documented in this encounter Visit Diagnoses Diagnosis DIAGNOSIS NOT YET DEFINED- Primary documented in this encounter Additional Health Concerns Assessment Noted Time PHQ-9 Depression Total Score: 5 01/19/20 22 7:02 AM CDT documented as of this encounter Care Teams Carpenters Supervisor Relationship Specialty [place] [address] [place] [address] PCP - General Family Medicine 06/12/22 [place] [address] [place] [address] Assigned PCP 05/08/19 03/27/23 Fidelia Seo DO [address] [place] [address] Assigned Heart and Vascular Provider 05/05/21 10/31/22 Suzanne Ma DO [address] [place] [address] Hematology & Oncology 05/07/22 Cory Lama MD [address] [place] [address] Critical Care 05/07/22 Tabatha Agrawal RN Specialty Filling Hauler Hematology & Oncology 05/13/22 [place] [address] [place], [place] [address] Assigned Cancer Care Provider 05/17/22 Cory Lama MD [address] [place] [address] 360165 Assigned Pulmonology Provider 05/24/22 11/13/[address], MARY Personal Advocate & Liaison (PAL) Family Medicine 07/08/22 11/23/23 Gibran Ramírez MD [address] [place] [address] Assigned Palliative Care Provider 09/20/22 01/09/23 Justine Hayes, NRP, CP Community Director Industrial 11/24/22 01/28/23 Keira Frye, [facility] [address] [place] [address] [address] Pharmacist Pharmacist 12/04/22 09/29/23 Keira Frye, [facility] [address] [facility] [place] [address] Assigned MTM Pharmacist 12/13/22 Colby Khan MD 420 [place] [address] Neurology 01/02/23 Candi Stinson DO 909 [place] [address] Assigned Palliative Care Provider 01/10/23 Justine Hayes, NRP, CP Community Director Industrial 03/25/23 07/23/23 [place] [address] [place] [address] Assigned PCP 03/28/23 Melissa Boo, [place] Community Health Worker Primary Care - CC 04/30/23 Hallie Berman, RN Personal Advocate & Liaison (PAL) Family Medicine 11/24/23 Nancy Shaw PA-C 717 [place], [place] 6426[address] Physician Marriage And Family Counselor Pulmonary Disease 01/05/24 Arpan Carolina MD 420 [facility] 276 [place], [place] [address] Critical Care 01/05/24 Prema Mendez, [facility] [address] [facility] [address] [place], [place] [address] Assigned Behavioral Health Provider 02/23/24 03/23/24 documented as of this encounter
[2024-04-13 23:59] LABS: Alanine Aminotransferase* 11 U/L (4-35); Alkaline Phosphatase* 80 U/L (40-150); Blood Urea Nitrogen* 13 mg/dL (7-30); Calcium* 8.8 mg/dL (8.4-10.6); Glucose* 152 mg/dL (60-115); Total Protein* 6.5 g/dL (6.0-8.3)
--- OUTSIDE RECORDS SUMMARY | 2024-04-13 23:59 | XMS_ITS | Encounter Summary ---
Author Organization [place] Address [address] [facility] [place] [address] Care Team Providers Care Groundskeeping Yardman Name Role Phone Tana Gomez MD Primary Care Prov ider Tana Gomez MD Unavailable + Lenore Ramirez FINANCIAL CONSULTANT Unavailable Lenore Ramirez FINANCIAL CONSULTANT Unavailable [phone] Aston Zamora RN Unavailable Unavailable Arpan Morales MD Unavailable Fidelia Seo Prema DO Unavailable [phone] Shellie Thompson Unavailable Unavailable Suzanne Ma DO Unavailable [phone] Cory Lama MD Unavailable [phone] Tabatha Agrawal RN Unavailable [phone] Suzanne Ma DO Unavailable [phone] Cory Lama MD Unavailable [phone] Latanya Silva MD Primary Care Provider Veronica Street RN Unavailable Unavailable Lenore Ramirez FINANCIAL CONSULTANT Unavailable [phone] Lenore Ramirez FINANCIAL CONSULTANT Unavailable Gibran Ramírez MD Unavailable [phone] Justine Hayes NRP, CP Unavailable Keira Frye [facility] Unavailable Mery Fryecarolyn Singleton [facility] Unavailable Colby Khan MD Unavailable [phone] Shantell Candi Unavailable Justine Hayes NRP, CP Unavailable [phone] Latanya Silva MD Unavailable [phone] Melissa Boo CHW Unavailable Hallie Berman RN Unavailable Unavailable Nancy Shaw PA-C Unavailable [phone] Arpan Carolina MD Unavailable Prema Mendez [facility] Unavailable [phone] Reason for Visit * Reason Comments Home Care/Hospice Encounter Details Date Type Department Care Team (Late st Contact Info) Description 07/15/2019 Documentation Only [facility] [address] [place] [address] Tana Gomez MD PRIMARY ENT [address] [facility] [address] [place], [place] [id number] Home Care/Hospice Social History Tobacco Use Types Packs/Day Years Used Date Smoking Tobacco: Former Cigarettes 1 20 1 - 08/10/2010 Smokeless Tobacco: Never Comments:1/2 - 1 pack QD Alcohol Use Standard Drinks/Week Comments No 0 (1 standard drink = 0.6 oz pur e alcohol) PHQ-2 Answer Date Recorded PHQ-2 Score 0 03/17/2019 Sex and Gender Information Value Date Recorded Sex Assigned at Not on file Gender Identity Not on file Sexual Orientation Not on file documented as of this encounter Miscellaneous Notes * Telephone Encounter - Tana Gomez MD - 07/15/2019 3:36 PM CDT I approve of requested home care orders. Tana Gomez MD documented in this encounter Plan of Treatment Upcoming Encounters Date Type Department Care Team (Late st Contact Info) Description 04/27/2024 11:00 AM CDT Oncology Visit [facility] [address] [place] [address] [facility] [place] [address] [place] [address] [place] [address] Cherie Geiger PA-C [address] [place] [address] documented as of this encounter Visit Diagnoses Not on filedocumented in this encounter Additional Health Concerns Infection Onset Date Last Indicated Resolved Time Rule Out COVID-19 06/19/2022 06/19/2022 06/19/2022 1:43 PM CDT Assessment Noted Time PHQ-9 Depression Total Score: 8 05/04/20 19 8:24 AM CDT documented as of this encounter Care Teams Groundskeeping Yardman Relationship Specialty [place] [address] [place] [address] PCP - General Family Practice 03/08/19 06/11/22 [place] [address] [place] [address] PCP - General Family Medicine 06/12/22 [place] [address] [facility] [place] [address] Assigned PCP 05/08/19 03/27/23 Lenore Ramirez, FINANCIAL CONSULTANT Clinic Self Rising Flour Mixer Primary Care - CC 06/29/19 Lenore Ramirez, [facility] Lead Self Rising Flour Mixer Primary Care - CC 08/12/19 Aston Zamora, MARY Personal Advocate & Liaison (PAL) Family Practice 09/15/19 10/01/21 Arpan Morales MD [address] [place], [place] [address] Assigned Heart and Vascular Provider 08/24/20 02/09/21 Fidelia Seo DO [address] [place], [place] [address] Assigned Heart and Vascular Provider 05/05/21 10/31/22 Shellie Thompson Personal Advocate & Liaison (PAL) Family Medicine 12/05/21 06/25/22 Suzanne Ma DO Hematology & Oncology 05/07/22 Cory Lama MD 909 [place], [place] [address] Critical Care 05/07/22 Tabatha Agrawal, RN Specialty Self Rising Flour Mixer Hematology & Oncology 05/13/22 [place] [address] [place] [address] Assigned Cancer Care Provider 05/17/22 Cory Lama MD [address] [place], [place] [address] Assigned Pulmonology Provider 05/24/22 11/13/[address], MARY Personal Advocate & Liaison (PAL) Family Medicine 07/08/22 11/23/23 Lenore Ramirez, [facility] Clinic Self Rising Flour Mixer Primary Care - CC 09/10/22 Lenore Ramirez, [facility] Clinic Self Rising Flour Mixer Primary Care - CC 09/17/22 Gibran Ramírez MD [address] [place] [address] [id number] Assigned Palliative Care Provider 09/20/22 01/09/23 Justine Hayes, NRP, CP Community Employment Law Attorney 11/24/22 01/28/23 Keira Frye, [facility] [place] [place] [address] Pharmacist Pharmacist 12/04/22 09/29/23 [facility] [place] [address] Assigned MTM Pharmacist 12/13/22 Colby Khan MD [address] [place] [address] 616025 Neurology 01/02/23 Candi Stinson DO [address] [place] [address] and Surgery [place], [place] [id number] Assigned Palliative Care Provider 01/10/23 Justine Hayes, NRP, CP Community Employment Law Attorney 03/25/23 07/23/23 [place] [address] [place] [address] Assigned PCP 03/28/23 Melissa Boo, W Community Health Worker Primary Care - CC 04/30/23 Hallie Berman, RN Personal Advocate & Liaison (PAL) Family Medicine 11/24/23 Nancy Shaw PA-C 717 [place], [place] [address] Physician Asp Net Programmer Pulmonary Disease 01/05/24 Arpan Carolina MD 420 [facility] 276 [place], [place] [address] Critical Care 01/05/24 Prema Mendez, [facility] 2450 [facility] [address] [place] [address] Assigned Behavioral Health Provider 02/23/24 03/23/24 documented as of this encounter
--- OUTSIDE RECORDS SUMMARY | 2024-04-13 23:59 | XMS_ITS | Encounter Summary ---
Author Organization [place] Address [address] [facility] [place] [address] Care Team Providers Care Solar Applications Development Engineer Name Role Phone Tana Gomez MD Primary Care Prov ider Tana Gomez MD Unavailable + Lenore Ramirez OFFICE CLERK ASSISTANT Unavailable Lenore Ramirez OFFICE CLERK ASSISTANT Unavailable [phone] Aston Zamora RN Unavailable Unavailable Arpan Morales MD Unavailable Fidelia Seo Prema DO Unavailable [phone] Shellie Thompson Unavailable Unavailable Suzanne Ma DO Unavailable [phone] Cory Lama MD Unavailable [phone] Tabatha Agrawal RN Unavailable [phone] Suzanne Ma DO Unavailable [phone] Cory Lama MD Unavailable [phone] Latanya Silva MD Primary Care Provider Veronica Street RN Unavailable Unavailable Lenore Ramirez OFFICE CLERK ASSISTANT Unavailable [phone] Lenore Ramirez OFFICE CLERK ASSISTANT Unavailable Gibran Ramírez MD Unavailable Justine Hayes NRP, CP Unavailable Keira Frye [facility] Unavailable [phone] Mery Fryecarolyn Singleton [facility] Unavailable [phone] Colby Khan MD Unavailable [phone] Shantell Candi Unavailable Justine Hayes NRP, CP Unavailable Latanya Silva MD Unavailable [phone] Melissa Boo CHW Unavailable Hallie Berman RN Unavailable Unavailable Nancy Shaw PA-C Unavailable [phone] Arpan Carolina MD Unavailable Prema Mendez [facility] Unavailable [phone] Encounter Details Date Type Department Care Team (Late st Contact Info) Description 07/07/2019 Documentation Only [address] [address] Tana Gomez MD PRIMARY ENT [address] [facility] [address] [place] [address] Social History Tobacco Use Types [...] Description 04/27/2024 11:00 AM CDT Oncology Visit [facility] [address] [facility] [place] [place] [address] [place] [address] [place] [address] Cherie Geiger PA-C 909 [place] [address] documented as of this encounter Visit Diagnoses Not on filedocumented in this encounter Additional Health Concerns Infection Onset Date Last Indicated Resolved Time Rule Out COVID-19 06/19/2022 06/19/2022 06/19/2022 1:43 PM CDT Assessment Noted Time PHQ-9 Depression Total Score: 8 05/04/20 19 8:24 AM CDT documented as of this encounter Care Teams Solar Applications Development Engineer Relationship Specialty [place] [address] [place] [address] PCP - General Family Practice 03/08/19 06/11/22 [place] [address] [place] [address] PCP - General Family Medicine 06/12/22 [place] [address] [place] [address] Assigned PCP 05/08/19 03/27/23 Lenore Ramirez LSW Clinic Eyeletter Primary Care - CC 06/29/19 Lenore Ramirez LSW Lead Eyeletter Primary Care - CC 08/12/19 Aston Zamora, MARY Personal Advocate & Liaison (PAL) Family Practice 09/15/19 10/01/21 Arpan Morales MD [address] [place] [address] Assigned Heart and Vascular Provider 08/24/20 02/09/21 Fidelia Seo DO [address] [place], [place] [address] Assigned Heart and Vascular Provider 05/05/21 10/31/22 Shellie Thompson Personal Advocate & Liaison (PAL) Family Medicine 12/05/21 06/25/22 Suzanne Ma DO Hematology & Oncology 05/07/22 Cory Lama MD [address] [place] [address] 904525 Critical Care 05/07/22 Tabatha Agrawal RN Specialty Eyeletter Hematology & Oncology 05/13/22 [place] [address] [place] [address] Assigned Cancer Care Provider 05/17/22 Cory Lama MD [address] [place] [address] 836415 Assigned Pulmonology Provider 05/24/22 11/13/[address], MARY Personal Advocate & Liaison (PAL) Family Medicine 07/08/22 11/23/23 Lenore Ramirez, OFFICE CLERK ASSISTANT Clinic [facility] Primary Care - CC 09/10/22 Lenore Ramirez, [facility] Clinic Eyeletter Primary Care - CC 09/17/22 Gibran Ramírez MD [address] [place] [address] Assigned Palliative Care Provider 09/20/22 01/09/23 Justine Hayes NRP, CP Community Manager Commercial Sales 11/24/22 01/28/23 Keira Frye, [facility] [address] [facility] [place] [address] Pharmacist Pharmacist 12/04/22 09/29/23 Keira Frye, [facility] [address] [facility] [address] Assigned MTM Pharmacist 12/13/22 Colby Khan MD 420 [place] [address] Neurology 01/02/23 Candi Stinson DO 909 [place] [address] Assigned Palliative Care Provider 01/10/23 Justine Hayes NRP, CP Community Manager Commercial Sales 03/25/23 07/23/23 [place] [address] [place] [address] Assigned PCP 03/28/23 Melissa Boo, [facility] Community Health Worker Primary Care - CC 04/30/23 Hallie Berman, RN Personal Advocate & Liaison (PAL) Family Medicine 11/24/23 Nancy Shaw PA-C 717 [place], [place] [address] Physician Associate Genetics Professor Pulmonary Disease 01/05/24 Arpan Carolina MD 420 [facility] 276 [place] [address] Critical Care 01/05/24 Prema Mnedez, [facility] 2450 [facility] [address] [place] [address] Assigned Behavioral Health Provider 02/23/24 03/23/24 documented as of this encounter
--- OUTSIDE RECORDS SUMMARY | 2024-04-13 23:59 | XMS_ITS | Encounter Summary ---
Author Organization [place] Address [address] [facility] [place] [address] Care Team Providers Care Aromatherapist Name Role Phone Tana Gomez MD Primary Care Prov ider Tana Gomez MD Unavailable + Lenore Ramirez TOXICS PROGRAM OFFICER Unavailable Lenore Ramirez TOXICS PROGRAM OFFICER Unavailable [phone] Aston Zamora RN Unavailable Unavailable Arpan Morales MD Unavailable Fidelia Seo Prema DO Unavailable [phone] Shellie Thompson Unavailable Unavailable Suzanne Ma DO Unavailable [phone] Cory Lama MD Unavailable [phone] Tabatha Agrawal RN Unavailable [phone] Suzanne Ma DO Unavailable [phone] Cory Lama MD Unavailable [phone] Latanya Silva MD Primary Care Provider Veronica Street RN Unavailable Unavailable Lenore Ramirez TOXICS PROGRAM OFFICER Unavailable [phone] Lenore Ramirez TOXICS PROGRAM OFFICER Unavailable Gibran Ramírez MD Unavailable [phone] Justine Hayes NRP, CP Unavailable [phone] Keira Frye Mani [facility] Unavailable Mery Fryecarolyn Singleton [facility] Unavailable Colby Khan MD Unavailable [phone] Shantell Candi Unavailable Justine Hayes NRP, CP Unavailable Latanya Silva MD Unavailable [phone] Melissa Boo CHW Unavailable Hallie Berman RN Unavailable Unavailable Nancy Shaw PA-C Unavailable [phone] Arpan Carolina MD Unavailable [phone] Prema Mendez [facility] Unavailable [phone] Reason for Visit * Reason Comments Home Care/Hospice Encounter Details Date Type Department Care Team (Late st Contact Info) Description 07/01/2019 Documentation Only [facility] [address] [place] [address] Tana Gomez MD PRIMARY ENT [address] [facility] [address] [place], [place] [phone] Home Care/Hospice Social History Tobacco Use Types [...] 11:00 AM CDT Oncology Visit [facility] [address] [place] [address] [facility] [place] [address] [place] [address] [place] [address] Cherie Geiger PA-C 909 [place] [address] documented as of this encounter Visit Diagnoses Not on filedocumented in this encounter Additional Health Concerns Infection Onset Date Last Indicated Resolved Time Rule Out COVID-19 06/19/2022 06/19/2022 06/19/2022 1:43 PM CDT Assessment Noted Time PHQ-9 Depression Total Score: 8 05/04/20 19 8:24 AM CDT documented as of this encounter Care Teams Aromatherapist Relationship Specialty [place] [address] [place] [address] PCP - General Family Practice 03/08/19 06/11/22 [place] [address] [place] [address] PCP - General Family Medicine 06/12/22 [place] [address] [place] [address] Assigned PCP 05/08/19 03/27/23 Lenore Ramirez LSW Clinic Airport Driver Primary Care - CC 06/29/19 Lenore Ramirez LSW Lead Airport Driver Primary Care - CC 08/12/19 Aston Zamora, RN Personal Advocate & Liaison (PAL) Family Practice 09/15/19 10/01/21 Arpan Morales MD [address] [place] [address] Assigned Heart and Vascular Provider 08/24/20 02/09/21 Fidelia Seo DO [address] [place] [address] Assigned Heart and Vascular Provider 05/05/21 10/31/22 Shellie Thompson Personal Advocate & Liaison (PAL) Family Medicine 12/05/21 06/25/22 Suzanne Ma DO Hematology & Oncology 05/07/22 Cory Lama MD [address] [place] [address] 709965 Critical Care 05/07/22 Tabatha Agrawal RN Specialty Airport Driver Hematology & Oncology 05/13/22 [place] [address] [place], [place] [address] Assigned Cancer Care Provider 05/17/22 Cory Lama MD [address] [place] [address] 282415 Assigned Pulmonology Provider 05/24/22 11/13/[address], MARY Personal Advocate & Liaison (PAL) Family Medicine 07/08/22 11/23/23 Lenore Ramirez, [facility] Clinic Airport Driver Primary Care - CC 09/10/22 Lenore Ramirez, [facility] Clinic Airport Driver Primary Care - CC 09/17/22 Gibran Ramí[place] [address] [place] [address] [id number] Assigned Palliative Care Provider 09/20/22 01/09/23 Justine Hayes NRP, CP Community Air Tucker 11/24/22 01/28/23 Keira Frye, [facility] [address] [place] [address] Pharmacist Pharmacist 12/04/22 09/29/23 Keira Frye, [facility] [address] [place] [address] Assigned MTM Pharmacist 12/13/22 Colby Khan MD [address] [place] [address] Neurology 01/02/23 Candi Stinson DO 909 [place] [address] Assigned Palliative Care Provider 01/10/23 Justine Hayes NRP, CP Community Air Tucker 03/25/23 07/23/23 [place] [address] [place] [address] Assigned PCP 03/28/23 Melissa Boo, [facility] Community Health Worker Primary Care - CC 04/30/23 Hallie Berman, RN Personal Advocate & Liaison (PAL) Family Medicine 11/24/23 Nancy Shaw, PAArpitaC 717 [place], [place] 232[address] Physician Wire Roller Pulmonary Disease 01/05/24 Arpan Carolina MD 420 [facility] 276 [place], [place] 0[address] Critical Care 01/05/24 Prema Mendez, POLE PEELER 2450 [facility] [address] [place], [place] [address] Assigned Behavioral Health Provider 02/23/24 03/23/24 documented as of this encounter
--- OUTSIDE RECORDS SUMMARY | 2024-04-13 23:59 | XMS_ITS | Encounter Summary ---
Author Organization [place] Address [address] [place] [address] Care Team Providers Care Brake Tester Name Role Phone Theo, Zee Gardiner APRN, CNP Primary Care Provi alessia Unavailable Care, [facility] Unavailable Loreta Corona MD Primary Care Provider Theo, Zee Gardiner APRN, CNP Primary Care Provi alessia Unavailable Theo, Zee Gardiner APRN GRINDER OPERATOR EXTERNAL TOOL Unavailable Un available Theo, Zee Gardiner APRN GRINDER OPERATOR EXTERNAL TOOL Unavailable Un available Tana Gomez MD Primary Care Prov ider Tana Gomez MD Unavailable + Lenore Ramirez RETAIL WIRELESS SALES CONSULTANT Unavailable [phone] Lenore Ramirez RETAIL WIRELESS SALES CONSULTANT Unavailable [phone] Aston Zamora RN Unavailable Unavailable Arpan Morales MD Unavailable [phone] Fidelia Seo DO Unavailable [phone] Shellie Thompson Unavailable Unavailable Suzanne Ma DO Unavailable [phone] Cory Lama MD Unavailable [phone] Tabatha Agrawal RN Unavailable [phone] Suzanne Ma Irina DO Unavailable [phone] Cory Lama MD Unavailable Latanya Silva MD Primary Care Provider Veronica Street RN Unavailable Unavailable Lenore Ramirez RETAIL WIRELESS SALES CONSULTANT Unavailable [phone] Lenore Ramirez RETAIL WIRELESS SALES CONSULTANT Unavailable [phone] Gibran Ramírez MD Unavailable Justine Hayes NRP, CP Unavailable Keira Frye [facility] Unavailable Keira Frye [facility] Unavailable Colby Khan MD Unavailable [phone] Candi Stinson DO Unavailable [phone] Justine Hayes NRP, CP Unavailable Latanya Silva MD Unavailable [phone] Melissa Boo CHW Unavailable Hallie Berman RN Unavailable Unavailable Nancy Shaw PA-C Unavailable [phone] Arpan Carolina MD Unavailable Prema Mendez [facility] Unavailable Reason for Visit * Reason Onset Date Comments Procedure 12/23/2016 Injection to be determined by News Commentator, facet joint injection - cervical, perhaps additional injections TBD by specialist Encounter Details Date Type Department Care Team (Late st Contact Info) Description 12/23/2016 Telephone [facility] [address] [address] Pain Management Program, [facility] Procedure (Injection to be determined by News Commentator, facet joint injection - cervical, perhaps additional injections TBD by specialist) Social History Tobacco Use Types Packs/Day Years Used Date Smoking Tobacco: Former Cigarettes 1 20 1 - 08/10/2010 Smokeless Tobacco: Never Comments:1/2 - 1 pack QD Alcohol Use Standard Drinks/Week Comments No 0 (1 standard drink = 0.6 oz pur e alcohol) Sex and Gender Information Value Date Recorded Sex Assigned at Not on file Gender Identity Not on file Sexual Orientation Not on file documented as of this encounter Miscellaneous Notes * Telephone Encounter - Harris Sullivan - 12/23/2016 2:04 PM CST Called patient to schedule Injection to be determined by News Commentator, facet joint injection - cervical, perhaps additional injections TBD by specialist - LM AGENT documented in this encounter Plan of Treatment Upcoming Encounters Date Type Department Care Team (Late st Contact Info) Description 04/27/2024 11:00 AM CDT [facility] [address] [facility] [place] [address] Suzanne Ma, [address] [place] [address] Cherie Geiger, PAAriel [address] [place] [address] documented as of this encounter Visit Diagnoses Not on filedocumented in this encounter Additional Health Concerns Infection Onset Date Last Indicated Resolved Time Rule Out COVID-19 06/19/2022 06/19/2022 06/19/2022 1:43 PM CDT Assessment Noted Time PHQ-9 Depression Total Score: 9 08/05/20 16 7:17 AM CDT documented as of this encounter Care Teams Brake Tester Relationship Specialty Start Date End Date Zee Venegas APRN GRINDER OPERATOR EXTERNAL TOOL PCP - General Nurse Practitioner 04/23/15 04/22/18 Loreta Corona MD PCP - General Family Practice 04/23/18 05/18/18 Zee Venegas APRN GRINDER OPERATOR EXTERNAL TOOL PCP - General Nurse Practitioner 05/19/18 03/07/19 Zee Venegas APRN GRINDER OPERATOR EXTERNAL TOOL PCP - Assigned PCP 03/04/15 01/04/19 [place] [address] [place] [address] PCP - General Family Practice 03/08/19 06/11/22 [place] [address] [place], [place] [id number] PCP - General Family Medicine 06/12/22 [facility] ([place] 04/19/18 05/24/18 Zee Venegas APRN GRINDER OPERATOR EXTERNAL TOOL Assigned PCP 03/04/15 05/07/19 [place] [address] [place] [address] Assigned PCP 05/08/19 03/27/23 eLnore Ramirez, RETAIL WIRELESS SALES CONSULTANT Clinic Unit Technician Primary Care - CC 06/29/19 08/03/19 Lenore Ramirez LSW Lead Unit Technician Primary Care - CC 08/12/19 Aston Zamora, RN Personal Advocate & Liaison (PAL) Family Practice 09/15/19 10/01/21 Arpan Morales MD [id number] [place] [address] Assigned Heart and Vascular Provider 08/24/20 02/09/21 Fidelia Seo PremaDO [address] [place] [address] Assigned Heart and Vascular Provider 05/05/21 10/31/22 Shellie Thompson Personal Advocate & Liaison (PAL) Family Medicine 12/05/21 06/25/22 Suzanne Ma DO Hematology & Oncology 05/07/22 Cory Lama MD [address] [place] [address] [id number] Critical Care 05/07/22 Tabatha Agrawal RN Specialty Unit Technician Hematology & Oncology 05/13/22 [place] [address] [id number] Assigned Cancer Care Provider 05/17/22 Cory Lama MD [address] [place] [id number] Assigned Pulmonology Provider 05/24/22 11/13/[address], MARY Personal Advocate & Liaison (PAL) Family Medicine 07/08/22 11/23/23 Lenore Ramirez LSW Clinic Unit Technician Primary Care - CC 09/10/22 09/16/22 Lenore Ramirez LSW Clinic Unit Technician Primary Care - CC 09/17/22 09/19/22 Gibran Ramírez MD [address] [place] [address] Assigned Palliative Care Provider 09/20/22 01/09/23 Justine Hayes NRP, CP Community Flatwork Presser 11/24/22 01/28/23 Keira Frye, [facility] [address] [facility] [place] [place] [address] Pharmacist Pharmacist 12/04/22 09/29/23 Keira Frye, [facility] [address] [id number] Assigned MTM Pharmacist 12/13/22 Colby Khan MD [address] [place] [address] Neurology 01/02/23 Candi Stinson DO 909 [place], [place] [address]254 Assigned Palliative Care Provider 01/10/23 Justine Hayes NRP, CP Community Flatwork Presser 03/25/23 07/23/23 [place] [address] [place] [address] Assigned PCP 03/28/23 Melissa Boo, CHW Community Health Worker Primary Care - CC 04/30/23 04/30/23 Hallie Berman RN Personal Advocate & Liaison (PAL) Family Medicine 11/24/23 Nancy Shaw PA-C 717 [place] [address] Physician Cook Mayonnaise Pulmonary Disease 01/05/24 Arpan Carolina MD [address] [facility] [address] [place] [address] Critical Care 01/05/24 Prema Mendez, [facility] [address] [place] [address] Assigned Behavioral Health Provider 02/23/24 03/23/24 documented as of this encounter
--- OUTSIDE RECORDS SUMMARY | 2024-04-13 23:59 | XMS_ITS | Encounter Summary ---
Author Organization [place] Address [facility] [place] [address] Care Team Providers Care Professor Of Communication Arts Name Role Phone Theo, Zee Gardiner FLOW MATCH SOFA CUTTER PILE DRIVER OPERATOR BARGE MOUNTED Primary Care Provi alessia Unavailable Theo, Zee Gardiner APRN PILE DRIVER OPERATOR BARGE MOUNTED Unavailable Un available Theo, Zee Gardiner APRN PILE DRIVER OPERATOR BARGE MOUNTED Unavailable Un available Tana Gomez MD Primary Care Prov ider Tana Gomez MD Unavailable + Lenore Ramirez SKIP LOADER Unavailable Lenore Ramirez SKIP LOADER Unavailable Aston Zamora RN Unavailable Unavailable Arpan Morales MD Unavailable Fidelia Seo DO Unavailable [phone] Shellie Thompson Unavailable Unavailable Suzanne Ma DO Unavailable [phone] Cory Lama MD Unavailable Tabatha Agrawal RN Unavailable [phone] Suzanne Ma DO Unavailable [phone] Cory Lama MD Unavailable Latanya Silva MD Primary Care Provider Veronica Street RN Unavailable Unavailable Lenore Ramirez SKIP LOADER Unavailable [phone] Lenore Ramirez SKIP LOADER Unavailable [phone] Gibran Ramírez MD Unavailable [phone] Justine Hayes NRP, CP Unavailable Keira Frye [facility] Unavailable Keira Frye [facility] Unavailable Colby Khan MD Unavailable Candi Stinson DO Unavailable Justine Hayes NRP, CP Unavailable Latanya Silva MD Unavailable Melissa Boo CHW Unavailable Hallie Berman RN Unavailable Unavailable Nancy Shaw PA-C Unavailable Arpan Carolina MD Unavailable [phone] Prema Mendez VIBRATION TECHNICIAN Unavailable Reason for Visit * Reason Onset Date Comments Patient Request 09/03/2018 Encounter Details Date Type Department Care Team (Late st Contact Info) Description 09/03/2018 Telephone [facility] [place] [address] [facility] [address] [place] [address] Ishmael Armas MD [facility] [address] [place] [address] Patient Request Social History Tobacco Use Types Packs/Day Years [...] * Telephone Encounter - Harris Sullivan - 09/03/2018 12:06 PM CDT Natalie called and asked me to pass along that her DEXA didn't go well and she is now being prescribed Alendronate. Please call patient when you have a chance to discuss. Thank you! documented in this encounter Plan of Treatment Upcoming Encounters Date Type Department Care Team (Late st Contact Info) Description 04/27/2024 11:00 AM CDT Oncology Visit [facility] [address] [place] [address] [facility] [place] [address] [place] [address] [place] [address] Cherie Geiger PA-C 909 [place], [place] [address] documented as of this encounter Visit Diagnoses Not on filedocumented in this encounter Additional Health Concerns Infection Onset Date Last Indicated Resolved Time Rule Out COVID-19 06/19/2022 06/19/2022 06/19/2022 1:43 PM CDT Assessment Noted Time PHQ-9 Depression Total Score: 16 05/28/ 018 7:09 AM CDT documented as of this encounter Care Teams Professor Of Communication Arts Relationship Specialty Start Date End Date Zee Venegas APRN PILE DRIVER OPERATOR BARGE MOUNTED PCP - General Nurse Practitioner 05/19/18 03/07/19 Zee Venegas APRN PILE DRIVER OPERATOR BARGE MOUNTED PCP - Assigned PCP 03/04/15 01/04/19 [place] [address] [place], [place] [id number] PCP - General Family Practice 03/08/19 06/11/22 [place] [address] [place] [address] PCP - General Family Medicine 06/12/22 Zee Venegas APRN [facility] Assigned PCP 03/04/15 05/07/19 [place] [address] [place] [address] Assigned PCP 05/08/19 03/27/23 Lenore Ramirez, [facility] Lean Manufacturing Engineer Primary Care - CC 06/29/19 08/03/19 Lenore Ramirez, [facility] Lead Lean Manufacturing Engineer Primary Care - CC 08/12/19 Aston Zamora, MARY Personal Advocate & Liaison (PAL) Family Practice 09/15/19 10/01/21 Arpan Morales MD [address] [place] [address] Assigned Heart and Vascular Provider 08/24/20 02/09/21 Fidelia Seo DO [address] [place] [address] Assigned Heart and Vascular Provider 05/05/21 10/31/22 Shellie Thompson Personal Advocate & Liaison (PAL) Family Medicine 12/05/21 06/25/22 Suzanne Ma DO Hematology & Oncology 05/07/22 Cory Lama MD [address] [place] [address] Critical Care 05/07/22 Tabatha Agrawal, MARY Specialty Lean Manufacturing Engineer Hematology & Oncology 05/13/22 [place] [address] [place] [address] Assigned Cancer Care Provider 05/17/22 Cory Lama MD [address] [place] [address] Assigned Pulmonology Provider 05/24/22 11/13/[address], MARY Personal Advocate & Liaison (PAL) Family Medicine 07/08/22 11/23/23 Lenore Ramirez, [facility] Lean Manufacturing Engineer Primary Care - CC 09/10/22 09/16/22 Lenore Ramirez, [facility] Lean Manufacturing Engineer Primary Care - CC 09/17/22 09/19/22 Gibran Ramírez MD [address] [place], [place] [id number] Assigned Palliative Care Provider 09/20/22 01/09/23 Justine Hayes, NRP, CP Community Information Management Specialist 11/24/22 01/28/23 Keira Frye, [facility] [address] [id number] Pharmacist Pharmacist 12/04/22 09/29/23 Keira Frye [facility] [address] [place] [address] [address] Assigned MTM Pharmacist 12/13/22 Colby Khan MD [address] [place] [address] Neurology 01/02/23 Candi Stinson DO 909 [place] [address] Assigned Palliative Care Provider 01/10/23 Justine Hayes, NRP, CP Community Information Management Specialist 03/25/23 07/23/23 [place] [address] [place] [address] Assigned PCP 03/28/23 Melissa Boo, [facility] Community Health Worker Primary Care - CC 04/30/23 04/30/23 Hallie Berman, RN Personal Advocate & Liaison (PAL) Family Medicine 11/24/23 Nancy Shaw PA-C 7[address] [place] [address] Physician Vacuum Metalizer Operator Pulmonary Disease 01/05/24 Arpan Carolina MD 420 [facility] [address] [place] [address] Critical Care 01/05/24 Prema Mendez, [facility] 24[address] [facility] [address] [place] [address] Assigned Behavioral Health Provider 02/23/24 03/23/24 documented as of this encounter
--- OUTSIDE RECORDS SUMMARY | 2024-04-13 23:59 | XMS_ITS | Encounter Summary ---
Author Organization [place] Address [address] [place] [address] Care Team Providers Care Computer Support Analyst Name Role Phone Tana Gomez MD Primary Care Prov ider Tana Gomez MD Unavailable + Lenore Ramirez FERTILIZER MIXER Unavailable [phone] Aston Zamora RN Unavailable Unavailable Arpan Morales MD Unavailable Fidelia Seo DO Unavailable [phone] Shellie Thompson Unavailable Unavailable Suzanne Ma DO Unavailable [phone] Cory Lama MD Unavailable [phone] Tabatha Agrawal RN Unavailable [phone] Suzanne Ma DO Unavailable [phone] Cory Lama MD Unavailable [phone] Latanya Silva MD Primary Care Provider [phone] RN Unavailable Unavailable Lenore Ramirez FERTILIZER MIXER Unavailable [phone] Lenore Ramirez FERTILIZER MIXER Unavailable [phone] Gibran Ramírez MD Unavailable Justine Hayes NRP, CP Unavailable Keira Frye Mani [facility] Unavailable Keira Frye Mani [facility] Unavailable [phone] Colby Khan MD Unavailable [phone] [facility] Unavailable Justine Hayes NRP, CP Unavailable Latanya Silva MD Unavailable [phone] Melissa Boo [facility] Unavailable Hallie Berman RN Unavailable Unavailable Nancy Shaw PA-C Unavailable [phone] Arpan Carolina MD Unavailable Prema Mendez [facility] Unavailable [phone] Reason for Visit * Reason Comments Medication Refill Discontinued meds Ce octavia & naproxen Encounter Details Date Type Department Care Team (Late st Contact Info) Description 08/13/[address] [address] Zee Venegas, [employer] PRIVATE BRANCH EXCHANGE SERVICE ADVISOR Medication Refill (Discontinued meds Celexa & naproxen) Social History Tobacco Use Types Packs/Day Years [...] Telephone Encounter - María Anderson RN - 08/17/2019 8:31 AM CDT PCP: Please review. The Pt just saw you on 08/12/19. Both meds not active on medication list. Just want to confirm with you these are discontinued. PHQ-9 was quite elevated at last visit. María Anderson RN -- [facility] * Telephone Encounter - Shi Hernandez - 08/13/2019 8:40 AM CDT Requested Prescriptions Pending Prescriptions Disp Refills ??? citalopram (CELEXA) 40 MG tablet [Pharmacy Med Name: CITALOPRAM 40MG TABLETS] 90 tablet 0 Sig: TAKE 1 TABLET BY MOUTH DAILY citalopram (CELEXA) 20 MG tablet (Discontinued) Last Written Prescription Date: 12/17/17-12/17/17 Last Fill Quantity: 45 tablet, # refills: 1 Last office visit: 08/12/2019 with prescribing provider: Mac lassiter Future Office Visit: Next 5 appointments (look out 90 days) Sep 16, 2019 10:40 AM HISTOPATH TECH Office Visit with Tana Gomez MD, CR EXAM ROOM [address] [facility] ([facility]) [address] [place] [phone] SSRIs Protocol Failed - 08/13/2019 3:26 AM Failed - PHQ-9 score less than 5 in past 6 months Please review last PHQ-9 score. PHQ-9 SCORE 01/27/2019 05/04/2019 08/12/2019 PHQ-9 Total Score - - - PHQ-9 Total Score MyChart 3 (Minimal depression) - - PHQ-9 Total Score 3 8 14 NORA-7 SCORE 01/27/2019 05/04/2019 08/12/2019 Total Score - - - Total Score 9 (mild anxiety) - - Total Score 9 9 7 Failed - Medication is active on med list Passed - Patient is age 18 or older Passed - No active on record Passed - No positive test in last 12 months Passed - Recent (6 mo) or future (30 days) visit within the authorizing provider's specialty Patient had office visit in the last 6 months or has a visit in the next 30 days with authorizing provider or within the authorizing provider's specialty. See Patient Info tab in inbasket, or Choose Columns in Meds & Orders section of the refill encounter. ??? naproxen (NAPROSYN) 500 MG tablet [Pharmacy Med Name: NAPROXEN 500MG TABLETS] 60 tablet 0 Sig: TAKE 1 TABLET(500 MG) BY MOUTH TWICE DAILY WITH MEALS naproxen (NAPROSYN) 500 MG tablet (Discontinued) Last Written Prescription Date: 11/01/18-01/15/19 Last Fill Quantity: 60 tablet, # refills: 0 Last office visit: 08/12/2019 with prescribing provider: Mac Lassiter Future Office Visit: Next 5 appointments (look out 90 days) Sep 16, 2019 10:40 AM HISTOPATH TECH Office Visit with Tana Gomez MD, CR EXAM ROOM [address] [facility] ([facility]) [address] [place] [phone] NSAID Medications Failed - 08/13/2019 3:26 AM Failed - Normal AST on file in past 12 months Recent Labs Lab Test 03/13/17 1151 AST 13 Failed - Patient is age 6-64 years Failed - Normal CBC on file in past 12 months Recent Labs Lab Test 06/24/19 0609 WBC 8.3 RBC 3.48* HGB 11.1* HCT 31.7* PLT 364 Failed - Medication is active on med list Passed - Blood pressure under 140/90 in past 12 months BP Readings from Last 3 Encounters: 08/12/19 120/69 08/11/19 102/56 07/12/19 112/62 Passed - Normal ALT on file in [...] section of the refill encounter. Passed - No active on record Passed - Normal serum creatinine on file in past 12 months Recent Labs Lab Test 06/24/19 0609 09/13/12 0127 CR 0.67 < > -- CREAT -- -- 0.7 < > = values in this interval not displayed. 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, recurrent episode, mild Other chronic pain documented in this encounter Additional Health Concerns Infection Onset Date Last Indicated Resolved Time Rule Out COVID-19 06/19/2022 06/19/2022 06/19/2022 1:43 PM CDT Assessment Noted Time PHQ-9 Depression Total Score: 14 019 10:15 AM CDT documented as of this encounter Care Teams Computer Support Analyst Relationship Specialty [place] [address] [place] [address] PCP - General Family Practice 03/08/19 06/11/22 [place] [address] [place] [address] PCP - General Family Medicine 06/12/22 [place] [address] [place] [address] Assigned PCP 05/08/19 03/27/23 Lenore Ramirez, [facility] Lead Acid Filler Primary Care - CC 08/12/19 Aston Zamora, RN Personal Advocate & Liaison (PAL) Family Practice 09/15/19 10/01/21 Arpan Morales MD [address] [place], [place] [address] Assigned Heart and Vascular Provider 08/24/20 02/09/21 Fidelia Seo DO [address] [place], [place] [address] Assigned Heart and Vascular Provider 05/05/21 10/31/22 Shellie Thompson Personal Advocate & Liaison (PAL) Family Medicine 12/05/21 06/25/22 Suzanne Ma DO Hematology & Oncology 05/07/22 Cory Lama MD [address] [place] [address] Critical Care 05/07/22 Tabatha Agrawal, MARY Specialty Acid Filler Hematology & Oncology 05/13/22 [place] [address] [place] [address] Assigned Cancer Care Provider 05/17/22 Cory Lama MD [address] [place] [address]265 Assigned Pulmonology Provider 05/24/22 11/13/[address], MARY Personal Advocate & Liaison (PAL) Family Medicine 07/08/22 11/23/23 Lenore Ramirez, [facility] Clinic Acid Filler Primary Care - CC 09/10/22 Lenore Ramirez, [facility] Clinic Acid Filler Primary Care - CC 09/17/22 Gibran Ramírez MD [address] [facility] [place] [address] Assigned Palliative Care Provider 09/20/22 01/09/23 Justine Hayes NRP, CP Community Dental Technician Metal 11/24/22 01/28/23 Keira Frye [facility] [address] [place] [address] [address] Pharmacist Pharmacist 12/04/22 09/29/23 Keira Frye, [facility] [address] [place] [address] [address] Assigned MTM Pharmacist 12/13/22 Colby Khan MD [address] [place] [address] Neurology 01/02/23 Candi Stinson DO 909 [place] [address] Assigned Palliative Care Provider 01/10/23 Justine Hayes NRP, CP Community Dental Technician Metal 03/25/23 07/23/23 [place] [address] [place] [address] Assigned PCP 03/28/23 Melissa Boo, W Community Health Worker Primary Care - CC 04/30/23 Hallie Berman, RN Personal Advocate & Liaison (PAL) Family Medicine 11/24/23 Nancy Shaw PA-C 717 [place] [address] Physician School Bus Mechanic Pulmonary Disease 01/05/24 Arpan Carolina MD 420 [facility] [address] [place] [address] Critical Care 01/05/24 Prema Mendez, [facility] 24[address] [facility] [address] [place] [address] Assigned Behavioral Health Provider 02/23/24 03/23/24 documented as of this encounter
--- OUTSIDE RECORDS SUMMARY | 2024-04-13 23:59 | XMS_ITS | Encounter Summary ---
Author Organization [place] Address [address] [facility] [place] [place] [address] Care Team Providers Care Rodeo Performer Name Role Phone Tana Gomez MD Primary Care Prov ider aTna Gomez MD Unavailable + Lenore Ramirez OFFICE SUPPORT ASSOCIATE Unavailable [phone] Aston Zamora RN Unavailable Unavailable Arpan Morales MD Unavailable Fidelia Seo DO Unavailable [phone] Shellie Thompson Unavailable Unavailable Suzanne Ma DO Unavailable [phone] Cory Lama MD Unavailable [phone] Tabatha Agrawal RN Unavailable [phone] Suzanne Ma DO Unavailable [phone] Cory Lama MD Unavailable [phone] Latanya Silva MD Primary Care Provider [phone] RN Unavailable Unavailable Lenore Ramirez OFFICE SUPPORT ASSOCIATE Unavailable [phone] Lenore Ramirez OFFICE SUPPORT ASSOCIATE Unavailable [phone] Gibran Ramírez MD Unavailable Justine Hayes NRP, CP Unavailable Uday Keira Aguirre Mani [facility] Unavailable UdayAllisonKeira Timothy Mani [facility] Unavailable [phone] Colby Khan MD Unavailable [phone] ShantellCandi Unavailable Justine Hayes NRP, CP Unavailable Latanya Silva MD Unavailable [phone] Melissa Boo [facility] Unavailable [phone] Hallie Berman RN Unavailable Unavailable Nancy Shaw PA-C Unavailable Arpan Carolina MD Unavailable Prema Mendez [facility] Unavailable Encounter Details Date Type Department Care Team (Late st Contact Info) Description 08/05/2019 Documentation Only [address] [address] Tana Gomez MD PRIMARY ENT [address] [facility] [address] [place] [address] Social History Tobacco Use Types [...] Telephone Encounter - Tana Gomez MD - 08/05/2019 10:31 AM CDT I approve of requested home care orders. Tana Gomez MD documented in this encounter Plan of Treatment Upcoming Encounters Date Type Department Care Team (Late st Contact Info) Description 04/27/2024 11:00 AM CDT Oncology Visit [facility] [address] [facility] [place] [address] [place] [address] [place] [address] Cherie Geiger PA-C [address] [place] [address] documented as of this encounter Visit Diagnoses Not on filedocumented in this encounter Additional Health Concerns Infection Onset Date Last Indicated Resolved Time Rule Out COVID-19 06/19/2022 06/19/2022 06/19/2022 1:43 PM CDT Assessment Noted Time PHQ-9 Depression Total Score: 8 05/04/20 19 8:24 AM CDT documented as of this encounter Care Teams Rodeo Performer Relationship Specialty [place] [address] [place] [address] PCP - General Family Practice 03/08/19 06/11/22 [place] [address] [place] [address] PCP - General Family Medicine 06/12/22 [place] [address] [place] [address] Assigned PCP 05/08/19 03/27/23 Lenore Ramirez, [facility] Lead Drug Clerk Primary Care - CC 08/12/19 Aston Zamora, RN Personal Advocate & Liaison (PAL) Family Practice 09/15/19 10/01/21 Arpan Morales MD [address] [facility] [place] [address] Assigned Heart and Vascular Provider 08/24/20 02/09/21 Fidelia Seo DO [address] [place] [address] Assigned Heart and Vascular Provider 05/05/21 10/31/22 Shellie Thompson Personal Advocate & Liaison (PAL) Family Medicine 12/05/21 06/25/22 Suzanne Ma DO Hematology & Oncology 05/07/22 Cory Lama MD [address] [place] [address] 013755 Critical Care 05/07/22 Tabatha Agrawal, RN Specialty Drug Clerk Hematology & Oncology 05/13/22 [place] [address] [place], [place] [address] Assigned Cancer Care Provider 05/17/22 Cory Lama MD [address] [place] [address] 858295 Assigned Pulmonology Provider 05/24/22 11/13/[address], MARY Personal Advocate & Liaison (PAL) Family Medicine 07/08/22 11/23/23 Lenore Ramirez, [facility] Clinic Drug Clerk Primary Care - CC 09/10/22 Lenore Ramirez, [facility] Clinic Drug Clerk Primary Care - CC 09/17/22 Gibran Ramírez MD [address] [facility] [place] [address] Assigned Palliative Care Provider 09/20/22 01/09/23 Justine Hayes NRP, CP Community Tin Assorter 11/24/22 01/28/23 Keira Frye, [facility] [address] [id number] Pharmacist Pharmacist 12/04/22 09/29/23 Keira Frye, [facility] [address] [place] [address] Assigned MTM Pharmacist 12/13/22 Colby Khan MD [address] [place] [address] 624305 Neurology 01/02/23 Candi Stinson DO 9[address] [place], [place] 319724 Assigned Palliative Care Provider 01/10/23 Justine Hayes NRP, CP Community Tin Assorter 03/25/23 07/23/23 [place] [address] [place] [address] Assigned PCP 03/28/23 Melissa Boo, W Community Health Worker Primary Care - CC 04/30/23 Hallie Berman, RN Personal Advocate & Liaison (PAL) Family Medicine 11/24/23 Nancy Shaw PA-C 7 [place], [place] [address] Physician Credit Risk Management Director Pulmonary Disease 01/05/24 Arpan Carolina MD [address] [place] [address] [address] [place], [place] [address] Critical Care 01/05/24 Prema Mendez, [facility] [address] [place], [place] [address] Assigned Behavioral Health Provider 02/23/24 03/23/24 documented as of this encounter
--- OUTSIDE RECORDS SUMMARY | 2024-04-13 23:59 | XMS_ITS | Encounter Summary ---
Author Organization [place] Address [address] [facility] [place] [address] Care Team Providers Care Mixer Whipped Topping Name Role Phone Tana Gomez MD Primary Care Prov ider Tana Gomez MD Unavailable + Lenore Ramirez RAILWAY HEAD TENDER Unavailable [phone] Aston Zamora RN Unavailable Unavailable Arpan Morales MD Unavailable Fidelia Seo DO Unavailable [phone] Shellie Thompson Unavailable Unavailable Suzanne Ma DO Unavailable [phone] Cory Lama MD Unavailable [phone] Tabatha Agrawal RN Unavailable [phone] Suzanne Ma DO Unavailable [phone] Cory Lama MD Unavailable Latanya Silva MD Primary Care Provider [phone] RN Unavailable Unavailable Lenore Ramirez RAILWAY HEAD TENDER Unavailable [phone] Lenore Ramirez RAILWAY HEAD TENDER Unavailable [phone] Gibran Ramírez MD Unavailable [phone] Justine Hayes NRP, CP Unavailable Uday Keira Aguirre Mani [facility] Unavailable UdayAllisonKeira Timothy Mani [facility] Unavailable Colby Khan MD Unavailable [phone] ShantellCandi Unavailable [phone] Justine Hayes NRP, CP Unavailable Latanya Silva MD Unavailable [phone] Melissa Boo [facility] Unavailable [phone] Hallie Berman RN Unavailable Unavailable Nancy Shaw PA-C Unavailable Arpan Carolina MD Unavailable [phone] Prema Mendez [facility] Unavailable Encounter Details Date Type Department Care Team (Late st Contact Info) Description 08/15/2019 Documentation Only [address] [address] Tana Gomez MD PRIMARY ENT [address] [facility] [address] [place] [address] Social History Tobacco Use Types [...] Telephone Encounter - Tana Gomez MD - 08/16/2019 4:00 PM CDT I approve of requested home care orders. Tana Gomez MD documented in this encounter Plan of Treatment Upcoming Encounters Date Type Department Care Team (Late st Contact Info) Description 04/27/2024 11:00 AM CDT Oncology Visit [facility] [address] [place] [address] [facility] [place] [address] [place] [address] [place] [address] Cherie Geiger PA-C 909 [place] [address] documented as of this encounter Visit Diagnoses Not on filedocumented in this encounter Additional Health Concerns Infection Onset Date Last Indicated Resolved Time Rule Out COVID-19 06/19/2022 06/19/2022 06/19/2022 1:43 PM CDT Assessment Noted Time PHQ-9 Depression Total Score: 14 019 10:15 AM CDT documented as of this encounter Care Teams Mixer Whipped Topping Relationship Specialty [place] [address] [place] [address] PCP - General Family Practice 03/08/19 06/11/22 [place] [address] [place] [address] PCP - General Family Medicine 06/12/22 [place] [address] [place] [address] Assigned PCP 05/08/19 03/27/23 Lenore Ramirez, [facility] Lead Geophysical Laboratory Chief Primary Care - CC 08/12/19 Aston Zamora, RN Personal Advocate & Liaison (PAL) Family Practice 09/15/19 10/01/21 Arpan Morales MD [address] [facility] [place] [address] Assigned Heart and Vascular Provider 08/24/20 02/09/21 Fidelia Seo DO [address] [place] [address] Assigned Heart and Vascular Provider 05/05/21 10/31/22 Shellie Thompson Personal Advocate & Liaison (PAL) Family Medicine 12/05/21 06/25/22 Suzanne Ma DO Hematology & Oncology 05/07/22 Cory Lama MD [address] [place] [address] 690185 Critical Care 05/07/22 Tabatha Agrawal, RN Specialty Geophysical Laboratory Chief Hematology & Oncology 05/13/22 [place] [address] [place] [place], [place] [address] Assigned Cancer Care Provider 05/17/22 Cory Lama MD [address] [place] [address] 938335 Assigned Pulmonology Provider 05/24/22 11/13/[address], MARY Personal Advocate & Liaison (PAL) Family Medicine 07/08/22 11/23/23 Lenore Ramirez, [facility] Clinic Geophysical Laboratory Chief Primary Care - CC 09/10/22 Lenore Ramirez, [facility] Clinic Geophysical Laboratory Chief Primary Care - CC 09/17/22 Gibran Ramírez MD [address] [facility] [place] [address] Assigned Palliative Care Provider 09/20/22 01/09/23 Justine Hayes NRP, CP Community Home Theater Installer 11/24/22 01/28/23 Keira Frye, [facility] [address] [phone] Pharmacist Pharmacist 12/04/22 09/29/23 Keira Frye, [facility] [address] [place] [address] [address] Assigned MTM Pharmacist 12/13/22 Colby Khan MD [address] [place] [address] [id number] Neurology 01/02/23 Candi Stinson DO 909 [place], [place] 26[address]74 Assigned Palliative Care Provider 01/10/23 Justine Hayes NRP, CP Community Home Theater Installer 03/25/23 07/23/23 [place] [address] [place] [address] Assigned PCP 03/28/23 Melissa Boo, W Community Health Worker Primary Care - CC 04/30/23 Hallie Berman, RN Personal Advocate & Liaison (PAL) Family Medicine 11/24/23 Nancy Shaw PA-C 7 [place], [place] [address] Physician Minibus Driver Pulmonary Disease 01/05/24 Arpan Carolina MD [address] [place] [address] 276 [place], [place] 7[address] Critical Care 01/05/24 Prema Mendez, [facility] [address] [place], [place] 2[address] [place], [place] [address] Assigned Behavioral Health Provider 02/23/24 03/23/24 documented as of this encounter
--- OUTSIDE RECORDS SUMMARY | 2024-04-13 23:59 | XMS_ITS | Encounter Summary ---
Author Organization [place] Address [address] [facility] [place] [address] Care Team Providers Care Can Piler Name Role Phone Scottie Hewitt MD Primary Car e Provider Zee Venegas APRN LEAD BURNER SUPERVISOR Primary Care Provi alessia Unavailable Sharmin Trejo PIE BOTTOMER Unavailable Unav[facility]ab [facility] Unavailable Loreta Corona MD Primary Care Provider Zee Venegas APRN, CNP Primary Care Provi alessia Unavailable Theo, Zee Gardiner APRN LEAD BURNER SUPERVISOR Unavailable Un available Theo, Zee Gardiner APRN LEAD BURNER SUPERVISOR Unavailable Un available Tana Gomez MD Primary Care Prov ider Tana Gomez MD Unavailable + Lenore Ramirez MARKETING PROPOSAL SPECIALIST Unavailable [phone] Lenore Ramirez MARKETING PROPOSAL SPECIALIST Unavailable [phone] Aston Zamora RN Unavailable Unavailable Arpan Morales MD Unavailable [phone] Fidelia Seo DO Unavailable [phone] Shellie Thompson Unavailable Unavailable Suzanne Ma DO Unavailable [phone] Cory Lama MD Unavailable Tabatha Agrawal RN Unavailable [phone] Anil Suzanne Arevalo DO Unavailable [phone] Cory Lama MD Unavailable Latanya Silva MD Primary Care Provider Veronica Street RN Unavailable Unavailable Lenore Ramirez MARKETING PROPOSAL SPECIALIST Unavailable Lenore Ramirez MARKETING PROPOSAL SPECIALIST Unavailable Gibran Ramírez MD Unavailable Justine Hayes NRP, CP Unavailable Keira Frye [facility] Unavailable Keira Fry[facility] Unavailable Colby Khan MD Unavailable [phone] Shantell Candi DO Unavailable Justine Hayes NRP, CP Unavailable Latanya Silva MD Unavailable [phone] Melissa Boo [facility] Unavailable [phone] Hallie Berman RN Unavailable Unavailable Nancy Shaw PA-C Unavailable Arpan Carolina MD Unavailable [phone] Prema Mendez COAT AGENT Unavailable [phone] Encounter Details Date Type Department Care Team (Late st Contact Info) Description 07/12/2013 [facility] [address] [place] [phone] Neema Roblero Pain at surgical incision (Primary Dx); Chronic low back pain Social History Tobacco Use Types Packs/Day Years Used Date Smoking Tobacco: Some Days Cigarettes 1 20 Started: 08/10/1990; Last attempted to quit: 08/10/2010 Smokeless Tobacco: Never Comments:1/2 - 1 [...] Description 04/27/2024 11:00 AM CDT Oncology Visit [facility] [address] [facility] [place] [address] Suzanne Ma, [address] [place] [address] Cherie Geiger PA-C 909 [place] [address] documented as of this encounter Visit Diagnoses Diagnosis Pain at surgical incision- Primary Disturbance of skin sensation Chronic low back pain Lumbago documented in this encounter Additional Health Concerns Infection Onset Date Last Indicated Resolved Time Rule Out COVID-19 06/19/2022 06/19/2022 06/19/2022 1:43 PM CDT documented as of this encounter Care Teams Can Piler Relationship Specialty Start Date End Date Scottie Hewitt MD PCP - General Family Practice 01/28/10 04/22/15 Zee Venegas APRN LEAD BURNER SUPERVISOR PCP - General Nurse Practitioner 04/23/15 04/22/18 Loreta Corona MD PCP - General Family Practice 04/23/18 05/18/18 Zee Venegas APRN LEAD BURNER SUPERVISOR PCP - General Nurse Practitioner 05/19/18 03/07/19 Zee Venegas APRN LEAD BURNER SUPERVISOR PCP - Assigned PCP 03/04/15 01/04/19 [place] [address] [place] [address] PCP - General Family Practice 03/08/19 06/11/22 [place] [address] [place] [address] PCP - General Family Medicine 06/12/22 Sharmin Trejo, PIE BOTTOMER Spline Rolling Machine Job Setter 09/11/15 09/02/16 [facility] [place]) [facility] ([facility] ([place]) 04/19/18 05/24/18 Zee Venegas APRN LEAD BURNER SUPERVISOR Assigned PCP 03/04/15 05/07/19 [place] [address] [place] [address] Assigned PCP 05/08/19 03/27/23 Lenore Ramirez, MARKETING PROPOSAL SPECIALIST Clinic Middle School Football Coach Primary Care - CC 06/29/19 08/03/19 Lenore Ramirez MARKETING PROPOSAL SPECIALIST Lead Middle School Football Coach Primary Care - CC 08/12/19 Aston Zamoar, MARY Personal Advocate & Liaison (PAL) Family Practice 09/15/19 10/01/21 Arpan Morales MD [address] [facility] [address] [place] [address] Assigned Heart and Vascular Provider 08/24/20 02/09/21 Harrisanastaciosharri Fidelia Lloyd, DO [address] [place], [place] [address] Assigned Heart and Vascular Provider 05/05/21 10/31/22 Shellie Thompson Personal Advocate & Liaison (PAL) Family Medicine 12/05/21 06/25/22 Suzanne aM DO Hematology & Oncology 05/07/22 Cory Lama MD [address] [place] [address] 805345 Critical Care 05/07/22 Tabatha Agrawal RN Specialty Middle School Football Coach Hematology & Oncology 05/13/22 [place] [address] [place] [address] 278027 Assigned Cancer Care Provider 05/17/22 Cory Lama MD [address] [place] [address]275 Assigned Pulmonology Provider 05/24/22 11/13/[address], MARY Personal Advocate & Liaison (PAL) Family Medicine 07/08/22 11/23/23 Lenore Ramirez, MARKETING PROPOSAL SPECIALIST Clinic Middle School Football Coach Primary Care - CC 09/10/22 09/16/22 Lenore Ramirez, MARKETING PROPOSAL SPECIALIST Clinic Middle School Football Coach Primary Care - CC 09/17/22 09/19/22 Gibran Ramírez MD [address] [place] [address] Assigned Palliative Care Provider 09/20/22 01/09/23 Justine Hayes NRP, CP Community Bottom Turning Lathe Turner 11/24/22 01/28/23 Keira Frye, [facility] [address] [place] [address] Pharmacist Pharmacist 12/04/22 09/29/23 Keira Frye, [facility] [address] [place] [address] Assigned MTM Pharmacist 12/13/22 Colby Khan MD [address] [place] [address] Neurology 01/02/23 Candi Stinson DO 909 [place] [address] Assigned Palliative Care Provider 01/10/23 Justine Hayes NRP, CP Community Bottom Turning Lathe Turner 03/25/23 07/23/23 [place] [address] [place], [place] [address] Assigned PCP 03/28/23 Melissa Boo, CHW Community Health Worker Primary Care - CC 04/30/23 04/30/23 Hallie Berman, RN Personal Advocate & Liaison (PAL) Family Medicine 11/24/23 Nancy Shaw PA-C 717 [place], [place] [address] Physician Recycler Pulmonary Disease 01/05/24 Arpan Carolina MD [address] [facility] [address] [place], [place] [address] Critical Care 01/05/24 Prema Mendez, [facility] [address] [id number] [place], [place] [address] Assigned Behavioral Health Provider 02/23/24 03/23/24 documented as of this encounter
--- OUTSIDE RECORDS SUMMARY | 2024-04-13 23:59 | XMS_ITS | Encounter Summary ---
Author Organization [place] Address [address] [place] [address] Care Team Providers Care Clamp Truck Driver Name Role Phone Tana Gomez MD Primary Care Prov ider Tana Gomez MD Unavailable + Lenore Ramirez SIGHTER Unavailable [phone] Aston Zamora RN Unavailable Unavailable Arpan Morales MD Unavailable Fidelia Seo DO Unavailable [phone] Shellie Thompson Unavailable Unavailable Suzanne Ma DO Unavailable [phone] Cory Lama MD Unavailable [phone] Tabatha Agrawal RN Unavailable [phone] Suzanne Ma DO Unavailable Cory Lama MD Unavailable Latanya Silva MD Primary Care Provider [phone] RN Unavailable Unavailable Lenore Ramirez SIGHTER Unavailable [phone] Lenore Ramirez SIGHTER Unavailable [phone] Gibran Ramírez MD Unavailable Justine Hayes NRP, CP Unavailable [phone] UdayKeira Mani [facility] Unavailable [phone] UdayAllisonKeiracandace Singleton [facility] Unavailable [phone] Colby Khan MD Unavailable ShantellCandi Unavailable [phone] Justine Hayes NR, CP Unavailable [phone] Latanya Silva MD Unavailable [phone] Melissa Boo [facility] Unavailable Hallie Berman RN Unavailable Unavailable Nancy Shaw PA-C Unavailable Arapn Carolina MD Unavailable Prema Mendez [facility] Unavailable Reason for Visit * Reason Onset Date Comments Medication Refill 09/30/2019 omeprazole (NM ILOSEC) [address] capsule Encounter Details Date Type Department Care Team (Late st Contact Info) Description 09/30/[address] [address] Tana Gomez MD PRIMARY ENT [address] [facility] [address] [place] [address] Medication Refill (omeprazole (PRILOSEC) [address] capsule) Social History Tobacco Use Types Packs/Day Years [...] Telephone Encounter - Aston Zamora RN - 10/11/2019 2:38 PM CST Per NWD will discuss at upcoming visit. Next 5 appointments (look out 90 days) Oct 21, 2019 3:00 PM REVISING CLERK (Arrive by 2:40 PM) Office Visit with Tana Gomez MD [facility] [address] [place] [phone] Message handled by Nurse Triage with Huddle - provider name: Dr. Gomez. Aston Zamora RN SING CLERK * Telephone Encounter - Tana Gomez MD - 10/04/2019 9:12 AM REVISING CLERK At recent visit she mentioned heart burn was better and didn't need omeprazole. Did patient ask forrefill? If for continuous use will change to famotidine. NWD SING CLERK * Telephone Encounter - Terri Burns RN - 09/30/2019 8:50 PM CST Routing refill request to provider for review/approval because: diagnosis of osteoporosis on record SING CLERK * Telephone Encounter - Cyn Forbes - 09/30/2019 1:48 PM CST Requested Prescriptions Pending Prescriptions Disp Refills ??? omeprazole (PRILOSEC) [address] capsule [Pharmacy Med Name: OMEPRAZOLE 20MG CAPSULES] Per pharmacy: The source prescription has been discontinued. Last Written Prescription Date: 08/25/19 Last Fill Quantity: 30 capsule, # refills: 0 Last office visit: 09/16/2019 with prescribing provider: Patricia Future Office Visit: 30 capsule 0 Sig: TAKE 1 CAPSULE(20 MG) BY MOUTH DAILY PPI Protocol Failed - 09/30/2019 3:27 AM Failed - No diagnosis of osteoporosis on record Failed - Medication is active on med list Passed - Not on Clopidogrel (unless Pantoprazole ordered) Passed - Recent (12 mo) or future [...] section of the refill encounter. Passed - Patient is age 18 or older Passed - No active pregnacy on record Passed - No positive test in past 12 months SING CLERK documented in this encounter Plan of Treatment Upcoming Encounters Date Type Department Care Team (Late st Contact Info) Description 04/27/2024 11:00 AM CDT Oncology Visit [facility] [id number] [place] [address] [address] [facility] [place] [address] [place] [address] [place] [address] Cherie Geiger PA-C [address] [place] [address] documented as of this encounter Visit Diagnoses Diagnosis Epigastric pain Abdominal pain, epigastric documented in this encounter Additional Health Concerns Infection Onset Date Last Indicated Resolved Time Rule Out COVID-19 06/19/2022 06/19/2022 06/19/2022 1:43 PM CDT Assessment Noted Time PHQ-9 Depression Total Score: 14 019 10:15 AM CDT documented as of this encounter Care Teams Clamp Truck Driver Relationship Specialty [place] [address] [place] [address] PCP - General Family Practice 03/08/19 06/11/22 [place] [address] [place], [place] [id number] PCP - General Family Medicine 06/12/22 [place] [address] [place], [place] [id number] Assigned PCP 05/08/19 03/27/23 Lenore Ramirez, [facility] Lead Physics Technician Primary Care - CC 08/12/19 Aston Zamora RN Personal Advocate & Liaison (PAL) Family Practice 09/15/19 10/01/21 Arpan Morales MD [address] [place] [address] Assigned Heart and Vascular Provider 08/24/20 02/09/21 Fidelia Seo DO [address] [place] [address] Assigned Heart and Vascular Provider 05/05/21 10/31/22 Shellie Thompson Personal Advocate & Liaison (PAL) Family Medicine 12/05/21 06/25/22 Suzanne Ma DO Hematology & Oncology 05/07/22 Cory Lama MD [address] [place], [place] [address] Critical Care 05/07/22 Tabatha Agrawal, MARY Specialty Physics Technician Hematology & Oncology 05/13/22 [place] [address] [place] [address] Assigned Cancer Care Provider 05/17/22 Cory Lama MD [address] [place] [address] Assigned Pulmonology Provider 05/24/22 11/13/[address], MARY Personal Advocate & Liaison (PAL) Family Medicine 07/08/22 11/23/23 Lenore Ramirez, [facility] Clinic Physics Technician Primary Care - CC 09/10/22 Lenore Ramirez, [facility] Clinic Physics Technician Primary Care - CC 09/17/22 Gibran Ramírez MD [address] [place] [address] Assigned Palliative Care Provider 09/20/22 01/09/23 Justine Hayes, NRP, CP Community Child Care Leader 11/24/22 01/28/23 Keira Frye, [facility] [address] [id number] Pharmacist Pharmacist 12/04/22 09/29/23 Keira Frye, [facility] [address] [id number] Assigned MTM Pharmacist 12/13/22 Colby Khan MD [address] [place] [address] Neurology 01/02/23 Candi Stinson DO [address] [place], [place] 8[address] Assigned Palliative Care Provider 01/10/23 Justine Hayes, NRP, CP Community Child Care Leader 03/25/23 07/23/23 [place] [address] [place] [address] Assigned PCP 03/28/23 Melissa Boo, W Community Health Worker Primary Care - CC 04/30/23 Hallie Berman, RN Personal Advocate & Liaison (PAL) Family Medicine 11/24/23 Nancy Shaw PAArpitaC 7[address] [place], [place] [address] Physician Fly Worker Pulmonary Disease 01/05/24 Arpan Carolina MD [address] [facility] 276 [place], [place] [address] Critical Care 01/05/24 Prema Mendez, [facility] [address] [facility] [address] [place], [place] [address] Assigned Behavioral Health Provider 02/23/24 03/23/24 documented as of this encounter
--- OUTSIDE RECORDS SUMMARY | 2024-04-13 23:59 | XMS_ITS | Encounter Summary ---
Author Organization [place] Address [address] [facility] [place] [address] Care Team Providers Care Rubber Tubing Splicer Name Role Phone Tana Gomez MD Primary Care Prov ider Tana Gomez MD Unavailable + Lenore Ramirez ESTIMATOR Unavailable Aston Zamora RN Unavailable Unavailable Arpan Morales MD Unavailable Fidelia Seo DO Unavailable [phone] Shellie Thompson Unavailable Unavailable Suzanne Ma DO Unavailable [phone] Cory Lama MD Unavailable [phone] Tabatha Agrawal RN Unavailable [phone] Suzanne Ma DO Unavailable [phone] Cory Lama MD Unavailable Latanya Silva MD Primary Care Provider [phone] RN Unavailable Unavailable Lenore Ramirez ESTIMATOR Unavailable [phone] Lenore Ramirez ESTIMATOR Unavailable [phone] Gibran Ramírez MD Unavailable Justine Hayes NRP, CP Unavailable FryeKeira Mani [facility] Unavailable UdayAllisonKeiracandace Singleton [facility] Unavailable [phone] Colby Khan MD Unavailable [phone] Shantell Candi Unavailable [phone] Justine Hayes NRP, CP Unavailable [phone] Latanya Silva MD Unavailable [phone] [facility] Unavailable Hallie Berman RN Unavailable Unavailable Nancy Shaw PA-C Unavailable Arpan Carolina MD Unavailable Prema Mendez [facility] Unavailable [phone] Reason for Visit * Reason Comments Medication Refill omeprazole (PRILOSEC ) [address] capsule Encounter Details Date Type Department Care Team (Late st Contact Info) Description 08/25/[address] [address] Garo Edmondson PA-C [address] [place] [phone] Medication Refill (omeprazole (PRILOSEC) [address] [...] encounter Miscellaneous Notes * Telephone Encounter - Neema Ma RN - 08/25/2019 9:53 AM CDT Routing refill request to provider for review/approval because: diagnosis of osteoporosis on record * Telephone Encounter - Shi Hernandez - 08/25/2019 9:50 AM CDT Requested Prescriptions Pending Prescriptions Disp Refills ??? omeprazole (PRILOSEC) [address] capsule [Pharmacy Med Name: OMEPRAZOLE 20MG CAPSULES] 30 capsule0 Sig: TAKE 1 CAPSULE(20 MG) BY MOUTH DAILY Last Written Prescription Date: 06/28/19 Last Fill Quantity: 30 capsules, # refills: 1 Last office visit: 08/12/2019 with prescribing provider: Mac Lassiter Future Office Visit: Next 5 appointments (look out 90 days) Sep 16, 2019 10:40 AM BOXING PROMOTER Office Visit with Tana Gomez MD, CR EXAM ROOM 25 [facility] [address] [place] [phone] PPI Protocol Failed - 08/25/2019 3:26 AM Failed - No diagnosis of osteoporosis on record Passed - Not on Clopidogrel (unless Pantoprazole [...] Description 04/27/2024 11:00 AM CDT Oncology Visit [facility] [address] [facility] [place] [address] [place] [address] [place] [address] Cherie Geiger PA-C [address] [place] [address] documented as of this encounter Visit Diagnoses Diagnosis Epigastric pain Abdominal pain, epigastric documented in this encounter Additional Health Concerns Infection Onset Date Last Indicated Resolved Time Rule Out COVID-06/19/2022 06/19/2022 06/19/2022 1:43 PM CDT Assessment Noted Time PHQ-9 Depression Total Score: 14 019 10:15 AM CDT documented as of this encounter Care Teams Rubber Tubing Splicer Relationship Specialty [place] [address] [place] [address] PCP - General Family Practice 03/08/19 06/11/22 [place] [address] [place] [address] PCP - General Family Medicine 06/12/22 [place] [address] [place] [address] Assigned PCP 05/08/19 03/27/23 Lenore Ramirez, ESTIMATOR Lead Stud Sheep Farmer Primary Care - CC 08/12/19 Aston Zamora, RN Personal Advocate & Liaison (PAL) Family Practice 09/15/19 10/01/21 Arpan Morales MD [address] [place] [address] Assigned Heart and Vascular Provider 08/24/20 02/09/21 TaylorsharriFidelia PremaDO [address] [place] [address] Assigned Heart and Vascular Provider 05/05/21 10/31/22 Shellie Thompson Personal Advocate & Liaison (PAL) Family Medicine 12/05/21 06/25/22 Suzanne Ma DO Hematology & Oncology 05/07/22 Cory Lama MD [address] [place] [id number] Critical Care 05/07/22 Tabatha Agrawal RN Specialty Stud Sheep Farmer Hematology & Oncology 05/13/22 [place] [address] [place], [place] [address] Assigned Cancer Care Provider 05/17/22 Cory Lama MD [address] [place] [address] Assigned Pulmonology Provider 05/24/22 11/13/[address], MARY Personal Advocate & Liaison (PAL) Family Medicine 07/08/22 11/23/23 Lenore Ramirez LSW Clinic Stud Sheep Farmer Primary Care - CC 09/10/22 Lenore Ramirez LSW Clinic Stud Sheep Farmer Primary Care - CC 09/17/22 Gibran Ramí[place] [address] [place] [address] Assigned Palliative Care Provider 09/20/22 01/09/23 Justine Hayes NRP, CP Community Roof Bolting Coal Miner 11/24/22 01/28/23 Keira Frye, [facility] [address] [place] [address] Pharmacist Pharmacist 12/04/22 09/29/23 Keira Frye, [facility] [address] [place] [address] Assigned MTM Pharmacist 12/13/22 Colby Khan MD [address] [place] [address] Neurology 01/02/23 Candi Stinson DO 909 [place] [address] Assigned Palliative Care Provider 01/10/23 Justine Hayes NRP, CP Community Roof Bolting Coal Miner 03/25/23 07/23/23 [place] [address] [place] [address] Assigned PCP 03/28/23 Melissa Boo, CHW Community Health Worker Primary Care - CC 04/30/23 Hallie Berman, RN Personal Advocate & Liaison (PAL) Family Medicine 11/24/23 Nancy Shaw PAArpitaC [address] [facility] [place] [address] Physician Back Hoe Machine Operator Pulmonary Disease 01/05/24 Arpan Carolina MD 420 [facility] 276 [place] [address] Critical Care 01/05/24 Prema Mendez, [facility] [address] [facility] [address] [place] [address] Assigned Behavioral Health Provider 02/23/24 03/23/24 documented as of this encounter
--- OUTSIDE RECORDS SUMMARY | 2024-04-13 23:59 | XMS_ITS | Encounter Summary ---
Author Organization [place] Address [address] [place] [address] Care Team Providers Care Chamfering Machine Operator Name Role Phone Tana Gomez MD Primary Care Prov ider Tana Gomez MD Unavailable + Lenore Ramirez CARDIOLOGY CLINICAL NURSE SPECIALIST Unavailable Aston Zamora RN Unavailable Unavailable Arpan Morales MD Unavailable Fidelia Seo DO Unavailable [phone] Shellie Thompson Unavailable Unavailable Suzanne Ma DO Unavailable [phone] Cory Lama MD Unavailable [phone] Tabatha Agrawal RN Unavailable [phone] Suzanne Ma DO Unavailable [phone] Cory Lama MD Unavailable Latanya Silva MD Primary Care Provider [phone] RN Unavailable Unavailable Lenore Ramirez CARDIOLOGY CLINICAL NURSE SPECIALIST Unavailable [phone] Lenore Ramirez CARDIOLOGY CLINICAL NURSE SPECIALIST Unavailable [phone] Gibran Ramírez MD Unavailable Justine Hayes NRP, CP Unavailable FryeKeira Mani [facility] Unavailable FryeKeira Mani [facility] Unavailable [phone] Colby Khan MD Unavailable [phone] BahMariolaCnadi Unavailable Justine Hayes NRP, CP Unavailable [phone] Latanya Silva MD Unavailable [phone] Melissa Boo [facility] Unavailable Hallie Berman RN Unavailable Unavailable Nancy Shaw PA-C Unavailable Arpan Carolina MD Unavailable [phone] Prema Mendez [facility] Unavailable Reason for Visit * Reason Comments Medication Refill Encounter Details Date Type Department Care Team (Late st Contact Info) Description 10/11/[address] [address] Tana Gomez MD PRIMARY ENT [address] [facility] [address] [place] [address] Medication Refill Social History Tobacco [...] Telephone Encounter - Tana Gomez MD - 10/18/2019 9:01 AM DANCER OR CHOREOGRAPHER Will address at upcoming appt on Thursday NWD ER OR CHOREOGRAPHER * Telephone Encounter - Jocelyn Sahu RN - 10/11/2019 5:39 PM CST Next 5 appointments (look out 90 days) Oct 21, 2019 3:00 PM DANCER OR CHOREOGRAPHER (Arrive by 2:40 PM) Office Visit with Tana Gomez MD [facility] [address] [place] [phone] Requested Prescriptions Pending Prescriptions Disp Refills ??? omeprazole (PRILOSEC) [address] capsule [Pharmacy Med Name: OMEPRAZOLE 20MG CAPSULES] 30 capsule0 Sig: TAKE 1 CAPSULE(20 MG) BY MOUTH DAILY PPI Protocol Failed - 10/11/2019 3:21 PM Failed - No diagnosis of osteoporosis on [...] No positive test in past 12 months ER OR CHOREOGRAPHER documented in this encounter Plan of Treatment Upcoming Encounters Date Type Department Care Team (Late st Contact Info) Description 04/27/2024 11:00 AM CDT Oncology Visit [facility] [address] [place] [address] [facility] [place] [address] [place] [address] [place] [address] Cherie Geiger PA-C [address] [place], [place] [address] documented as of this encounter Visit Diagnoses Diagnosis Epigastric pain Abdominal pain, epigastric documented in this encounter Additional Health Concerns Infection Onset Date Last Indicated Resolved Time Rule Out COVID-06/19/2022 06/19/2022 06/19/2022 1:43 PM CDT Assessment Noted Time PHQ-9 Depression Total Score: 14 019 10:15 AM CDT documented as of this encounter Care Teams Chamfering Machine Operator Relationship Specialty [place] [address] [place] [address] PCP - General Family Practice 03/08/19 06/11/22 [place] [address] [place] [address] PCP - General Family Medicine 06/12/22 [place] [address] [place] [address] Assigned PCP 05/08/19 03/27/23 Lenore Ramirez, [facility] Lead Architect Manager Primary Care - CC 08/12/19 sAton Zamora, MARY Personal Advocate & Liaison (PAL) Family Practice 09/15/19 10/01/21 Arpan Morales MD [address] [facility] [address] [place] [address] Assigned Heart and Vascular Provider 08/24/20 02/09/21 Fidelia Seo DO [address] [place], [place] [address] Assigned Heart and Vascular Provider 05/05/21 10/31/22 Shellie Thompson Personal Advocate & Liaison (PAL) Family Medicine 12/05/21 06/25/22 Suzanne Ma DO Hematology & Oncology 05/07/22 Cory Lama MD [address] [place] [id number] Critical Care 05/07/22 Tabatha Agrawal RN Specialty Architect Manager Hematology & Oncology 05/13/22 [place] [address] [address] Assigned Cancer Care Provider 05/17/22 Cory Lama MD [address] [place] [address]84[address] Assigned Pulmonology Provider 05/24/22 11/13/[address], MARY Personal Advocate & Liaison (PAL) Family Medicine 07/08/22 11/23/23 Lenore Ramirez LSW Clinic Architect Manager Primary Care - CC 09/10/22 Lenore Ramirez LSW Clinic Architect Manager Primary Care - CC 09/17/22 Gibran Ramírez MD [address] [place] [address] Assigned Palliative Care Provider 09/20/22 01/09/23 Jusitne Hayes NRP, CP Community Tank Cooper 11/24/22 01/28/23 Keira Frye, [facility] [address] [facility] [place] [address] Pharmacist Pharmacist 12/04/22 09/29/23 Keira Frye, [facility] [address] [facility] [place] [address] Assigned MTM Pharmacist 12/13/22 Colby Khan MD [address] [place] [address] Neurology 01/02/23 Candi Stinson DO [address] [place] [address] Assigned Palliative Care Provider 01/10/23 Justine Hayes NRP, CP Community Tank Cooper 03/25/23 07/23/23 [place] [address] [place], [place] [address] Assigned PCP 03/28/23 Melissa Boo, CHW Community Health Worker Primary Care - CC 04/30/23 Hallie Berman, RN Personal Advocate & Liaison (PAL) Family Medicine 11/24/23 Nancy Shaw PA-C 717 [place], [place] [address] Physician Nurse Orthopaedic Pulmonary Disease 01/05/24 Arpan Carolina MD 420 [facility] 276 [place], [place] [address] Critical Care 01/05/24 Prema Mendez, [facility] 2450 [facility] [address] [place], [place] [address] Assigned Behavioral Health Provider 02/23/24 03/23/24 documented as of this encounter
--- OUTSIDE RECORDS SUMMARY | 2024-04-13 23:59 | XMS_ITS | Encounter Summary ---
Author Organization [facility] Address [address] [facility] [place] [address] Care Team Providers Care Panelboard Operator Name Role Phone Tana Gomez MD Primary Care Prov ider Tana Gomez MD Unavailable + Lenore Ramirez RUBY RAILS DEVELOPER Unavailable [phone] Lenore Ramirez RUBY RAILS DEVELOPER Unavailable [phone] Aston Zamora RN Unavailable Unavailable Arpan Morales MD Unavailable Fidelia Seo Prema DO Unavailable [phone] Shellie Thompson Unavailable Unavailable Suzanne Ma DO Unavailable [phone] Cory Lama MD Unavailable [phone] Tabatha Agrawal RN Unavailable [phone] Suzanne Ma DO Unavailable [phone] Cory Lama MD Unavailable [phone] Latanya Silva MD Primary Care Provider Veronica Street RN Unavailable Unavailable Lenore Ramirez RUBY RAILS DEVELOPER Unavailable [phone] Lenore Ramirez RUBY RAILS DEVELOPER Unavailable Gibran Ramírez MD Unavailable Justine Hayes NRP, CP Unavailable Keira Frye [facility] Unavailable Mery Fryecarolyn Singleton [facility] Unavailable Colby Khan MD Unavailable [phone] Shantell Candi Unavailable Justine Hayes NRP, CP Unavailable Latanya Silva MD Unavailable [phone] Melissa Boo CHW Unavailable Hallie Berman RN Unavailable Unavailable Nancy Shaw PA-C Unavailable [phone] Arpan Carolina MD Unavailable Prema Mendez [facility] Unavailable [phone] Reason for Visit * Reason Comments Home Care/Hospice Encounter Details Date Type Department Care Team (Late st Contact Info) Description 06/26/2019 Documentation Only [address] [address] Tana Gomez MD PRIMARY ENT [address] [facility] [address] [place], [place] [id number] Home Care/Hospice Social History Tobacco Use Types [...] AM CDT Oncology Visit [facility] [address] [facility] [place] [address] [place] [address] [place] [address] Cherie Gieger PA-C [address] [place] [address] documented as of this encounter Visit Diagnoses Not on filedocumented in this encounter Additional Health Concerns Infection Onset Date Last Indicated Resolved Time Rule Out COVID-19 06/19/2022 06/19/2022 06/19/2022 1:43 PM CDT Assessment Noted Time PHQ-9 Depression Total Score: 8 05/04/20 19 8:24 AM CDT documented as of this encounter Care Teams Panelboard Operator Relationship Specialty [place] [address] [place] [address] PCP - General Family Practice 03/08/19 06/11/22 [place] [address] [place] [address] PCP - General Family Medicine 06/12/22 [place] [address] [place] [address] Assigned PCP 05/08/19 03/27/23 Lenore Ramirez LSW Clinic Propulsion Generator Repairer Primary Care - CC 06/29/19 Lenore Ramirez LSW Lead Propulsion Generator Repairer Primary Care - CC 08/12/19 Aston Zamora, RN Personal Advocate & Liaison (PAL) Family Practice 09/15/19 10/01/21 Arpan Morales MD [address] [place] [address] Assigned Heart and Vascular Provider 08/24/20 02/09/21 Fidelia Seo DO [address] [place] [address] Assigned Heart and Vascular Provider 05/05/21 10/31/22 Shellie Thompson Personal Advocate & Liaison (PAL) Family Medicine 12/05/21 06/25/22 Suzanne Ma DO Hematology & Oncology 05/07/22 Cory Lama MD [address] [place] [address] 672835 Critical Care 05/07/22 Tabatha Agrawal RN Specialty Propulsion Generator Repairer Hematology & Oncology 05/13/22 [place] [address] [place], [place] [address] Assigned Cancer Care Provider 05/17/22 Cory Lama MD [address] [place] [address] 726895 Assigned Pulmonology Provider 05/24/22 11/13/[address], MARY Personal Advocate & Liaison (PAL) Family Medicine 07/08/22 11/23/23 Lenore Ramirez, [facility] Clinic Propulsion Generator Repairer Primary Care - CC 09/10/22 Lenore Ramirez, [facility] Clinic Propulsion Generator Repairer Primary Care - CC 09/17/22 Gibran Ramí[place] [address] [place] [id number] Assigned Palliative Care Provider 09/20/22 01/09/23 Justine Hayes NRP, CP Community Budget Report Clerk 11/24/22 01/28/23 Keira Frye, [facility] [address] [place] [address] Pharmacist Pharmacist 12/04/22 09/29/23 Keira Frye, [facility] [address] [place] [address] Assigned MTM Pharmacist 12/13/22 Colby Khan MD [address] [place] [address] Neurology 01/02/23 Candi Stinson DO 909 [place] [address] Assigned Palliative Care Provider 01/10/23 Justine Hayes NRP, CP Community Budget Report Clerk 03/25/23 07/23/23 [place] [address] [place] [address] Assigned PCP 03/28/23 Melissa Boo, [facility] Community Health Worker Primary Care - CC 04/30/23 Hallie Berman, RN Personal Advocate & Liaison (PAL) Family Medicine 11/24/23 Nancy Shaw, PAArpitaC [address] [place], [place] [address] Physician Vp Revenue Cycle Pulmonary Disease 01/05/24 Arpan Carolina MD [address] [facility] 276 [place], [place] [address] Critical Care 01/05/24 Prema Mendez, PRODUCT APPLICATIONS SCIENTIST [address] [facility] [address] [place], [place] [address] Assigned Behavioral Health Provider 02/23/24 03/23/24 documented as of this encounter
--- OUTSIDE RECORDS SUMMARY | 2024-04-13 23:59 | XMS_ITS | Encounter Summary ---
Author Organization [facility] Address [address] [facility] [place] [address] Care Team Providers Care Counselor Camp Name Role Phone Scottie Hewitt MD Primary Car e Provider Zee Venegas APRN ZIGZAGGER Primary Care Provi alessia Unavailable Sharmin Trejo TAPE CUTTER Unavailable Unavailab [facility] Unavailable [phone] Loreta Corona MD Primary Care Provider Zee Venegas APRN, CNP Primary Care Provi alessia Unavailable Theo, Zee Gardiner APRN ZIGZAGGER Unavailable Un available Theo, Zee Gardiner APRN ZIGZAGGER Unavailable Un available Tana Gomez MD Primary Care Prov ider Tana Gomez MD Unavailable + Lenore Ramirez MACHINIST LINOTYPE Unavailable [phone] Lenore Ramirez MACHINIST LINOTYPE Unavailable [phone] Aston Zamora RN Unavailable Unavailable Arpan Morales MD Unavailable [phone] Fidelia Seo DO Unavailable [phone] Shellie Thompson Unavailable Unavailable Suzanne Ma DO Unavailable [phone] Cory Lama MD Unavailable Tabatha Agrawal RN Unavailable [phone] AnilSuzanne DO Unavailable [phone] Cory Lama MD Unavailable Latanya Silva MD Primary Care Provider Veronica Street RN Unavailable Unavailable Lenore Ramirez MACHINIST LINOTYPE Unavailable Lenore Ramirez MACHINIST LINOTYPE Unavailable Gibran Ramírez MD Unavailable [phone] Justine Hayes NRP, CP Unavailable [phone] Keira Frye [facility] Unavailable [phone] Keira Frye [facility] Unavailable Colby Khan MD Unavailable [phone] Shantell Candi DO Unavailable [phone] Justine Hayes NRP, CP Unavailable OLatanya Farnsworth MD Unavailable [phone] Melissa Boo CHW Unavailable Hallie Berman RN Unavailable Unavailable Nancy Sahw PA-C Unavailable Arpan Carolina MD Unavailable Prema Mendez BORING MILL OPERATOR FOR [employer]AL Unavailable Reason for Visit * Reason Onset Date Comments Refill Request 04/15/2011 Encounter Details Date Type Department Care Team (Late st Contact Info) Description 04/15/2011 Refill [facility] [address] [facility], [address] [place] [address] Scottie Hewitt MD [facility] [address] [address] Refill Request Social History Tobacco Use Types Packs/Day Years Used Date Smoking Tobacco: Former Cigarettes Q uit: 08/10/2010 Smokeless Tobacco: Never Comments:1/2 - 1 pack QD Alcohol Use Standard Drinks/Week Comments No 0 (1 standard drink = 0.6 oz pur e alcohol) Sex and Gender Information Value Date Recorded Sex Assigned at Not on file Gender Identity Not on file Sexual Orientation Not on file documented as of this encounter Miscellaneous Notes * Telephone Encounter - Shaista Cohn - 04/18/2011 12:38 PM CDT Patient calling to let you know she will be gone from 1-2 today.04/18/11 Shaista Cohn * Telephone Encounter - Gisela Shah RN - 04/15/2011 2:35 PM CDT Pt c/o depression getting worse. PHQ9 updated. Pt states that medications are too expensive, so shehas only been taking 10 mg, instead of the 20 mg of Lexapro daily to make them last longer. Advisedpatient to take the full pill as prescribed until we can speak with Dr. Hewitt about this. Offered [facility] patient assistance program for prescriptions, Pt states she was denied this before. Pt states she is having more issues with her sick son and that she has added worry about her step son as he is in the service and heading overseas next month. Pt needs a refill of Celexa, but we wanted to wait for Dr. Hewitt's opinion before refilling thisas she has enough to get her to Thursday. Dr. Hewitt: Please advise and call patient back. Thank you, Gisela Shah RN [facility] * Telephone Encounter - Gayathri Horner - 04/15/2011 1:56 PM CDT DEPRESSION/ANXIETY Last Office Visit R/T Diagnosis: 03/04/2011 Last PHQ-9 score on record= 7 Date: 03/04/2011 SSRI: Celexa, Lexapro, Luvox, Paxil, Prozac/Sarafem, Zoloft OV: 6mths or as indicated in chart. If <18 yrs of age q 3 mths or as indicated in chart Should have OV 1-2 mths after initial RX ANXIETY: follow up q 12 mths Tests: PHQ-9 q 6 mths If PHQ9 has been done once in the last 6 mths, and if score is 5 or less, OK to refill for 12 mths ANXIETY: if SSRI for anxiety, PHQ9 is not needed Max Refills: 6mths * Telephone Encounter - Amy Summers - 04/15/2011 12:13 PM CDT Rejected for prescription she wanted Pt wants to know if she can get the generic meds instead. Also, if she can up the dose for her depression because she's having a hard time. 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, recurrent episode, mild ANXIETY STATE NOS Anxiety state, unspecified documented in this encounter Additional Health Concerns Infection Onset Date Last Indicated Resolved Time Rule Out COVID-19 06/19/2022 06/19/2022 06/19/2022 1:43 PM CDT documented as of this encounter Care Teams Counselor Camp Relationship Specialty Start Date End Date Scottie Hewitt MD PCP - General Family Practice 01/28/10 04/22/15 Zee Venegas APRN ZIGZAGGER PCP - General Nurse Practitioner 04/23/15 04/22/18 Loreta Corona MD PCP - General Family Practice 04/23/18 05/18/18 Zee Venegas APRN ZIGZAGGER PCP - General Nurse Practitioner 05/19/18 03/07/19 Zee Venegas APRN ZIGZAGGER PCP - Assigned PCP 03/04/15 01/04/19 [place] [address] [place] [address] PCP - General Family Practice 03/08/19 06/11/22 [place] [address] [place] [address] PCP - General Family Medicine 06/12/22 Sharmin Trejo, TAPE CUTTER Room Service Waiter 09/11/15 09/02/16 [facility] ([place]) 04/19/18 05/24/18 Zee Venegas APRN ZIGZAGGER Assigned PCP 03/04/15 05/07/19 [place] [address] [place] [address] Assigned PCP 05/08/19 03/27/23 Lenore Ramirez, [facility] Clinic Scale Adjuster Primary Care - CC 06/29/19 08/03/19 Lenore Ramirez, [facility] Lead Scale Adjuster Primary Care - CC 08/12/19 Aston Zamora, MARY Personal Advocate & Liaison (PAL) Family Practice 09/15/19 10/01/21 Arpan Morales MD [address] [place] [address] Assigned Heart and Vascular Provider 08/24/20 02/09/21 Fidelia Seo DO [address] [place], [place] [address] Assigned Heart and Vascular Provider 05/05/21 10/31/22 Shellie [place] Personal Advocate & Liaison (PAL) Family Medicine 12/05/21 06/25/22 Suzanne Ma DO Hematology & Oncology 05/07/22 Cory Lama MD 909 [place], [place] [address] Critical Care 05/07/22 Tabatha Agrawal, MARY Specialty Scale Adjuster Hematology & Oncology 05/13/22 [place] [address] [place] [facility] [address] Assigned Cancer Care Provider 05/17/22 Cory Lama MD 9 [place] [address] Assigned Pulmonology Provider 05/24/22 11/13/[address], MARY Personal Advocate & Liaison (PAL) Family Medicine 07/08/22 11/23/23 Lenore Ramirez, [facility] Clinic Scale Adjuster Primary Care - CC 09/10/22 09/16/22 Lenore Ramirez, [facility] Clinic Scale Adjuster Primary Care - CC 09/17/22 09/19/22 Gibran Ramírez MD [address] [facility] [address] Assigned Palliative Care Provider 09/20/22 01/09/23 Justine Hayes, NRP, CP Community Director Heart 11/24/22 01/28/23 Keira Frye, [facility] [place] [place] [address] Pharmacist Pharmacist 12/04/22 09/29/23 Keira Frye [facility] [place] [address] Assigned MTM Pharmacist 12/13/22 Colby Khan MD [address] [place] [address] Neurology 01/02/23 Candi Stinson DO [address] [place] [address] and Surgery [place], [place] [address] Assigned Palliative Care Provider 01/10/23 Justine Hayes, NRP, CP Community Director Heart 03/25/23 07/23/23 [place] [address] [place] [address] Assigned PCP 03/28/23 Melissa Boo, W Community Health Worker Primary Care - CC 04/30/23 04/30/23 Hallie Berman, MARY Personal Advocate & Liaison (PAL) Family Medicine 11/24/23 Nancy Shaw PA-C 717 [place], [place] [address] Physician Examiner Of Currency Pulmonary Disease 01/05/24 Arpan Carolina MD 420 [facility] 276 [place] [address] Critical Care 01/05/24 Prema Mendez, [facility] [address] [facility] [address] [place], [place] [address] Assigned Behavioral Health Provider 02/23/24 03/23/24 documented as of this encounter
--- OUTSIDE RECORDS SUMMARY | 2024-04-13 23:59 | XMS_ITS | Encounter Summary ---
Author Organization [facility] Address [address] [place] [address] Care Team Providers Care Civil Engineer Name Role Phone Tana Gomez MD Primary Care Prov ider Tana Gomez MD Unavailable + Lenore Ramirez TUMBLER TENDER Unavailable Lenore Ramirez TUMBLER TENDER Unavailable [phone] Aston Zamora RN Unavailable Unavailable Arpan Morales MD Unavailable Fidelia Seo Prema DO Unavailable [phone] Shellie Thompson Unavailable Unavailable Suzanne Ma DO Unavailable [phone] Cory Lama MD Unavailable [phone] Tabatha Agrawal RN Unavailable [phone] Suzanne Ma DO Unavailable [phone] Cory Lama MD Unavailable [phone] Latanya Silva MD Primary Care Provider [address] Street RN Unavailable Unavailable Lenore Ramirez TUMBLER TENDER Unavailable [phone] Lenore Ramirez TUMBLER TENDER Unavailable Gibran Ramírez MD Unavailable Justine Hayes NRP, CP Unavailable Keira Frye Mani [facility] Unavailable [phone] Allison Fryecandace Singleton [facility] Unavailable [phone] Colby Khan MD Unavailable [phone] Shantell Candi Unavailable Justine Hayes NRP, CP Unavailable Latanya Silva MD Unavailable [phone] Melissa Boo CHW Unavailable [phone] Hallie Berman RN Unavailable Unavailable Nancy Shaw PA-C Unavailable [phone] Arpan Carolina MD Unavailable Prema Mendez [facility] Unavailable Encounter Details Date Type Department Care Team (Late st Contact Info) Description 07/07/2019 Documentation Only [address] [address] Sergei Majano MD Social History Tobacco Use Types Packs/Day Years [...] AM CDT Oncology Visit [facility] [address] [facility] [place] [address] [place] [address] [place] [address] Cherie Geiger PA-C 909 [place] [address] documented as of this encounter Visit Diagnoses Not on filedocumented in this encounter Additional Health Concerns Infection Onset Date Last Indicated Resolved Time Rule Out COVID-19 06/19/2022 06/19/2022 06/19/2022 1:43 PM CDT Assessment Noted Time PHQ-9 Depression Total Score: 8 05/04/20 8:24 AM CDT documented as of this encounter Care Teams Civil Engineer Relationship Specialty [place] [address] [place] [address] PCP - General Family Practice 03/08/19 06/11/22 [place] [address] [place] [address] PCP - General Family Medicine 06/12/22 [place] [address] [place] [address] Assigned PCP 05/08/19 03/27/23 Lenore Ramirez LSW Clinic Eyewear Consultant Primary Care - CC 06/29/19 Lenore Ramirez LSW Lead Eyewear Consultant Primary Care - CC 08/12/19 Aston Zamora, RN Personal Advocate & Liaison (PAL) Family Practice 09/15/19 10/01/21 Arpan Morales MD [address] [place] [address] Assigned Heart and Vascular Provider 08/24/20 02/09/21 Taylorsharri Fidelia LloydDO [address] [place] [address] Assigned Heart and Vascular Provider 05/05/21 10/31/22 Shellie [place] Personal Advocate & Liaison (PAL) Family Medicine 12/05/21 06/25/22 Suzanne Ma DO Hematology & Oncology 05/07/22 Cory Lama MD [address] [place] [address]89615 Critical Care 05/07/22 Tabatha Agrawal, MARY Specialty Eyewear Consultant Hematology & Oncology 05/13/22 [place] [address] [place] [address] Assigned Cancer Care Provider 05/17/22 Cory Lama MD [address] [place] [address] Assigned Pulmonology Provider 05/24/22 11/13/[address], MARY Personal Advocate & Liaison (PAL) Family Medicine 07/08/22 11/23/23 Lenore Ramirez LSW Clinic Eyewear Consultant Primary Care - CC 09/10/22 Lenore Ramirez LSW Clinic Eyewear Consultant Primary Care - CC 09/17/22 Gibran Ramírez [place] [address] [place] [id number] Assigned Palliative Care Provider 09/20/22 01/09/23 Justine Hayes NRP, CP Community Religion Professor 11/24/22 01/28/23 Keira Frye, [facility] [address] [place] [address] Pharmacist Pharmacist 12/04/22 09/29/23 Keira Frye, [facility] [address] [facility] [facility] [address] [place] [id number] Assigned MTM Pharmacist 12/13/22 Colby Khan MD 420 [place] [address] Neurology 01/02/23 Candi Stinson DO 909 [place] [address] Assigned Palliative Care Provider 01/10/23 Justine Hayes NRP, CP Community Religion Professor 03/25/23 07/23/23 [place] [address] [place], [place] [address] Assigned PCP 03/28/23 Melissa Boo, W Community Health Worker Primary Care - CC 04/30/23 Hallie Berman, RN Personal Advocate & Liaison (PAL) Family Medicine 11/24/23 Nancy Shaw PA-C 717 [place] [address] Physician Clinical Lab Scientist Pulmonary Disease 01/05/24 Arpan Carolina MD 420 [facility] 276 [place] [address] Critical Care 01/05/24 Prema Mendez, [facility] [address]50 [facility] [address] [place] [address] Assigned Behavioral Health Provider 02/23/24 03/23/24 documented as of this encounter
--- OUTSIDE RECORDS SUMMARY | 2024-04-13 23:59 | XMS_ITS | Encounter Summary ---
Author Organization [place] Address [facility] [place] [address] Care Team Providers Care Classroom Aide Name Role Phone Theo, Zee Gardiner CHILD AND FAMILY COUNSELOR FINISHING AND SHIPPING SUPERVISOR Primary Care Provi alessia Unavailable Theo, Zee Gardiner APRN FINISHING AND SHIPPING SUPERVISOR Unavailable Un available Theo, Zee Gardiner APRN FINISHING AND SHIPPING SUPERVISOR Unavailable Un available Tana Gomez MD Primary Care Prov ider Tana Gomez MD Unavailable + Lenore Ramirez HEALTH PLAN ADVISOR Unavailable Lenore Ramirez HEALTH PLAN ADVISOR Unavailable Aston Zamora RN Unavailable Unavailable Arpan Morales MD Unavailable Fidelia Seo DO Unavailable [phone] Shellie Thompson Unavailable Unavailable Suzanne Ma DO Unavailable [phone] Cory Lama MD Unavailable Tabatha Agrwaal RN Unavailable [phone] Suzanne Ma DO Unavailable [phone] Cory Lama MD Unavailable Latanya Silva MD Primary Care Provider Veronica Street RN Unavailable Unavailable Lenore Ramirez HEALTH PLAN ADVISOR Unavailable [phone] Lenore Ramirez HEALTH PLAN ADVISOR Unavailable [phone] Gibran Ramírez MD Unavailable Justine Hayes NRP, CP Unavailable [phone] Keira Frye [facility] Unavailable Keira Frye [facility] Unavailable Colby Khan MD Unavailable [phone] Candi Stinson DO Unavailable Justine Hayes NRP, CP Unavailable Latanya Silva MD Unavailable [phone] Melissa Boo CHW Unavailable Hallie Berman RN Unavailable Unavailable Nancy Shaw PA-C Unavailable [phone] Arpan Carolina MD Unavailable Prema Mendez [facility] Unavailable Reason for Visit * Reason Onset Date Comments Medication Refill busPIRone (BUS PAR) 10 MG tablet Refill Request 09/08/2018 traZODone (DESYR EL) 150 MG tablet Encounter Details Date Type Department Care Team (Late st Contact Info) Description [facility] [address] [address] Zee Venegas APRN CNP Medication Refill (busPIRone (BUSPAR) 10 MG tablet); Refill Request (traZODone (DESYREL) 150 MG tablet) Social History Tobacco Use Types Packs/Day Years [...] encounter Miscellaneous Notes * Telephone Encounter - Faina Montana RN - 09/10/2018 9:46 AM TUBE BUILDER Images from the original note were not included. Routing refill request to provider for review/approval because: Patient needs to be seen because: Follow up in 4 weeks, arrive fasting for cholesterol. ? Zee Venegas APRN FINISHING AND SHIPPING SUPERVISOR [facility] Instructions Return in about 4 weeks (around 07/14/2018) for Routine Visit. OP AVS (Printed 06/16/2018) BUILDER * Telephone Encounter - HernandezWayloncy - 09/09/2018 8:37 AM CST Requested Prescriptions Pending Prescriptions Disp Refills ??? traZODone (DESYREL) 150 MG tablet [Pharmacy Med Name: TRAZODONE 150MG (HUNDRED-FIFTY) TAB] Last Written Prescription Date: 02/09/18 Last Fill Quantity: 90 tablet, # refills: 1 Last office visit: 09/01/2018 with prescribing provider: Ji Future Office Visit: Next 5 appointments (look out 90 days) Sep 13, 2018 4:20 PM TUBE BUILDER Office Visit with Tana Gomez MD [facility] ([facility]) [address] [place] [address] 90 tablet 0 Sig: TAKE 1 TABLET(150 MG) BY MOUTH EVERY NIGHT NEEDED FOR SLEEP Serotonin Modulators Passed 09/08/2018 3:13 PM Passed - Recent (12 mo) or future (30 days) visit within the authorizing provider's specialty Patient had office visit in the last 12 months or has a visit in the next 30 days with authorizing provider or within the authorizing provider's specialty. See Patient Info tab in inbasket, or Choose Columns in Meds & Orders section of the refill encounter. Passed - Patient is age 18 or older Passed - No active on record Passed - No positive test in past 12 months ??? busPIRone (BUSPAR) 10 MG tablet [Pharmacy Med Name: BUSPIRONE 10MG TABLETS] Last Written Prescription Date: 06/05/18 Last Fill Quantity: 120 tablets, # refills: 1 Last office visit: 09/01/2018 with prescribing provider: Ji Future Office Visit: Next 5 appointments (look out 90 days) Sep 13, 2018 4:20 PM TUBE BUILDER Office Visit with Tana Gomez MD [facility] ([facility]) [address] [place] [address] 120 tablet 0 Sig: TAKE 2 TABLETS BY MOUTH TWICE DAILY Atypical Antidepressants Protocol Passed 09/08/2018 3:13 PM Passed - Recent (12 mo) or future (30 days) visit within the authorizing provider's specialty Patient had office visit in the last 12 months or has a visit in the next 30 days with authorizing provider or within the authorizing provider's specialty. See Patient Info tab in inbasket, or Choose Columns in Meds & Orders section of the refill encounter. Passed - Patient is age 18 or older Passed - No active on record Passed - No positive test in past 12 mos BUILDER documented in this encounter Plan of Treatment Upcoming Encounters Date Type Department Care Team (Late st Contact Info) Description 04/27/2024 11:00 AM CDT Oncology Visit [facility] [id number] [place] [address] [address] [facility] [place] [address] [place] [address] [place] [address] Cherie Geiger, PAArpitaC [address] [place] [address] documented as of this encounter Visit Diagnoses Diagnosis Sleep disturbance Sleep disturbance, unspecified Anxiety state Anxiety state, unspecified documented in this encounter Additional Health Concerns Infection Onset Date Last Indicated Resolved Time Rule Out COVID-19 06/19/2022 06/19/2022 06/19/2022 1:43 PM CDT Assessment Noted Time PHQ-9 Depression Total Score: 16 018 7:09 AM CDT documented as of this encounter Care Teams Classroom Aide Relationship Specialty Start Date End Date Zee Venegas APRN FINISHING AND SHIPPING SUPERVISOR PCP - General Nurse Practitioner 05/19/18 03/07/19 Zee Venegas APRN FINISHING AND SHIPPING SUPERVISOR PCP - Assigned PCP 03/04/15 01/04/19 [place] [address] [place] [address] PCP - General Family Practice 03/08/19 06/11/22 [place] [address] [place] [address] PCP - General Family Medicine 06/12/22 Zee Venegas APRN FINISHING AND SHIPPING SUPERVISOR Assigned PCP 03/04/15 05/07/19 [place] [address] [place], [place] [id number] Assigned PCP 05/08/19 03/27/23 Lenore Ramirez LSW Clinic Learning Development Specialist Primary Care - CC 06/29/19 08/03/19 Lenore Ramirez LSW Lead Learning Development Specialist Primary Care - CC 08/12/19 Aston Zamora RN Personal Advocate & Liaison (PAL) Family Practice 09/15/19 10/01/21 Arpan Morales MD [address] [place] [address] Assigned Heart and Vascular Provider 08/24/20 02/09/21 Rayray Fidelia LloydDO [address] [place] [address] Assigned Heart and Vascular Provider 05/05/21 10/31/22 Shellie Thompson Personal Advocate & Liaison (PAL) Family Medicine 12/05/21 06/25/22 Suzanne Ma DO Hematology & Oncology 05/07/22 Cory Lama MD [address] [place] [address] [id number] Critical Care 05/07/22 Tabatha Agrawal RN Specialty Learning Development Specialist Hematology & Oncology 05/13/22 [place] [address] [place] [address] Assigned Cancer Care Provider 05/17/22 Cory Lama MD [address] [place] [address] Assigned Pulmonology Provider 05/24/22 11/13/[address], MARY Personal Advocate & Liaison (PAL) Family Medicine 07/08/22 11/23/23 Lenore Ramirez LSW Clinic Learning Development Specialist Primary Care - CC 09/10/22 09/16/22 Lenore Ramirez LSW Clinic Learning Development Specialist Primary Care - CC 09/17/22 09/19/22 Gibran Ramírez [place] [address] [place] [address] Assigned Palliative Care Provider 09/20/22 01/09/23 Justine Hayes NRP, CP Community Shadow Graph Weight Operator 11/24/22 01/28/23 Keira Frye, [facility] [address] [place] [address] Pharmacist Pharmacist 12/04/22 09/29/23 Keira Frye, [facility] [address] [facility] [place]ANEL ORTZE [address] Assigned MTM Pharmacist 12/13/22 Colby Khan MD [address] [place] [address] Neurology 01/02/23 Candi Stinson DO [address] [place] [address] Assigned Palliative Care Provider 01/10/23 Justine Hayes NRP, CP Community Shadow Graph Weight Operator 03/25/23 07/23/23 [place] [address] [place] [address] Assigned PCP 03/28/23 Melissa Boo, W Community Health Worker Primary Care - CC 04/30/23 04/30/23 Hallie Berman RN Personal Advocate & Liaison (PAL) Family Medicine 11/24/23 Nancy Shaw PA-C [address] [place], [place] 44[address] Physician Rotor Balancer Pulmonary Disease 01/05/24 Arpan Carolina MD [address] [facility] [address] [place], [place] [address] Critical Care 01/05/24 Prema Mendez, [facility] [address] [facility] [address] [place], [place] [address] Assigned Behavioral Health Provider 02/23/24 03/23/24 documented as of this encounter
[2024-04-14] VITALS (23 sets, daily range): BP systolic 94–120; BP diastolic 50–59; PULSE 71–102; RESP 13–30; TEMP 37; O2SAT 88–99; BMI 17.6
[2024-04-14] LABS: Lactate Sepsis w/Reflex* 1.7 mmol/L (0.5-1.9); Slide Review Reflex No
--- OUTSIDE RECORDS SUMMARY | 2024-04-14 | XMS_ITS | Encounter Summary ---
Author Organization [place] Address [address] [facility] [place] [address] Care Team Providers Care Window Covering Sales Consultant Name Role Phone Felisha Salomon PA-C Primary Care Provider Un available Scottie Hewitt MD Primary Car e Provider Theo, Zee Gardiner APRN CORRECTIONAL SUPERVISOR Primary Care Provi alessia Unavailable Sharmin Trejo OBSTETRICS TEACHER Un[facility] Loreta Corona MD Primary Care Provider Zee Venegas APRN CORRECTIONAL SUPERVISOR Primary Care Provi alessia Unavailable Theo, Zee Gardiner APRN CORRECTIONAL SUPERVISOR Unavailable Un available TheoZee APRN CORRECTIONAL SUPERVISOR Unavailable Un available Tana Gomez MD Primary Care Prov ider Tana Gomez MD Unavailable + Lenore Ramirez HELP AID Unavailable [phone] Lenore Ramirez HELP AID Unavailable [phone] Aston Zamora RN Unavailable Unavailable Arpan Morales MD Unavailable [phone] Fidelia Seo DO Unavailable [phone] Shellie Thompson Unavailable Unavailable Suzanne Ma DO Unavailable [phone] Coyr Lama MD Unavailable Tabatha Agrawal RN Unavailable [phone] Suzanne Ma DO Unavailable [phone] Cory Lama MD Unavailable Latanya Silva MD Primary Care Provider Veronica Street RN Unavailable Unavailable Lenore Ramirez HELP AID Unavailable Lenore Ramirez HELP AID Unavailable Gibran Ramírez MD Unavailable Justine Hayes NRP, CP Unavailable [phone] Keira Frye [facility] Unavailable Keira Frye [facility] Unavailable Colby Khan MD Unavailable [phone] Candi Stinson DO Unavailable Justine Hayes NRP, CP Unavailable Latanya Silva MD Unavailable Melissa Boo CHW Unavailable [phone] Hallie Berman RN Unavailable Unavailable Nancy Shaw PA-C Unavailable Arpan Carolina MD Unavailable [phone] Prema Mendez INTERVENTION TEACHER Unavailable [phone] Encounter Details Date Type Department Care Team (Late st Contact Info) Description 03/09/[address] [address] Darrin Randolph MD [facility] [place] [address] [address] [address] LESI (Primary Dx) Social History Tobacco Use Types [...] Description 04/27/2024 11:00 AM CDT Oncology Visit [facility] [address] [place] [address] [address] [facility] [place] [address] [place] [address] [place] [address] Cherie Geiger PA-C [address] [place] [address] documented as of this encounter Visit Diagnoses Diagnosis LESI- Primary documented in this encounter Additional Health Concerns Infection Onset Date Last Indicated Resolved Time Rule Out COVID-19 06/19/2022 06/19/2022 06/19/2022 1:43 PM CDT documented as of this encounter Care Teams Window Covering Sales Consultant Relationship Specialty Start Date End Date Felisha Salomon PA-C PCP - General 12/19/03 01/27/10 Scottie Hewitt MD PCP - General Family Practice 01/28/10 04/22/15 Zee Venegas APRN CORRECTIONAL SUPERVISOR PCP - General Nurse Practitioner 04/23/15 04/22/18 Loreta Corona MD PCP - General Family Practice 04/23/18 05/18/18 Zee Venegas APRN CORRECTIONAL SUPERVISOR PCP - General Nurse Practitioner 05/19/18 03/07/19 Zee Venegas APRN CORRECTIONAL SUPERVISOR PCP - Assigned PCP 03/04/15 01/04/19 [place] [address] [place] [address] PCP - General Family Practice 03/08/19 06/11/22 [place] [address] [place] [address] PCP - General Family Medicine 06/12/22 Sharmin Trejo, OBSTETRICS TEACHER Inside Wireman 09/11/15 09/02/16 [facility] ([place]) 04/19/18 05/24/18 Zee Venegas APRN CORRECTIONAL SUPERVISOR Assigned PCP 03/04/15 05/07/19 [place] [address] [place] [address] Assigned PCP 05/08/19 03/27/23 Lenore Ramirez LSW Clinic Director Of Consulting Services Primary Care - CC 06/29/19 08/03/19 Lenore Ramirez LSW Lead Director Of Consulting Services Primary Care - CC 08/12/19 Aston Zamora, RN Personal Advocate & Liaison (PAL) Family Practice 09/15/19 10/01/21 Arpan Morales MD [address] [place] [address] Assigned Heart and Vascular Provider 08/24/20 02/09/21 Taylorsharri Fidelia LloydDO [address] [place] [address] Assigned Heart and Vascular Provider 05/05/21 10/31/22 Shellie Thompson Personal Advocate & Liaison (PAL) Family Medicine 12/05/21 06/25/22 Suzanne Ma DO Hematology & Oncology 05/07/22 Cory Lama MD [address] [place] [address] 017175 Critical Care 05/07/22 Tabatha Agrawal, MARY Specialty Director Of Consulting Services Hematology & Oncology 05/13/22 [place] [address] [place] [address] Assigned Cancer Care Provider 05/17/22 Cory Lama MD [address] [place] [address] Assigned Pulmonology Provider 05/24/22 11/13/[address], MARY Personal Advocate & Liaison (PAL) Family Medicine 07/08/22 11/23/23 Lneore Ramirez LSW Clinic Director Of Consulting Services Primary Care - CC 09/10/22 09/16/22 Lenore Ramirez LSW Clinic Director Of Consulting Services Primary Care - CC 09/17/22 09/19/22 Gibran Ramírez [place] [address] [place] [address] Assigned Palliative Care Provider 09/20/22 01/09/23 Justine Hayes NRP, CP Community Mixer Machine Feeder 11/24/22 01/28/23 Keira Frye, [facility] [address] [place] [place] [address] Pharmacist Pharmacist 12/04/22 09/29/23 Keira Frye, [facility] [address] [place] [address] Assigned MTM Pharmacist 12/13/22 Colby Khan MD [address] [place], [place] [address] Neurology 01/02/23 Candi Stinson DO [address] [place] [address] Assigned Palliative Care Provider 01/10/23 Justine Hayes NRP, CP Community Mixer Machine Feeder 03/25/23 07/23/23 [place] [address] [place], [place] [address] Assigned PCP 03/28/23 Melissa Boo, W Community Health Worker Primary Care - CC 04/30/23 04/30/23 Hallie Berman, RN Personal Advocate & Liaison (PAL) Family Medicine 11/24/23 Nancy Shaw PA-C [address] [place] [address] Physician Transit Police Officer Pulmonary Disease 01/05/24 Arpan Carolina MD [address] [facility] 276 [place] [address] Critical Care 01/05/24 Prema Mendez, [facility] [address] [facility] [address] [place] [address] Assigned Behavioral Health Provider 02/23/24 03/23/24 documented as of this encounter
--- OUTSIDE RECORDS SUMMARY | 2024-04-14 | XMS_ITS | Continuity of Care Document ---
Author Organization [facility] Address [address] [place] [address] Phone Care Team Providers Care Tools And Parts Attendant Name Role Phone Rojas HIDE EXAMINERArpitaC, Macrina Unavailable Unavailable Allergies, Adverse Reactions, Alerts Substance Reaction Status Criticality gabapentin Difficulty breathing Active No Info rmation DICLOFENAC SODIUM Anaphylaxis Active No Informa tion amoxicillin Rash Active No Information SERTRALINE HCL spacey Active No Informatio n Medications Medication Instructions Dosage Effective Dates (start - stop) Status Comments OXYCONTIN (unknown strength) take 1 tablet by oral route every 12 hours Not Available - Active naproxen 500 mg tablet take 1 tablet by oral route 2 times every day with food 500 MG - Active trazodone 150 mg tablet take 1 tablet by oral route nightly - Active vitamin A 10,000 unit capsule take 1 capsule by oral route every day 13313 UNITS - Active Vitamin D3 2,000 unit tablet - Active Calcium 500 mg (1,250 mg) + D3 125 unit tablet - Active Butrans 10 mcg/hour transdermal patch apply 1 patch by transdermal route every 7 days 10 MCG/H - No Longer Active Chronic pain Dose increase Butrans 5 mcg/hour transdermal patch apply 1 patch by transdermal route every 7 days 5 MCG/H - No Longer Active Replacing prior script Procedures Procedure Date Est Pt Eval Moderate New Pt Eval High Toxicology Test Group B No Show Visit Fee New Pt Eval 45 Min Advance Directives Directive Yes / No Effective Date File Name Intubation Not Answered N/A N/A Antibiotics Not Answered N/A N/A IV Fluid Support Not Answered N/A N/A Tube Feed Not Answered N/A N/A Other Directive No N/A N/A WARNING:The information contained in this section is historical and is provided for information only and does not constitute a legal document or any assurance that the information is still accurate. Please verify the information with the gibbs of the legal document before using it for clinical purposes. Encounters Encounter Description Practice Location Reason(s) For Visit Diagnoses Date Provider Providers Copied on Encounter Est Pt Eval Moderate [facility] [address], [place], [place], [id number], [place] tel:[phone] [facility] back pain (chief complaint) SacroiliitisRadi culopathy, lumbar regionOther spondylosis, lumbar regionPostlamine ctomy syndromeBody mass index (BMI) 19 or less, adult 3 [facility]. [address] [place], [address], [place]. tel:[phone] Referring Provider: Latanya Bell, [address] [place], [address]. tel:[phone] New Pt Eval High [facility], [address], [place], [place], [id number], [place] tel:[phone] [facility] back pain (chief complaint) SacroiliitisPost laminectomy syndromeRadiculo roe, lumbar regionOther spondylosis, lumbar region 3 [facility] Mcconnell. [address] [facility] [address], [place], [address], [place]. tel:[phone] Referring Provider: Latanya Bell, [address] [place], [address]. tel:[phone] [facility], [address], [place], [place], [id number], [place] tel:[phone] [facility] No Information 3 Olimpia Mcconnell. [address] [place] [address], [place], [address], [place]. tel:[phone] Referring Provider: Latanya Bell, [address] [place], [address]. tel:[phone] [facility], [address], [place], [id number], [place] tel:[phone] [facility] No Information 3 Jay Amos. [address], [place], [id number], [place]. tel:[phone] Referring Provider: Latanya Bell, [address] [place], [address]. tel:[phone] [facility], [address], [place], [id number], [place] tel:[phone] [facility] No Information 3 Jay Amos. [address], [place], [id number], [place]. tel:[phone] Referring Provider: Todd Schaeffer PA-C C, [address] [facility] [address], [place], [address]. tel:[phone] New Pt Eval 45 Min [facility], [facility], [address], [place], [place], [id number], [place] tel:[phone] [facility] Other spondylosis with radiculopathy, lumbar regionOther spondylosis with radiculopathy, cervical regionCervicalgi aLong term (current) use of opiate analgesic 6 Jose Parham. [address] , [address], [place], [place], [id number], [place]. tel:[phone] Referring Provider: Todd Vegas, [address] [place] [address] [address], [place], [address]. tel:[phone] Family History Family Member Type Diagnosis Age At Onset Mother Problem (finding) Cancer Father Problem (finding) diabetes pai camron in first degree relative Payers Payer name Insurance type Covered democrat ID J Carlos josé(s) [facility] [employer] [id number] Social History Type Description Quantity Date Captured Comments Alcohol Use Details No Caffeine Use Details coffee Tobacco Use Status Occasional cigarette smoker Smoking Status Current some day smoker 023 Sex Female Vital Signs Date / Time: Height Weight BMI Pulse Rate Blood Pressure Temperature Respiratory Rate Body Surface Area Head Circumference Head Circ. Percentile Wt./Eliu. Percentile BMI percentile Pulse Ox Inhaled Ox 10:27 AM 62.00 in 41.277 kg (91.00 lbs) 16.6 4 kg/m eter (2) 83 /min 98/62 mm[Hg] 1.34 meter(2) 96 % Chief Complaint And Reason For Visit From encounter dated '06/24/2023 10:40'. back pain (chief complaint). Description: Location of pain is lower back, bilat hips and L leg. Thepatient describes the pain as an ache, deep, sharp, shooting and stabbing. Symptoms are aggravated by daily activities, standing and walking. Symptoms are relieved by pain meds/drugs. Reason For Referral Reason For Referral No Information Plan Of Treatment Date Type Action Status Goal Tobacco cessation counseling completed Goal Lifestyle education regardin g diet completed Goal Tobacco cessation counseling completed Referral Ordered: Pain Management (related to Sacroiliitis) ordered Referral Ordered: Referrals: Pain Management. Location: [facility] Evaluate and treat ordered History Of Present Illness Encounter Date Complaint History Of Prese nt Illness back pain Location of pain is lower back, bilat hips and L leg. The patient describes the pain as an ache, deep, sharp, shooting and stabbing. Symptoms are aggravated by daily activities, standing and walking. Symptoms are relieved by pain meds/drugs. back pain It occurs persis tently. Location of pain is lower back. Pain is radiated to the left thigh and right thigh. The patient describes the pain as numbness and sharp. Context: no injury. Symptoms are aggravated by daily activities. Symptoms are relieved by heat. Functional Status Date Functional Assessmen t Pain Score 8/10 Instructions Date Instruction Additional Infor mation -Refilled and increa sed Butrans to 10mcg/hour patch -Referral sent to [facility] for pain medication management Related to Sacroiliitis Lifestyle education regarding di et Related to Body mass index [BMI] 19.9 or less, adult -Order lumbar epidur al steroid injection with sedation. Once approved, can schedule this appointment. With sedation: must have van driver helper, can't eat for 8 hours prior to procedure and can only drink clear liquids up to 2 hours before Related to Radiculopathy, lumbar region -Order sacroiliac yeison int injection with sedation. Once approved, can schedule this appointment. With sedation: must have van driver helper, can't eat for 8 hours prior to procedure and can only drink clear liquids up to 2 hours before-Follow up with PCP regarding broken pain contract-Prescribed Butrans 5mcg/hour patch -Follow up with [facility] in 2-3 weeks Related to Sacroiliitis Assessments Type Assessment Date assessment Sacroiliitis assessment Radiculopathy, lumbar region Jun assessment Other spondylosis, lumbar region assessment Postlaminectomy syndrome 2022 assessment Body mass index [BMI] 19.9 or le ss, adult Mental Status Date Cognitive Assessment Orientation - Baldwin ed to time, place, person, situation. Patient Care Teams Name Effective Dates (start - stop) Status Members No Information
--- NOTE | 2024-04-14 00:01 | CRLHL7_ITS ---
For Patients: As a result of the Century Cures Act, medical imaging exams and procedure reports are released immediately into your electronic medical record. You may view this report before your referring provider. If you have questions, please contact your health care provider. INDICATION: Chest injury from fall, shortness of breath, respiratory distress TECHNIQUE: Chest radiograph 2 views COMPARISON: 01/17/2024 FINDINGS: Mediastinum: The mediastinum is normal in appearance. The heart silhouette is normal in size and morphology. Lung: The left perihilar consolidation seen on prior examination is not identified on today`s study. Moderate perihilar ground-glass opacities are present bilaterally. No sign of pleural effusion seen. No pneumothorax is identified. Bone and Soft tissue: Unremarkable for age. IMPRESSION: 1. Moderate perihilar ground-glass opacities are present bilaterally. Findings may be due to pneumonia, pulmonary edema, or pulmonary contusion. Evaluation with chest CT may be helpful. Dictated by Carlitos Mcdonald MD @ 04/14/2024 1:28:46 AM Dictated by: Carlitos Mcdonald MD @ 04/14/2024 01:28:49 (Electronically Signed)
[2024-04-14 00:11] LABS: Troponin I* < 0.01 ng/mL (0.01-0.04)
[2024-04-14 00:23] LABS: PCR FLU A Negative PCR FLU A (Negative); PCR FLU B Negative PCR FLU B (Negative); PCR RSV Negative PCR RSV (Negative); SARS PCR* Negative SARS-CoV-2 (Negative)
[2024-04-14] MEDS: AZITHROMYCIN 500 MG in 0.9 % SODIUM CHLORIDE 250 ml 250 ML 255 MG IVPB (00:26)
--- NOTE | 2024-04-14 01:32 | CRLHL7_ITS ---
For Patients: As a result of the Century Cures Act, medical imaging exams and procedure reports are released immediately into your electronic medical record. You may view this report before your referring provider. If you have questions, please contact your health care provider. INDICATION: SOB, RESPIRATORY DISTRESS TECHNIQUE: CT chest without contrast. COMPARISON: CT chest abdomen pelvis December 27, 2023. FINDINGS: Lungs and pleura: Postradiation changes in the left upper lobe in the medial left lower lobe with volume retraction and bronchiectasis. However, there is worsening opacification in this region with left lower lobe mucous plugging which may indicate increased atelectasis or pneumonia/aspiration. Underlying disease recurrence can not be excluded. Moderate to severe pjiij-czzoonx-veln-left multifocal ground-glass opacities with more consolidative opacity at the right lung base. Small left pleural effusion. No visualized pneumothorax. There is some bronchial debris within the left lower lobe distal bronchioles. . Heart and vasculature: Heart size is normal. Thoracic aorta and pulmonary artery are normal in caliber.Coronary and thoracic aortic calcifications. Lymph nodes/mediastinum: No mediastinal enlarged lymph nodes by size criteria. Patulous fluid-filled esophagus places patient at risk for aspiration. Chest wall: No masses. Upper abdomen: No significant findings. Bones: No acute osseous abnormality or aggressive osseous lesion. Posterior lumbar spinal fusion partially visualized. IMPRESSION: 1. Postradiation changes in the left upper lobe in the medial left lower lobe with volume retraction and bronchiectasis. However, there is worsening opacification in this region with left lower lobe mucous plugging which may indicate atelectasis or pneumonia/aspiration. Underlying disease recurrence cannot be excluded. Recommend attention on follow-up. 2. Moderate to severe mimpn-fkkbxme-gnbh-left multifocal ground-glass opacities with more consolidative opacity at the right lung base. Findings concerning for atypical infectious process with right lower lobe superimposed pneumonia/aspiration. 3. Small left pleural effusion. 4. Patulous fluid-filled esophagus places patient at risk for aspiration. Please note that all CT scans at this facility use dose modulation, iterative reconstruction, and/or weight-based dosing when appropriate to reduce radiation dose to as low as reasonably achievable. Dictated by Ivan Carranza MD @ 04/14/2024 4:16:36 AM (Electronically Signed)
[2024-04-14] MEDS: ACETAMINOPHEN 500 MG TABLET 1000 MG PO (04:40)
[2024-04-14] MEDS: 0.9 % SODIUM CHLORIDE 500 ML 500 ML IV (04:40)
--- NOTE | 2024-04-14 06:26 | W.PM.TELEPRO ---
Progress Note: A&P Assessment and plan (1) Daytime somnolence: Status: Acute (2) Depression: Status: Acute (3) Dementia: Status: Acute (4) Polypharmacy: Status: Acute (5) Chronic, continuous use of opioids: Problem details: -buprenophrine (patch, SL Status: Acute (6) History of atrial fibrillation: Problem details: Rate is well controlled. On chronic anticoagulation Status: Acute (7) Pneumonia: Status: Acute (8) Acute encephalopathy: Status: Acute Plan This patient has acute metabolic encephalopathy which is clearly medication related. He has been medication elevated for a significant amount of time however as she is had progressive deterioration of her clinical status, I think that the medications are likely amplifying their effect. Her BMI is now 17. Her overall weight is 42 kg. I suspect the 2 mg of Suboxone that she previously took is now much more potent. I will hold the Suboxone for now. This might have her go back into withdrawals. When she is more awake and alert and oriented then she can have an adjustment such as half a tab. If this patient continues to have acute encephalopathy I would recommend an MRI and lumbar puncture given her febrile state. This patient was febrile when she came to the ER. In the ER she was noted to have a chest x-ray which showed consolidation. This was confirmed with CT scan of the chest. I have elected to treat this is a community-acquired pneumonia/aspiration pneumonia. She does have CT evidence of esophagus filled with fluid and given her mental status I suspect aspiration is the most likely culprit. Currently she is arousable and is able to protect her airway. Polypharmacy: This patient's primary provider has spent a considerable amount of time trying to adjust medications. The difficult part is that she has chronic pain from previous lower back surgeries. Severe malnutrition: Patient BMI is under 18. She has very poor oral intake. Time Spent With Patient Total time spent: 65 min Telehealth Hospitalist-PN: Sub Subjective Time Seen by Provider: 03:00 Date Seen: 04/14/24 Interval History: Natalie Story is seen as an Interactive Telehealth visit. Natalie Story is a 78 year old male who has a past medical history significant for depression, chronic continuous use of opioids, A-fib on anticoagulation and chronic pain syndrome who presents to the hospital with somnolence. I have been reviewing this patient's chart since December 2022. She has been struggling with somnolence since. This patient's primary care provider has spent an extensive amount of time removing medications such as trazodone and any sort of psychogenic medication. However due to her chronic pain she remains on 2 mg of buprenorphine/Suboxone. Patient is evaluated today in the presence of her . notes that she has been increasingly confused and weak for the past 3 days. Prior to that she was excessively sleeping. Documentation shows that she was sleeping almost all day and only wakes up intermittently for an hour. Exam Narrative Exam Narrative: Physical Exam GENERAL: ?vital signs reviewed, somonolent, refusing to wake up HEENT: pin point pupils minimally reactive to light NECK: Supple without lymphadenopathy or thyromegaly according to nursing staff examination observation HEART: Regular rate and rhythm without any rubs, murmurs, or gallops. LUNGS: Clear to auscultation bilaterally with good air movement throughout ABDOMEN: Observation from nurse assisted exam, abdomen appears soft, nontender, and nondistended with Positive bowel sounds noted. EXTREMITIES: No focal strength deficit is observed. SKIN:? pressure ulcer noted Const Vital Signs, click to edit/add: Vital Signs - 24 hr 04/13/24 23:12 04/13/24 23:46 04/14/24 00:00 Temperature 101.2 F H Pulse Rate 102 H 102 H Pulse Rate [Left Pulse Oximeter] 101 H Pulse Rate [Pulse Oximeter] Respiratory Rate 20 26 H 18 Blood Pressure Blood Pressure [Left Arm] Blood Pressure [Right Upper Arm] 129/70 Pulse Oximetry 100 97 97 Oxygen Delivery Method Non Rebreather Mask Oxygen Flow Rate 04/14/24 00:02 04/14/24 00:15 04/14/24 00:30 Temperature Pulse Rate 102 H 101 H 100 Pulse Rate [Left Pulse Oximeter] Pulse Rate [Pulse Oximeter] Respiratory Rate 20 17 30 H Blood Pressure 120/59 L Blood Pressure [Left Arm] Blood Pressure [Right Upper Arm] Pulse Oximetry 95 96 97 Oxygen Delivery Method Oxygen Flow Rate 04/14/24 01:36 04/14/24 01:43 04/14/24 01:45 Temperature Pulse Rate 88 86 89 Pulse Rate [Left Pulse Oximeter] Pulse Rate [Pulse Oximeter] Respiratory Rate 18 16 Blood Pressure 102/53 L Blood Pressure [Left Arm] Blood Pressure [Right Upper Arm] Pulse Oximetry 98 98 97 Oxygen Delivery Method Oxygen Flow Rate 04/14/24 02:00 04/14/24 02:02 04/14/24 02:15 Temperature Pulse Rate 88 88 85 Pulse Rate [Left Pulse Oximeter] Pulse Rate [Pulse Oximeter] Respiratory Rate 16 15 17 Blood Pressure 100/52 L Blood Pressure [Left Arm] Blood Pressure [Right Upper Arm] Pulse Oximetry 97 97 97 Oxygen Delivery Method Oxygen Flow Rate 04/14/24 02:30 04/14/24 02:32 04/14/24 02:45 Temperature Pulse Rate 82 81 83 Pulse Rate [Left Pulse Oximeter] Pulse Rate [Pulse Oximeter] Respiratory Rate 16 13 19 Blood Pressure 95/58 L Blood Pressure [Left Arm] Blood Pressure [Right Upper Arm] Pulse Oximetry 97 98 92 Oxygen Delivery Method Oxygen Flow Rate 04/14/24 03:16 04/14/24 03:20 04/14/24 03:30 Temperature Pulse Rate 84 79 74 Pulse Rate [Left Pulse Oximeter] Pulse Rate [Pulse Oximeter] Respiratory Rate Blood Pressure 103/58 L Blood Pressure [Left Arm] Blood Pressure [Right Upper Arm] Pulse Oximetry 88 96 98 Oxygen Delivery Method Oxygen Flow Rate 04/14/24 03:32 04/14/24 03:45 04/14/24 04:00 Temperature Pulse Rate 74 76 71 Pulse Rate [Left Pulse Oximeter] Pulse Rate [Pulse Oximeter] Respiratory Rate Blood Pressure 96/56 L Blood Pressure [Left Arm] Blood Pressure [Right Upper Arm] Pulse Oximetry 98 98 99 Oxygen Delivery Method Oxygen Flow Rate 04/14/24 04:02 04/14/24 05:19 04/14/24 05:31 Temperature 98.6 F Pulse Rate 72 Pulse Rate [Left Pulse Oximeter] Pulse Rate [Pulse Oximeter] 83 Respiratory Rate 22 22 Blood Pressure 94/58 L Blood Pressure [Left Arm] 104/50 L Blood Pressure [Right Upper Arm] Pulse Oximetry 99 95 95 Oxygen Delivery Method Nasal Cannula Nasal Cannula Oxygen Flow Rate 2 2 Common normals: alert Exam limitations: altered mental status General appearance: cooperative, ill appearing and frail appearing Nutritional appearance: underweight; not obese and not overweight Orientation/consciousness: Yes confused HENMT Common normals: normocephalic Head and scalp: normal to inspection and normocephalic Face and sinus: normal facial exam Eye Common normals: conjunctivae normal and no scleral icterus General eye: normal appearance of both eyes Conjunctiva: conjunctiva(e) normal Neuro Sensorium/orientation: alert Labs Labs: Laboratory Results - last 24 hr 04/13/24 23:30 WBC 10.87 RBC 3.45 L Hgb 11.0 L Hct 33.7 MCV 98 MCH 32 MCHC 33 RDW Coeff of Heydi 13.8 Plt Count 304 Neut % (Auto) 82.8 H Lymph % (Auto) 5.5 L [place] % (Auto) 7.2 Eos % (Auto) 2.9 Baso % (Auto) 0.2 Neut # (Auto) 9.00 H Lymph # (Auto) 0.60 L [place] # (Auto) 0.80 Eos # (Auto) 0.32 Baso # (Auto) 0.02 Abs Immat Gran (auto) 0.15 Imm/Tot Granulo (auto) 1.4 VBG pH 7.419 VBG pCO2 39 L VBG pO2 < 30.1 VBG HCO3 25 Sodium 137 Potassium 3.7 Chloride 106 Carbon Dioxide 27 Anion Gap 4 L BUN 13 Creatinine 0.7 Estimated GFR 88 Glucose 152 H Lactate 1.7 Calcium 8.8 Total Bilirubin 0.7 AST 22 ALT 11 Alkaline Phosphatase 80 Troponin I < 0.01 L Total Protein 6.5 Albumin 3.8 SARS-CoV-2 (PCR) Negative SARS-CoV-2 Influenza Type A (PCR) Negative PCR FLU A Influenza Type B (PCR) Negative PCR FLU B RSV (PCR) Negative PCR RSV Telehealth: Statement Statement Telehealth Visit: Today's History and Physical is provided via interactive telehealth by Fadi Pascual MD.? Patient is located at [facility].? Provider is located at [facility].? Nursing staff assisted with the patient's exam. The visit being done today meets criteria for a telehealth visit and the patient or patient?s parent/guardian is aware the visit is a telehealth visit. Camera Start Time: 05:00 Camera End Time: 05:30
--- NOTE | 2024-04-14 06:43 | PC.NURSE ---
Arrived to the floor at 0500. Confused and very sleepy. at bedside. VSS. on 0.5 L of oxygen. bed alarm in place.
[2024-04-14] MEDS: OLANZapine 5 MG TAB.RAPDIS PO (09:25)
[2024-04-14] MEDS: HALOPERIDOL 5 MG/ML INJ IV ×2 (09:32→10:48)
[2024-04-14] MEDS: APIXABAN 5 MG TABLET 2.5 MG PO (09:32)
[2024-04-14] MEDS: LORazepam 2 MG/ML inj 0.5 MG IVP (10:00)
[2024-04-14] MEDS: QUETIAPINE 25 MG TABLET 12.5 MG PO (10:01)
[2024-04-14] MEDS: diphenhydrAMINE 50 MG/ML inj 25 MG IVP (10:19)
--- NOTE | 2024-04-14 10:19 | REH.OT ---
RN requesting hold on therapy today due to confusion/agitation. Will schedule for tomorrow and initiate OT eval as medically appropriate.
[2024-04-14 10:49] LABS: TSH With Reflex to FT4* 0.641 uIU/mL (0.270-4.200)
[2024-04-14 11:49] LABS: Basophils Absolute Auto 0.02 K/uL (0.00-0.30); Basophils Percent Auto 0.2 % (0.0-3.0); Hematocrit 30.8 % (33.0-51.0); Immature Granulocytes Abs Auto 0.03 K/uL (0.00-0.30); Immature Granulocytes Pct Auto 0.3 %; Lymphocytes Percent Auto 3.1 % (20-44); Mean Corpuscular HGB Conc 33 gm/dL (32-36); Mean Corpuscular Hemoglobin 32 pg (26-34); Mean Corpuscular Volume 98 fL (80-100); Monocytes Percent Auto 1.5 % (0.0-11.0); Neutrophils Percent Auto 94.9 % (42.0-72.0); Platelet Count* 282 K/uL (140-440); Red Blood Count 3.15 m/uL (4.00-5.20); White Blood Count* 10.34 K/uL (4.50-11.00)
[2024-04-14 11:53] LABS: Chloride* 110 mmol/L (96-114); Sodium* 139 mmol/L (135-149)
[2024-04-14 11:54] LABS: Potassium* 4.1 mmol/L (3.6-5.1)
[2024-04-14 11:56] LABS: Anion Gap 15 mEq/L (7-15); Carbon Dioxide* 14 mmol/L (20-32); Creatinine* 0.5 mg/dL (0.5-1.5); Est. Creatinine Clearance* 30.96; Estimated Glomerular Filt Rate 96 ml/min
[2024-04-14 11:57] LABS: Blood Urea Nitrogen* 15 mg/dL (7-30); Calcium* 8.8 mg/dL (8.4-10.6); Glucose* 176 mg/dL (60-115); Magnesium* 2.2 mg/dL (1.5-2.6)
[2024-04-14 11:58] LABS: Slide Review Reflex No
[2024-04-14] MEDS: LORazepam 2 MG/ML inj 1 MG IVP ×2 (11:59→12:42)
[2024-04-14 12:14] LABS: Procalcitonin* 0.28 ng/mL (<0.50)
[2024-04-14] MEDS: MORPHINE 2 MG/ML inj IVP (12:21)
[2024-04-14 12:41] LABS: Appearance Urine Clear (Clear); Bilirubin Urine Negative (Negative); Blood Urine Trace-intact (Negative); Color Urine Yellow (Yellow); Glucose Urine Negative (Negative); Ketones Urine Negative (Negative); Leukocyte Esterase Urine Negative (Negative); Nitrite Urine Negative (Negative); Protein Urine Negative (Negative); Specific Gravity Urine 1.015 (1.000-1.030); Urobilinogen Urine 0.2 (0.2-1.0); pH Urine 6.5 (5.0-8.5)
[2024-04-14] MEDS: OLANZapine 5 MG/ML inj IM (12:42)
[2024-04-14 12:55] LABS: Legionella pneumo Ag Urine L. pneumo Negative (Negative); S pneumo Ag Urine S. pneumo Negative (Negative)
[2024-04-14 12:57] LABS: RBC Urine 0-2 (0-2); WBC Urine 0-2 (0-5)
[2024-04-14] MEDS: MORPHINE 10 MG/0.5 ML ORAL SOLN PO ×5 (12:58→14:11)
[2024-04-14] MEDS: LORazepam 2 MG/ML inj IVP ×2 (12:59→19:07)
--- NOTE | 2024-04-14 13:46 | W.PM.CROSSCO ---
Subjective Subjective Interval history: patient with agitated delirium lactate 6 attempted to give IVF, broaden antibiotics Given several rounds of haldol, zyprexa, benadryl, ativan, seroquel; etc Family care conference this afternoon with Son and Patient is DNR/DNI Family recommending transfer to comfort care son would like to bring family dog to hospital SW consult for tomorrow
--- NOTE | 2024-04-14 14:42 | PC.NURSE ---
I assumed care at 1400. Natalie is lying in bed with HOB elevated 30 degrees. Thrashing limbs, moving continuously, moaning, crying out, ow and ahh!. Easy to redirect back into lying position. Roxanol given with little relief x3. Juan Francisco and son Isael at bedside assisting with redirection and offering comforting words and physical touch. Bladder scanned at 1435 to ensure this is not contributing to agitation, only 11 ml present. Repositioned, offered warm blankets, removed blankets, cool rag for face, mouth cares, offered with little relief.
--- NOTE | 2024-04-14 14:42 | PC.NURSE ---
Shift Events [id number]: This morning upon assessment the patient was noted to be confused and yelling out.... flanging all 4 extremities and jolting with any physical contact during GOSIA/ RN cares. Swallow study was completed with no issues noted. The patient was noted to be alert to self and although could tell me her birthday. A slough of medications were given to help with the patients agitation and pain... they were noted to have a minimal effect on the patient. 1:[address] in [address] per MD order. The patient was noted to have intermittent episodes of calmness.. although never resolved. The patient was also noted to complain of back pain... but unable to rate the pain. She would yell out help me despite best efforts to comfort the patient. PRN aqua K pad was applied... morphine was given. The patient was also noted to have trouble voiding. Bladder scan was completed... retention of 370cc was found. MD notified... decision to straight catheterize the patient. In order to complete this intervention the patient had to by held down physically by 4 staff members. Straight cath output of 300cc. Goals of care were discussed by the MD with her family. The comfort care protocol was to begin after I was discontinued from her care this shift. IV patent in LAC. multiple other attempts were made to obtain a second line... none were successful. Tabatha HERNANDEZ BSN
[2024-04-14] MEDS: fentaNYL 25 MCG/HR PATCH 1 PATCH TRANSDERMA (15:05)
[2024-04-14] MEDS: MORPHINE 20 MG/ML **CONCENTRATE** ORAL PO (19:07)
[2024-04-15] MEDS: MORPHINE 20 MG/ML **CONCENTRATE** ORAL PO ×10 (03:12→23:51)
[2024-04-15] MEDS: LORazepam 2 MG/ML inj IVP ×7 (03:12→23:48)
[2024-04-15] MEDS: ACETAMINOPHEN 650 MG SUPP PR (03:13)
--- NOTE | 2024-04-15 04:05 | PC.NURSE ---
Shift Note: Pt appears comfortable with PO Roxanol and Ativan IVP. Occasionally experiences bouts of agitation, sitting up at the edge of the bed and laying back down. Pt dc'd her IV during a dressing change and a new IV was placed in the right forearm. One moderate incontinent brief with strong smelling urine. Occasional oral cares provided, pt does not appear to like mouth swabs.
[2024-04-15] MEDS: MENTHOL 57 GM GEL 1 APPLIC TOPICAL ×2 (09:04→21:35)
--- NOTE | 2024-04-15 09:35 | NUTR.NU ---
Nutrition follow-up: Per MD, patient is now on comfort cares. Not appropriate for nutrition interventions due to comfort cares. MD consult canceled.
--- NOTE | 2024-04-15 10:08 | P.IMPN_ITS ---
Progress Note: A&P Assessment and plan (1) Need for comfort care: Problem details: presented with agitated delirium severe sepsis secondary to PNA, Bacillus bacteremia; transitioned to comfort care on 04/14; She may pass away in hospital in next 24 hours possibly. SW consulted greatly appreciate assistance if home with hospice is possibly needed if patient does not pass away in next 24-48 hours Status: Acute (2) Acute encephalopathy: Status: Acute (3) Pneumonia: Status: Acute (4) Depression: Status: Acute (5) Dementia: Status: Acute (6) Physician orders for life-sustaining treatment (POLST) form indicates patient wish for [id number] status: Status: Acute (7) Non-small cell cancer of right lung: Problem details: dx in 2021; s/p XRT and chemo. no surgery. Status: Acute (8) Chronic, continuous use of opioids: Problem details: -buprenophrine (patch, SL Status: Acute (9) History of atrial fibrillation: Problem details: Rate is well controlled. On chronic anticoagulation Status: Acute (10) History of pulmonary embolism: Problem details: on oral anticoagulation Status: Acute (11) Chronic pain syndrome: Problem details: chronic degenerative lumbar disease. Status: Acute (12) COPD (chronic obstructive pulmonary disease): Problem details: No current issues Status: Acute Subjective Date Seen: 04/15/24 Interval history: patient comfort care no acute events overnight appears comfortable Exam Narrative: Exam Narrative: Gen: no acute distress HEENT: NCAT CV: symmetrical chest raise Lungs: non labored breathing Neuro: somnolent Const: Vital Signs, click to edit/add: Vital Signs - 24 hr 04/14/24 15:00 Respiratory Rate 22 Labs Labs: Laboratory Results - last 24 hr 04/14/24 04/14/24 04/14/24 09:20 11:10 12:31 WBC 10.34 RBC 3.15 L Hgb 10.0 L Hct 30.8 L MCV 98 MCH 32 MCHC 33 RDW Coeff of Heydi 14.0 Plt Count 282 Neut % (Auto) 94.9 H Lymph % (Auto) 3.1 L [place] % (Auto) 1.5 Eos % (Auto) 0.0 Baso % (Auto) 0.2 Neut # (Auto) 9.80 H Lymph # (Auto) 0.30 L [place] # (Auto) 0.20 Eos # (Auto) 0.00 Baso # (Auto) 0.02 Abs Immat Gran (auto) 0.03 Imm/Tot Granulo (auto) 0.3 Sodium 139 Potassium 4.1 Chloride 110 Carbon Dioxide 14 L Anion Gap 15 BUN 15 Creatinine 0.5 Estimated Creat Clear 30.96 Estimated GFR 96 Glucose 176 H Lactate 6.0 H* Calcium 8.8 Magnesium 2.2 Procalcitonin 0.28 TSH 0.641 Urine Color Yellow Urine Appearance Clear Urine pH 6.5 Ur Specific [place] 1.015 Urine Protein Negative Urine Glucose (UA) Negative Urine Ketones Negative Urine Blood Trace-intact A Urine Nitrite Negative Urine Bilirubin Negative Urine Urobilinogen 0.2 Ur Leukocyte Esterase Negative Urine RBC 0-2 Urine WBC 0-2 Ur Squamous Epith Cells None Urine Bacteria None Urine L. pneumophilia Ag L. pneumo Negative Urine Strep pneumoniae Ag S. pneumo Negative
[2024-04-15] MEDS: LORazepam 1 MG TABLET PO (11:39)
[2024-04-15] MEDS: MORPHINE 10 MG/0.5 ML ORAL SOLN PO ×4 (11:45→12:07)
[2024-04-15] MEDS: OLANZapine 5 MG/ML inj 10 MG IM ×2 (12:04→12:07)
[2024-04-15] MEDS: LORazepam 2 MG/ML inj IM (12:08)
[2024-04-15] MEDS: SODIUM CHLORIDE 0.9 % (FLUSH) 10 ML SYRINGE 5 ML IVF ×3 (12:50→23:57)
--- NOTE | 2024-04-15 13:40 | PC.SOCIAL ---
Discharge planning: healthcare social worker spoke to the provider on duty today around 1:30pm and he stated that the pt will be in the hospital over the weekend. The pt is not ready for a discharge home with hospice at all today due to her level of nursing care needed. healthcare social worker will attempt to meet with pt's family to start the discussion of hospice services/agencies today, otherwise social work will plan to meet with the family on Thursday. Social work to follow-up as needed.
[2024-04-15] MEDS: LORazepam 2 MG/ML inj 4 MG IVP (13:45)
[2024-04-15] MEDS: KETAMINE HCL 100 MG/ML inj 40 MG IVP (13:50)
[2024-04-15] MEDS: HYDROmorphone 0.5 mg/0.5 ml inj 1 MG IVP ×2 (15:00→19:49)
[2024-04-15] MEDS: MORPHINE 20 MG/ML **CONCENTRATE** ORAL 10 MG PO ×5 (15:33→20:22)
--- NOTE | 2024-04-15 16:37 | PC.NURSE ---
Shift Summary 03-16: Patient has been resting most of shift. Got up around 1100 to use BSC, was incontinent a large amount in brief as well as voided on BSC. Increased SOB and agitation once back in bed. Required 3 people to comfort patient, Hospitalist, charge nurse and primary nurse in room for management (see MAR). Following medication administration and repositioning patient able to rest for about 1.5hrs before requiring more medication, see MAR. Patients family has been in room all day. Continues to wear o2 2L/NC for comfort. Unable to swallow fluids for oral medications.
--- NOTE | 2024-04-15 16:49 | PC.SOCIAL ---
Discharge planning: Met with and son in room regarding discharge planning. Son states they can not take pt home and she will need placement in a [place] [facility] [place]. Family lives in [place] and are most interested in [facility] in [place]. Left message for [facility] and provided family with list of area nursing homes with [facility] ratings and how to find the department of [facility] ratings online. Pt has [facility] Medicare Advantage. lubrication worker left message with admissions at [facility] requesting call back regarding bed availability and whether they are contracted with [facility]. Written information on hospice services was provided. lubrication worker to follow up as needed on Thursday and family will discuss options over the weekend..
--- NOTE | 2024-04-15 18:55 | PC.NURSE ---
Nursing Care Hours: [id number] Pt this shift remained in bed, asleep with intermittent moaning. As moaning begins to increase, PRN medications for pain and anxiety given and are effective. RR 24 easy rise and fall of chest, spo2 turned off to RA. Bladder scan d/t low u/o, showed 80ml. Pillows placed under bone prominence.
--- NOTE | 2024-04-15 22:57 | PC.NURSE ---
Shift note: Pt was moaning at the start of the shift at 1900. Morphine and Deluded given to keep pt comfortable and calm. MD increased the Morphine to 20mg which appeared effective. The last Morphine 20mg was given at 0 and pt has been calm since then. Oxygen 2L applied to give comfort. Bladder scan done at 2250 was 231ml. Pt is sleepy and unconscious at this time.
--- NOTE | 2024-04-16 06:45 | PM.IMPN1 ---
Progress Note: A&P Assessment and plan (1) Need for comfort care: Problem details: presented with agitated delirium severe sepsis secondary to PNA, Bacillus bacteremia; transitioned to comfort care on 04/14; She may pass away in hospital in next 24 hours possibly. SW consulted greatly appreciate assistance if home with hospice is possibly needed if patient does not pass away in next 24-48 hours anticipated discharge Thursday if still in hospital continue morphine, ativan, fentanyl patch; scheduled rectal oxycontin; seroquel; scheduled IV dilaudid wean once stable regimen in place; many other prn for symtpom mgmt Status: Acute (2) Acute encephalopathy: Status: Acute (3) Delirium: Problem details: agitated delirium; was given ketamine on 04/15 Status: Acute (4) Pneumonia: Problem details: severe sepsis secondary to pna and bacteremia Status: Acute (5) Depression: Status: Acute (6) Dementia: Status: Acute (7) Physician orders for life-sustaining treatment (POLST) form indicates patient wish for [id number] status: Status: Acute (8) Non-small cell cancer of right lung: Problem details: dx in 2021; s/p XRT and chemo. no surgery. Status: Acute (9) Chronic, continuous use of opioids: Status: Acute (10) History of atrial fibrillation: Status: Acute (11) History of pulmonary embolism: Status: Acute (12) Chronic pain syndrome: Problem details: chronic degenerative lumbar disease. Status: Acute (13) COPD (chronic obstructive pulmonary disease): Status: Acute Subjective Date Seen: 04/16/24 Interval history: patient comfort care was agitated yesterday afternoon lost IV access was given several rounds IM zyprexa, IM ativan, PO morphine was spitting medications up IV re-established and given ketamine very opioid tolerant Exam Narrative: Exam Narrative: Gen: no acute distress HEENT: NCAT CV: symmetrical chest rise Lungs: non labored breathing Neuro: sedated MSK: decreased muscle mass
[2024-04-16] MEDS: HYDROmorphone 0.5 mg/0.5 ml inj IVP ×10 (06:49→23:46)
[2024-04-16] MEDS: SODIUM CHLORIDE 0.9 % (FLUSH) 10 ML SYRINGE 5 ML IVF ×4 (06:50→23:46)
--- NOTE | 2024-04-16 08:27 | PC.NURSE ---
Pt turned and repositioned throughout night. Pt is unable to verbalize pain but does moan and becomes restless, PRN morphine and Ativan given for pain and comfort. 2L O2 via nasal cannula on for comfort. Pt slept throughout most of night. Night uneventful.
[2024-04-16] MEDS: LORazepam 2 MG/ML inj IVP ×3 (08:48→17:37)
[2024-04-16] MEDS: MORPHINE 20 MG/ML **CONCENTRATE** ORAL PO ×5 (09:04→18:39)
[2024-04-16] MEDS: SCOPOLAMINE 1 MG/3 DAY PATCH 1 PATCH TRANSDERMA (12:25)
--- NOTE | 2024-04-16 18:57 | PC.NURSE ---
Nursing Care Hours: [id number] Pt this shift remained asleep in bed with intermittent soft moaning. Apparent air hunger aeb pt pulling chin up and forward with inspiration, not relieved by oral Morphine. pain medication given per schedule and Ativan used for possible anxiety. Turned and repo about every two hours. Brief remained dry. Skin warm and moist, even color throughout. Respirations at 24 and even, no episodes of apnea. Suction being used for increased secretions and scopolamine patch applied.
[2024-04-16] MEDS: MORPHINE 2 MG/ML inj IVP ×3 (21:28→23:46)
[2024-04-17] MEDS: MORPHINE 2 MG/ML inj IVP ×3 (00:54→10:02)
[2024-04-17] MEDS: HYDROmorphone 0.5 mg/0.5 ml inj IVP ×3 (02:19→06:26)
[2024-04-17] MEDS: MENTHOL 57 GM GEL 1 APPLIC TOPICAL (02:21)
[2024-04-17] MEDS: SODIUM CHLORIDE 0.9 % (FLUSH) 10 ML SYRINGE 5 ML IVF ×5 (04:26→23:58)
--- NOTE | 2024-04-17 06:45 | PC.NURSE ---
Shift note: Pt continue to be on comfort care with 1L of oxygen. Breath sound was noisy and labored at the start of the shift at 1900. Periodic suctioning, Morphine and scheduled Deluded given. Pt appeared calm this morning with slowed respiratory rate. and son were with pt tonight. Father asked if they can sleep in room with pt. Charge-nurse consulted about family's request and were told the room is not spacious enough to have extra recliner or bed for the two but they can be with pt. decided to sleep on the floor while son takes the recliner. Charge-nurse mentioned to them that sleeping on the floor may not be permitted but rather one of them can have the recliner while the other use the sofa at the east side. accepted to use the sofa. Around 0400, son appeared angry and according to charge-nurse requested for information to file a complaint. House sup asked to come to the floor and speak with son who was crying. Complaint form given and instruction how to file given by charge-nurse.
--- NOTE | 2024-04-17 07:53 | P.IMPN_ITS ---
Progress Note: A&P Assessment and plan (1) Need for comfort care: Problem details: presented with agitated delirium severe sepsis secondary to PNA, Bacillus bacteremia; transitioned to comfort care on 04/14; She may pass away in hospital in next 24 hours possibly. SW consulted greatly appreciate assistance if home with hospice is possibly needed if patient does not pass away in next 24-48 hours anticipated discharge Thursday if still in hospital continue morphine, ativan, fentanyl patch; scheduled rectal oxycontin; seroquel; scheduled IV dilaudid wean once stable regimen in place; many other prn for symtpom mgmt 04/17:Discharge planning: Met with and son in room regarding discharge planning. 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 no surgery. Status: Acute (6) History of atrial fibrillation: Status: Acute (7) History of pulmonary embolism: Status: Acute (8) COPD (chronic obstructive pulmonary disease): Status: Acute (9) Chronic pain syndrome: Problem details: chronic degenerative lumbar disease. Status: Acute Plan comfort care; awaiting SNF Subjective Date Seen: 04/17/24 Interval history: pt comfort care at bedside He is concerned about his son who was very close to his mom Patient appears to be comfortable this morning Exam Narrative: Exam Narrative: Gen: no acute distress HEENT: dry mmm CV: symetrical chest rise Lungs: non labored breathing Neuro: somnolent MSK: decreased muscle mass e
[2024-04-17] MEDS: HYDROmorphone 0.5 mg/0.5 ml inj 1 MG IVP ×3 (09:59→10:04)
[2024-04-17] MEDS: LORazepam 2 MG/ML inj IVP ×9 (10:08→21:44)
[2024-04-17] MEDS: MORPHINE 20 MG/ML **CONCENTRATE** ORAL PO ×5 (10:12→23:54)
[2024-04-17] MEDS: diazePAM 5 MG/ML inj 10 MG IV (10:18)
[2024-04-17] MEDS: HYDROmorphone 0.5 mg/0.5 ml inj 2 MG IVP ×8 (10:18→23:57)
[2024-04-17] MEDS: fentaNYL 100 MCG/2 ML inj 25 MCG IVP ×3 (10:22→15:35)
[2024-04-17] MEDS: GLYCOPYRROLATE 0.2 MG/ML INJ IVP (11:02)
[2024-04-17] MEDS: fentaNYL 50 MCG/HR PATCH 1 PATCH TRANSDERMA (13:02)
[2024-04-17] MEDS: fentaNYL 25 MCG/HR PATCH 1 PATCH TRANSDERMA (14:32)
[2024-04-17] MEDS: MORPHINE 4 MG/ML INJ IVP ×2 (17:11→21:43)
--- NOTE | 2024-04-17 17:27 | PC.NURSE ---
shift note: pt medicated for restlessness and increased resp rate. family at bedside
[2024-04-18] MEDS: MORPHINE 4 MG/ML INJ IVP ×2 (01:23→02:56)
[2024-04-18] MEDS: LORazepam 2 MG/ML inj IVP ×3 (01:24→04:55)
[2024-04-18] MEDS: SODIUM CHLORIDE 0.9 % (FLUSH) 10 ML SYRINGE 5 ML IVF ×3 (01:24→09:44)
[2024-04-18] MEDS: MORPHINE 20 MG/ML **CONCENTRATE** ORAL PO ×2 (04:55→09:41)
--- NOTE | 2024-04-18 05:39 | PC.NURSE ---
[id number] Pt comfortable during shift, see MAR for medication administration. T&R for comfort during night, tolerated fair. at bedside.
--- NOTE | 2024-04-18 09:38 | P.IMPN_ITS ---
Progress Note: A&P Assessment and plan (1) Need for comfort care: Problem details: presented with agitated delirium severe sepsis secondary to PNA, Bacillus bacteremia; transitioned to comfort care on 04/14; She may pass away in hospital in next 24 hours possibly. SW consulted greatly appreciate assistance if home with hospice is possibly needed if patient does not pass away in next 24-48 hours anticipated discharge Thursday if still in hospital continue morphine, ativan, fentanyl patch; scheduled rectal oxycontin; seroquel; scheduled IV dilaudid wean once stable regimen in place; many other prn for symtpom mgmt 04/17:Discharge planning: Met with and son in room regarding discharge planning. 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 Will remain in hospital for now. employment services director will have follow-up discussion with family today. Continue current medications, no suction, need to avoid agitation Status: Acute (2) Pneumonia: Problem details: severe sepsis secondary to pna and bacteremia - comfort cares only Status: Acute (3) Delirium: Problem details: agitated delirium; was given ketamine on 04/15 - sedate on comfort cares Status: Acute (4) Acute encephalopathy: Problem details: Sedate on comfort cares Status: Acute (5) Non-small cell cancer of right lung: Problem details: dx in 2021; s/p XRT and chemo. no surgery. - comfort cares only Status: Acute (6) History of atrial fibrillation: Problem details: Comfort cares only Status: Acute (7) COPD (chronic obstructive pulmonary disease): Problem details: Comfort cares only Status: Acute (8) Chronic pain syndrome: Problem details: chronic degenerative lumbar disease - comfort cares only Status: Acute Plan comfort care; awaiting SNF though patient may not survive transfer so will remain in hospital for now Time Spent With Patient Total time spent: Total time spent caring for the patient today was 30 minutes. This includes time spent for the visit reviewing the chart, time spent during the visit, time spent after the visit and documentation and planning in coordination of care. Subjective Date Seen: 04/18/24 Interval history: Continues on comfort cares. No events reported overnight. Respiratory Therapy reports there was an attempt to use suction yesterday for gurgling which ended up agitating the patient. Exam Narrative: Exam Narrative: PHYSICAL EXAM General: Sleeping, appears peaceful Cardiovascular: RRR Pulmonary: Rattling noted, on room air Skin: Warm, dry.
--- NOTE | 2024-04-19 06:25 | PC.NURSE ---
: T&R. Oral cares. No prn medication given. pt appeared comfortable throughout shift. and son at bedside majority of the shift.
[2024-04-19] MEDS: MORPHINE 20 MG/ML **CONCENTRATE** ORAL PO (10:18)
[2024-04-19] MEDS: HYDROmorphone 0.5 mg/0.5 ml inj 2 MG IVP ×4 (10:25→23:57)
[2024-04-19] MEDS: LORazepam 2 MG/ML inj IVP ×3 (10:31→21:52)
--- NOTE | 2024-04-19 11:58 | P.IMPN_ITS ---
Progress Note: A&P Assessment and plan (1) Need for comfort care: Problem details: presented with agitated delirium severe sepsis secondary to PNA, Bacillus bacteremia; transitioned to comfort care on 04/14; She may pass away in hospital in next 24 hours possibly. SW consulted greatly appreciate assistance if home with hospice is possibly needed if patient does not pass away in next 24-48 hours anticipated discharge Thursday if still in hospital continue morphine, ativan, fentanyl patch; scheduled rectal oxycontin; seroquel; scheduled IV dilaudid wean once stable regimen in place; many other prn for symtpom mgmt 04/17:Discharge planning: Met with and son in room regarding discharge planning. 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 Will remain in hospital for now. park services specialist will have follow-up discussion with family today. Continue current medications, no suction, need to avoid agitation 04/19: Continue hospital comfort care course Status: Acute (2) Pneumonia: Problem details: severe sepsis secondary to pna and bacteremia - comfort cares only Status: Acute (3) Delirium: Problem details: agitated delirium; was given ketamine on 04/15 - sedate on comfort cares Status: Acute (4) Acute encephalopathy: Problem details: Sedate on comfort cares Status: Acute (5) Non-small cell cancer of right lung: Problem details: dx in 2021; s/p XRT and chemo. no surgery. - comfort cares only Status: Acute (6) History of atrial fibrillation: Problem details: Comfort cares only Status: Acute (7) COPD (chronic obstructive pulmonary disease): Problem details: Comfort cares only Status: Acute (8) Chronic pain syndrome: Problem details: chronic degenerative lumbar disease - comfort cares only Status: Acute Time Spent With Patient Total time spent: Total time spent caring for the patient today was 30 minutes. This includes time spent for the visit reviewing the chart, time spent during the visit, time spent after the visit and documentation and planning in coordination of care. Subjective Date Seen: 04/19/24 Interval history: Son is at bedside this morning. Morning report is that patient has had no urine output in approximately the last 24 hours. Continues to receive oral medications for comfort. Exam Narrative: Exam Narrative: PHYSICAL EXAM General: Sleeping, appears peaceful Cardiovascular: RRR Pulmonary: Rattling noted, on room air Skin: Warm, dry.
[2024-04-19] MEDS: SCOPOLAMINE 1 MG/3 DAY PATCH 1 PATCH TRANSDERMA (12:28)
[2024-04-19] MEDS: HYOSCYAMINE SULFATE 0.125 MG TAB SUBLINGUAL ×2 (20:15→23:54)
[2024-04-19] MEDS: SODIUM CHLORIDE 0.9 % (FLUSH) 10 ML SYRINGE 5 ML IVF (21:33)
[2024-04-19] MEDS: MENTHOL 57 GM GEL 1 APPLIC TOPICAL (21:35)
[2024-04-20] MEDS: LORazepam 2 MG/ML inj IVP (01:20)
[2024-04-20] MEDS: MORPHINE 4 MG/ML INJ IVP ×11 (01:33→18:23)
[2024-04-20] MEDS: HYDROmorphone 0.5 mg/0.5 ml inj 2 MG IVP (01:43)
[2024-04-20] MEDS: SODIUM CHLORIDE 0.9 % (FLUSH) 10 ML SYRINGE 5 ML IVF ×4 (04:53→22:03)
--- NOTE | 2024-04-20 06:49 | PC.NURSE ---
End of shift note [id number]: Pt continues on comfort cares with staff providing repositioning and oral cares. PRN Lorazepam, Dilaudid and Morphine administered throughout the shift to promote comfort and also per family request. Staff did spend time with family providing education regarding end of life process. Pt incontinent of bladder four times throughout the shift. IV to L wrist patent and SL. Pt noted to have noisy respirations and gurgling for most of the shift- treated with PRN Levsin and Morphine. Pt has mottling present to coccyx and bilateral lower extremities. Juan Francisco has been present at bedside and son Isael has been present at bedside most of shift.
--- NOTE | 2024-04-20 11:45 | PM.IMPN1 ---
Progress Note: A&P Assessment and plan (1) Need for comfort care: Problem details: Presented with agitated delirium severe sepsis secondary to PNA, Bacillus bacteremia Transitioned to comfort care on 04/14. Believed unlikely to survive transfer to hospice facility. Remains in hospital for comfort cares. No further management of chronic medical comorbidities. Continue morphine, ativan, fentanyl patch; scheduled HS seroquel; prn haldol Status: Acute Time Spent With Patient Total time spent: Total time spent caring for the patient today was 30 minutes. This includes time spent for the visit reviewing the chart, time spent during the visit, time spent after the visit and documentation and planning in coordination of care. Subjective Date Seen: 04/20/24 Interval history: Patient is lying in bed, has just been repositioned. Breathing appears more agonal this morning. Family has left for the morning. No events reported overnight. Continues on comfort cares for end of life. Exam Narrative: Exam Narrative: PHYSICAL EXAM General: Sleeping, more agonal breathing Cardiovascular: RRR Pulmonary: Agonal breathing Skin: Warm, dry.
[2024-04-20] MEDS: fentaNYL 25 MCG/HR PATCH 1 PATCH TRANSDERMA (14:00)
[2024-04-20] MEDS: fentaNYL 50 MCG/HR PATCH 1 PATCH TRANSDERMA (14:05)
--- NOTE | 2024-04-20 15:52 | PC.NURSE ---
End of shift: Turn and repo Q2. PRN oxy, and morphine administered. Fent. patches removed and replaced. pt appeared comfortable throughout shift. and son at bedside.
[2024-04-20] MEDS: MORPHINE 20 MG/ML **CONCENTRATE** ORAL PO ×2 (20:21→22:03)
--- NOTE | 2024-04-20 22:46 | PC.NURSE ---
End of Shift: Turn and reposition and oral cares q2h. Mepilex to coccyx and spine. PRN Morphine for comfort. Family OK with trying oral morphine. Fentanyl and scopolamine patches in place.
[2024-04-21] MEDS: LORazepam 2 MG/ML inj IVP (00:44)
[2024-04-21] MEDS: MORPHINE 20 MG/ML **CONCENTRATE** ORAL PO ×6 (00:44→06:19)
[2024-04-21] MEDS: SODIUM CHLORIDE 0.9 % (FLUSH) 10 ML SYRINGE 5 ML IVF ×3 (00:44→09:42)
[2024-04-21] MEDS: MORPHINE 4 MG/ML INJ 10 MG IVP (09:12)
[2024-04-21] MEDS: LORazepam 1 MG TABLET PO (09:26)
[2024-04-21] MEDS: MORPHINE 4 MG/ML INJ IVP (09:41)
[2024-04-21] MEDS: MORPHINE 10 MG/ML inj IVP (10:19)
--- NOTE | 2024-04-21 11:20 | PM.DN ---
Pronouncement Note Date and Time of Date of : 04/21/24 Time of : 10:20 PCOD Preliminary cause of : Sepsis due to pneumonia Contributing Factors (1) Delirium: (2) Acute encephalopathy: (3) Hypotension: (4) Chronic, continuous use of opioids: Summary Additional details: Patient has remained on comfort cares since admission with utilization of most recently fentanyl patch, morphine, and ativan. Has had agonal breathing >24 hours. No urine output >24 hours. Additional Data Confirmation of : no pulse, no respirations and no heart sounds Family: contacted Additional persons at bedside: social director Attending/PCP notified?: No Attending physician: Prema Kramer MD Time Seen by Provider: :20 Date Seen: 04/21/24 Was code activated?: No Autopsy requested?: No grey goods examiner notified?: Yes Organ bank notified?: Yes Advance directives: No
--- NOTE | 2024-04-21 13:23 | PC.NURSE ---
Addendum entered by Uma Guerrero RN 04/21/24 14:18: parts picker time was at 1320 Original Note: : Patient at 1020 am, RN at bedside when she took her final breath. Patient was administered morphine PRN and was comfortable. Patients family was notified of passing and was able to say their goodbyes. [facility] was contacted at 1030 and patient was released. Patient's scopalmine patch removed and discarded. 75mcg fent. patches removed and wasted in omnicell, discarded in med room sharps container. Patient was cleaned up and IV was removed.
== END 2024-04-21 13:20 | disposition expired | DRG 871 ==
LOC: ED 04-14 00:16 → MEDSURG 04-14 04:50
PROVIDERS: Emergency Medicine; Student in an Organized Health Care Education/Training Program; Admitting Provider Hospitalist; Emergency Provider Emergency Medicine; PCP Family Medicine; Visit Provider Emergency Medicine
DX: A41.89 Other specified sepsis (principal); G92.8 Other toxic encephalopathy; J18.9 Pneumonia, unspecified organism; G93.41 Metabolic encephalopathy; F11.921 Opioid use, unspecified with intoxication delirium; C34.91 Malignant neoplasm of unspecified part of right bronchus or lung; R65.20 Severe sepsis without septic shock; R40.0 Somnolence; F32.A Depression, unspecified; B96.89 Other specified bacterial agents as the cause of diseases classified elsewhere; F03.90 Unspecified dementia, unspecified severity, without behavioral disturbance, psychotic disturbance, mood disturbance, and anxiety; Z79.899 Other long term (current) drug therapy; F11.90 Opioid use, unspecified, uncomplicated; Z86.79 Personal history of other diseases of the circulatory system; Z51.5 Encounter for palliative care; Z86.711 Personal history of pulmonary embolism; Z79.01 Long term (current) use of anticoagulants; J44.9 Chronic obstructive pulmonary disease, unspecified; G89.4 Chronic pain syndrome; M51.36 Other intervertebral disc degeneration, lumbar region
CPT/HCPCS: 36415; 51702; 51798; 70450; 71046; 71250; 80048; 80053; 81001; 81003; 82803; 83605; 83735; 84145; 84443; 84484; 85025; 87040; 87449; 87631; 87899; 99284; 99285; A9270; G0378; J0456; J0696; J1170; J1200; J1630; J2060; J2270; J3010; J3360; J3490; J7030; J7050